=== PATIENT | male | born 2000 | race Caucasian/White ===

== ENCOUNTER 2023-12-15 08:53 | Emergency (ER) | payer SELFPAY ==
[2023-12-15 08:53] VITALS: BP 149/91; PULSE 118; RESP 20; TEMP 36.3; O2SAT 97; BMI 22.3
--- NOTE | 2023-12-15 09:08 | EX.ED.VIS.UR ---
HPI HPI - URI History of Present Illness Chief Complaint: Cold Sx Informant: patient Narrative Narrative: Patient has had an illness with fever for the past 2 days. Multiple sick contacts at work with illness that have been out recently because of that. He has had a nonproductive cough along with some burning in his chest only when he coughs. No pleuritic symptoms if he is not coughing and no dyspnea. Initially fever was in the 100 range, this morning was 103.9. He has had a sore throat and some congestion with it, as well as vomiting. He states he has been drinking fluids, having trouble keeping it down but is drinking. He is urinating. ROS ROS ED Constitutional Constitutional ED: Reports body ache(s), chills, fatigue, fever(s), headache(s) and malaise Eyes Eyes: Denies change in vision or diplopia ENT ENT ED: Reports nasal congestion and sore throat Cardiovascular Cardiovascular: Reports as per HPI and chest pain; Denies leg edema, palpitations or radiating jaw, neck or arm pain Respiratory/Chest Respiratory/Chest: Reports cough; Denies dyspnea or dyspnea on exertion Gastrointestinal Gastrointestinal: Reports nausea and vomiting; Denies abdominal pain or diarrhea Genitourinary Genitourinary ED: Denies dysuria or hematuria Musculoskeletal Musculoskeletal: Denies back pain or neck pain Integumentary Denies abscess or rash Neurologic Neurologic: Reports headache(s); Denies paresthesias or weakness Psychiatric Psychiatric: Denies anxiety or suicidal thoughts PFSH PFSH Medical History no medical history no medical history Allergy/AdvReac Type Severity Reaction Status Date / Time No Known Allergies Allergy Verified 12/15/23 08:55 Social History Smoking Status: Never smoker EXAM Physical Exam Const Vital Signs: 12/15/23 08:53 Temperature 97.4 F L Temperature Source Temporal Pulse Rate 118 H Respiratory Rate 20 H Blood Pressure 149/91 H Blood Pressure Mean 110 Pulse Ox 97 Oxygen Delivery Method Room Air Positive well nourished and well developed Constitutional Narrative: Malaised-appearing, no distress General Appearance ED: well developed and NAD HEENT Reports moist mucous membranes HEENT Narrative: Posterior oropharynx with diffuse mild erythema no exudates or petechia. No tonsillar asymmetry/enlargement/exudates. No trismus. normocephalic and atraumatic Eyes PERRL and EOMs intact bilaterally Neck full ROM, no lymphadenopathy, supple and no meningeal signs Resp normal respiratory effort and clear to auscultation bilaterally Cardio regular rate, regular rhythm and no murmurs GI non-tender and non-distended Auscultation: normoactive bowel sounds Palpation: soft Back/Spine no CVA tenderness General Back: other FROM Extremity normal to inspection and no calf tenderness General Extremety ED: Negative for edema, pulses abnormal or tenderness General Extremity: Negative for edema or pulses abnormal Neuro oriented x3, CN's II-XII intact bilaterally and no sensory deficits noted Sensorium / Orientation: awake and alert Motor Exam: strength 5/5 throughout Skin no rashes or lesions noted and no wounds MDM MDM MDM Narrative Medical decision making narrative: Very likely viral syndrome here. His pulse ox is 97% room air his lungs are clear to auscultation throughout and he is not dyspneic so I do not think he needs a chest x-ray this does not sound like pneumonia due to all of this. More likely to be viral in etiology than strep, so COVID/influenza/RSV swab was sent and he was offered treatment options. He was offered IV fluids, oral ibuprofen, and Zofran/Toradol. He opted for IM Toradol with an oral Zofran and no IV. This was given. I felt a little better. His swab is positive for influenza A, supporting the lack of need for a chest x-ray. Patient given instructions for supportive care and a work note. Discharge Plan Triage Chief Complaint: Cold Sx ED Provider: Julio Vega Dx/Rx/DC Orders Clinical Impression: Influenza A Instructions: ED Influenza (Adult) Stand Alone Forms: ED Work / School Excuse Primary Care Provider: Care Physician,No Primary Referrals: Doctor,Your [Non-Staff] - As Needed Disposition Disposition: Home, Self Care
[2023-12-15] MEDS: Ketorolac 60 MG/2 ML Vial IM (09:16)
--- OUTSIDE RECORDS SUMMARY | 2023-12-15 09:16 | XMS RPT_ITS | CCD ---
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 Name Role Phone POMEREID, [facility] Admitting Unava ilable [facility], [facility] Attending Unava ilable [facility], [facility] Primary Care Unava ilable KENNY, DR RUSTY Dunn Admitting Unavaila ble KENNY, DR RUSTY Dunn Attending Unavaila ble KENNY, DR RUSTY Dunn Primary Care Unavaila ble KENNY, DR RUSTY Dunn Admitting Unavaila ble KENNY, DR RUSTY Dunn Attending Unavaila ble KENNY, DR RUSTY Dunn Primary Care Unavaila ble BROWN, CHARISSA Attending Unavailable Problems Problem Classification Problem Date Documented Da te Episodic/Chronic Acute and chronic tonsillitis (1 source) Acute tonsillitis, unspecified; Translations: [Acute tonsillitis, unspecified] Onset: 04-25-2023 Episodic Esophageal disorders (1 source) Gastro-esophageal reflux disease without esophagitis; Translations: [Gastro-esophageal reflux disease without esophagitis] Onset: 04-25-2023 Chronic Other upper respiratory disease (1 source) Other seasonal allergic rhinitis; Translations: [Other seasonal allergic rhinitis] Onset: 04-25-2023 Chronic Otitis media and related conditions (1 source) Acute suppurative otitis media without spontaneous rupture of ear drum, bilateral; Translations: [Acute suppurative otitis media without spontaneous rupture of ear drum, bilateral] Onset: 04-25-2023 Episodic Results Test Name Value Interpretation Reference Range Facil ity Encounters Encounter Date Encounter Type Care Provider Facility Start: 04-25-2023 End: 04-25-2023 ambulatory CHARISSA MORELOS [facility] Start: 10-21-2021 End: 10-21-[address] [facility] Start: 10-11-2021 End: 10-11-[address] RUSTY COX [facility] Start: 11-30-2020 End: 11-30-2020 ambulatory [facility] Payers Date Payer Category Payer Unknown [id number] 2002 Unknown [id number] Unknown [id number] Summary Purpose Family History No Family History Records FoundNo Family History Records FoundNo Family History Records Found Advance Directives No Advanced Directives Records FoundNo Advanced Directives Records FoundNo Advanced Directives Records Found Additional Source Comments (unrecognized sect ion and content) No Status Records FoundNo Status Records FoundNo Status Records Found INFORMATION SOURCE (unrecogn ized section and content) DATE CREATED AUTHOR AUTHOR'S ORGANIZ ATION 10/22/2021 [facility] DATE CREATED AUTHOR AUTHOR'S ORGANIZ ATION 04/26/2023 [facility] FOR RECORDS PERTAINING TO PATIENTS WHO ARE OR HAVE BEEN ENROLLED IN A CHEMICAL DEPENDENCY/SUBSTANCEABUSE PROGRAM, SOME INFORMATION MAY BE OMITTED. This clinical summary was aggregated from multiple sources. Caution should be exercised in using it in the provision of clinical care. This summary normalizes information from multiple sources, and as a consequence, information in this document may materially change the coding, format and clinical context of patient data. In addition, data may be omitted in some cases. CLINICAL DECISIONS SHOULD BE BASED ON THE PRIMARY CLINICAL RECORDS. [employer] provides no warranty or guarantee of the accuracy or completeness of information in this document.
[2023-12-15] MEDS: Ondansetron ODT 4 MG Tablet 8 MG PO (09:17)
[2023-12-15 11:14] VITALS: BP 123/75; PULSE 87; RESP 16; TEMP 37; O2SAT 99
== END 2023-12-15 11:15 | disposition home or self-care (01) ==
PROVIDERS: Emergency Provider Emergency Medicine; Visit Provider Emergency Medicine
DX: J10.1 Influenza due to other identified influenza virus with other respiratory manifestations (principal)
CPT/HCPCS: 87631; 96372; 99282

== ENCOUNTER 2025-10-03 19:35 | Emergency (ER) | payer BC, SELFPAY ==
[2025-10-03 19:35] VITALS: BP 145/94; PULSE 83; RESP 14; TEMP 36.2; O2SAT 98; BMI 22.4
--- NOTE | 2025-10-03 20:00 | CT_ITS ---
PROCEDURE: ABDOMEN/PELVIS WITHOUT CONT 10/03/2025 REASON FOR EXAM: FLANK PAIN TECHNIQUE: Procedure Code: CTABDPEL Modality: CT Procedure: ABDOMEN/PELVIS WITHOUT CONT Noncontrast technique limits evaluation of the abdominal and pelvic viscera. Coronal and Sagittal reconstruction series were provided. One or more dose reduction techniques were used (e.g., Automated exposure control, adjustment of the mA and/or kV according to patient size, use of iterative reconstruction technique). RADIATION DOSE SUMMARY: DLP: 401.87 mGycm COMPARISON: None available FINDINGS: Lung bases: The lung bases are clear. Liver: Normal in size. Normal morphology. Gallbladder: Contracted gallbladder. No biliary ductal dilatation. Spleen: Unremarkable. Pancreas: Unremarkable. Adrenals: Unremarkable. Kidneys: Asymmetrically enlarged left kidney. Left nephrostomy tube extends the region of the pelvis. Left hydronephrosis and mild left proximal hydroureter. There is a nonspecific punctate focus of hypodensity in the left lower pole which appears cortically located (series 2, image 66). No right hydroureteronephrosis or nephroureterolithiasis. Urinary bladder: Unremarkable. Bowel: The stomach is unremarkable. The small and large bowel are normal in caliber. No evidence of small bowel obstruction. Appendix: Unremarkable. Lymph nodes: No lymphadenopathy. Vasculature: No abdominal aortic aneurysm. Peritoneum / Retroperitoneum: No ascites. Reproductive Organs: Prostate is normal in size. Symmetrical seminal vesicles. Bones: No aggressive osseous lesions. CT/Abdomen/Pelvis without Cont IMPRESSION: 1. Left hydronephrosis. A left nephrostomy tube is extends to the left renal p gavin. 2. Nonspecific punctate focus hypodensity in the left lower pole which appears cortically located. Reading Location: [id number]
--- NOTE | 2025-10-03 20:01 | EDS_ITS ---
HPI History of Present Illness Chief Complaint: Other, Pain/Inj Informant: patient Onset/Context/Timing Onset: Today Context: Sudden Onset Timing: Intermittent Quality: Sharp Location: Left flank Worsened by: Nothing Relieved by: Nothing Narrative Narrative: Patient presents with possible nephrostomy tube displacement. Patient noted that the sutures around his nephrostomy tube popped out. Patient states that the nephrostomy tube had been pulled out approximately 1 inch. Patient states it is still collecting urine. Patient admits to some dysuria. Patient denies any fevers or chills. Patient denies any nausea or vomiting. Patient states he did have an episode where he felt his heart racing and felt short of breath. Patient states nothing makes his symptoms worse and nothing makes it better. [facility] Medical History (Updated 10/03/25 @ 23:[address] Wolf Frausto DO) Ureteral reflux Nephrostomy present Home Medications ?Medication ?Instructions ?Recorded ?Last Taken ?Type ciprofloxacin HCl 500 mg tablet 500 mg PO BID #20 TABL ETS 10/03/25 Unknown Rx Allergy/AdvReac Type Severity Reaction Status Date / Time No Known Allergies Allergy Verified 10/03/25 19:37 Surgical History (Updated 10/03/25 @ 23:[address] Wolf Frausto DO) History of urologic surgery Social History Smoking Status: Never smoker ROS ROS ED Constitutional Constitutional ED: Denies chills or fever(s) Eyes Eyes: Denies blurry vision or change in vision ENT ENT ED: Denies rhinorrhea or sore throat Cardiovascular Cardiovascular: Reports palpitations and racing heartbeat; Denies chest pain Respiratory/Chest Respiratory/Chest: Reports dyspnea; Denies cough Gastrointestinal Gastrointestinal: Denies nausea or vomiting Genitourinary Genitourinary ED: Reports dysuria; Denies hematuria Musculoskeletal Musculoskeletal: Reports back pain; Denies neck pain Integumentary Denies abscess or rash Neurologic Neurologic: Denies headache(s) or weakness Allergic/Immunologic Allergic/Immunologic ED: Denies mouth swelling or urticaria EXAM Physical Exam Const Vital Signs: 10/03/25 19:35 10/03/25 20:11 Temperature 97.1 F L Temperature Source Temporal Pulse Rate 83 Respiratory Rate 14 Respiratory Effort Normal Respiratory Pattern Normal Blood Pressure 145/94 H Blood Pressure Mean 111 Pulse Ox 98 Oxygen Delivery Method Room Air Positive well nourished and well developed Constitutional Narrative: BMI is 22.4. General Appearance ED: well developed and NAD HEENT Reports moist mucous membranes Neck supple and no JVD Resp normal respiratory effort and clear to auscultation bilaterally Cardio regular rate and regular rhythm GI non-tender and non-distended Palpation: soft Back/Spine Back/Spine Narrative: Nephrostomy tube is in place. There is minimal tenderness. Neuro oriented x3, CN's II-XII intact bilaterally and no sensory deficits noted Sensorium / Orientation: alert Motor Exam: strength 5/5 throughout Psych mental status grossly normal MDM MDM MDM Narrative Medical decision making narrative: Differential diagnosis includes urinary tract infection, displaced nephrostomy tube, pyelonephritis, and retroperitoneal hematoma. CT scan of the abdomen and pelvis will be obtained to assess for retroperitoneal hematoma and displacement of the nephrostomy tube. CBC will be obtained to assess for leukocytosis and anemia. Basic metabolic profile will be obtained to assess for electrolyte abnormality and renal function. Urinalysis will be obtained to assess for urinary tract infection and hematuria. Lab Data Attestation: I reviewed the patient's lab results. Lab results narrative: CBC was reviewed and was within normal limits. Basic metabolic profile was reviewed and was within normal limits. Urinalysis was reviewed. Leukocyte esterase was 500. There are greater than 100 white blood cells and 3+ bacteria. Labs: Laboratory Results - last 24 hr 10/03/25 20:09 WBC 6.7 RBC 5.26 Hgb 15.1 Hct 47.3 MCV 89.9 MCH 28.7 MCHC 31.9 L RDW Std Deviation 40.4 RDW Coeff of Humera 12.3 Plt Count 308 MPV 11.5 Immature Gran % (Auto) 0.300 Neut % (Auto) 49.6 Lymph % (Auto) 34.6 Norman % (Auto) 11.0 H Eos % (Auto) 3.9 Baso % (Auto) 0.6 Absolute Neuts (auto) 3.3 Absolute Lymphs (auto) 2.32 Nucleated RBC % 0 Sodium 142 Potassium 4.1 Chloride 104 Carbon Dioxide 26.2 Anion Gap 12 BUN 10 Creatinine 1.08 Estim Creat Clear Calc 116.85 Est GFR (MDRD) Non-Af 100 BUN/Creatinine Ratio 9.1 L Glucose 83 Calcium 9.6 Urine Color Straw Urine Clarity Cloudy Urine pH 6.5 Ur Specific [place] 1.015 Urine Protein 100 H Urine Glucose (UA) Normal Urine Ketones Negative Urine Occult Blood 25 H Urine Nitrite Negative Urine Bilirubin Negative Urine Urobilinogen Normal Ur Leukocyte Esterase 500 H Urine RBC 5-10 SEEN Urine WBC >100 SEEN Ur Squamous Epith Cells 0-5 SEEN Urine Bacteria 3+ Urine Mucus 0 SEEN Radiography Diagnostic Testing: Clinical Impression(s) from Imaging Studies Abdomen/Pelvis CT 10/03/25 20:00 IMPRESSION: 1. Left hydronephrosis. A left nephrostomy tube is extends to the left renal pelvis. 2. Nonspecific punctate focus hypodensity in the left lower pole which appears cortically located. Reading Location: [facility] CT scan of the abdomen and pelvis was obtained. There is a left nephrostomy tube in the left renal pelvis. There is mild left hydronephrosis and proximal h ydroureter. There is a nonspecific hypodensity in the left lower pole. This was interpreted by the radiologist. I also independently reviewed the images and did not see any evidence of retroperitoneal hematoma, free air, or free fluid. Additional Tests and Interventions Additional Tests or Interventions: Urine culture was ordered. Treatment and Re-Evaluation :: Patient was given IV fluids. Patient was given a dose of Rocephin here. Patient was given a prescription for Cipro. Patient was instructed to follow-up with his primary care physician and urologist in 5 to 7 days. Patient was instructed to return if worse in any way. Patient understood and was agreeable with the plan. All questions were answered. Discharge Plan Triage Chief Complaint: Other, Pain/Inj ED Provider: Wolf Frausto Dx/Rx/DC Orders Clinical Impression: Urinary tract infection, History of insertion of nephrostomy tube Instructions: ED Bladder Infection, Male (Adult), ED Pyelonephritis, Male (Adult) Prescriptions: New ciprofloxacin HCl 500 mg tablet 500 mg PO BID Qty: 20 0RF Primary Care Provider: Care Physician,No Primary Referrals: Care Physician,No Primary [Primary Care Provider, Medical] Activity Restrictions/Additional Instructions: Take the antibiotics as prescribed until gone. Follow-up with Dr. Silva in 3 to 5 days. Print Language: Citizen Of [place] Disposition Disposition: Home, Self Care
[2025-10-03] MEDS: 0.9% Normal Saline (1000mL) 1,000 ML 1000 ML IV (20:10)
[2025-10-03 20:14] LABS: Mucous, Urine 0 SEEN /hpf (<or=2+)
[2025-10-03 20:16] LABS: Hematocrit 47.3 % (40-54); Hemoglobin 15.1 g/dL (13.0-16.5); Immature Granulocytes Count 0.020 X10^3/uL (0.0-0.0); Mean Corp Hgb Conc 31.9 g/dL (32-36); Mean Corpuscular Volume 89.9 fL (80-94); Mean Platelet Vol. 11.5 fl (6.2-12.0); NRBC Flagged by Analyzer 0 % (0-5); Platelet Count 308 K/mm3 (150-450); RBC Distribution Width CV 12.3 % (11.6-14.6); RBC Distribution Width SD 40.4 fl (35.1-43.9); Red Blood Count 5.26 M/mm3 (4.6-6.2); White Blood Count 6.7 K/mm3 (4.4-11.0)
[2025-10-03 20:17] LABS: Color, Urine Straw (Yellow); Glucose, Dipstick Normal (Normal); Ketone-Dipstick Negative (Negative); Leukocyte Esterase-Dipstick 500 /ul (Negative); Nitrite-Dipstick Negative (Negative); Occult Blood-Urine 25 /ul (Negative); Protein-Dipstick 100 mg/dl (Negative); Specific Gravity, Urine 1.015 (1.002-1.030); Urine Bilirubin Dipstick Negative (Negative)
[2025-10-03 20:25] LABS: Red Blood Cells-Urine 5-10 SEEN /hpf (0-5); Squamous Epithelial Cells - UA 0-5 SEEN /hpf (0-5)
[2025-10-03 20:35] LABS: Anion Gap 12 (7-18); BUN 10 mg/dL (4-19); BUN/Creat Ratio 9.1 RATIO (10-20); Calcium,Total 9.6 mg/dL (7.6-11.0); Carbon Dioxide 26.2 mmol/L (20.0-29.0); Chloride 104 mmol/L (96-106); Estimated Creatinine Clearance 116.85 ml/min (50-250); Glucose 83 mg/dL (70-99); Potassium 4.1 mmol/L (3.5-5.1)
--- OUTSIDE RECORDS SUMMARY | 2025-10-03 21:00 | XMS RPT_ITS | CCD ---
Author Organization [facility] Care Team Providers Care Teamcenter Solution Architect Name Role Phone TAMYCHARISSA Attending Unavailable Julio Vega Attending Unavailable Care Physician, No Primary Primary Care Unava marley Villa MD, Irvin Galeano Primary Care Provider [phone] Alia BRIONES, Sagar Primary Care Provider FRANKIE BRIONES, DR BARRY Corley Attending Unavailable Basilio Gould MD Unavailable [phone] Basilio Gould MD Unavailable LATOUF, BUTROS Primary Care Unavailable LATOUF, BUTROS Primary Care Unavailable BRYANNA, CHRISTOPHER J Attending Unavailable LATOUF, BUTROS Primary Care Unavailable BRYANNA, CHRISTOPHER J Admitting Unavailable BRYANNA, CHRISTOPHER J Attending Unavailable LATOUF, BUTROS Primary Care Unavailable BRYANNA, CHRISTOPHER J Attending Unavailable LATOUF, BUTROS Primary Care Unavailable BRYANNA, CHRISTOPHER J Attending Unavailable LATOUF, BUTROS Primary Care Unavailable BRYANNA, CHRISTOPHER J Referring Unavailable LATOUF, BUTROS Primary Care Unavailable BRYANNA, CHRISTOPHER J Referring Unavailable LATOUF, BUTROS Primary Care Unavailable BRYANNA, CHRISTOPHER J Attending Unavailable LATOUF, BUTROS Primary Care Unavailable BRYANNA, CHRISTOPHER J Admitting Unavailable RBYANNA, CHRISTOPHER J Attending Unavailable LATOUF, BUTROS Primary Care Unavailable BRYANNA, CHRISTOPHER J Attending Unavailable LATOUF, BUTROS Primary Care Unavailable BRYANNA, CHRISTOPHER J Attending Unavailable LATOUF, BUTROS Primary Care Unavailable LATOUF, BUTROS Primary Care Unavailable BRYANNA, CHRISTOPHER J Referring Unavailable LATOUF, BUTROS Primary Care Unavailable BRYANNA, CHRISTOPHER J Attending Unavailable LATOUF, BUTROS Primary Care Unavailable BRYANNA, CHRISTOPHER J Attending Unavailable LATOUF, BUTROS Primary Care Unavailable PICCARI, ANANDA M Attending Unavailable LATOUF, BUTROS Primary Care Unavailable PAT WILL Attending Unavailable LATOUF, BUTROS Primary Care Unavailable PICCARI, ANANDA M Referring Unavailable LATOUF, BUTROS Primary Care Unavailable PICCARI, ANANDA M Referring Unavailable LATOUF, BUTROS Primary Care Unavailable PICCARI, ANANDA M Referring Unavailable LATOUF, BUTROS Primary Care Unavailable PICCARI, ANANDA M Referring Unavailable LATOUF, BUTROS Primary Care Unavailable PICCARI, ANANDA M Referring Unavailable LATOUF, BUTROS Primary Care Unavailable SIMIN JONES Attending Unavail able LATOUF, BUTROS Primary Care Unavailable NEWSOME, CILFTON Attending Unavailable SELF, SELF Referring Unavailable SWEIGERT, RENA E Attending Unavailable SWEIGERT, RENA E Referring Unavailable SELF, SELF Referring Unavailable SWEIGERT, RENA E Attending Unavailable SELF, SELF Referring Unavailable SWEIGERT, RENA E Attending Unavailable NEWSOME, CLIFTON Attending Unavailable NEWSOME, CLIFTON Referring Unavailable SELF, SELF Referring Unavailable NEWSOME, CLIFTON Attending Unavailable NEWSOME, CLIFTON Attending Unavailable LATOUF, BUTROS Referring Unavailable NEWSOME, CLIFTON Referring Unavailable NEWSOME, CLIFTON Attending Unavailable NEWSOME, CLIFTON Attending Unavailable SELF, SELF Referring Unavailable SHELBY DAMICO Attending Unavailable IHISSCHEDULE, INTERVENTIONAL RAD Admitting Unavailable SWEIGERT, RENA E Referring Unavailable JESSICA, BRANDON S Admitting Unavailable JESSICABRANDON S Attending Unavailable SELF, SELF Referring Unavailable BRANDON SCHWARZ S Attending Unavailable CLIFTON NEWSOME Referring Unavailable SAGAR ROJO MD Consulting Unavailable SAGAR ROJO MD Referring Unavailable KENNY, RUSTY E Primary Care Unavailable KENNY RUSTY E Attending Unavailable KENNY, RUSTY E Admitting Unavailable PROVIDER, UNKNOWN Consulting Unavailable PROVIDER, UNKNOWN Consulting Unavailable PROVIDER, UNKNOWN Consulting Unavailable DONI MATHIS Primary Care Unavailable SAGAR ROJO MD Consulting Unavailable SAGAR ROJO MD Referring Unavailable DONI MATHIS Admitting Unavailable DONI MATHIS Attending Unavailable PROVIDER, UNKNOWN Consulting Unavailable PROVIDER, UNKNOWN Consulting Unavailable PROVIDER, UNKNOWN Consulting Unavailable COVERDALE, JUMA BRIONES Attending Unavailable COVERDAJUMA DAY MD Admitting Unavailable SAGAR ROJO MD Referring Unavailable SAGAR ROJO MD Consulting Unavailable COVERDALEJUMA MD Primary Care Unavailable PROVIDER, UNKNOWN Consulting Unavailable PROVIDER, UNKNOWN Consulting Unavailable PROVIDER, UNKNOWN Consulting Unavailable DOYLE STORM DO Attending Unavailable DOYLE STORM DO Admitting Unavailable SAGAR ROJO MD Consulting Unavailable DOYLE STORM DO Primary Care Unavailable PROVIDER, UNKNOWN Consulting Unavailable PROVIDER, UNKNOWN Consulting Unavailable PROVIDER, UNKNOWN Consulting Unavailable MANOJ MORALES JR Attending Unavailable MANOJ MORALES JR Admitting Unavailable MANOJ MORALES JR Primary Care Unavailable SAGAR ROJO MD Referring Unavailable SAGAR ROJO MD Consulting Unavailable RUSTY COX Primary Care Unavailable RUSTY COX Attending Unavailable RUSTY COX Admitting Unavailable PROVIDER, UNKNOWN Consulting Unavailable PROVIDER, UNKNOWN Consulting Unavailable PROVIDER, UNKNOWN Consulting Unavailable DONI MATHIS Admitting Unavailable SAGAR ROJO MD Referring Unavailable SAGAR ROJO MD Consulting Unavailable DONI MATHIS Primary Care Unavailable DONI MATHIS Attending Unavailable PROVIDER, UNKNOWN Consulting Unavailable PROVIDER, UNKNOWN Consulting Unavailable PROVIDER, UNKNOWN Consulting Unavailable VIKTOR RAMOS Attending Unavailable VIKTOR RAMOS Admitting Unavailable SAGAR ROJO MD Consulting Unavailable SAGAR ROJO MD Referring Unavailable VIKTOR RAMOS Primary Care Unavailable PROVIDER, UNKNOWN Consulting Unavailable PROVIDER, UNKNOWN Consulting Unavailable PROVIDER, UNKNOWN Consulting Unavailable AMENA YANCEY Attending Unavailable AMENA YANCEY Admitting Unavailable AMENA YANCEY Primary Care Unavailable VAIBHAV SORIA Attending Unavailable VAIBHAV SORIA Admitting Unavailable VAIBHAV SORIA Primary Care Unavailable SAGAR ROJO MD Attending Unavailable SAGAR ROJO MD Admitting Unavailable SAGAR ROJO MD Primary Care Unavailable SAGAR ROJO MD Consulting Unavailable PROVIDER, UNKNOWN Consulting Unavailable PROVIDER, UNKNOWN Consulting Unavailable PROVIDER, UNKNOWN Consulting Unavailable Allergies Allergy Classification Reported Allergen(s) Allergy Type Date of Onset Reaction(s) Facility (20 sources) HYDROmorphone; Translations: [HYDROMORPHONE] Drug Allergy 04-07-2024 Rash [facility] Medications Current Medications Medication Drug Class(es) Dates Sig (Normalized) Sig (Original) cephalexin 500 mg oral capsule (14 sources) Cephalosporin Antibacterial Start: 03-26-2025 End: 04-02-2025 take 1 capsule by mouth three times daily cephALEXin (KEFLEX) 500 mg capsule Take 1 capsule by mouth three times a day for 7 days. 21 capsule 03/26/2025 04/02/2025 Active Start: 02-12-2025 End: 02-13-2025 take 1 dose by mouth every 30 days 500 mg, ORAL, ONCE (UP TO 30 DAYS AMB), 1 dose, On Ewelina 02/12/25 at 1130, Antimicrobial indication: Prophylaxis Start: 01-26-2025 End: 03-26-2025 take 1 capsule by mouth every twelve hours cephALEXin (KEFLEX) 500 mg capsule Take 1 capsule by mouth every 12 hours. 01/26/2025 03/26/2025 Discontinued Start: 10-20-2024 End: 11-03-2024 take 1 capsule by mouth three times daily cephALEXin (KEFLEX) 500 mg capsule Take 1 capsule by mouth three times a day for 14 days. 42 capsule 10/20/2024 11/03/2024 Active Start: 06-13-2024 End: 06-16-2024 take 1 capsule by mouth three times daily cephALEXin (KEFLEX) 500 mg capsule Indications: Ureteral stricture, left Take 1 capsule by mouth three times a day for 3 days. 9 capsule 06/13/2024 06/16/2024 Active Start: 02-10-2024 End: 02-13-2024 take 1 capsule by mouth every twelve hours cephALEXin (KEFLEX) 500 mg capsule Take 1 capsule by mouth every 12 hours for 3 days. 6 capsule 0 02/10/2024 02/13/2024 ciprofloxacin 500 mg oral tablet (9 sources) Quinolone Antimicrobial Start: 04-05-2025 ciprofloxacin HCl (CIPRO) 500 mg tablet 04/05/2025 Active Ibuprofen (10 sources) Nonsteroidal Anti-inflammatory Drug IBUPROFEN (MOTRIN ORAL) Take by mouth. 0 Active IBUPROFEN (MOTRI N ORAL) Take by mouth. 0 Suspended lidocaine hydrochloride 0.02 mg/mg topical gel (7 sources) Antiarrhythmic, Amide Local Anesthetic Start: 02-12-2025 End: 03-14-2025 lidocaine urojet 2 % 11 mL topical gel (GLYDO) Start: 12-25-2024 End: 01-24-2025 lidocaine urojet 2 % 11 mL t opical gel (GLYDO) Start: 06-13-2024 End: 06-13-2024 lidocaine urojet 2 % 11 mL t opical gel (GLYDO) Start: 06-13-2024 End: 06-13-2024 11 mL, URETHRAL, ONCE, 1 dos e, On Sun06/13/24 at 1100 oxyCODONE hydrochloride 10 mg oral tablet (2 sources) Opioid Agonist oxyCODONE IR (ROXICODONE) 10 mg tab Take by mouth as needed for pain. Active polyethylene glycol 3350 39910 mg powder for oral solution (4 sources) Osmotic Laxative Start: End: polyethylene glycol 3350 17 gram packet Take 1 Packet by mouth once daily for 5 days. Dissolve dose in 4 - 8 ounces of liquid and take as directed. 5 Packet 0 02/10/2024 02/15/2024 Active Polyethylene Glycols (20 sources) take 17 mg by mouth once daily as needed polyethylene glycol 3350 (MIRALAX ORAL) Take 17 mg by mouth once daily as needed. Active take 17 mg by mouth twice daily polyethylene glycol 3350 (MIRALAX ORAL) Take 17 mg by mouth two times a day. Active take 17 mg by mouth twice daily polyethylene glycol 3350 (MIRALAX ORAL) Take 17 mg by mouth two times a day. 0 Active 5 ml sodium chloride 9 mg/ml injection (4 sources) Start: 07-10-2025 Sodium Chlorid e Flush (Saline Flush) 0.9 % Solution Flush nephrostomy tube once daily. 10 mL 5 07/10/2025 Active Start: 07-10-2025 End: 07-11-2025 Intravenous, at 20 mL/hr, CO NTINUOUS, Starting on Sun07/10/25 at 0630, Until 07/11/25 at 0823, Pre-op/Pre-Proc Completed/Discontinued Medications Medication Drug Class(es) Dates Sig (Normalized) Sig (Original) Acetaminophen (1 source) Start: 07-10-2025 End: 07-11-2025 take 1 tablet by mouth every six hours as needed Acetaminophen (TYLENOL) tablet 650 mg acetaminophen 325 mg / oxyCODONE hydrochloride 5 mg oral tablet (8 sources) Opioid Agonist Start: 10-20-2024 End: 07-11-2025 take 1 tablet by mouth once as needed oxyCODONE-acetamino phen 5-325 MG per tablet Take 1 tablet by mouth as needed. 10/20/2024 07/11/2025 Discontinued (Stop Taking at Discharge) Start: 10-20-2024 End: 10-23-2024 take 1 tablet by mouth every six hours as needed for pain oxyCODONE-acetaminophen (PERCOCET) 5-325 mg tablet Indications: Renal calculus, left , Ureteral stricture, left Take 1 tablet by mouth every 6 hours as needed for pain for up to 3 days. 12 tablet 10/20/2024 10/23/2024 Active Start: 05-14-2024 End: 05-17-2024 take 1 tablet by mouth every six hours as needed for pain oxyCODONE-acetaminophen (PERCOCET) 5-325 mg tablet Indications: Ureteral stricture, left Take 1 tablet by mouth every 6 hours as needed for pain for up to 3 days. 12 tablet 0 05/14/2024 05/17/2024 Active cefTRIAXone 2000 mg injection (1 source) Cephalosporin Antibacterial Start: 07-10-2025 End: 07-10-2025 2 g, Intravenous, Administer over 30 Minutes, CASH APPLICATION REPRESENTATIVE TO PROCEDURE, 1 dose, Starting on Sun07/10/25 at 0616, Until Sun07/10/25 at 0717, Other, Surgical Prophylaxis, Initiate antibiotic based on infusion time to complete administration 30-60 minutes prior to surgical incision. , Pre-op/Pre-Proc iohexol (OMNIPAQUE) 350 MG/ML injection 20 mL (2 sources) Start: 01-21-2025 End: 01-21-2025 iohexol (OMNIPAQUE) 350 MG/ML injection 20 mL Start: 01-21-2025 End: 01-21-2025 20 mL, Other, ONCE NEEDED , 1 dose, Starting on Sun01/21/25 at 0900, Until Sun01/21/25 at 0900 loratadine 10 mg oral tablet (20 sources) End: 07-11-2025 Loratadine 10 MG tablet 1 tablet daily. 07/11/2025 Discontinued (Stop Taking at Discharge) Ondansetron (2 sources) Serotonin-3 Receptor Antagonist Start: 07-10-2025 End: 07-11-2025 take 1 tablet by mouth every six hours as needed Ondansetron (ZOFRAN) tablet 4 mg Start: 07-10-2025 End: 07-10-2025 4 mg, Intravenous, ONCE N EEDED, 1 dose, Starting on Sun07/10/25 at 0725, Until Sun07/10/25 at 0909, Nausea, Intra-op/Intra-Proc tamsulosin hydrochloride 0.4 mg oral capsule (20 sources) alpha-Adrenergic Elvira Start: 11-20-2024 End: 07-11-2025 take 1 capsule by mouth once daily Tamsulosin HCl 0.4 MG capsule Take 1 capsule by mouth daily. 11/20/2024 07/11/2025 Discontinued (Stop Taking at Discharge) Start: 02-10-2024 End: 03-12-2024 take 1 capsule by mouth once daily tamsulosin (FLOMAX) 0.4 mg Take 1 capsule by mouth once daily for 5 days. 5 capsule 0 02/11/2024 Active Problems Active Problems Problem Classification Problem Date Documented Date Episodic/Chronic Abdominal pain (20 sources) Left flank pain; Translations: [Unspecified abdominal pain] Onset: 08-29-2024 08-29-2024 Episodic Acute and chronic tonsillitis (1 source) Acute tonsillitis, unspecified; Translations: [Acute tonsillitis, unspecified] Onset: 04-25-2023 Episodic Calculus of urinary tract (20 sources) Ureteric stone; Translations: [Calculus of ureter] Onset: 02-06-2024 02-07-2024 Episodic Esophageal disorders (1 source) Gastro-esophageal reflux disease without esophagitis; Translations: [Gastro-esophageal reflux disease without esophagitis] Onset: 04-25-2023 Chronic Fever of unknown origin (1 source) Fever, unspecified; Translations: [Fever, unspecified] Onset: 12-19-2023 Episodic Influenza (1 source) Influenza due to Influenza A virus; Translations: [Influenza due to other identified influenza virus with other respiratory manifestations] 12-15-2023 Episodic Other aftercare (2 sources) Encounter for follow-up examination after completed treatment for conditions other than malignant neoplasm; Translations: [Encounter for follow-up examination after completed treatment for conditions other than malignant neoplasm] Onset: 08-19-2025 Episodic Other diseases of kidney and ureters (5 sources) Unspecified hydronephrosis; Translations: [Hydronephrosis, left] Onset: 05-13-2024 Episodic Other diseases of kidney and ureters (3 sources) Crossing vessel and stricture of ureter without hydronephrosis; Translations: [Ureteral stricture, left] Onset: 10-20-2024 Episodic Other upper respiratory disease (1 source) Other seasonal allergic rhinitis; Translations: [Other seasonal allergic rhinitis] Onset: 04-25-2023 Chronic Otitis media and related conditions (1 source) Acute suppurative otitis media without spontaneous rupture of ear drum, bilateral; Translations: [Acute suppurative otitis media without spontaneous rupture of ear drum, bilateral] Onset: 04-25-2023 Episodic Residual codes; unclassified (2 sources) Other specified postprocedural states; Translations: [Other specified postprocedural states] Onset: 07-10-2025 Episodic Unclassified (1 source) Flank pain, left side; Translations: [Flank pain, left side] Onset: 01-06-2025 Urinary tract infections (2 sources) Urinary tract infection, site not specified; Translations: [Urinary tract infection, site not specified] Onset: 06-26-2025 Episodic Past or Other Problems Problem Classification Problem Date Documented Date Episodic/Chronic Complications of surgical procedures or medical care (9 sources) Postoperative urethral stricture; Translations: [Postprocedural fossa navicularis urethral stricture] Onset: 01-06-2025 01-06-2025 Episodic Genitourinary symptoms and ill-defined conditions (20 sources) Finding of sensation of bladder; Translations: [Feeling of incomplete bladder emptying] Onset: 12-04-2024 12-04-2024 Episodic Mood disorders (4 sources) Mood disorders Onset: 07-08-2025 07-08-2025 Other diseases of bladder and urethra (8 sources) Urethral stricture; Translations: [Unspecified urethral stricture, male, unspecified site] Onset: 01-06-2025 01-06-2025 Episodic Other diseases of kidney and ureters (20 sources) Hydronephrosis; Translations: [Unspecified hydronephrosis] Onset: 02-07-2024 02-07-2024 Episodic Other diseases of kidney and ureters (20 sources) Stricture of ureter; Translations: [Crossing vessel and stricture of ureter without hydronephrosis] Onset: 04-07-2024 04-07-2024 Episodic Other diseases of kidney and ureters (2 sources) Hydronephrosis with ureteral stricture, not elsewhere classified; Translations: [Hydronephrosis with ureteral stricture, not elsewhere classified] Onset: 06-13-2024 Episodic Other diseases of kidney and ureters (1 source) Other hydronephrosis; Translations: [Other hydronephrosis] Onset: 05-13-2024 Episodic Other screening for suspected conditions (not mental disorders or infectious disease) (3 sources) Patient encounter status; Translations: [Encounter for screening for other disorder] Onset: 05-05-2025 05-05-2025 Episodic Unclassified (2 sources) Finding of sensation of bladder 12-25-2024 Unclassified (1 source) Flank pain, left side; Translations: [Flank pain, left side] Onset: 07-29-2025 Results Test Name Value Interpretation Reference Range Facility URINE CULTURE [CCL]on 2024 Bacteria identified Cx Nom (U) Normal [facility] Comment on above: Performed By: #### [id number] ####[facility],[address] [place] [address] Bacteria Ur Culton Bacteria identified Cx Nom (U) ORGANISM ID: 1 >=100,000 CFU/ml Normal urogenital elodia Normal [facility] Comment on above: Performed By: #### 6 30-4 #### [facility] CLIA [id number] [address] [place] [address] [place] [employer] PLACEMENT NEPHROSTOMY CATHET ER PERCUTANEOUS W/ IMAGE GUIDANCEon 07-13-2025 PLACEMENT NEPHROSTOMY CATHETER PERCUTANEOUS W/ IMAGE GUIDANCE EXAM: IR PLACEMENT NEPHROSTOMY CATHETER PERCUTANEOUS W/ IMAGE GUIDANCE, 07/10/2025 08:40 AM CLINICAL INDICATIONS: N13.30:Hydronephrosis, left 24-year-old male with recurrent left renal calculi, with persistent pain and hydronephrosis MEDICATIONS: 8:05 AM 07/10/25 fentaNYL (SUBLIMAZE) injection 0-300 mcg Ordered and Given 50 mcg Given Rate: 0 Route: Intravenous; 8:05 AM 07/10/25 Midazolam (VERSED) injection 0-10 mg Ordered and Given 2 mg Given Rate: 0 Route: Intravenous; 8:10 AM 07/10/25 fentaNYL (SUBLIMAZE) injection 0-300 mcg Given 50 mcg Given Rate: 0 Route: Intravenous; 8:15 AM 07/10/25 lidocaine-epinephrine 2 %-[id number] injection Ordered and Given 5 mL Given Rate: 0 Route: Other; 8:20 AM 07/10/25 fentaNYL (SUBLIMAZE) injection 0-300 mcg Given 50 mcg Given Rate: 0 Route: Intravenous; 8:20 AM 07/10/25 Midazolam (VERSED) injection 0-10 mg Given 2 mg Given Rate: 0 Route: Intravenous; 8:25 AM 07/10/25 fentaNYL (SUBLIMAZE) injection 0-300 mcg Given 50 mcg Given Rate: 0 Route: Intravenous; 8:27 AM 07/10/25 Iohexol (OMNIPAQUE) 300 MG/ML vial 50 mL Given 15 mL Given Rate: 0 Route: Intravenous; TOTAL FLUORO TIME: 2 OPERATORS: Annalise aHll MD CONSENT: Following discussion of the risks, benefits and alternatives of the procedure, written informed consent was obtained. SEDATION: I performed Moderate Sedation which included the presence of a nurse that assisted in monitoring the patient's level of consciousness and physiologic status. After administration of sedative medication(s), I spent minutes of continuous [id number] time with the patient. COMPARISON: June 15, 2025 TIME OUT: Prior to the procedure a time out was performed in the presence of the patient and all personnel involved in this case. The patient identity, procedure type, procedure side/site, and allergies were verified. Intravenous antibiotics were administered before and during the procedure. TECHNIQUE: Position: The patient was transferred to the IR laboratory and was positioned prone on the procedural table. The left flank area was prepped and draped using maximum sterile barrier technique. This consisted of cap, mask, hand hygiene, sterile gown and gloves, 2% Chlorhexidine solution or acceptable alternatives for cutaneous antisepsis and occlusive sterile draping of the field. Procedure: After infiltration of local anesthesia and using direct ultrasound guidance, a 21G needle was advanced into a posterolateral calyx and an image was saved in the imaging archive system for documentation. Contrast was injected and an antegrade nephrostogram was performed. A wire was advanced into the renal pelvis. After dilation, a 10-German nephrostomy drainage catheter was inserted into the renal pelvis. The catheter was sutured to the skin and attached to a gravity drainage bag. A sterile dressing was placed on the skin surrounding the drain. FINDINGS: Severe hydronephrosis. No large filling defects. There is prompt flow of contrast into the proximal ureter. IMPRESSION: Technically successful placement of left 10-German percutaneous nephrostomy tube. Drain to gravity. Flush with 10 cc normal saline. Routine exchange in 8-12 weeks, pending interval urologic intervention. Annalise Hall MD was in the room and participated during all blakely portions of this procedure. Table formatting from the original result was not included. Flowsheet Row Most Recent Value Fluoro time: 2 Fluoro time measurement: minutes Rad Dose: 7 Rad Dose Measurement: mGy Funambol Time Date Event Details User 7:57 AM 07/10/25 Timeout: Sign-in Signed by Mai Jean RN at 07/10/2025 7:57 AM LB 8:05 AM 07/10/25 fentaNYL (SUBLIMAZE) injection 0-300 mcg Ordered and Given 50 mcg Given Rate: 0 Route: Intravenous LB 8:05 AM 07/10/25 Midazolam (VERSED) injection 0-10 mg Ordered and Given 2 mg Given Rate: 0 Route: Intravenous LB 8:10 AM 07/10/25 fentaNYL (SUBLIMAZE) injection 0-300 mcg Given 50 mcg Given Rate: 0 Route: Intravenous LB 8:15 AM 07/10/25 lidocaine-epinephrine 2 %-[id number] injection Ordered and Given 5 mL Given Rate: 0 Route: Other JY 8:17 AM 07/10/25 Timeout: TimeOut Signed by Mai Jean RN at 07/10/2025 8:17 AM LB 8:20 AM 07/10/25 fentaNYL (SUBLIMAZE) injection 0-300 mcg Given 50 mcg Given Rate: 0 Route: Intravenous LB 8:20 AM 07/10/25 Midazolam (VERSED) injection 0-10 mg Given 2 mg Given Rate: 0 Route: Intravenous LB 8:25 AM 07/10/25 fentaNYL (SUBLIMAZE) injection 0-300 mcg Given 50 mcg Given Rate: 0 Route: Intravenous LB 8:27 AM 07/10/25 Iohexol (OMNIPAQUE) 300 MG/ML vial 50 mL Given 15 mL Given Rate: 0 Route: Intravenous JY 8:28 AM 07/10/25 Timeout: Sign-out Signed by Mai Jean RN at 07/10/2025 8:29 AM LB Physician Physician Time Date Event Details User 7:57 AM 07/10/25 Timeout: Sign-in Signed by Mai Jean RN at 07/10/2025 7:57 AM LB 8:16 AM 07/10/25 Annalise De Leon (more content not included)... Normal [facility] CALCIUMon 07-11-2025 Calcium [Mass/Vol] 9.1 mg/dL 8.6 - 10. 5 mg/dL [facility] Calcium [Mass/Vol] 9.1 mg/dL Normal 8.6-10.5 [facility] Comment on above: Performed By: #### I PB, MGO, CA, CHM7 #### [facility] (DEFAULT) [address] [place] [address] CBC,PLATELETSon 07-11-2025 Erythrocyte distribution width (RBC) [Ratio] 12.5 % 10.9 - 14.3 % [facility] Hematocrit (Bld) [Volume fraction] 44.1 % 39.6 - 48.8 % [facility] Hemoglobin (Bld) [Mass/Vol] 14.1 g/dL 13.4 - 16.8 g/dL [facility] Interpretation and review of laboratory results Normal [facility] MCH (RBC) [Entitic mass] 28.7 pg 26. 1 - 33.3 pg [facility] MCHC (RBC) [Mass/Vol] 32.0 g/dL 31.9 - 36.5 g/dL [facility] MCV (RBC) [Entitic vol] 89.8 fL 79.0 - 94.5 fL [facility] Platelet mean volume (Bld) [Entitic vol] 11.8 fL 8.7 - 12.3 fL [facility] Platelets (Bld) [#/Vol] 249 10*3/uL 146 - 337 K/uL [facility] RBC (Bld) [#/Vol] 4.91 10*6/uL [facility] WBC (Bld) [#/Vol] 8.39 10*3/uL 3.73 - 10.10 K/uL [facility] Hematocrit (Bld) [Volume fraction] 44.1 % Normal 39.6-48.8 [facility] Comment on above: Performed By: #### H EMOGC #### [facility] (DEFAULT) [address] [address] Hemoglobin (Bld) [Mass/Vol] 14.1 g/dL Normal 13.4-16.8 [facility] Comment on above: Performed By: #### H EMOGC #### [facility] (DEFAULT) [address] [address] MCV (RBC) [Entitic vol] 89.8 fL Normal 79.0-94.5 [facility] Comment on above: Performed By: #### H EMOGC #### [facility] (DEFAULT) [address] [address] Mean Cell Hgb 28.7 pg Normal 26.1-33.3 [facility] Comment on above: Performed By: #### H EMOGC #### [facility] (DEFAULT) [address] [address] Mean Cell Hgb Conc 32.0 g/dL Normal 31.9-36.5 [facility] Comment on above: Performed By: #### H EMOGC #### [facility] (DEFAULT) [address] [address] Platelet mean volume (Bld) [Entitic vol] 11.8 fL Normal 8.7-12.3 [facility] Comment on above: Performed By: #### H EMOGC #### [facility] (DEFAULT) [address] [address] Platelets (Bld) [#/Vol] 249 10*3/uL Normal 146-337 [facility] Comment on above: Performed By: #### H EMOGC #### [facility] (DEFAULT) [address] [place] [address] RBC (Bld) [#/Vol] 4.91 10*6/uL Normal 4.38-5.83 [facility] Comment on above: Performed By: #### [facility] #### [facility] (DEFAULT) [address] [place] [address] RBC Distribution 12.5 % Normal 10.9-14.3 [facility] Comment on above: Performed By: #### [facility] #### [facility] (DEFAULT) [address] [place] [address] WBC (Bld) [#/Vol] 8.39 10*3/uL Normal 3.73-10.10 [facility] Comment on above: Performed By: #### [facility] #### [facility] (DEFAULT) [address] [place] [address] CHEM 7 (LYTES,BUN,CREA,GLUC) on 07-11-2025 Anion gap [Moles/Vol] 11 mmol/L 7 - 17 mmol/L [facility] Chloride [Moles/Vol] 105 mmol/L 98 - 10 8 mmol/L [facility] CO2 [Moles/Vol] 28 mmol/L 21 - 31 mmol/L [facility] Creatinine [Mass/Vol] 0.94 mg/dL 0.70 - 1.30 mg/dL [facility] eGFR, CKD-EPI, Male - PINF [facility] Comment on above: Reported eGFR is bas ed on the CKD-EPI 2020 equation using creatinine, age, and sex. Glucose [Mass/Vol] 107 mg/dL 70 - 179 mg/dL [facility] Osmolality Calc [Osmolality] 294 [facility] Potassium [Moles/Vol] 3.6 mmol/L 3.5 - 5.0 mmol/L [facility] Sodium [Moles/Vol] 140 mmol/L 135 - 145 mmol/L [facility] Urea nitrogen [Mass/Vol] 17 mg/dL 7 - 25 mg/dL [facility] Urea nitrogen/Creatinine [Mass ratio] 18 mg/mg [facility] Anion gap [Moles/Vol] 11 mmol/L Normal 7-17 [facility] Comment on above: Performed By: #### I PB, MGO, CA, CHM7 #### [facility] (DEFAULT) [address] [place] [address] Chloride [Moles/Vol] 105 mmol/L Normal 98-108 [facility] Comment on above: Performed By: #### I PB, MGO, CA, CHM7 #### [facility] (DEFAULT) [address] [place] [address] CO2 [Moles/Vol] 28 mmol/L Normal 21-31 [facility] Comment on above: Performed By: #### I PB, MGO, CA, CHM7 #### [facility] (DEFAULT) [address] [place] [address] Creatinine [Mass/Vol] 0.94 mg/dL Normal 0.70-1.30 [facility] Comment on above: Performed By: #### I PB, MGO, CA, CHM7 #### [facility] (DEFAULT) [address] [place] [address] eGFR, CKD-EPI, Male > Normal >=60 [facility] Comment on above: Result Comment: Repo rted eGFR is based on the CKD-EPI 2020 equation using creatinine, age, and sex. Performed By: #### I PB, MGO, CA, CHM7 #### [facility] (DEFAULT) [address] [place] [address] Glucose [Mass/Vol] 107 mg/dL Normal Nonfastin -179 mg/dL; Fastin-99 [facility] Comment on above: Performed By: #### I PB, MGO, CA, CHM7 #### [facility] (DEFAULT) [address] [place] [address] Osmolality [Osmolality] 294 mosm/kg Normal 278-305 [facility] Comment on above: Performed By: #### I PB, MGO, CA, CHM7 #### [facility] (DEFAULT) [address] [place] [address] Potassium [Moles/Vol] 3.6 mmol/L Normal 3.5-5.0 [facility] Comment on above: Performed By: #### I PB, MGO, CA, CHM7 #### [facility] (DEFAULT) [address] [place] [address] Sodium [Moles/Vol] 140 mmol/L Normal 135-145 [facility] Comment on above: Performed By: #### I PB, MGO, CA, CHM7 #### [facility] (DEFAULT) [address] [place] [address] Urea nitrogen [Mass/Vol] 17 mg/dL Normal 7-25 [facility] Comment on above: Performed By: #### I PB, MGO, CA, CHM7 #### [facility] (DEFAULT) [address] [place] [address] Urea nitrogen/Creatinine [Mass ratio] 18 mg/mg Normal [facility] Comment on above: Performed By: #### I PB, MGO, CA, CHM7 #### [facility] (DEFAULT) [address] [place] [address] MAGNESIUMon 07-11-2025 Magnesium [Mass/Vol] 2.1 mg/dL 1.6 - 2 .6 mg/dL [facility] Magnesium [Mass/Vol] 2.1 mg/dL Normal 1.6-2.6 [facility] Comment on above: Performed By: #### I PB, MGO, CA, CHM7 #### [facility] (DEFAULT) [address] [place] [address] No Panel Informationon 07-11 Interpretation and review of laboratory results Normal [facility] PHOSPHATE, INORGANICon 07-11 Phosphate [Mass/Vol] 3.5 mg/dL 2.2 - 4 .6 mg/dL [facility] Phosphorous 3.5 mg/dL Normal 2.2-4.6 [facility] Comment on above: Performed By: #### I PB, MGO, CA, CHM7 #### [facility] (DEFAULT) [address] [place] [address] CBC,PLATELETSon 07-10-2025 Erythrocyte distribution width (RBC) [Ratio] 12.3 % 10.9 - 14.3 % [facility] Hematocrit (Bld) [Volume fraction] 47.5 % 39.6 - 48.8 % [facility] Hemoglobin (Bld) [Mass/Vol] 15.6 g/dL 13.4 - 16.8 g/dL [facility] Interpretation and review of laboratory results Normal [facility] MCH (RBC) [Entitic mass] 28.8 pg 26. 1 - 33.3 pg [facility] MCHC (RBC) [Mass/Vol] 32.8 g/dL 31.9 - 36.5 g/dL [facility] MCV (RBC) [Entitic vol] 87.6 fL 79.0 - 94.5 fL [facility] Platelet mean volume (Bld) [Entitic vol] 11.3 fL 8.7 - 12.3 fL [facility] Platelets (Bld) [#/Vol] 287 10*3/uL 146 - 337 K/uL [facility] RBC (Bld) [#/Vol] 5.42 10*6/uL [facility] WBC (Bld) [#/Vol] 6.54 10*3/uL 3.73 - 10.10 K/uL [facility] Hematocrit (Bld) [Volume fraction] 47.5 % Normal 39.6-48.8 [facility] Comment on above: Performed By: #### [facility] #### [facility] (DEFAULT) [address] [place] [address] Hemoglobin (Bld) [Mass/Vol] 15.6 g/dL Normal 13.4-16.8 [facility] Comment on above: Performed By: #### H EMOGC #### [facility] (DEFAULT) [address] [address] MCV (RBC) [Entitic vol] 87.6 fL Normal 79.0-94.5 [facility] Comment on above: Performed By: #### H EMOGC #### [facility] (DEFAULT) [address] [address] Mean Cell Hgb 28.8 pg Normal 26.1-33.3 [facility] Comment on above: Performed By: #### H EMOGC #### [facility] (DEFAULT) [address] [address] Mean Cell Hgb Conc 32.8 g/dL Normal 31.9-36.5 [facility] Comment on above: Performed By: #### H EMOGC #### [facility] (DEFAULT) [address] [address] Platelet mean volume (Bld) [Entitic vol] 11.3 fL Normal 8.7-12.3 [facility] Comment on above: Performed By: #### H EMOGC #### [facility] (DEFAULT) [address] [address] Platelets (Bld) [#/Vol] 287 10*3/uL Normal 146-337 [facility] Comment on above: Performed By: #### H EMOGC #### [facility] (DEFAULT) [address] [address] RBC (Bld) [#/Vol] 5.42 10*6/uL Normal 4.38-5.83 [facility] Comment on above: Performed By: #### H EMOGC #### [facility] (DEFAULT) [address] [address] RBC Distribution 12.3 % Normal 10.9-14.3 [facility] Comment on above: Performed By: #### [facility] #### [facility] (DEFAULT) [address] [place] [address] WBC (Bld) [#/Vol] 6.54 10*3/uL Normal 3.73-10.10 [facility] Comment on above: Performed By: #### H EMO #### [facility] (DEFAULT) [address] [place] [address] CREATININEon 07-10-2025 Creatinine [Mass/Vol] 0.77 mg/dL 0.70 - 1.30 mg/dL [facility] eGFR, CKD-EPI, Male - PINF [facility] Comment on above: Reported eGFR is bas ed on the CKD-EPI 2020 equation using creatinine, age, and sex. Interpretation and review of laboratory results Normal [facility] Creatinine [Mass/Vol] 0.77 mg/dL Normal 0.70-1.30 [facility] Comment on above: Performed By: #### C REAB #### [facility] (DEFAULT) [address] [place] [address] eGFR, CKD-EPI, Male > Normal >=60 [facility] Comment on above: Result Comment: Repo rted eGFR is based on the CKD-EPI 2020 equation using creatinine, age, and sex. Performed By: #### C REAB #### [facility] (DEFAULT) [address] [place] [address] GENERAL PROCEDUREon 07-10-20 Annalise Hall MD - 07/10/2025 8:34 AM EDT INTERVENTIONAL RADIOLOGY BRIEF PROCEDURE NOTE PROCEDURE PERFORMED BY: Annalise Hall MD PROCEDURE DATE: 07/10/2025 8:34 AM PRE PROCEDURE DIAGNOSIS: History of nephrolithiasis POST PROCEDURE DIAGNOSIS: Same PROCEDURE: Left nephrostomy tube placement CONSENT: Informed consent was obtained prior to the procedure after discussion of the risks, benefits, and alternatives and expected outcomes were discussed with the patient; consent placed in chart. The possibilities of reaction to medication, pulmonary aspiration, bleeding, infection, the need for additional procedures, failure to diagnosis a condition, and creating a complication requiring transfusion or operation were discussed with the patient. The patient concurred with the proposed plan, giving informed consent. UNIVERSAL PROTOCOL: Preprocedure verification is complete- patient verified and consents confirmed. ANESTHESIA: Moderate and Local ESTIMATED BLOOD LOSS: Less than 5 cc FINDINGS: Severe left hydronephrosis; spontaneous flow of contrast into the ureter. No large filling defects CONDITION: Stable. Patient tolerated procedure well. COMPLICATIONS: None. SPECIMEN REMOVED: None DISPOSITION OF SPECIMEN(S): None IMPRESSION/PLAN: Left PCN to gravity. Please flush with 10cc NS daily. Admit to obs Will follow-up with Urologist Otherwise, routine exchange in 8 - 12 weeks Thank you for allowing Interventional Radiology to participate in this patient's care. Annalise Hall MD 07/10/2025 8:34 AM [facility] Radiology Study observation (narrative) [facility] PT/INR POINT OF CAREon 07-10 Interpretation and review of laboratory results Abnormal [facility] PT/INR (POC Device) 1.6 High 0.9 - 1.1 [facility] Comment on above: INR results performe d by this method may be inaccurate in patients with a hematocrit <20% or >55%. Confirmation of test results by standard coagulation testing in the main clinical laboratory is recommended for these patients. Test performed at address of the patient encounter. [facility] URINE CULTURE [CCL]on 2024 Bacteria identified Cx Nom (U) Normal [facility] Comment on above: Performed By: #### 2 [id number] ####[facility],[address] [place] [address] POCT URINE DIPSTICK NON-AUTO MATEDon 06-17-2025 Amorphous sediment LM Ql (Urine sed) [facility] Appearance (U) clear [facility] Bacteria LM Ql (Urine sed) [facility] Bilirubin Ql (U) Negative [facility] Casts LM.LPF (Urine sed) [#/Area] [facility] Color (U) yellow [facility] Crystals LM Nom (Urine sed) [facility] Epithelial cells.squamous LM.HPF (Urine sed) [#/Area] [facility] Flow cytometry specialist review Cornel (Unsp spec) [Interp] [facility] Glucose Auto test strip (U) [Mass/Vol] Negative mg/dL [facility] Ketones [Mass/Vol] Negative mg/dL [facility] Leukocyte esterase Qn (U) [facility] Leukocyte esterase Test strip Ql (U) small [facility] Microscopic observation Gram stain Nom (Bronch spec) [facility] Nitrite Ql (U) Negative [facility] pH (U) 7.0 [pH] 5 - 7 [facility] Protein Ql (U) 30 mg/dL [facility] RBC LM.HPF (Urine sed) [#/Area] [facility] RBC Ql (U) Negative [facility] Specific gravity (U) [Rel density] 1.020 1.001 - 1.035 [facility] Transitional cells LM Ql (Urine sed) [facility] Urobilinogen Qn (U) 0.2 [facility] WBC LM.HPF (Urine sed) [#/Area] [facility] Bacteria Ur Culton Bacteria identified Cx Nom (U) CULTURE, URINE: Normal urogenital elodia: ORGANISM ID: 1 >=100,000 CFU/ml Staphylococcus epidermidis No further workup Normal [facility] Comment on above: Performed By: #### 6 30-4 #### [facility] CLIA [id number] [address] [place] [address] [place] CBC + DIFFon 06-15-2025 Baso # 0.03 x10EE3/UL Normal 0.00 - 0.10 [facility] Comment on above: Performed By: #### 2 92304 ####[facility],[address] [place], [place] [id number] Basophils/100 WBC (Bld) 0.4 % Normal 0.0 - 2.0 [facility] Comment on above: Performed By: #### 2 76583 ####[facility],[address] [place] [address] CBC + DIFF Normal [facility] Comment on above: Result Comment: CBC- COMPLETE BLOOD COUNT Performed By: #### 2 77407 ####[facility],[address] [place] [address] EO # 0.25 x10EE3/UL Normal 0.00 - 0.50 [facility] Comment on above: Performed By: #### 2 43617 ####[facility],[address] [place] [address] Eosinophils/100 WBC (Bld) 3.3 % Normal 0.0 - 7.0 [facility] Comment on above: Performed By: #### 2 04565 ####[facility],[address] [place] [address] Erythrocyte distribution width (RBC) [Ratio] 13.3 % Normal 12.0 - 15.6 [facility] Comment on above: Performed By: #### 2 89761 ####[facility],[address] [place] [address] Hematocrit (Bld) [Volume fraction] 47.5 % Normal 40.0 - 52.0 [facility] Comment on above: Performed By: #### 2 62362 ####[facility],[address] [place] [address] Hemoglobin (Bld) [Mass/Vol] 16.1 g/dL Normal 13.0 - 17.5 [facility] Comment on above: Performed By: #### 2 63555 ####[facility],[address] [place] [address] Lymph # 2.08 x10EE3/UL Normal 0.80 - 2.80 [facility] Comment on above: Performed By: #### 2 23620 ####[facility],[address] [place], [place] [address] Lymphocytes/100 WBC (Bld) 27.6 % Normal 20.0 - 45.0 [facility] Comment on above: Performed By: #### 2 91587 ####[facility],[address] [place] [address] MANUAL DIFF N/A Normal [facility] Comment on above: Performed By: #### 2 50408 ####[facility],[address] [place] [address] MCH (RBC) [Entitic mass] 29 pg Normal 27 - 33 [facility] Comment on above: Performed By: #### 2 10027 ####[facility],[address] [place] [address] MCHC 34 X10 3 Normal 32 - 36 [facility] Comment on above: Performed By: #### 2 24203 ####[facility],[address] [place], [place] [address] MCV (RBC) [Entitic vol] 87 fL Normal 81 - 98 [facility] Comment on above: Performed By: #### 2 43183 ####[facility],[address] [place] [address] [place] # 0.74 x10EE3/UL Normal 0.20 - 1.00 [facility] Comment on above: Performed By: #### 2 29494 ####[facility],[address] [place], [place] [address] MONOS % 9.8 % Normal 0.0 - 10.0 [facility] Comment on above: Performed By: #### 2 44369 ####[facility],[address] [place] [address] Morphology Cornel (Bld) [Interp] N/A Normal [facility] Comment on above: Performed By: #### 2 95013 ####[facility],[address] [place] [address] Neut # 4.45 x10EE3/UL Normal 1.50 - 7.10 [facility] Comment on above: Performed By: #### 2 17273 ####[facility],[address] [place] [address] Neutrophils/100 WBC (Bld) 59.0 % Normal 46.0 - 76.0 [facility] Comment on above: Performed By: #### 2 12893 ####[facility],[address] [place] [address] PLATELET 264 x10EE3/UL Normal 150 - 450 [facility] Comment on above: Performed By: #### 2 62215 ####[facility],[address] [place] [address] Platelet mean volume (Bld) [Entitic vol] 8.8 fL Normal 6.4 - 10.5 [facility] Comment on above: Result Comment: AUTO MATED DIFFERENTIAL Performed By: #### 2 19601 ####[facility],[address] [place] [address] RBC 5.49 x 10EE6/UL Normal 4.50 - 6.00 [facility] Comment on above: Performed By: #### 2 57453 ####[facility],[address] [place] [address] WBC 7.6 x 10EE3/UL Normal 4.5 - 10.8 [facility] Comment on above: Performed By: #### 2 01138 ####[facility],[address] [place] [address] CMP with eGFRon 06-15-2025 AGE 24 years Normal [facility] Comment on above: Performed By: #### 2 68170 ####[facility],[address] [place] [address] Albumin [Mass/Vol] 4.0 g/dL Normal 3.4 - 5.0 [facility] Comment on above: Performed By: #### 2 49291 ####[facility],[address] [place] [address] Albumin/Globulin [Mass ratio] 1.1 {ratio} Normal 0.9 - 1.6 [facility] Comment on above: Performed By: #### 2 33574 ####[facility],[address] [place] [address] ALK PHOS 109 U/L Normal 46 - 116 [facility] Comment on above: Performed By: #### 2 82568 ####[facility],[address] [place] [address] ALT [Catalytic activity/Vol] 18 U/L Normal 16 - 63 [facility] Comment on above: Performed By: #### 2 02162 ####[facility],[address] [place] [address] Anion gap [Moles/Vol] 10 mmol/L Normal 10 - 20 [facility] Comment on above: Performed By: #### 2 26112 ####[facility],[address] [place] [address] AST [Catalytic activity/Vol] 12 U/L Low 15 - 37 [facility] Comment on above: Performed By: #### 2 47529 ####[facility],[address] [place] [address] B/C RATIO 13 ratio Normal 0 - 30 [facility] Comment on above: Performed By: #### 2 24082 ####[facility],[address] [place] [address] Bilirubin [Mass/Vol] 0.4 mg/dL Normal 0.2 - 1.0 [facility] Comment on above: Performed By: #### 2 30128 ####[facility],[address] [place] [address] Calcium [Mass/Vol] 8.9 mg/dL Normal 8.5 - 10.1 [facility] Comment on above: Performed By: #### 2 01818 ####[facility],[address] [place] [address] Chloride [Moles/Vol] 104 mmol/L Normal 98 - 107 [facility] Comment on above: Performed By: #### 2 53787 ####[facility],[address] [place] [address]77 CMP with eGFR Normal [facility] Comment on above: Result Comment: COMP REHENSIVE METABOLIC PANEL Performed By: #### 2 18594 ####[facility],[address] [place] [address]757 CO2 [Moles/Vol] 30.2 mmol/L Normal 21.0 - 32.0 [facility] Comment on above: Performed By: #### 2 30269 ####[facility],[address] [place] [address] Creatinine [Mass/Vol] 0.98 mg/dL Normal 0.70 - 1.30 [facility] Comment on above: Performed By: #### 2 93288 ####[facility],[address] [place] [address] GFR/1.73 sq M.predicted among non-blacks MDRD (S/P/Bld) [Vol rate/Area] mL/min/{1.73_m2} Normal 60 - 999 [facility] Comment on above: Performed By: #### 2 48901 ####[facility],[address] [place] [address] Result Comment: ACCO RDING TO THE NATIONAL KIDNEY DISEASE EDUCATION PROGRAM(NKDE), A NORMAL eGFRIS A VALUE GREATER THAN OR EQUAL TO 60 ML/MIN/1.73 SQ METERS.CHRONIC KIDNEY DISEASE: <60mL/MIN/1.73 SQ METERSKIDNEY FAILURE: <15mL/MIN/1.73 SQ METERSTHIS TEST SHOULD ONLY BE USED FOR PATIENTS 18 YEARS OF AGE AND OLDER. Globulin (S) [Mass/Vol] 3.6 g/dL Normal 1.5 - 3.8 [facility] Comment on above: Performed By: #### 2 77753 ####[facility],[address] [place] [address] Glucose [Mass/Vol] 78 mg/dL Normal 74 - 106 [facility] Comment on above: Performed By: #### 2 08006 ####[facility],[address] [place] [address] Potassium [Moles/Vol] 4.0 mmol/L Normal 3.5 - 5.1 [facility] Comment on above: Performed By: #### 2 76531 ####[facility],[address] [place] [address] Protein [Mass/Vol] 7.6 g/dL Normal 6.4 - 8.2 [facility] Comment on above: Performed By: #### 2 76189 ####[facility],[address] [place], [place] [address] Sodium [Moles/Vol] 140 mmol/L Normal 136 - 145 [facility] Comment on above: Performed By: #### 2 21487 ####[facility],[address] [place] [address]776 Urea nitrogen [Mass/Vol] 13 mg/dL Normal 7 - 18 [facility] [facility] Comment on above: Performed By: #### 2 [id number] ####[facility],[address] [place], [place] [id number] CORONAVIRUS (SARS) ANTIGEN T ESTon 06-15-2025 EXTERNAL QC DONE? YES Normal [facility] Comment on above: Performed By: #### 2 95523 ####[facility],[address] [place] [address] 76351 INTERNAL CONTROL PASS Normal [facility] Comment on above: Performed By: #### 2 67700 ####[facility],[address] [place], [place] [id number] SARS ANTIGEN Negative Normal NORMAL: NEGATIVE [facility] Comment on above: Performed By: #### 2 20226 ####[facility],[address] [place] [address] SEND TO ? NO Normal [facility] Comment on above: Result Comment: SARS -CoV-2THIS TEST IS BEING USED UNDER THE FDA EUA PROCEDURE. THIS ASSAY HAS BEENVALIDATED AT [facility] FOR USE WITH NASAL AND NASOPHARYNGEAL SWABSPECIMENS.INTERPRETIVE DATATEST RESULTS SHOULD ALWAYS BE CONSIDERED IN THE CONTEXT OF CLINICALOBSERVATIONS AND EPIDEMIOLOGICAL DATA IN MAKING FINAL DIAGNOSIS AND PATIENTMANAGEMENT DECISIONS. PATIENT MANAGEMENT SHOULD FOLLOW CURRENT CDC GUIDELINES.THE ANITA SARS ANTIGEN JUAN DOES NOT DIFFERENTIATE BETWEEN SARS-CoV & SARS-CoV-2.A POSITIVE TEST RESULT INDICATES THE PRESENCE OF SARS-CoV-2 NUCLEOCAPSID PROTEINANTIGEN, AND THE PATIENT IS INFECTED WITH THE VIRUS AND PRESUMED TO BECONTAGIOUS.A NEGATIVE TEST RESULT FOR THIS TEST MEANS THAT SARS-CoV-2 NUCLEOCAPSID PROTEINANTIGEN WAS NOT PRESENT IN THE SPECIMEN ABOVE THE LIMIT OF DETECTION. HOWEVER, ANEGATIVE RESULT DOES NOT RULE OUT COVID-19 AND SHOULD NOT BE USED THE SOLEBASIS FOR TREATMENT OR PATIENT MANAGEMENT DECISIONS. A NEGATIVE RESULT DOES NOTEXCLUDE THE POSSIBILITY OF COVID-19. NEGATIVE RESULTS, FROM PATIENTS WITHSYMPTOM ONSET BEYOND FIVE DAYS, SHOULD BE TREATED PRESUMPTIVE ANDCONFIRMATION WITH A MOLECULAR ASSAY, IF NECESSARY, FOR PATIENT MANAGEMENT, MAYBE PERFORMED.WHEN DIAGNOSTIC TESTING IS NEGATIVE, THE POSSIBLILTY OF A FALSE NEGATIVE RESULTSHOULD BE CONSIDERED IN THE CONTEXT OF A PATIENT'S RECENT EXPOSURES AND THEPRESENCE OF CLINICAL SIGNS AND SYMPTOMS CONSISTENT WITH COVID-19. THEPOSSIBILITY OF A FALSE NEGATIVE RESULT SHOULD ESPECIALLY BE CONSIDERED IF THEPATIENT'S RECENT EXPOSURES OR CLINICAL PRESENTATION INDICATE THAT COVID-19 ISLIKELY, AND DIAGNOSTIC TESTS FOR OTHER CAUSES OF ILLNESS (e.g., OTHERRESPIRATORY ILLNESS) ARE NEGATIVE. IF COVID-19 IS STILL SUSPECTED BASED ONEXPOSURE HISTORY TOGETHER WITH OTHER CLINICAL FINDINGS, RE-TESTING SHOULD BECONSIDERED BY HEALTHCARE PROVIDERS IN CONSULTATION WITH PUBLIC [facility]. Performed By: #### 2 25604 ####[facility],[address] [place] [address] CT ABDOMEN/PELVIS Won 2024 CT ABDOMEN/PELVIS W Normal [facility] ED MED ADMINISTRATION DETAIL on 06-15-2025 ED MED ADMINISTRATION DETAIL Normal [facility] ED NURSES CLINICAL NOTEon ED NURSES CLINICAL NOTE Normal [facility] ED ORDER SHEET (CPOE ONLY)on 06-15-2025 ED ORDER SHEET (CPOE ONLY) Normal [facility] ED PHYSICIAN CLINICAL REPORT on 06-15-2025 ED PHYSICIAN CLINICAL REPORT Normal [facility] ED SUPER BILLon 06-15-2025 ED SUPER BILL Normal [facility] ED VISIT SUMMARYon ED VISIT SUMMARY Normal [facility] ED VITALS FLOW SHEETon 06-15 ED VITALS FLOW SHEET Normal [facility] INFLUENZA VIRUS RAPID A/Bon 06-15-2025 INFLUENZA VIRUS RAPID A/B Normal [facility] Comment on above: Performed By: #### 2 16544 ####[facility],[address] [place] [address] URINALYSISon 06-15-2025 Amorphous NONE Normal [facility] Comment on above: Performed By: #### 2 68613 ####[facility],[address] [place] [address] Bacteria 4+ Normal [facility] Comment on above: Performed By: #### 2 00589 ####[facility],[address] [place] [address] Bilirubin Ql (U) Negative Normal NORMAL: NEGATIVE [facility] Comment on above: Performed By: #### 2 50208 ####[facility],[address] [place] [address] Casts NONE Normal [facility] Comment on above: Performed By: #### 2 18878 ####[facility],[address] [place] [address] Clarity (U) very cloudy Normal NORMAL: CLEAR [facility] Comment on above: Performed By: #### 2 54473 ####[facility],[address] [place] [address] Color (U) yellow Normal NORMAL: YELLOW [facility] Comment on above: Performed By: #### 2 29604 ####[facility],[address] [place] [address] 96981 Crystals LM Nom (Urine sed) NONE Normal [facility] Comment on above: Performed By: #### 2 35932 ####[facility],[address] [place] [address] 92032 Epi Cells OCC Normal [facility] Comment on above: Performed By: #### 2 43289 ####[facility],[address] [place], [place] [id number] Glucose Ql (U) NORM Normal NORMAL: NORMAL [facility] Comment on above: Performed By: #### 2 64150 ####[facility],[address] [place], [place] [id number] Hemoglobin Ql (U) 25 Abnormal NORMAL: NEGATIVE [facility] Comment on above: Performed By: #### 2 00011 ####[facility],[address] [place] [address] 25543 Ketone Negative Normal NORMAL: NEGATIVE [facility] Comment on above: Performed By: #### 2 71446 ####[facility],[address] [place] [address] 09042 Leukocytes 500 Abnormal NORMAL: NEGATIVE [facility] Comment on above: Performed By: #### 2 16627 ####[facility],[address] [place] [address] 96140 Mucous NONE Normal [facility] Comment on above: Performed By: #### 2 60874 ####[facility],[address] [place] [address] Nitrite Ql (U) Positive Normal NORMAL: NEGATIVE [facility] Comment on above: Performed By: #### 2 74231 ####[facility],[address] [place] [address] pH (U) 6 [pH] Normal NORMAL: 5.0-8.0 [facility] Comment on above: Performed By: #### 2 56157 ####[facility],[address] [place] [address] Protein Ql (U) 100 Abnormal NORMAL: NEGATIVE [facility] Comment on above: Performed By: #### 2 66730 ####[facility],[address] [place] [address] Rbc 0-5 Normal 0-3/hpf [facility] Comment on above: Performed By: #### 2 59980 ####[facility],[address] [place] [address] Sp [place] 1.015 Normal NORMAL: 1.010-1.030 [facility] Comment on above: Performed By: #### 2 67928 ####[facility],[address] [place] [address] Specimen Type R Normal [facility] Comment on above: Performed By: #### 2 97558 ####[facility],[address] [place] [address] Urinalysis dipstick W Reflex Microscopic panel (U) SEE BELOW Normal [facility] Comment on above: Result Comment: MICR OSCOPIC Performed By: #### 2 73895 ####[facility],[address] [place] [address] Urobilinog NORM Normal NORMAL: NORMAL [facility] Comment on above: Performed By: #### 2 76396 ####[place] [address] WBC (U) [#/Vol] /uL Normal 0-5/hpf [facility] Comment on above: Performed By: #### 2 73422 ####[facility],[address] [place] [address] Yeast NONE Normal [facility] Comment on above: Performed By: #### 2 67026 ####[facility],[address] [place] [address] CNTHERAPYon 06-01-2025 CNTHERAPY OT/PT/Speech Visit (UNPTOP) ANU LOPEZ ([id number]) 02 M Date Time Provider Department 06/01/25 10:45 AM ANANDA SOUZA UNPTOP Date Time Provider Department [place] 06/01/2025 10:45 AM [id number], TIFFANY [facility] Reason for Visit: Physical Therapy [503] Primary Visit Diagnosis:Feeling of incomplete bladder emptying [R39.14] Other Visit Diagnosis:Pain with urination [R30.9] Allergies As of Date: 06/01/2025 Noted Allergy Reaction DILAUDID (HYDROMORPHONE) 04/07/2024 2 - Rash Date Reviewed: 05/05/2025 Reviewed by: Cody Sanchez OCCA - Fully Assessed Prescriptions as of 06/01/2025 - ciprofloxacin HCl (CIPRO) 500 mg tablet - tamsulosin (FLOMAX) 0.4 mg Take 1 capsule by mouth once daily. - polyethylene glycol 3350 (MIRALAX ORAL) Take 17 mg by mouth once daily as needed. - loratadine (CLARITIN) 10 mg tablet Take 10 mg by mouth once daily as needed. Fluxer: Therapy (PT/OT/Speech/Resp) ID: [id number] 06/01/2025 11:27 AM Author: ANANDA SOUZA Signed by ANANDA SOUZA OIL FIRE SPECIALIST on 06/01/2025 at 11:27 AM Document text: Program_ID:[id number] Access Code: [email or web address] URL: [email or web address] Date: 06-01-2025 Prepared By: Myesha Fletcher Program Notes Exercises - Supine Pelvic Floor Stretch - 1 x daily - 7 x weekly - 3 sets - 10 reps - Supine Transversus Abdominis Bracing with Pelvic Floor Contraction - 1 x daily - 7 x weekly - 3 sets - 10 reps - Supine Posterior Pelvic Tilt with Pelvic Floor Contraction - 1 x daily - 7 x weekly - 3 sets - 10 reps - Tree Pose - 1 x daily - 7 x weekly - 1 sets - 2 reps - Supine Hamstring Stretch - 1 x daily - 7 x weekly - 1 sets - 2 reps - Hooklying Single Knee to Chest Stretch - 1 x daily - 7 x weekly - 1 sets - 2 reps - Supine Piriformis Stretch with Leg Straight - 1 x daily - 7 x weekly - 1 sets - 2 reps - Prone Press Up On Elbows - 1 x daily - 7 x weekly - 1 sets - 2 reps - Diaphragmatic Breathing in Child's Pose with Pelvic Floor Relaxation - 1 x daily - 7 x weekly - 1 sets - 2 reps - Half Kneeling Hip Flexor Stretch - 1 x daily - 7 x weekly - 1 sets - 2 reps - Child's Pose with Sidebending - 1 x daily - 7 x weekly - 1 sets - 2 reps - Cat Cow - 1 x daily - 7 x weekly - 2 sets - 10 reps - Quadruped Transversus Abdominis Bracing - 1 x daily - 5 x weekly - 2 sets - 10 reps Patient Education - Get To Know Your Pelvic Floor- Male - cc Pelvic Floor - Bladder Helio - Irritants - cc Pelvic Floor - Diaphragmatic Breathing - Pelvic Floor - Bladder Health AND Emptying Techniques - cc Pelvic Floor - Bladder Emptying Ideas - Pelvic Floor - Bladder Retraining and Urge Suppression - Pelvic Floor - Bowel Movement Education - Pelvic Floor - Kegel Exercise for Men - cc Post Op Scar Massage Instruction [facility] THERAPY NTon 06-01-2025 THERAPY NT HNO ID: [id number] Author: ANANDA SOUZA PTA Service: Physical Therapy Author Type: Prescription Benefit Specialist Type: Therapy (PT/OT/Speech/Resp) Filed: 06/01/2025 11:27 Note Text: Program_ID:[id number] Access Code: [email or web address] URL: [email or web address]/ Date: 06-01-2025 Prepared By: Myesha Fletcher Program Notes Exercises - Supine Pelvic Floor Stretch - 1 x daily - 7 x weekly - 3 sets - 10 reps - Supine Transversus Abdominis Bracing with Pelvic Floor Contraction - 1 x daily - 7 x weekly - 3 sets - 10 reps - Supine Posterior Pelvic Tilt with Pelvic Floor Contraction - 1 x daily - 7 x weekly - 3 sets - 10 reps - Tree Pose - 1 x daily - 7 x weekly - 1 sets - 2 reps - Supine Hamstring Stretch - 1 x daily - 7 x weekly - 1 sets - 2 reps - Hooklying Single Knee to Chest Stretch - 1 x daily - 7 x weekly - 1 sets - 2 reps - Supine Piriformis Stretch with Leg Straight - 1 x daily - 7 x weekly - 1 sets - 2 reps - Prone Press Up On Elbows - 1 x daily - 7 x weekly - 1 sets - 2 reps - Diaphragmatic Breathing in Child's Pose with Pelvic Floor Relaxation - 1 x daily - 7 x weekly - 1 sets - 2 reps - Half Kneeling Hip Flexor Stretch - 1 x daily - 7 x weekly - 1 sets - 2 reps - Child's Pose with Sidebending - 1 x daily - 7 x weekly - 1 sets - 2 reps - Cat Cow - 1 x daily - 7 x weekly - 2 sets - 10 reps - Quadruped Transversus Abdominis Bracing - 1 x daily - 5 x weekly - 2 sets - 10 reps Patient Education - Get To Know Your Pelvic Floor- Male - cc Pelvic Floor - Bladder Helio - Irritants - cc Pelvic Floor - Diaphragmatic Breathing - cc Pelvic Floor - Bladder Health AND Emptying Techniques - cc Pelvic Floor - Bladder Emptying Ideas - cc Pelvic Floor - Bladder Retraining and Urge Suppression - cc Pelvic Floor - Bowel Movement Education - cc Pelvic Floor - Kegel Exercise for Men - cc Post Op Scar Massage Instruction [facility] Bacteria Ur Culton 5 Bacteria identified Cx Nom (U) CULTURE, URINE: Normal urogenital elodia: ORGANISM ID: [id number] >=100,000 CFU/ml Staphylococcus epidermidis Additional susceptibility testing performed by request. ORGANISM ID: 1 (STAPHYLOCOCCUS EPIDERMIDIS) ANTIBIOTIC INTERPRETATION TRA STATUS REFERENCE RANGE Oxacillin S <=0.25 F Susceptible <=0.25 , Resistant >.25 Oxacillin-susceptible staphylococci are susceptible to other penicilllinase-stable penicillins, beta-lactam/beta-lactam ase inhibitor combinations, anti-staphylococcal cephems, and carbapenems. Trimeth sulfameth S <=10 F Susceptible <=40 , Resistant >40 Vancomycin S 4 F Susceptible <=4 , Intermediate >4 , Resistant >16 Rifampin S <=0.5 F Susceptible <=1 , Intermediate >1 , Resistant >2 Rifampin should not be used alone for antimicrobial therapy. Tetracycline S 2 F Susceptible <=4 , Intermediate >4 , Resistant >8 Doxycycline S 1 F Susceptible <=4 , Intermediate >4 , Resistant >8 Nitrofurantoin S <=16 F Susceptible <=32 , Intermediate >32 , Resistant >64 Abnormal [facility] Comment on above: Performed By: #### 6 30-4 #### [facility] CLIA [id number] [address] [place] [address] [place] URINE CULTURE [CCL]on 2024 Bacteria identified Cx Nom (U) Normal [facility] Comment on above: Performed By: #### 2 [id number] ####[facility],[address] [place], [place] [address]Oon 05-11-2025 CNCO Letter Text [facility] CNTHERAPYon 05-11-2025 CNTHERAPY OT/PT/Speech Visit (UNPTOP) ANU LOPEZ ([id number]) 02 M Date Time Provider Department 05/11/25 10:00 AM [facility] Provider Department [facility] 05/11/2025 10:00 AM [id number] [facility] Reason for Visit: Physical Therapy [503] Primary Visit Diagnosis:Feeling of incomplete bladder emptying [R39.14] Other Visit Diagnosis:Pain with urination [R30.9] Allergies As of Date: 05/11/2025 Noted Allergy Reaction DILAUDID (HYDROMORPHONE) 04/07/2024 2 - Rash Date Reviewed: 05/05/2025 Reviewed by: Cody Sanchez OCCA - Fully Assessed Prescriptions as of 05/11/2025 - ciprofloxacin HCl (CIPRO) 500 mg tablet - tamsulosin (FLOMAX) 0.4 mg Take 1 capsule by mouth once daily. - polyethylene glycol 3350 (MIRALAX ORAL) Take 17 mg by mouth once daily as needed. - loratadine (CLARITIN) 10 mg tablet Take 10 mg by mouth once daily as needed. 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 Gould) c/b left flank pain s/p L URS/LL, stent placement (10/20/24, Dr. Gould) who is in clinic today for second opinion and follow-up regarding incomplete bladder emptying. He complains of inability to fully empty his bladder, pain with orgasm, and lack of sensation to his bladder that has been ongoing during the past year. He has been doing 90 minute voiding schedule with double voiding during the day and has started pelvic floor PT a few weeks ago. OBJECTIVE: ALLERGIES: ALLERGIES Allergen Reactions Dilaudid [[employer]* Rash MEDICATIONS: Current Outpatient Medications Medication Sig ciprofloxacin HCl (CIPRO) 500 mg tablet tamsulosin (FLOMAX) 0.4 mg Take 1 capsule by mouth once daily. polyethylene glycol 3350 (MIRALAX ORAL) Take 17 mg by mouth once daily as needed. (Patient not taking: Reported on 03/26/2025) loratadine (CLARITIN) 10 mg tablet Take 10 mg by mouth once daily as needed. (Patient not taking: Reported on 03/26/2025) No current facility-administered medications for this visit. PAST MEDICAL HISTORY: PAST MEDICAL HISTORY Diagnosis Date Hydronephrosis of left kidney PMH - PAST MEDICAL HISTORY OF Normal color vision Respiratory syncytial virus (RSV) 08/08/2003 Routine or ritual circumcision Wrist fracture, right 05/08/2013 PAST SURGICAL HISTORY Procedure Laterality Date CIRCUMCISION W/CLAMP/OTH DEV W/BLOCK S STENT,URINARY DIVERSION,[id number] 04/07/24 VITALS: There were no vitals taken for this visit. PHYSICAL EXAM: General: Well-appearing, no acute distress CV: RRR, WWP Lungs: breathing comfortably on room air Abdomen: soft, non-distended, non tender : Deferred Extremities: Normal. No cyanosis, clubbing, or edema LAB REVIEW Creatinine Date Value Ref Range Status 05/14/2024 0.90 0.50 - 1.40 mg/dL Final Comment: Patients receiving either N-Acetylcysteine (NAC) or Metamizole prior to venipuncture, may have falsely depressed results. 05/02/2024 0.98 0.73 - 1.22 mg/dL Final 03/27/2024 0.95 0.73 - 1.22 mg/dL Final 02/10/2024 0.86 0.50 - 1.40 mg/dL Final Comment: Patients receiving either N-Acetylcysteine (NAC) or Metamizole prior to venipuncture, may have falsely depressed results. IMAGING: - CT AP w/ contrast (12/14/24) after reimplant: - CT AP w/ contrast (02/06/24) prior to reimplant: PATHOLOGY: None ASSESSMENT/PLAN PHYSICIAN NOTE OF PERSONAL INVOLVEMENT IN CARE: Staff Note: I reviewed the above HPI/EXAM with the fellow/RN/resident. and discussed findings face to face with patient and agreed with blakely findings and plan. IMPRESSION: This is a 24 year old male with urinary retention and difficulty voiding, left-sided hydronephrosis s/p ureteral reimplant in 2023. His inability to fully empty his bladder is likely due to pelvic floor dysfunction and unrelated to the ureteral reimplant procedure from last year. We have no UDS data prior to surgery to show his bladder function prior. The reimplant procedure has decompressed his left renal collecting system and left kidney is improved on follow-up imaging. PLAN: - Continue pelvic floor PT and re-evaluate for improvement in bladder symptoms - If no improvement, can refer for further evaluation Earl Farley MD Resident Physician, PGY-1 Urology UROL Staff Reviewed presentation, history, medications and/or review of systems as noted by RN and/or resident. Agree with details. I explained to him that the goal of the surgery was to improve his obstructed left kidney. Further explained that this goal appears to be achieved based on imaging prior to and after surgery. Specifically a CT scan in December shows a relatively decompressed kidney. In terms of bladder function, I stressed that his surgery should not have affected bladder function. He does have stones or calcific debris in the lower pole of his left kidney which will contribute to an abnormal urinalysis. Advised him to continue with pelvic floor physical therapy. Should this not improve his symptoms he could return to see one of our voiding dysfunction specialist. Simin Jones MD Allergies As of Date: 05/05/2025 Noted Allergy Reaction DILAUDID (HYDROMORPHONE) 04/07/2024 2 - Rash Date Reviewed: 05/05/2025 Reviewed by: (more content not included)... Normal [facility] Laboratory - Hematology and Cell countson 05-05-2025 Hemoglobin Ql (U) Small Abnormal Negative [facility] Laboratory - Urinalysison Protein Ql (U) >=300 Abnormal Negative mg/dL [facility] No Panel Informationon 05-05 BILIRUBIN UA (POCT) Negative Negative [facility] CLARITY UA (POCT) Cloudy [facility] COLOR UA (POCT) Yellow [facility] GLUCOSE UA (POCT) Negative Negative mg/dL [facility] Interpretation and review of laboratory results Abnormal [facility] KETONE UA (POCT) Negative Negative mg/dL [facility] LEUKOCYTES UA (POCT) Large Abnormal Negative [facility] NITRITE UA (POCT) Positive Abnormal Negative [facility] PH UA (POCT) 6.5 4.5 - 8.0 [facility] SPECIFIC GRAVITY UA (POCT) 1.025 1.005 - 1.030 [facility] UROBILINOGEN UA (POCT) 0.2 Nicole l E.U./dL [facility] Location:[facility], [address] [place] [address] POINT OF CARE [facility] CNTHERAPYon 05-04-2025 CNTHERAPY OT/PT/Speech Visit (UNPTOP) ANU LOPEZ ([id number]) 02 Date Time Provider Department 05/04/25 11:30 AM JAZMINE ANANDA UNPTOP Date Time Provider Department [place] 05/04/2025 11:30 AM [id number], TIFFANY [facility] Reason for Visit: Physical Therapy [503] Primary Visit Diagnosis:Feeling of incomplete bladder emptying [R39.14] Other Visit Diagnosis:Pain with urination [R30.9] Allergies As of Date: 05/04/2025 Noted Allergy Reaction DILAUDID (HYDROMORPHONE) 04/07/2024 2 - Rash Date Reviewed: 04/07/2025 Reviewed by: Pat Will APRN.SUPERVISING BAILIFF - Fully Assessed Prescriptions as of 05/04/2025 - ciprofloxacin HCl (CIPRO) 500 mg tablet - tamsulosin (FLOMAX) 0.4 mg Take 1 capsule by mouth once daily. - polyethylene glycol 3350 (MIRALAX ORAL) Take 17 mg by mouth once daily as needed. - loratadine (CLARITIN) 10 mg tablet Take 10 mg by mouth once daily as needed. Fluxer: Addendum Therapy (PT/OT/Speech/Resp) ID: [id number] 05/04/2025 2:10 PM Author: ANANDA SOUZA Signed by ANANDA SOUZA OIL FIRE SPECIALIST on 05/04/2025 at 2:10 PM * * * This document replaces document [id number] * * * Document text: Program_ID:[id number] Access Code: [email or web address] URL: [email or web address] Date: 05-04-2025 Prepared By: Myesha Fletcher Program Notes Exercises - Supine Pelvic Floor Stretch - 1 x daily - 7 x weekly - 3 sets - 10 reps - Supine Transversus Abdominis Bracing with Pelvic Floor Contraction - 1 x daily - 7 x weekly - 3 sets - 10 reps - Supine Posterior Pelvic Tilt with Pelvic Floor Contraction - 1 x daily - 7 x weekly - 3 sets - 10 reps - Tree Pose - 1 x daily - 7 x weekly - 1 sets - 2 reps - Supine Hamstring Stretch - 1 x daily - 7 x weekly - 1 sets - 2 reps - Hooklying Single Knee to Chest Stretch - 1 x daily - 7 x weekly - 1 sets - 2 reps - Supine Piriformis Stretch with Leg Straight - 1 x daily - 7 x weekly - 1 sets - 2 reps - Prone Press Up On Elbows - 1 x daily - 7 x weekly - 1 sets - 2 reps - Diaphragmatic Breathing in Child's Pose with Pelvic Floor Relaxation - 1 x daily - 7 x weekly - 1 sets - 2 reps - Half Kneeling Hip Flexor Stretch - 1 x daily - 7 x weekly - 1 sets - 2 reps - Child's Pose with Sidebending - 1 x daily - 7 x weekly - 1 sets - 2 reps Patient Education - Get To Know Your Pelvic Floor- Male - cc Pelvic Floor - Bladder Helio - Irritants - cc Pelvic Floor Bladder Basics - Pelvic Floor - Diaphragmatic Breathing - Pelvic Floor - Bladder Health AND Emptying Techniques - Pelvic Floor - Bladder Emptying Ideas - Pelvic Floor - Bladder Retraining and Urge Suppression - Pelvic Floor - Bowel Movement Education - Pelvic Floor - Kegel Exercise for Men - cc Post Op Scar Massage Instruction [facility] THERAPY NTon 05-04-2025 THERAPY NT HNO ID: [id number] Author: ANANDA SOUZA PTA Service: Physical Therapy Author Type: Prescription Benefit Specialist Type: Therapy (PT/OT/Speech/Resp) Filed: 05/04/2025 14:10 Note Text: Program_ID:[id number] Access Code: [email or web address] URL: [email or web address] Date: 05-04-2025 Prepared By: Myesha Fletcher Program Notes Exercises - Supine Pelvic Floor Stretch - 1 x daily - 7 x weekly - 3 sets - 10 reps - Supine Transversus Abdominis Bracing with Pelvic Floor Contraction - 1 x daily - 7 x weekly - 3 sets - 10 reps - Supine Posterior Pelvic Tilt with Pelvic Floor Contraction - 1 x daily - 7 x weekly - 3 sets - 10 reps - Tree Pose - 1 x daily - 7 x weekly - 1 sets - 2 reps - Supine Hamstring Stretch - 1 x daily - 7 x weekly - 1 sets - 2 reps - Hooklying Single Knee to Chest Stretch - 1 x daily - 7 x weekly - 1 sets - 2 reps - Supine Piriformis Stretch with Leg Straight - 1 x daily - 7 x weekly - 1 sets - 2 reps - Prone Press Up On Elbows - 1 x daily - 7 x weekly - 1 sets - 2 reps - Diaphragmatic Breathing in Child's Pose with Pelvic Floor Relaxation - 1 x daily - 7 x weekly - 1 sets - 2 reps - Half Kneeling Hip Flexor Stretch - 1 x daily - 7 x weekly - 1 sets - 2 reps - Child's Pose with Sidebending - 1 x daily - 7 x weekly - 1 sets - 2 reps Patient Education - Get To Know Your Pelvic Floor- Male - cc Pelvic Floor - Bladder Helio - Irritants - cc Pelvic Floor Bladder Basics - Pelvic Floor - Diaphragmatic Breathing - cc Pelvic Floor - Bladder Health AND Emptying Techniques - cc Pelvic Floor - Bladder Emptying Ideas - cc Pelvic Floor - Bladder Retraining and Urge Suppression - cc Pelvic Floor - Bowel Movement Education - Pelvic Floor - Kegel Exercise for Men - cc Post Op Scar Massage Instruction [facility] CNTHERAPYon 04-29-2025 CNTHERAPY OT/PT/Speech Visit (UNPTOP) ANU LOPEZ ([id number]) 4 M Date Time Provider Department 04/29/25 11:30 AM [facility] Date Time Provider Department Center 04/29/2025 11:30 AM [id number], TIFFANY [facility] Reason for Visit: Physical Therapy [503] Primary Visit Diagnosis:Feeling of incomplete bladder emptying [R39.14] Other Visit Diagnosis:Pain with urination [R30.9] Allergies As of Date: 04/29/2025 Noted Allergy Reaction DILAUDID (HYDROMORPHONE) 04/07/2024 2 - Rash Date Reviewed: 04/07/2025 Reviewed by: Pat Will APRN.SUPERVISING BAILIFF - Fully Assessed Prescriptions as of 04/29/2025 - ciprofloxacin HCl (CIPRO) 500 mg tablet - tamsulosin (FLOMAX) 0.4 mg Take 1 capsule by mouth once daily. - polyethylene glycol 3350 (MIRALAX ORAL) Take 17 mg by mouth once daily as needed. - loratadine (CLARITIN) 10 mg tablet Take 10 mg by mouth once daily as needed. Fluxer: Addendum Therapy (PT/OT/Speech/Resp) ID: [id number] 04/29/2025 12:11 PM Author: ANANDA SOUZA Signed by ANANDA SOUZA PTA on 04/29/2025 at 12:11 PM * * * This document replaces document [id number] * * * Document text: Program_ID:[id number] Access Code: [email or web address] URL: [email or web address] Date: 04-29-2025 Prepared By: Myesha Fletcher Program Notes Exercises - Supine Pelvic Floor Stretch - 1 x daily - 7 x weekly - 3 sets - 10 reps - Supine Transversus Abdominis Bracing with Pelvic Floor Contraction - 1 x daily - 7 x weekly - 3 sets - 10 reps - Supine Posterior Pelvic Tilt with Pelvic Floor Contraction - 1 x daily - 7 x weekly - 3 sets - 10 reps - Tree Pose - 1 x daily - 7 x weekly - 1 sets - 2 reps - Supine Hamstring Stretch - 1 x daily - 7 x weekly - 1 sets - 2 reps - Hooklying Single Knee to Chest Stretch - 1 x daily - 7 x weekly - 1 sets - 2 reps - Supine Piriformis Stretch with Leg Straight - 1 x daily - 7 x weekly - 1 sets - 2 reps - Prone Press Up On Elbows - 1 x daily - 7 x weekly - 1 sets - 2 reps - Diaphragmatic Breathing in Child's Pose with Pelvic Floor Relaxation - 1 x daily - 7 x weekly - 1 sets - 2 reps Patient Education - Get To Know Your Pelvic Floor- Male - cc Pelvic Floor - Bladder Helio - Irritants - cc Pelvic Floor Bladder Basics - Pelvic Floor - Diaphragmatic Breathing - Pelvic Floor - Bladder Health AND Emptying Techniques - Pelvic Floor - Bladder Emptying Ideas - Pelvic Floor - Bladder Retraining and Urge Suppression - Pelvic Floor - Bowel Movement Education - Pelvic Floor - Kegel Exercise for Men - cc Post Op Scar Massage Instruction [facility] THERAPY NTon 04-29-2025 THERAPY NT HNO ID: [id number] Author: ANANDA SOUZA PTA Service: Physical Therapy Author Type: Prescription Benefit Specialist Type: Therapy (PT/OT/Speech/Resp) Filed: 04/29/2025 12:11 Note Text: Program_ID:[id number] Access Code: [email or web address] URL: [email or web address]/ Date: 04-29-2025 Prepared By: Myesha Fletcher Program Notes Exercises - Supine Pelvic Floor Stretch - 1 x daily - 7 x weekly - 3 sets - 10 reps - Supine Transversus Abdominis Bracing with Pelvic Floor Contraction - 1 x daily - 7 x weekly - 3 sets - 10 reps - Supine Posterior Pelvic Tilt with Pelvic Floor Contraction - 1 x daily - 7 x weekly - 3 sets - 10 reps - Tree Pose - 1 x daily - 7 x weekly - 1 sets - 2 reps - Supine Hamstring Stretch - 1 x daily - 7 x weekly - 1 sets - 2 reps - Hooklying Single Knee to Chest Stretch - 1 x daily - 7 x weekly - 1 sets - 2 reps - Supine Piriformis Stretch with Leg Straight - 1 x daily - 7 x weekly - 1 sets - 2 reps - Prone Press Up On Elbows - 1 x daily - 7 x weekly - 1 sets - 2 reps - Diaphragmatic Breathing in Child's Pose with Pelvic Floor Relaxation - 1 x daily - 7 x weekly - 1 sets - 2 reps Patient Education - Get To Know Your Pelvic Floor- Male - cc Pelvic Floor - Bladder Helio - Irritants - cc Pelvic Floor Bladder Basics - Pelvic Floor - Diaphragmatic Breathing - Pelvic Floor - Bladder Health AND Emptying Techniques - cc Pelvic Floor - Bladder Emptying Ideas - cc Pelvic Floor - Bladder Retraining and Urge Suppression - Pelvic Floor - Bowel Movement Education - Pelvic Floor - Kegel Exercise for Men - cc Post Op Scar Massage Instruction [facility] Katya 04-27-2025 CNPN Telephone (UNPTOP) ANU LOPEZ ([id number]) 4 M Date Time Provider Department 04/27/25 ANANDA SOUZA UNPTOP During your visit today, we recorded the following information about you: Allergies As of Date: 04/27/2025 Noted Allergy Reaction DILAUDID (HYDROMORPHONE) 04/07/2024 2 - Rash Date Reviewed: 04/07/2025 Reviewed by: Pat Will APRN.SUPERVISING BAILIFF - Fully Assessed Reason for Visit: Appointment [186] Cmt: Patient NS. No answer. Prescriptions as of 04/27/2025 - ciprofloxacin HCl (CIPRO) 500 mg tablet - tamsulosin (FLOMAX) 0.4 mg Take 1 capsule by mouth once daily. - polyethylene glycol 3350 (MIRALAX ORAL) Take 17 mg by mouth once daily as needed. - loratadine (CLARITIN) 10 mg tablet Take 10 mg by mouth once daily as needed. Problem List As Of Date 04/27/2025 Noted Resolved Left ureteral stone [N20.1] 02/06/2024 Hydronephrosis, left [N13.30] 02/07/2024 Preop testing [Z01.818] 04/03/2024 Ureteral stricture, left [N13.5] 04/07/2024 Renal calculus, left [N20.0] 09/18/2024 Left flank pain [R10.9] 11/20/2024 Feeling of incomplete bladder emptying [R39.14] 12/04/2024 Pain with urination [R30.9] 04/21/2025 Encounter Status:Closed by ANANDA SOUZA on 04/27/25 [facility] CNTHERAPYon 04-20-2025 CNTHERAPY OT/PT/Speech Visit (UNPTOP) ANU LOPEZ ([id number]) 02 M Date Time Provider Department 04/20/25 2:00 PM MYESHA FLETCHER UNPTOP Date Time Provider Department Center 04/20/2025 2:00 PM [id number], AMANDA [facility] Reason for Visit: PT Eval [747] Primary Visit Diagnosis:Feeling of incomplete bladder emptying [R39.14] Other Visit Diagnosis:Pain with urination [R30.9] Allergies As of Date: 04/20/2025 Noted Allergy Reaction DILAUDID (HYDROMORPHONE) 04/07/2024 2 - Rash Date Reviewed: 04/07/2025 Reviewed by: Pat Will APRN.SUPERVISING BAILIFF - Fully Assessed Prescriptions as of 04/21/2025 - ciprofloxacin HCl (CIPRO) 500 mg tablet - tamsulosin (FLOMAX) 0.4 mg Take 1 capsule by mouth once daily. - polyethylene glycol 3350 (MIRALAX ORAL) Take 17 mg by mouth once daily as needed. - loratadine (CLARITIN) 10 mg tablet Take 10 mg by mouth once daily as needed. Fluxer: Therapy (PT/OT/Speech/Resp) ID: [id number] 04/20/2025 3:12 PM Author: MYESHA FLETCHER Signed by MYESHA FLETCHER PT on 04/20/2025 at 3:12 PM Document text: Program_ID:[id number] Access Code: [email or web address] URL: [email or web address] .[email or web address]/ Date: 04-20-2025 Prepared By: Myesha Fletcher Program Notes Exercises - Supine Pelvic Floor Stretch - 1 x daily - 7 x weekly - 3 sets - 10 reps - Supine Transversus Abdominis Bracing with Pelvic Floor Contraction - 1 x daily - 7 x weekly - 3 sets - 10 reps - Supine Posterior Pelvic Tilt with Pelvic Floor Contraction - 1 x daily - 7 x weekly - 3 sets - 10 reps Patient Education - Get To Know Your Pelvic Floor- Male - cc Pelvic Floor - Bladder Helio - Irritants - cc Pelvic Floor Bladder Basics - cc Pelvic Floor - Diaphragmatic Breathing - cc Pelvic Floor - Bladder Health AND Emptying Techniques - cc Pelvic Floor - Bladder Emptying Ideas - cc Pelvic Floor - Bladder Retraining and Urge Suppression - cc Pelvic Floor - Bowel Movement Education - cc Pelvic Floor - Kegel Exercise for Men [facility] THERAPY NTon 04-20-2025 THERAPY NT HNO ID: [id number] Author: MYESHA FLETCHER, PT Service: ? Author Type: Physical Therapist Type: Therapy (PT/OT/Speech/Resp) Filed: 04/20/2025 15:12 Note Text: Program_ID:[id number] Access Code: [email or web address] URL: [email or web address]/ Date: 04-20-2025 Prepared By: Myesha Fletcher Program Notes Exercises - Supine Pelvic Floor Stretch - 1 x daily - 7 x weekly - 3 sets - 10 reps - Supine Transversus Abdominis Bracing with Pelvic Floor Contraction - 1 x daily - 7 x weekly - 3 sets - 10 reps - Supine Posterior Pelvic Tilt with Pelvic Floor Contraction - 1 x daily - 7 x weekly - 3 sets - 10 reps Patient Education - Get To Know Your Pelvic Floor- Male - cc Pelvic Floor - Bladder Helio - Irritants - cc Pelvic Floor Bladder Basics - cc Pelvic Floor - Diaphragmatic Breathing - cc Pelvic Floor - Bladder Health AND Emptying Techniques - cc Pelvic Floor - Bladder Emptying Ideas - cc Pelvic Floor - Bladder Retraining and Urge Suppression - cc Pelvic Floor - Bowel Movement Education - cc Pelvic Floor - Kegel Exercise for Men [facility] BLADDER SCANon 04-07-2025 Pvr - 229 ml [facility] CNOVon 04-07-2025 CNOV Office Visit ([id number] 2) ANU LOPEZ ([id number]) 4 M Date Time Provider Department 04/07/25 9:20 AM APT WILL [id number] During your visit today, we recorded the following information about you: Pat Will APRN.SUPERVISING BAILIFF 04/18/2025 2:30 PM Signed [facility] [place] [facility] [place] UROL AMAN KAUR PATIENT NAME: Anu Lopez DATE OF : 2000 TODAY'S DATE: 04/07/2025 CHIEF COMPLAINT: Patient presents with: Incomplete bladder emptying Assessment AND Plan: Assessment AND Plan Feeling of incomplete bladder emptying - PVR 229 cc - Obtain records from recent ER visit including imaging. - Recommend appointment with nursing to learn ISC. Recommend continuing timed/double voiding - Has not started pelvic floor physical therapy yet. -Consider potential InterStim placement. Hydronephrosis of left kidney Hx of robotic assisted lap left ureteral reimplant 05/13/24. Suspected reflux into system Follow Up: Return for Nursing to learn ISC. Follow up with Dr. Gould post PFPT HPI: Mr. Lopez is a 24 year old male who presents to the office regarding incomplete bladder emptying. Records have been reviewed. Went to the ED for frequency, flank pain- band like. Records not available for review Has been taking cipro. Starts PFT 04/23. Urinary Retention: - Recent urodynamic study and cystoscopy performed at [facility]. - Reports incomplete bladder emptying; instructed to void every 90 minutes, but notes minimal improvement. - Experiences rare sensation to urinate; often forces urination. - Recent episodes of urinary frequency, urinating 6-7 times in one hour. - Occasional post-void dribbling. - Denies significant urinary issues prior to previous surgery. - Concerns about potential nerve damage affecting bladder sensation post-surgery. - Scheduled for pelvic therapy on April 23. - Expresses reluctance towards self-catheterization and concerns about long-term management. Hydronephrosis: - History of left kidney swelling due to ureteral collapse. - Recent ER visit for severe left flank pain; diagnosed with kidney infection and chronic swelling. - Left kidney significantly larger than right; prescribed Keflex. - Pain improved with antibiotics but still present. - Concerns about recurrent kidney swelling and potential long-term damage. - Previous kidney function reduced to 10% during last swelling episode; recent scan showed improvement to 46-48% function. - Reports sharp bladder pain during sexual activity, leading to premature ejaculation. Review of symptoms All pertinent positives and negatives per HPI as stated above. Social History: PAST MEDICAL HISTORY Diagnosis Date Hydronephrosis of left kidney PMH - PAST MEDICAL HISTORY OF Normal color vision Respiratory syncytial virus (RSV) 08/08/2003 Routine or ritual circumcision Wrist fracture, right 05/08/2013 PAST SURGICAL HISTORY Procedure Laterality Date CIRCUMCISION W/CLAMP/OTH DEV W/BLOCK S STENT,URINARY DIVERSION,[id number] 04/07/24 ALLERGIES Allergen Reactions Dilaudid [Hydromorp* Rash Medications Current Outpatient Medications Medication Instructions ciprofloxacin HCl (CIPRO) 500 mg tablet loratadine (CLARITIN) 10 mg, ONCE DAILY NEEDED polyethylene glycol 3350 (MIRALAX ORAL) 17 mg, ONCE DAILY NEEDED tamsulosin (FLOMAX) 0.4 mg, ORAL, DAILY Physical Exam There were no vitals taken for this visit. Constitutional: In no acute distress. Well appearing. Genitourinary: CVA: Nontender bilaterally. Genitourinary: Bladder nontender and nondistended. Pertinent Labs: CBC: Lab Results Component Value Date WBC 14.07 (H) 05/14/2024 HCT 42.6 05/14/2024 MCV 90.8 05/14/2024 PLT 237 05/14/2024 CMP: Lab Results Component Value Date NA 141 05/14/2024 K 4.4 05/14/2024 CO2 23 05/14/2024 BUN 14 05/14/2024 ALT <7 (L) 02/10/2024 AST 10 02/10/2024 ALKPHOS 80 02/10/2024 URINE POC GLUCOSE UA (POCT) Negative 04/07/2025 BILIRUBIN UA (POCT) Negative 04/07/2025 KETONE UA (POCT) Negative 04/07/2025 SPECIFIC GRAVITY UA (POCT) 1.020 04/07/2025 HEMOGLOBIN/BLOOD UA (POCT) Small 04/07/2025 PH UA (POCT) 7.0 04/07/2025 PROTEIN UA (POCT) 30 04/07/2025 UROBILINOGEN UA (POCT) 0.2 04/07/2025 NITRITE UA (POCT) Negative 04/07/2025 LEUKOCYTES UA (POCT) Small 04/07/2025 COLOR UA (POCT) Yellow 04/07/2025 CLARITY UA (POCT) Clear 04/07/2025 Urine Culture: Culture Results - Past 1 Year Culture 05/07/2024 No growth to date 10/20/2024 No growth (<1,000 CFU/ml) 12/14/2024 No growth (<1,000 CFU/ml) 01/15/2025 No growth (<1,000 CFU/ml) 01/26/2025 Normal urogenital elodia: >=100,000 CFU/ml Staphylococcus epidermidis 02/13/2025 >=100,000 CFU/ml Normal Urogenital Elodia 03/04/2025 Normal urogenital elodia: >=100,000 CFU/ml Staphylococcus epidermidis 03/26/2025 >=100,000 CFU/ml Normal urogenital elodia (more content not included)... Normal [facility] C-REACTIVE PROTEINon 025 CRP 0.35 mg/dl Normal 0.00 - 0.90 [facility] Comment on above: Performed By: #### 2 55480 ####[place] [address] CBC + DIFFon 04-05-2025 Baso # 0.03 x10EE3/UL Normal 0.00 - 0.10 [facility] Comment on above: Performed By: #### 2 79062 ####[facility],[address] [place] [address] Basophils/100 WBC (Bld) 0.2 % Normal 0.0 - 2.0 [facility] Comment on above: Performed By: #### 2 15380 ####[facility],[address] [place] [address] CBC + DIFF Normal [facility] Comment on above: Result Comment: CBC- COMPLETE BLOOD COUNT Performed By: #### 2 87320 ####[facility],[address] [place] [address] EO # 0.09 x10EE3/UL Normal 0.00 - 0.50 [facility] Comment on above: Performed By: #### 2 80601 ####[place] [address] Eosinophils/100 WBC (Bld) 0.8 % Normal 0.0 - 7.0 [facility] Comment on above: Performed By: #### 2 69151 ####[facility],[address] [place] [address] Erythrocyte distribution width (RBC) [Ratio] 13.2 % Normal 12.0 - 15.6 [facility] Comment on above: Performed By: #### 2 65949 ####[facility],[address] [place] [address] Hematocrit (Bld) [Volume fraction] 50.1 % Normal 40.0 - 52.0 [facility] Comment on above: Performed By: #### 2 83277 ####[facility],[address] [place] [address] Hemoglobin (Bld) [Mass/Vol] 17.2 g/dL Normal 13.0 - 17.5 [facility] Comment on above: Performed By: #### 2 79427 ####[facility],[address] [place] [address] Lymph # 1.08 x10EE3/UL Normal 0.80 - 2.80 [facility] Comment on above: Performed By: #### 2 98963 ####[facility],[address] [place] [address] Lymphocytes/100 WBC (Bld) 8.8 % Low 20.0 - 45.0 [facility] Comment on above: Performed By: #### 2 52940 ####[facility],[address] [place] [address] MANUAL DIFF N/A Normal [facility] Comment on above: Performed By: #### 2 28774 ####[facility],[address] [place] [address] MCH (RBC) [Entitic mass] 30 pg Normal 27 - 33 [facility] Comment on above: Performed By: #### 2 56373 ####[facility],[address] [place] [address] MCHC 34 X10 3 Normal 32 - 36 [facility] Comment on above: Performed By: #### 2 25056 ####[facility],[address] [place] [address] MCV (RBC) [Entitic vol] 88 fL Normal 81 - 98 [facility] Comment on above: Performed By: #### 2 54056 ####[facility],[address] [place] [address] [place] # 1.15 x10EE3/UL High 0.20 - 1.00 [facility] Comment on above: Performed By: #### 2 25214 ####[facility],[address] [place] [address] MONOS % 9.4 % Normal 0.0 - 10.0 [facility] Comment on above: Performed By: #### 2 06041 ####[facility],[address] [place] [address] Morphology Cornel (Bld) [Interp] N/A Normal [facility] Comment on above: Performed By: #### 2 06603 ####[facility],[address],[place] [address] Neut # 9.89 x10EE3/UL High 1.50 - 7.10 [facility] Comment on above: Performed By: #### 2 58980 ####[facility],[address] [place] [address] Neutrophils/100 WBC (Bld) 80.8 % High 46.0 - 76.0 [facility] Comment on above: Performed By: #### 2 15813 ####[facility],[address] [place] [address]394 PLATELET 277 x10EE3/UL Normal 150 - 450 [facility] Comment on above: Performed By: #### 2 70783 ####[facility],[address] [place] [address] Platelet mean volume (Bld) [Entitic vol] 9.1 fL Normal 6.4 - 10.5 [facility] Comment on above: Result Comment: AUTO MATED DIFFERENTIAL Performed By: #### 2 82443 ####[facility],[address] [place] [address] RBC 5.67 x 10EE6/UL Normal 4.50 - 6.00 [facility] Comment on above: Performed By: #### 2 22515 ####[facility],[address] [place] [address] WBC 12.2 x 10EE3/UL High 4.5 - 10.8 [facility] Comment on above: Performed By: #### 2 34789 ####[facility],[address] [place] [address]182 CMP with eGFRon 04-05-2025 AGE 24 years Normal [facility] Comment on above: Performed By: #### 2 82283 ####[facility],[address] [place] [address]6478 Albumin [Mass/Vol] 4.1 g/dL Normal 3.4 - 5.0 [facility] Comment on above: Performed By: #### 2 56313 ####[facility],[address] [place] [address] 17903 Albumin/Globulin [Mass ratio] 1.1 {ratio} Normal 0.9 - 1.6 [facility] Comment on above: Performed By: #### 2 09050 ####[facility],[address] [place] [address] 94196 ALK PHOS 112 U/L Normal 46 - 116 [facility] Comment on above: Performed By: #### 2 57947 ####[facility],[address] [place] [address] 48975 ALT [Catalytic activity/Vol] 25 U/L Normal 16 - 63 [facility] Comment on above: Performed By: #### 2 34587 ####[facility],[address] [place] [address] 35208 Anion gap [Moles/Vol] 12 mmol/L Normal 10 - 20 [facility] Comment on above: Performed By: #### 2 55246 ####[facility],[address] [place] [address] 70990 AST [Catalytic activity/Vol] 12 U/L Low 15 - 37 [facility] Comment on above: Performed By: #### 2 66148 ####[facility],[address] [place] [address] 92567 B/C RATIO 12 ratio Normal 0 - 30 [facility] Comment on above: Performed By: #### 2 09379 ####[facility],[address] [place] [address] 19946 Bilirubin [Mass/Vol] 0.4 mg/dL Normal 0.2 - 1.0 [facility] Comment on above: Performed By: #### 2 02750 ####[facility],[address] [place] [address] 17864 Calcium [Mass/Vol] 8.9 mg/dL Normal 8.5 - 10.1 [facility] Comment on above: Performed By: #### 2 90015 ####[facility],[address] [place] [address] 26651 Chloride [Moles/Vol] 102 mmol/L Normal 98 - 107 [facility] Comment on above: Performed By: #### 2 60428 ####[facility],[address] [place] [address] 97017 CMP with eGFR Normal [facility] Comment on above: Result Comment: COMP REHENSIVE METABOLIC PANEL Performed By: #### 2 69959 ####[facility],[address] [place] [address]80 CO2 [Moles/Vol] 27.5 mmol/L Normal 21.0 - 32.0 [facility] Comment on above: Performed By: #### 2 83182 ####[facility],[address] [place] [address] 29537 Creatinine [Mass/Vol] 0.98 mg/dL Normal 0.70 - 1.30 [facility] Comment on above: Performed By: #### 2 58106 ####[facility],[address] [place] [address] 10625 GFR/1.73 sq M.predicted among non-blacks MDRD (S/P/Bld) [Vol rate/Area] mL/min/{1.73_m2} Normal 60 - 999 [facility] Comment on above: Performed By: #### 2 82984 ####[facility],[address] [place] [address] 43889 Result Comment: ACCO RDING TO THE NATIONAL KIDNEY DISEASE EDUCATION PROGRAM(NKDE), A NORMAL eGFRIS A VALUE GREATER THAN OR EQUAL TO 60 ML/MIN/1.73 SQ METERS.CHRONIC KIDNEY DISEASE: <60mL/MIN/1.73 SQ METERSKIDNEY FAILURE: <15mL/MIN/1.73 SQ METERSTHIS TEST SHOULD ONLY BE USED FOR PATIENTS 18 YEARS OF AGE AND OLDER. Globulin (S) [Mass/Vol] 3.9 g/dL High 1.5 - 3.8 [facility] Comment on above: Performed By: #### 2 27255 ####[facility],[address] [place] [address] 00415 Glucose [Mass/Vol] 95 mg/dL Normal 74 - 106 [facility] Comment on above: Performed By: #### 2 40143 ####[facility],[address] [place] [address] 48963 Potassium [Moles/Vol] 3.9 mmol/L Normal 3.5 - 5.1 [facility] Comment on above: Performed By: #### 2 56786 ####[facility],[address] [place] [address] 77272 Protein [Mass/Vol] 8.0 g/dL Normal 6.4 - 8.2 [facility] Comment on above: Performed By: #### 2 55883 ####[facility],[address] [place] [address] 45391 Sodium [Moles/Vol] 138 mmol/L Normal 136 - 145 [facility] Comment on above: Performed By: #### 2 34433 ####[facility],[address] [place] [address] 54818 Urea nitrogen [Mass/Vol] 12 mg/dL Normal 7 - 18 [facility] Comment on above: Performed By: #### 2 89483 ####[facility],[address] [place] [address] ABDOMEN/PELVIS Won 2024 CT ABDOMEN/PELVIS W Normal [facility] ED MED ADMINISTRATION DETAIL on 04-05-2025 ED MED ADMINISTRATION DETAIL Normal [facility] ED NURSES CLINICAL NOTEon ED NURSES CLINICAL NOTE Normal [facility] ED ORDER SHEET (CPOE ONLY)on 04-05-2025 ED ORDER SHEET (CPOE ONLY) Normal [facility] ED PHYSICIAN CLINICAL REPORT on 04-05-2025 ED PHYSICIAN CLINICAL REPORT Normal [facility] ED SUPER BILLon 04-05-2025 ED SUPER BILL Normal [facility] ED VISIT SUMMARYon ED VISIT SUMMARY Normal [facility] ED VITALS FLOW SHEETon 04-05 ED VITALS FLOW SHEET Normal [facility] LACTATEon 04-05-2025 Lactate [Moles/Vol] 1.3 mmol/L Normal 0.4 - 2.0 [facility] Comment on above: Performed By: #### 2 83166 ####[facility],[address] [place] [address] LIPASEon 04-05-2025 Lipase [Catalytic activity/Vol] 33.0 U/L Normal 15.0 - 78.0 [facility] Comment on above: Result Comment: *PLE ASE NOTE THAT RANGES FOR LIPASE HAVE CHANGED OF 10/05/23 DUE TO AN ASSAYUPDATE BY THE REAL ESTATE DEVELOPMENT MANAGER.THE NEW ASSAY RANGE IS 6-250 U/L, WITH A REFERENCERANGE OF 16-77 U/L. Performed By: #### 2 08096 ####[facility],[address] [place] [address] URINALYSISon 04-05-2025 Amorphous NONE Normal [facility] Comment on above: Performed By: #### 2 20443 ####[facility],[address] [place] [address] Bacteria 1+ Normal [facility] Comment on above: Performed By: #### 2 14452 ####[facility],[address] [place] [address] Bilirubin Ql (U) Negative Normal NORMAL: NEGATIVE [facility] Comment on above: Performed By: #### 2 95007 ####[facility],[address] [place] [address] Casts NONE Normal [facility] Comment on above: Performed By: #### 2 46037 ####[facility],[address] [place] [address] Clarity (U) CLOUDY Abnormal NORMAL: CLEAR [facility] Comment on above: Performed By: #### 2 21921 ####[facility],[address] [place] [address] 30659 Color (U) STRAW Normal NORMAL: YELLOW [facility] Comment on above: Performed By: #### 2 30720 ####[facility],[address] [place] [address] 88199 Crystals LM Nom (Urine sed) NONE Normal [facility] Comment on above: Performed By: #### 2 21218 ####[facility],[address] [place] [address] 62113 Epi Cells NONE Normal [facility] Comment on above: Performed By: #### 2 33228 ####[facility],[address] [place] [address] 44279 Glucose Ql (U) NORM Normal NORMAL: NORMAL [facility] Comment on above: Performed By: #### 2 61281 ####[facility],[address] [place] [address] 38615 Hemoglobin Ql (U) 150 Abnormal NORMAL: NEGATIVE [facility] Comment on above: Performed By: #### 2 59672 ####[facility],[address] [place] [address] 72305 Ketone Negative Normal NORMAL: NEGATIVE [facility] Comment on above: Performed By: #### 2 76328 ####[facility],[address] [place] [address] 35853 Leukocytes 100 Abnormal NORMAL: NEGATIVE [facility] Comment on above: Performed By: #### 2 45773 ####[facility],[address] [place] [address] 76721 Mucous NONE Normal [facility] Comment on above: Performed By: #### 2 47940 ####[facility],[address] [place] [address] 04742 Nitrite Ql (U) Negative Normal NORMAL: NEGATIVE [facility] Comment on above: Performed By: #### 2 37975 ####[facility],[address] [place] [address] pH (U) 6.5 [pH] Normal NORMAL: 5.0-8.0 [facility] Comment on above: Performed By: #### 2 87927 ####[facility],[address] [place] [address] Protein Ql (U) 500 Abnormal NORMAL: NEGATIVE [facility] Comment on above: Performed By: #### 2 71516 ####[place] [address] Rbc 25-30 Normal 0-3/hpf [facility] Comment on above: Performed By: #### 2 35320 ####[place] [address] [address] [place] 1.010 Normal NORMAL: 1.010-1.030 [facility] Comment on above: Performed By: #### 2 60404 ####[place] [address] Specimen Type UNSPECIFIED Normal [facility] Comment on above: Performed By: #### 2 26543 ####[place] [address] Urinalysis dipstick W Reflex Microscopic panel (U) SEE BELOW Normal [facility] Comment on above: Result Comment: MICR OSCOPIC Performed By: #### 2 70725 ####[place] [address] Urobilinog NORMAL Normal NORMAL: NORMAL [facility] Comment on above: Performed By: #### 2 23700 ####[place] [address] WBC (U) [#/Vol] /uL Normal 0-5/hpf [facility] Comment on above: Performed By: #### 2 36939 ####[place] [address] Yeast NONE Normal [facility] Comment on above: Performed By: #### 2 26786 ####[facility],[address] [place] [address] 60578 BLADDER SCANon 03-26-2025 59ml [facility] BLADDER SCANOrdered By: Jessy Jordan on 03-26-2025 [facility] Bacteria Ur Culton 5 Bacteria identified Cx Nom (U) ORGANISM ID: 1 >=100,000 CFU/ml Normal urogenital elodia Normal [facility] Comment on above: Performed By: #### 6 30-4 ####[facility]ORYCLIA [id number] [place] [address] [place] CNCOon 03-26-2025 CNCO Letter Text Normal [facility] CNOVon 03-26-2025 CNOV Office Visit ([id number] 2) ANU LOPEZ ([id number]) 02 M Date Time Provider Department 03/26/25 9:00 AM ANANDA SMILEY [id number] During your visit today, we recorded the following information about you: Ananda Smiley, PATIENT ACCOUNT REPRESENTATIVE.SUPERVISING BAILIFF 03/26/2025 9:42 AM Signed [facility] ESTABLISHED PATIENT FOLLOW-UP NOTE PATIENT: Anu Lopez (24 year old) PCP: Sagar Rojo MD Assessment AND Plan Feeling of incomplete bladder emptying Pvr- 56 cc Discussed case with Dr. Gould and recommend 90 minute voiding schedule with double voiding during the day and referral to PFT. If fails that, he may need to do ISC. Orders: BLADDER SCAN CONSULT TO PHYSICAL THERAPY; Future Hydronephrosis of left kidney Chronic. No obstruction Hx of robotic assisted lap left ureteral reimplant 05/13/24. Suspected reflux into system Orders: BLADDER SCAN Dysuria Ua- small blood, posotive nitrite, small leuk with associated burning and cloudiness of urine. Will emperically treat with keflex. Will call with results. Orders: URINALYSIS, WITH MICROSCOPIC BACTERIAL CULTURE, URINE FOLLOW UP: Return for Will call with results. CHIEF COMPLAINT: Patient presents with: Feeling of incomplete bladder emptying HISTORY OF PRESENT ILLNESS: Prior notes were reviewed. Pt known to Dr. 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 Reported continued cramping and left flank pain which generally occurred during voiding and did not improve after treatment of renal stone. Attempted flomax to see if would improve symptoms which has not. Pvr- 356 cc. Did have cysto/RUG which was without stricture. Underwent UDS which was without obstruction. REVIEW OF SYSTEMS GENERAL:denies unintentional weight loss, malaise or fevers. NEUROLOGIC: pt is alert and oriented GASTROINTESTINAL: No nausea, vomiting, or diarrhea GENITOURINARY: See HPI MUSCULOSKELETAL: Negative for joint pain or swelling, back pain or muscle pain SKIN: Negative for lesions, rash, and itching. ALLERGIES: ALLERGIES Allergen Reactions Dilaudid [Hydromorp* Rash MEDICATIONS: cephALEXin (KEFLEX) 500 mg capsule Take 1 capsule by mouth three times a day for 7 days. tamsulosin (FLOMAX) 0.4 mg Take 1 capsule by mouth once daily. polyethylene glycol 3350 (MIRALAX ORAL) Take 17 mg by mouth once daily as needed. (Patient not taking: Reported on 03/26/2025) loratadine (CLARITIN) 10 mg tablet Take 10 mg by mouth once daily as needed. (Patient not taking: Reported on 03/26/2025) PAST HISTORY: PAST MEDICAL HISTORY Diagnosis Date Hydronephrosis of left kidney PMH - PAST MEDICAL HISTORY OF Normal color vision Respiratory syncytial virus (RSV) 08/08/2003 Routine or ritual circumcision Wrist fracture, right 05/08/2013 PAST SURGICAL HISTORY Procedure Laterality Date CIRCUMCISION W/CLAMP/OTH DEV W/BLOCK S STENT,URINARY DIVERSION,[id number] 04/07/24 FAMILY HISTORY Problem Relation Age of Onset Heart Mother other (arrythmia) Mother Heart Other mggm pacemaker at age 26 years Social History Tobacco Use Smoking status: Never Passive exposure: Never Smokeless tobacco: Never Tobacco comments: smoking outside at dads-denies Vaping Use Vaping status: Never Used Substance Use Topics Alcohol use: No Drug use: No PHYSICAL EXAMINATION: There were no vitals taken for this visit. Constitutional: In no acute distress. Well appearing. Respiratory: Normal respiratory effort without use of accessory muscles. DATA: CT - No results found. CT FLANK WO IVCON Result Date: 09/13/2024 IMPRESSION: Improved but persistent left hydroureteronephrosis. New small dependent peripelvic left lower pole renal calculi. Stand In: FAZAL Transcribe Date/Time: Sep 13 2024 10:39A Dictated by : SHANNAN JACKSON MD This examination was interpreted and the report reviewed and electronically signed by: SHANNAN JACKSON MD on Sep 13 2024 10:43AM EST Clinic: GLUCOSE UA (POCT) (mg/dL) Date Value 03/26/2025 Negative BILIRUBIN UA (POCT) (no units) Date Value 03/26/2025 Negative KETONE UA (POCT) (mg/dL) Date Value 03/26/2025 Negative SPECIFIC GRAVITY UA (POCT) (no units) Date Value 03/26/2025 1.020 HEMOGLOBIN/BLOOD UA (POCT) (no units) Date Value 03/26/2025 Small (A) PH UA (POCT) (no units) Date Value 03/26/2025 6.0 PROTEIN UA (POCT) (mg/dL) Date Value 03/26/2025 100 (A) UROBILINOGEN UA (POCT) (E.U./dL) Date Value 03/26/2025 0.2 NITRITE UA (POCT) (no units) Date Value 03/26/2025 Positive (A) LEUKOCYTES UA (POCT) (no units) Guilherme (more content not included)... [facility] Katya 03-26-2025 [facility] Telephone ([id number]) ANU LOPEZ ([id number]) 4 M Date Time Provider Department 03/26/25 ANANDA SMILEY [id number] During your visit today, we recorded the following information about you: Sabino Jordan MA 03/26/2025 12:44 PM Signed Called [facility]. Spoke to medical records-sending image report, visit note, and labs that were done from that ED visit. Spoke to radiology-sending images from February Ed visit. Sabino Jordan MA Allergies As of Date: 03/26/2025 Noted Allergy Reaction DILAUDID (HYDROMORPHONE) 04/07/2024 2 - Rash Date Reviewed: 03/26/2025 Reviewed by: Sabino Jordan MA - Fully Assessed Prescriptions as of 03/26/2025 - cephALEXin (KEFLEX) 500 mg capsule Take 1 capsule by mouth three times a day for 7 days. - tamsulosin (FLOMAX) 0.4 mg Take 1 capsule by mouth once daily. - polyethylene glycol 3350 (MIRALAX ORAL) Take 17 mg by mouth once daily as needed. - loratadine (CLARITIN) 10 mg tablet Take 10 mg by mouth once daily as needed. Problem List As Of Date 03/26/2025 Noted Resolved Left ureteral stone [N20.1] 02/06/2024 Hydronephrosis, left [N13.30] 02/07/2024 Preop testing [Z01.818] 04/03/2024 Ureteral stricture, left [N13.5] 04/07/2024 Renal calculus, left [N20.0] 09/18/2024 Left flank pain [R10.9] 11/20/2024 Feeling of incomplete bladder emptying [R39.14] 12/04/2024 Encounter Status:Closed by SABINO JORDAN on 03/26/25 Normal [facility] UA DIP, URINE (POC)on 2024 BILIRUBIN UA (POCT) Negative Negative [facility] CLARITY UA (POCT) Cloudy [facility] COLOR UA (POCT) Other [facility] GLUCOSE UA (POCT) Negative Negative mg/dL [facility] Hemoglobin Ql (U) Small Abnormal Negative [facility] Interpretation and review of laboratory results Abnormal [facility] KETONE UA (POCT) Negative Negative mg/dL [facility] LEUKOCYTES UA (POCT) Small Abnormal Negative [facility] NITRITE UA (POCT) Positive Abnormal Negative [facility] PH UA (POCT) 6 4.5 - 8.0 [facility] Protein Ql (U) 100 mg/dL Abnormal Negative [facility] SPECIFIC GRAVITY UA (POCT) 1.02 1.005 - 1.030 [facility] UROBILINOGEN UA (POCT) 0.2 Nicole l E.U./dL [facility] Urinalysis complete panel (U )on 03-26-2025 Bacteria LM.HPF (Urine sed) [#/Area] Rare Abnormal None Seen [facility] Comment on above: Order Comment: Speci men Type: URINE SPECIMENOrdering Facility: [facility] Address: [address] [place] [address] Performed By: #### 2 4356-8 ####[facility]ORATORYCLIA [id number] [place] [address] [place] Bilirubin Ql (U) Negative Normal Negative [facility] Comment on above: Order Comment: Speci men Type: URINE SPECIMENOrdering Facility: [facility] Address: [address] [place] [address] Performed By: #### 2 4356-8 ####[facility]ORATORYCLIA [id number] [address] [place] Clarity (Unsp spec) Hazy Abnormal Clear [facility] Comment on above: Order Comment: Speci men Type: URINE SPECIMENOrdering Facility: [facility] Address: [address] [place] [address] Performed By: #### 2 4356-8 ####[facility]ORATORYCLIA [id number] [address] [place] Color (U) Yellow Normal Yellow [facility] Comment on above: Order Comment: Speci men Type: URINE SPECIMENOrdering Facility: [facility] Address: [address] [place] [address] Performed By: #### 2 4356-8 ####[facility]ORATORYCLIA [id number] [address] [place] Epithelial cells LM.HPF (Urine sed) [#/Area] Few Normal [facility] Comment on above: Order Comment: Speci men Type: URINE SPECIMENOrdering Facility: [facility] Address: [address] [place] [address] Performed By: #### 2 4356-8 ####[facility]ORATORYCLIA [id number] [address] [place] Glucose Test strip (U) [Mass/Vol] Negative Normal Negative [facility] Comment on above: Order Comment: Speci men Type: URINE SPECIMENOrdering Facility: [facility] Address: [address] [place] [address] Performed By: #### 2 4356-8 ####[facility]ORATORYCLIA [id number] [address] [place] Hemoglobin Ql (U) 1+ Abnormal Negative [facility] Comment on above: Order Comment: Speci men Type: URINE SPECIMENOrdering Facility: [facility] Address: [address] [place] [address] Performed By: #### 2 4356-8 ####[facility] LABORATORYCLIA [id number] [place] [address] [place] Hyaline casts (Urine sed) [#/Area] 1-3 /LPF Abnormal 0 /LPF [facility] Comment on above: Order Comment: Speci men Type: URINE SPECIMENOrdering Facility: [facility] Address: [address] [place] [address] Performed By: #### 2 4356-8 ####[facility]ORATORYCLIA [id number] [place] [address] [place] Ketones Ql (U) Negative Normal Negative [facility] Comment on above: Order Comment: Speci men Type: URINE SPECIMENOrdering Facility: [facility] Address: [address] [place] [address] Performed By: #### 2 4356-8 ####[facility]ORATORYCLIA [id number] [address] Leukocyte esterase Test strip Ql (U) 3+ Abnormal Negative [facility] Comment on above: Order Comment: Speci men Type: URINE SPECIMENOrdering Facility: [facility] Address: [address] [place] [address] Performed By: #### 2 4356-8 ####[facility]ORATORYCLIA [id number] [address] [place] Nitrite Ql (U) Positive Abnormal Negative [facility] Comment on above: Order Comment: Speci men Type: URINE SPECIMENOrdering Facility: [facility] Address: [address] [place] [address] Performed By: #### 2 4356-8 ####[facility]ORATORYCLIA [id number] [address] [place] pH (U) 6.0 [pH] Normal 5.0-8.0 [facility] Comment on above: Order Comment: Speci men Type: URINE SPECIMENOrdering Facility: [facility] Address: [address] [place] [address] Performed By: #### 2 4356-8 ####[facility]ORATORYCLIA [id number] [place] [address] [place] Protein (U) [Mass/Vol] 2+ Abnormal Negative [facility] Comment on above: Order Comment: Speci men Type: URINE SPECIMENOrdering Facility: [facility] Address: [address] [place] [address] Performed By: #### 2 4356-8 ####[facility]ORATORYCLIA [id number] [place] [address] [place] RBC LM.HPF (Urine sed) [#/Area] 3-5 /HPF Abnormal 0-3 /HPF [facility] Comment on above: Order Comment: Speci men Type: URINE SPECIMENOrdering Facility: [facility] Address: [address] [place] [address] Performed By: #### 2 4356-8 ####[facility]ORATORYCLIA [id number] [address] [place] Specific gravity (U) [Rel density] 1.016 Normal 1.005-1.030 [facility] Comment on above: Order Comment: Speci men Type: URINE SPECIMENOrdering Facility: [facility] Address: [address] [place] [address] Performed By: #### 2 4356-8 ####[facility]ORATORYCLIA [id number] [address] [place] Urobilinogen Ql (U) Negative Normal Negative [facility] Comment on above: Order Comment: Speci men Type: URINE SPECIMENOrdering Facility: [facility] Address: [address] [place] [address] Performed By: #### 2 4356-8 ####[facility]ORATORYCLIA [id number] [address] OF [place] WBC LM.HPF (Urine sed) [#/Area] /[HPF] Abnormal 0-5 /HPF [facility] Comment on above: Order Comment: Speci men Type: URINE SPECIMENOrdering Facility: [facility] Address: [address] [place], [place] [address], [place] [address] Performed By: #### 2 4356-8 ####[facility]ORATORYCLIA [id number] [place] [address] [place] URINE CULTURE [CCL]on 2024 Bacteria identified Cx Nom (U) Normal [facility] Comment on above: Performed By: #### 2 14274 ####[facility],[address] [place] [address] 20981 BMP with eGFRon 03-04-2025 AGE 24 years Normal [facility] Comment on above: Performed By: #### 2 56130 ####[facility],[address] [place] [address] 96834 Anion gap [Moles/Vol] 11 mmol/L Normal 10 - 20 [facility] Comment on above: Performed By: #### 2 84801 ####[facility],[address] [place] [address] 12431 BMP with eGFR Normal [facility] Comment on above: Result Comment: BASI C METABOLIC PANEL Performed By: #### 2 08241 ####[address] [address] Calcium [Mass/Vol] 9.7 mg/dL Normal 8.5 - 10.1 [facility] Comment on above: Performed By: #### 2 26200 ####[facility],[address] [place] [address] 16532 Chloride [Moles/Vol] 101 mmol/L Normal 98 - 107 [facility] Comment on above: Performed By: #### 2 13705 ####[facility],[address] [place] [address] 61192 CO2 [Moles/Vol] 34.7 mmol/L High 21.0 - 32.0 [facility] Comment on above: Performed By: #### 2 25552 ####[facility],[address] [place] [address] 54326 Creatinine [Mass/Vol] 1.12 mg/dL Normal 0.70 - 1.30 [facility] Comment on above: Performed By: #### 2 28356 ####[facility],[address] [place] [address] GFR/1.73 sq M.predicted among non-blacks MDRD (S/P/Bld) [Vol rate/Area] mL/min/{1.73_m2} Normal 60 - 999 [facility] Comment on above: Performed By: #### 2 21957 ####[facility],[address] [place] [address] Result Comment: ACCO RDING TO THE NATIONAL KIDNEY DISEASE EDUCATION PROGRAM(NKDE), A NORMAL eGFRIS A VALUE GREATER THAN OR EQUAL TO 60 ML/MIN/1.73 SQ METERS.CHRONIC KIDNEY DISEASE: <60mL/MIN/1.73 SQ METERSKIDNEY FAILURE: <15mL/MIN/1.73 SQ METERSTHIS TEST SHOULD ONLY BE USED FOR PATIENTS 18 YEARS OF AGE AND OLDER. Glucose [Mass/Vol] 50 mg/dL Low 74 - 106 [facility] Comment on above: Performed By: #### 2 03575 ####[facility],[address] [place] [address] Potassium [Moles/Vol] 3.6 mmol/L Normal 3.5 - 5.1 [facility] Comment on above: Performed By: #### 2 24019 ####[facility],[address] [place] [address] 29968 Sodium [Moles/Vol] 143 mmol/L Normal 136 - 145 [facility] Comment on above: Performed By: #### 2 76279 ####[facility],[address] [place], [place] [id number] Urea nitrogen [Mass/Vol] 13 mg/dL Normal 7 - 18 [facility] Comment on above: Performed By: #### 2 08696 ####[facility],[address] [place], [place] [id number] Bacteria Ur Culton 5 Bacteria identified Cx Nom (U) CULTURE, URINE: Normal urogenital elodia: ORGANISM ID: 1 >=100,000 CFU/ml Staphylococcus epidermidis No further workup Normal [facility] Comment on above: Performed By: #### 6 30-4 #### [facility] CLIA [id number] [address] [place] [address] OF [facility] CBC + DIFFon 03-04-2025 Baso # 0.02 x10EE3/UL Normal 0.00 - 0.10 [facility] Comment on above: Performed By: #### 2 33614 ####[facility],[address] [place], [place] [address] Basophils/100 WBC (Bld) 0.4 % Normal 0.0 - 2.0 [facility] Comment on above: Performed By: #### 2 44608 ####[facility],[address] [place] [address] CBC + DIFF Normal [facility] Comment on above: Result Comment: CBC- COMPLETE BLOOD COUNT Performed By: #### 2 02313 ####[place] [address] EO # 0.09 x10EE3/UL Normal 0.00 - 0.50 [facility] Comment on above: Performed By: #### 2 52398 ####[place] [id number] Eosinophils/100 WBC (Bld) 1.5 % Normal 0.0 - 7.0 [facility] Comment on above: Performed By: #### 2 43977 ####[place] [address] Erythrocyte distribution width (RBC) [Ratio] 13.2 % Normal 12.0 - 15.6 [facility] Comment on above: Performed By: #### 2 95601 ####[place] [id number] Hematocrit (Bld) [Volume fraction] 48.7 % Normal 40.0 - 52.0 [facility] Comment on above: Performed By: #### 2 54100 ####[facility],[address] [place] [address] 10055 Hemoglobin (Bld) [Mass/Vol] 17.3 g/dL Normal 13.0 - 17.5 [facility] Comment on above: Result Comment: REPE ATED FOR H & H CHECK Performed By: #### 2 83263 ####[facility],[address] [place] [address] Lymph # 1.31 x10EE3/UL Normal 0.80 - 2.80 [facility] Comment on above: Performed By: #### 2 88252 ####[facility],[address] [place] [address] 43027 Lymphocytes/100 WBC (Bld) 21.2 % Normal 20.0 - 45.0 [facility] Comment on above: Performed By: #### 2 63180 ####[facility],[address] [place] [address] 95178 MANUAL DIFF N/A Normal [facility] Comment on above: Performed By: #### 2 92034 ####[facility],[address] [place] [address] 41294 MCH (RBC) [Entitic mass] 31 pg Normal 27 - 33 [facility] Comment on above: Performed By: #### 2 91078 ####[facility],[address] [place] [address] 81736 MCHC 35 X10 3 Normal 32 - 36 [facility] Comment on above: Performed By: #### 2 88458 ####[facility],[address] [place] [address] 84737 MCV (RBC) [Entitic vol] 88 fL Normal 81 - 98 [facility] Comment on above: Performed By: #### 2 87253 ####[facility],[address] [place] [address] 48874 [place] # 0.77 x10EE3/UL Normal 0.20 - 1.00 [facility] Comment on above: Performed By: #### 2 43426 ####[facility],[address] [place] [address] 40522 MONOS % 12.4 % High 0.0 - 10.0 [facility] Comment on above: Performed By: #### 2 00156 ####[facility],[address] [place] [address] 37730 Morphology Cornel (Bld) [Interp] N/A Normal [facility] Comment on above: Performed By: #### 2 31660 ####[facility],[address] [place] [address] 40194 Neut # 3.98 x10EE3/UL Normal 1.50 - 7.10 [facility] Comment on above: Performed By: #### 2 31231 ####[facility],[address] [place] [address] 91545 Neutrophils/100 WBC (Bld) 64.4 % Normal 46.0 - 76.0 [facility] Comment on above: Performed By: #### 2 50158 ####[facility],[address] [place] [address] 81413 PLATELET 296 x10EE3/UL Normal 150 - 450 [facility] Comment on above: Performed By: #### 2 37747 ####[facility],[address] [place] [address] 40332 Platelet mean volume (Bld) [Entitic vol] 9.2 fL Normal 6.4 - 10.5 [facility] Comment on above: Result Comment: AUTO MATED DIFFERENTIAL Performed By: #### 2 93446 ####[facility],[address] [place] [address] 94135 RBC 5.52 x 10EE6/UL Normal 4.50 - 6.00 [facility] Comment on above: Performed By: #### 2 47599 ####[facility],[address] [place] [address] WBC 6.2 x 10EE3/UL Normal 4.5 - 10.8 [facility] Comment on above: Performed By: #### 2 71321 ####[facility],[address] [place] [address] CT ABDOMEN/PELVIS WOon 03-04 CT ABDOMEN/PELVIS WO Normal [facility] ED MED ADMINISTRATION DETAIL on 03-04-2025 ED MED ADMINISTRATION DETAIL Normal [facility] ED NURSES CLINICAL NOTEon ED NURSES CLINICAL NOTE Normal [facility] ED ORDER SHEET (CPOE ONLY)on 03-04-2025 ED ORDER SHEET (CPOE ONLY) Normal [facility] ED PHYSICIAN CLINICAL REPORT on 03-04-2025 ED PHYSICIAN CLINICAL REPORT Normal [facility] ED SUPER BILLon 03-04-2025 ED SUPER BILL Normal [facility] ED VISIT SUMMARYon ED VISIT SUMMARY Normal [facility] ED VITALS FLOW SHEETon 03-04 ED VITALS FLOW SHEET Normal [facility] URINALYSISon 03-04-2025 Amorphous NONE Normal [facility] Comment on above: Performed By: #### 2 33966 ####[facility],[address] [place] [address] Bacteria 1+ Normal [facility] Comment on above: Performed By: #### 2 27905 ####[facility],[address] [place] [address] Bilirubin Ql (U) Negative Normal NORMAL: NEGATIVE [facility] Comment on above: Performed By: #### 2 68004 ####[facility],[address] [place] [address] Casts NONE Normal [facility] Comment on above: Performed By: #### 2 76608 ####[facility],[address],[place] [address] Clarity (U) very cloudy Normal NORMAL: CLEAR [facility] Comment on above: Performed By: #### 2 13685 ####[facility],[address] [place] [address] 23317 Color (U) yellow Normal NORMAL: YELLOW [facility] Comment on above: Performed By: #### 2 20049 ####[facility],[address] [place] [address] 29544 Crystals LM Nom (Urine sed) NONE Normal [facility] Comment on above: Performed By: #### 2 96978 ####[facility],[address] [place] [address] 00394 Epi Cells NONE Normal [facility] Comment on above: Performed By: #### 2 73181 ####[facility],[address] [place] [address] 79134 Glucose Ql (U) NORM Normal NORMAL: NORMAL [facility] Comment on above: Performed By: #### 2 79050 ####[facility],[address] [place] [address] 17661 Hemoglobin Ql (U) 50 Abnormal NORMAL: NEGATIVE [facility] Comment on above: Performed By: #### 2 99209 ####[facility],[address] [place] [address] 43537 Ketone Negative Normal NORMAL: NEGATIVE [facility] Comment on above: Performed By: #### 2 68745 ####[facility],[address] [place] [address] 90987 Leukocytes 500 Abnormal NORMAL: NEGATIVE [facility] Comment on above: Performed By: #### 2 89821 ####[facility],[address] [place] [address] 87360 Mucous NONE Normal [facility] Comment on above: Performed By: #### 2 18971 ####[facility],[address] [place] [address] 20031 Nitrite Ql (U) Positive Normal NORMAL: NEGATIVE [facility] Comment on above: Performed By: #### 2 57167 ####[facility],[address] [place] [address] pH (U) 7 [pH] Normal NORMAL: 5.0-8.0 [facility] Comment on above: Performed By: #### 2 95243 ####[facility],[address] [place] [address] Protein Ql (U) 100 Abnormal NORMAL: NEGATIVE [facility] Comment on above: Performed By: #### 2 32047 ####[facility],[address] [place] [address] Rbc 0-5 Normal 0-3/hpf [facility] Comment on above: Performed By: #### 2 97412 ####[facility],[address] [place] [address] Sp [place] 1.010 Normal NORMAL: 1.010-1.030 [facility] Comment on above: Performed By: #### 2 11727 ####[facility],[address] [place] [address] Specimen Type R Normal [facility] Comment on above: Performed By: #### 2 03084 ####[facility],[address] [place] [address] Urinalysis dipstick W Reflex Microscopic panel (U) SEE BELOW Normal [facility] Comment on above: Result Comment: MICR OSCOPIC Performed By: #### 2 24500 ####[facility],[address] [place] [address] Urobilinog NORM Normal NORMAL: NORMAL [facility] Comment on above: Performed By: #### 2 32977 ####[facility],[address] [place] [address] WBC (U) [#/Vol] /uL Normal 0-5/hpf [facility] Comment on above: Performed By: #### 2 39426 ####[facility],[address] [place] [address] 17563 Yeast NONE Normal [facility] Comment on above: Performed By: #### 2 82481 ####[place] [id number] CNOVon 02-26-2025 CNOV Office Visit (UROLAE ) ANU LOPEZ ([id number]) 02 M Date Time Provider Department 02/26/25 8:00 AM PROC URODYNAMICS UROLAE During your visit today, we recorded the following information about you: Quin Medrano RN 02/26/2025 8:13 AM Signed POST PROCEDURE INSTRUCTIONS Anu Lopez February 26, 2025 Increase your fluid intake. FOLLOW UP APPOINTMENT: 03/06/25 at 10:[address] Gould in the [place] office. WHEN TO CALL THE DOCTOR: If you develop fever (over 101 degrees) or chills. If you cannot urinate or empty your bladder. If you develop symptoms of a urinary tract infection such as burning or pain with urination, increased frequency of urination or foul smelling urine If you have any other questions or problems. Office phone number; [phone] Quin Medrano RN 02/26/2025 9:25 AM Addendum Anu Lopez [id number] 2002 February 26, 2025 Diagnoses: Urinary Retention UA done: No Procedure Performed: Multichannel urodynamic testing including multichannel cystometrogram, uroflowmetry, pressure voiding study, and EMG. Was a uroflow done at some point during the study: Yes Was a cystometrogram performed: Yes Was a UPP done: No Was an EMG done: Yes Was an intraabdominal pressure recorded: Yes Where were pressure catheters placed: Bladder and Rectum Procedure: The patient verified medications and allergies. The procedure was explained to the patient. Immediately prior to the test the patient was given Keflex 500 mg #1 by mouth and Lidocaine 2% jelly 11 ml to urethra per order. UNIVERSAL PROTOCOL / SAFETY CHECKLIST A moment to CARE: Completed Procedure to be performed: Urodynamics Sign in Communication: Completed Time Out: Team Confirms the Correct Patient, Correct Procedure, Correct Site and Site Marking, Correct Position (if applicable), Prep and Dry Time (if applicable). Time: 0800 Affirmation of Time Out: N/A Sign Out Discussion: Completed Urodynamic Findings: Uroflow : Patient arrived with a crane catheter- No. Patient voided 328.9 ml; Curve: Normal Post void residual 250 ml QMAX 27.3 ; QAVG 13.1 . Cystometrogram: The patient had a cystometrogram EMG: Yes First Sensation 186 ml First desire 472 ml Strong Desire 600 ml Capacity 672 ml The patient did not leak with cough. detrusor contractions beginning at 149 ml Instability associated with urge: Yes Instability associated with leakage: No Pressure-Flow Voiding Study: EMG: Yes Void 489.3 ml; Curve: Intermittent Post void residual: 375 ml Maximum detrusor pressure 43.9 Cm H20 Maximum flow rate: 15.6 ml/sec Average flow rate: 6.4 ml/sec UDS notes: Slow rise in pdet after 149 ml. Patient has not been taking Flomax. Patient experiencing strong sharp/stabbing sensation in bladder area when given permission to void. Plan: Patient will follow up with provider to discuss plan of care and results. Patient tolerated the procedure well. Home going instructions given. Patient able to repeat back understanding of instructions. Quin Medrano RN cc: Basilio Gould MD I reviewed the above procedure and results. My interpretation is as follows: Slight larger capacity bladder. Compliant Persistent elevated post void residual volumes with BVE below expected BOOI suggests not obstructed BCI also normal Pain/symptoms present at bladder capacity Basilio Gould MD 02/26/2025 Allergies As of Date: 02/26/2025 Noted Allergy Reaction DILAUDID (HYDROMORPHONE) 04/07/2024 2 - Rash Date Reviewed: 02/26/2025 Reviewed by: Quin Medrano RN - Fully Assessed Reason for Visit: Urinary Retention [228] Cmt: UDS Primary Visit Diagnosis:Feeling of incomplete bladder emptying [R39.14] Prescriptions as of 02/26/2025 - cephALEXin (KEFLEX) 500 mg capsule Take 1 capsule by mouth every 12 hours. - tamsulosin (FLOMAX) 0.4 mg Take 1 capsule by mouth once daily. - polyethylene glycol 3350 (MIRALAX ORAL) Take 17 mg by mouth once daily as needed. - loratadine (CLARITIN) 10 mg tablet Take 10 mg by mouth once daily as needed. Problem List As Of Date 02/26/2025 Noted Resolved Left ureteral stone [N20.1] 02/06/2024 Hydronephrosis, left [N13.30] 02/07/2024 Preop testing [Z01.818] 04/03/2024 Ureteral stricture, left [N13.5] 04/07/2024 Renal calculus, left [N20.0] 09/18/2024 Left flank pain [R10.9] 11/20/2024 Feeling of incomplete bladder emptying [R39.14] 12/04/2024 Other instructions from your clinician: POST PROCEDURE INSTRUCTIONS Anu Lopez February 26, 2025 Increase your fluid intake. FOLLOW UP APPOINTMENT: 03/06/25 at 10:[address] Gould in the [place] office. WHEN TO CALL THE DOCTOR: If you develop fever (over 101 degrees) or chills. If you cannot urinate or empty your bladder. If you develop symptoms of a urinary tract infection such as burning or pain with urination, increased frequency (more content not included)... Normal [facility] 02-26-2025 URBAN Telephone (ANSHU) ANU LOPEZ ([id number]) 02 M Date Time Provider Department 02/26/25 BASILIO GOULD During your visit today, we recorded the following information about you: Trinity Amaral, RN 02/26/2025 9:34 AM Signed Patient was seen in office this morning for UDS and would like a letter faxed to his work that he had doctor's appointment this morning. Work fax number [phone] NUBIA KabaSadiqna 02/26/2025 10:09 AM Signed FYI UDS results scanned into chart. Sona Villareal Allergies As of Date: 02/26/2025 Noted Allergy Reaction DILAUDID (HYDROMORPHONE) 04/07/2024 2 - Rash Date Reviewed: 02/26/2025 Reviewed by: Quin Medrano RN - Fully Assessed Reason for Visit: Patient Question [0974] UDS Results [Other] Results [95] Prescriptions as of 02/27/2025 - cephALEXin (KEFLEX) 500 mg capsule Take 1 capsule by mouth every 12 hours. - tamsulosin (FLOMAX) 0.4 mg Take 1 capsule by mouth once daily. - polyethylene glycol 3350 (MIRALAX ORAL) Take 17 mg by mouth once daily as needed. - loratadine (CLARITIN) 10 mg tablet Take 10 mg by mouth once daily as needed. Problem List As Of Date 02/26/2025 Noted Resolved Left ureteral stone [N20.1] 02/06/2024 Hydronephrosis, left [N13.30] 02/07/2024 Preop testing [Z01.818] 04/03/2024 Ureteral stricture, left [N13.5] 04/07/2024 Renal calculus, left [N20.0] 09/18/2024 Left flank pain [R10.9] 11/20/2024 Feeling of incomplete bladder emptying [R39.14] 12/04/2024 Encounter Status:Closed by TRINITY AMARAL on 02/27/25 [facility] Katya 02-19-2025 RUTHIEN Telephone (UROLAG) ANU LOPEZ ([id number]) 02 M Date Time Provider Department 02/19/25 BASILIO GOULD During your visit today, we recorded the following information about you: Shireen Garcia MA 02/19/2025 11:20 AM Signed Patient called and said that he was to get an antibiotic and pain medication before his UDS, I told him that the urine culture was negative for an infection so there would not be a need for the antibiotic. When he asked about the pain medication I told him that there is lidocaine gel that is used but that would be given at the appointment. He said that he was told that it is was something he takes before he arrives. 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 Please advise. Quin Medrano RN 02/20/2025 10:59 AM Signed Patient was prescribed Valium by Dr. Gould on 01.30.25 for UDS procedure. Spoke to pharmacy prescription is there. Patient can call and have it filled. UNBIA Aleman Natasha, MA 02/20/2025 11:11 AM Signed Pt called back and was advised on medication. Pt stated that he still feel bad he says his symptoms, flank pain and tingly pain in kidney area is not getting better. Pt wants to know what he should do, please advise. Pt advised if pain increase to seek emergency help. Mandy ga MA Allergies As of Date: 02/19/2025 Noted Allergy Reaction DILAUDID (HYDROMORPHONE) 04/07/2024 2 - Rash Date Reviewed: 02/13/2025 Reviewed by: Quin Medrano RN - Fully Assessed Reason for Visit: Patient Question [7587] Prescriptions as of 02/20/2025 - cephALEXin (KEFLEX) 500 mg capsule Take 1 capsule by mouth every 12 hours. - tamsulosin (FLOMAX) 0.4 mg Take 1 capsule by mouth once daily. - polyethylene glycol 3350 (MIRALAX ORAL) Take 17 mg by mouth once daily as needed. - loratadine (CLARITIN) 10 mg tablet Take 10 mg by mouth once daily as needed. Facility-Administered Medications as of 02/20/2025 - lidocaine urojet 2 % 11 mL topical gel (GLYDO) Problem List As Of Date 02/19/2025 Noted Resolved Left ureteral stone [N20.1] 02/06/2024 Hydronephrosis, left [N13.30] 02/07/2024 Preop testing [Z01.818] 04/03/2024 Ureteral stricture, left [N13.5] 04/07/2024 Renal calculus, left [N20.0] 09/18/2024 Left flank pain [R10.9] 11/20/2024 Feeling of incomplete bladder emptying [R39.14] 12/04/2024 Encounter Status:Closed by SHIREEN GARCIA on 02/19/25 [facility] CNPNon 02-17-2025 CNPN Telephone (MRPRAD) ANU LOPEZ ([id number]) 02 M Date Time Provider Department 02/17/25 BASILIO GOULD During your visit today, we recorded the following information about you: Basilio Gould MD 02/17/2025 7:48 AM Signed Please notify that urine culture did not show a UTI Chey Luciano RN 02/17/2025 9:35 AM Signed Attempted to call patient. No answer. VM full and could not leave a message. Chey Luciano RN Allergies As of Date: 02/17/2025 Noted Allergy Reaction DILAUDID (HYDROMORPHONE) 04/07/2024 2 - Rash Date Reviewed: 02/13/2025 Reviewed by: Quin Medrano RN - Fully Assessed Prescriptions as of 02/17/2025 - cephALEXin (KEFLEX) 500 mg capsule Take 1 capsule by mouth every 12 hours. - tamsulosin (FLOMAX) 0.4 mg Take 1 capsule by mouth once daily. - polyethylene glycol 3350 (MIRALAX ORAL) Take 17 mg by mouth once daily as needed. - loratadine (CLARITIN) 10 mg tablet Take 10 mg by mouth once daily as needed. Facility-Administered Medications as of 02/17/2025 - lidocaine urojet 2 % 11 mL topical gel (GLYDO) Problem List As Of Date 02/17/2025 Noted Resolved Left ureteral stone [N20.1] 02/06/2024 Hydronephrosis, left [N13.30] 02/07/2024 Preop testing [Z01.818] 04/03/2024 Ureteral stricture, left [N13.5] 04/07/2024 Renal calculus, left [N20.0] 09/18/2024 Left flank pain [R10.9] 11/20/2024 Feeling of incomplete bladder emptying [R39.14] 12/04/2024 Encounter Status:Closed by BASILIO GOULD on 02/17/25 [facility] Bacteria Ur Culton Bacteria identified Cx Nom (U) CULTURE, URINE: >=100,000 CFU/ml Normal Urogenital Elodia Normal [facility] Comment on above: Performed By: #### 6 30-4 #### [facility] CLIA [id number] [address] OF [facility] CNCOon 02-13-2025 CNCO Letter Text Normal [facility] CNOVon 02-13-2025 CNOV Office Visit (UROLAE ) ANU LOPEZ ([id number]) 02 M Date Time Provider Department 02/13/25 10:00 AM PROC URODYNAMICS UROLAE During your visit today, we recorded the following information about you: Quin Medrano RN 02/13/2025 10:08 AM Signed POST PROCEDURE INSTRUCTIONS Anu Lopez February 13, 2025 Increase your fluid intake. FOLLOW UP APPOINTMENT: 03/06/25 at 10:[address] Gould in the [place] office. WHEN TO CALL THE DOCTOR: If you develop fever (over 101 degrees) or chills. If you cannot urinate or empty your bladder. If you develop symptoms of a urinary tract infection such as burning or pain with urination, increased frequency of urination or foul smelling urine If you have any other questions or problems. Office phone number; [phone] Quin Medrano RN 02/13/2025 10:52 AM Signed Anu Lopez [id number] 2002 February 13, 2025 Diagnoses: Urinary Retention Procedure: The patient verified medications and allergies. The procedure was explained to the patient. Immediately prior to the test the patient was given Keflex 500 mg #1 by mouth per order. UNIVERSAL PROTOCOL / SAFETY CHECKLIST A moment to CARE: Completed Procedure to be performed: Urodynamics Sign in Communication: Completed Time Out: Team Confirms the Correct Patient, Correct Procedure, Correct Site and Site Marking, Correct Position (if applicable), Prep and Dry Time (if applicable). Time: 1000 Affirmation of Time Out: N/A Sign Out Discussion: Completed UA done: Yes Dipped in room: Yes, Positive for Nitrites. Ran through [employer]? Yes Bouchra Menchaca PA-C Notified. Cultured ordered and sent. UDS rescheduled. Antibiotic ordered? No Quin Medrano RN cc: Basilio Gould MD Allergies As of Date: 02/13/2025 Noted Allergy Reaction DILAUDID (HYDROMORPHONE) 04/07/2024 2 - Rash Date Reviewed: 02/13/2025 Reviewed by: Quin Medrano RN - Fully Assessed Reason for Visit: Urinary Retention [228] Cmt: UDS Primary Visit Diagnosis:Feeling of incomplete bladder emptying [R39.14] Order(s):UA DIP, URINE (POC) [[id number]] Order #: [id number]. #:[id number] BACTERIAL CULTURE, URINE [SQURCUL] Order #: [id number]. #:[id number] Prescriptions as of 02/13/2025 - cephALEXin (KEFLEX) 500 mg capsule Take 1 capsule by mouth every 12 hours. - tamsulosin (FLOMAX) 0.4 mg Take 1 capsule by mouth once daily. - polyethylene glycol 3350 (MIRALAX ORAL) Take 17 mg by mouth once daily as needed. - loratadine (CLARITIN) 10 mg tablet Take 10 mg by mouth once daily as needed. Facility-Administered Medications as of 02/13/2025 - lidocaine urojet 2 % 11 mL topical gel (GLYDO) Problem List As Of Date 02/13/2025 Noted Resolved Left ureteral stone [N20.1] 02/06/2024 Hydronephrosis, left [N13.30] 02/07/2024 Preop testing [Z01.818] 04/03/2024 Ureteral stricture, left [N13.5] 04/07/2024 Renal calculus, left [N20.0] 09/18/2024 Left flank pain [R10.9] 11/20/2024 Feeling of incomplete bladder emptying [R39.14] 12/04/2024 Other instructions from your clinician: POST PROCEDURE INSTRUCTIONS Anu Lopez February 13, 2025 Increase your fluid intake. FOLLOW UP APPOINTMENT: 03/06/25 at 10:[address] Gould in the [place] office. WHEN TO CALL THE DOCTOR: If you develop fever (over 101 degrees) or chills. If you cannot urinate or empty your bladder. If you develop symptoms of a urinary tract infection such as burning or pain with urination, increased frequency of urination or foul smelling urine If you have any other questions or problems. Office phone number; [phone] Encounter Status:Closed by QUIN MEDRANO on 02/13/25 Normal [facility] UA DIP, URINE (POC)on 2024 BILIRUBIN UA (POCT) Negative Negative [facility] CLARITY UA (POCT) Cloudy [facility] COLOR UA (POCT) Yellow [facility] GLUCOSE UA (POCT) Negative Negative mg/dL [facility] Hemoglobin Ql (U) Trace-intact Abnormal Negative [facility] Interpretation and review of laboratory results Abnormal [facility] KETONE UA (POCT) Negative Negative mg/dL [facility] LEUKOCYTES UA (POCT) Small Abnormal Negative [facility] NITRITE UA (POCT) Positive Abnormal Negative [facility] PH UA (POCT) 8.5 Abnormal 4.5 - 8.0 [facility] Protein Ql (U) >=300 Abnormal Negative mg/dL [facility] SPECIFIC GRAVITY UA (POCT) 1.02 1.005 - 1.030 [facility] UROBILINOGEN UA (POCT) 0.2 Nicole l E.U./dL [facility] Location:[facility], [address] [place] [address], [id number] [place] [address] POINT OF CARE [facility] CNPNon 02-12-2025 CNPN Telephone (UROLAE) ANU LOPEZ ([id number]) 02 M Date Time Provider Department 02/12/25 BASILIO GOULD During your visit today, we recorded the following information about you: Quin Medrano RN 02/12/2025 10:58 AM Signed Attempted to contact patient regarding UDS procedure tomorrow. Wanted to see if patient is aware that Valium was ordered to take prior to the procedure. 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 Quin Medrano RN Allergies As of Date: 02/12/2025 Noted Allergy Reaction DILAUDID (HYDROMORPHONE) 04/07/2024 2 - Rash Date Reviewed: 01/30/2025 Reviewed by: Basilio Gould MD - Fully Assessed Prescriptions as of 02/12/2025 - cephALEXin (KEFLEX) 500 mg capsule Take 1 capsule by mouth every 12 hours. - tamsulosin (FLOMAX) 0.4 mg Take 1 capsule by mouth once daily. - polyethylene glycol 3350 (MIRALAX ORAL) Take 17 mg by mouth once daily as needed. - loratadine (CLARITIN) 10 mg tablet Take 10 mg by mouth once daily as needed. Problem List As Of Date 02/12/2025 Noted Resolved Left ureteral stone [N20.1] 02/06/2024 Hydronephrosis, left [N13.30] 02/07/2024 Preop testing [Z01.818] 04/03/2024 Ureteral stricture, left [N13.5] 04/07/2024 Renal calculus, left [N20.0] 09/18/2024 Left flank pain [R10.9] 11/20/2024 Feeling of incomplete bladder emptying [R39.14] 12/04/2024 Encounter Status:Closed by QUIN MEDRANO on 02/12/25 [facility] CNCOon 01-30-2025 CNCO Letter Text [facility] CNOVon 01-30-2025 CNOV Office Visit (URCANT ) ANU LOPEZ ([id number]) 02 M Date Time Provider Department 01/30/25 10:00 AM BASILIO GOULD URSE During your visit today, we recorded the following information about you: Basilio Gould MD 01/30/2025 10:34 AM Signed [facility] ESTABLISHED PATIENT NOTE PATIENT: nAu Lopez (24 year old) PCP: Sagar Rojo MD DATE OF SERVICE: 01/30/2025 SUMMARY: Mr. Lopez is a 24 year old male who is here for: Assessment AND Plan Feeling of incomplete bladder emptying PVR 356 cc On tamsulosin Cystoscopy and RUG by Dr. Newsome shows no stricture I suspect this to be the cause of his pain during voiding as well as his recent infection Plan obtain UDS Follow up to review results Continue tamsulosin Orders: UA DIP, URINE (POC) BLADDER SCAN Hydronephrosis, left Chronic. No obstruction. Robotic-assisted laparoscopic left ureteral re-implantation, bladder psoas hitch 05/13/2024 I suspect he has reflux into this system based on intermittent poor bladder emptying/high pressure voiding FOLLOW UP: Return in about 4 weeks (around 02/27/2025). CHIEF COMPLAINT: Patient presents with: Follow Up: 6 week - Feeling of incomplete bladder emptying HISTORY OF PRESENT ILLNESS: Prior notes were reviewed. The patient reports ongoing issues with urinary retention, describing a sensation of his bladder going inwards during micturition. He experiences significant discomfort post-micturition, describing a sensation of his kidneys being squeezed for approximately 10 seconds, during which he is unable to move. He notes that his bladder pain has decreased recently, but he continues to experience intermittent pain on the right or left side of his abdomen, never in the midline. He also reports passing a brown blood clot and white, thick discharge during urination, which he describes as resembling chicken. He is currently on antibiotics for a UTI. The patient also reports new-onset headaches over the past 1.5 weeks, characterized by dizziness followed by sharp, excruciating pain on either the right or left side of his head, lasting 30-45 seconds and preventing him from opening his eye on the affected side. These headaches are not relieved by increased water intake. Additionally, he reports hip pain associated with left flank pain, which he suspects may be nerve-related. The patient expresses concern about the impact of his symptoms on his work and ability to play with his son, noting that physical activity for more than 15 minutes induces nausea and emesis. He also reports issues with premature ejaculation and changes in semen color to yellow, which he did not experience prior to his urinary symptoms. REVIEW OF SYSTEMS: Genitourinary: Denies hematuria, dysuria, frequency, urgency, nocturia, ANUM Constitutional: unintentional weight loss - denies, fevers - denies Cardiovascular: new or worsening chest pain - denies Respiratory: new or worsening shortness of breath - denies Gastrointestinal: constipation - denies, vomiting - denies Hematologic/Lymphatic: easy bleeding or bruising - denies ALLERGIES: ALLERGIES Allergen Reactions Dilaudid [[employer]* Rash MEDICATIONS: cephALEXin (KEFLEX) 500 mg capsule Take 1 capsule by mouth every 12 hours. tamsulosin (FLOMAX) 0.4 mg Take 1 capsule by mouth once daily. polyethylene glycol 3350 (MIRALAX ORAL) Take 17 mg by mouth once daily as needed. loratadine (CLARITIN) 10 mg tablet Take 10 mg by mouth once daily as needed. PAST HISTORY: PAST MEDICAL HISTORY Diagnosis Date Hydronephrosis of left kidney PMH - PAST MEDICAL HISTORY OF Normal color vision Respiratory syncytial virus (RSV) 08/08/2003 Routine or ritual circumcision Wrist fracture, right 05/08/2013 PAST SURGICAL HISTORY Procedure Laterality Date CIRCUMCISION W/CLAMP/OTH DEV W/BLOCK S STENT,URINARY DIVERSION,[id number] 04/07/24 FAMILY HISTORY Problem Relation Age of Onset Heart Mother other (arrythmia) Mother Heart Other mggm pacemaker at age 26 years Social History Tobacco Use Smoking status: Never Passive exposure: Never Smokeless tobacco: Never Tobacco comments: smoking outside at dads-denies Vaping Use Vaping status: Never Used Substance Use Topics Alcohol use: No Drug use: No PHYSICAL EXAMINATION: There were no vitals taken for this visit. Verbal informed consent obtained for exam below: Constitutional: I (more content not included)... [facility] Telephone (UROLAE) ANU LOPEZ ([id number]) 02 M Date Time Provider Department 01/30/25 BASILIO GOULD During your visit today, we recorded the following information about you: Quin Medrano RN 01/30/2025 11:50 AM Signed Chey Canales spoke to me about this patient. Would it be appropriate for him to be prescribed valium prior to the procedure to assist him in relaxing? NUBIA Aleman Christopher J, MD 01/30/2025 12:27 PM Signed Okay for Valium. Rx sent. Basilio Gould MD 01/30/2025 12:27 PM Signed Addended by: BASILIO GOULD on: 01/30/2025 12:27 PM Modules accepted: Orders Allergies As of Date: 01/30/2025 Noted Allergy Reaction DILAUDID (HYDROMORPHONE) 04/07/2024 2 - Rash Date Reviewed: 01/30/2025 Reviewed by: Basilio Gould MD - Fully Assessed Primary Visit Diagnosis:Feeling of incomplete bladder emptying [R39.14] Order(s):diazePAM (VALIUM) 10 mg tabletTake 1 tablet by mouth as directed for 1 day. Take one tablet by mouth 1 hour prior to procedure.Disp: 1 tabletRfl: 0 Prescriptions as of 01/30/2025 - cephALEXin (KEFLEX) 500 mg capsule Take 1 capsule by mouth every 12 hours. - diazePAM (VALIUM) 10 mg tablet Take 1 tablet by mouth as directed for 1 day. Take one tablet by mouth 1 hour prior to procedure. - tamsulosin (FLOMAX) 0.4 mg Take 1 capsule by mouth once daily. - polyethylene glycol 3350 (MIRALAX ORAL) Take 17 mg by mouth once daily as needed. - loratadine (CLARITIN) 10 mg tablet Take 10 mg by mouth once daily as needed. Problem List As Of Date 01/30/2025 Noted Resolved Left ureteral stone [N20.1] 02/06/2024 Hydronephrosis, left [N13.30] 02/07/2024 Preop testing [Z01.818] 04/03/2024 Ureteral stricture, left [N13.5] 04/07/2024 Renal calculus, left [N20.0] 09/18/2024 Left flank pain [R10.9] 11/20/2024 Feeling of incomplete bladder emptying [R39.14] 12/04/2024 Prescriptions ordered this encounter Disp Refills Start End DIAZEPAM 10 MG TABLET 1 ta* 0 01/30/2025 01/31/2025 Route: ORAL Sig: Take 1 tablet by mouth as directed for 1 day. Take one tablet by mouth 1 hour prior to procedure. Encounter Status:Closed by QUIN MEDRANO on 01/30/25 Normal [facility] GC/CHLAM AMPLIFICATION [CCL] on 01-27-2025 SEND TO IC? NO Normal [facility] Comment on above: Performed By: #### 2 65013 ####[facility],[address] [place], [place] [id number] Chlamydia trachomatis RNA Not detected Normal Not detected [facility] Comment on above: Result Comment: This FDA-approved assay has been modified to accept rectal swabs self-collectedin a healthcare setting. For self-collected rectal swabs, the test wasdeveloped and its performance characteristics determined by the [facility]'s [facility] [place](RUSTPLMI). It has not been cleared or approved by the FDA. [facility] is regulatedunder CLIA as qualified to perform high-complexity testing. This test is usedfor clinical purposes. It should not be regarded as investigational or forresearch.SOURCE: Urine (Nonspecific)[facility] [place], [place] [address]Fahad Bhardwaj III, M.D.[id number] Performed By: #### 2 99245 ####[facility],[address] [place] [address]376 Neisseria gonorrhoeae RNA Not detected Normal Not detected [facility] Comment on above: Performed By: #### 2 51760 ####[facility],[address] [place] [address]159 Bacteria Ur Culton Bacteria identified Cx Nom (U) CULTURE, URINE: Normal urogenital elodia: ORGANISM ID: 1 >=100,000 CFU/ml Staphylococcus epidermidis No further workup Normal [facility] Comment on above: Performed By: #### 6 30-4 #### [facility] CLIA [id number] [address] [place] [address] [place] C-REACTIVE PROTEINon 025 CRP 0.22 mg/dl Normal 0.00 - 0.90 [facility] Comment on above: Performed By: #### 2 41399 ####[facility],[address] [place], [place] [address] C. trachomatis+N. gonorrhoea e DNA LANE+probe Ql (Unsp spec)on 01-26-[address]+probe Ql (Unsp spec) Not detected Normal Not detected [facility] Comment on above: Order Comment: Speci men Type: MICROBIAL ISOLATE Ordering Facility: [facility] Address: [address] [place] [address] Performed By: #### 3 6902-5 #### [facility] CLIA [id number] [address] [place] [address] [place] N. gonorrhoeae rRNA LANE+probe Ql (Unsp spec) Not detected Normal Not detected [facility] Comment on above: Order Comment: Speci men Type: MICROBIAL ISOLATE Ordering Facility: [facility] Address: [address] [place] [address] Performed By: #### 3 6902-5 #### [facility] CLIA [id number] [address] [place] [address] [place] [facility] CBC + DIFFon 01-26-2025 Baso # 0.03 x10EE3/UL Normal 0.00 - 0.10 [facility] Comment on above: Performed By: #### 2 89004 ####[facility],[address] [place] [address] 14531 Basophils/100 WBC (Bld) 0.3 % Normal 0.0 - 2.0 [facility] Comment on above: Performed By: #### 2 47528 ####[facility],[address] [place] [address] 83004 CBC + DIFF Normal [facility] Comment on above: Result Comment: CBC- COMPLETE BLOOD COUNT Performed By: #### 2 78309 ####[facility],[address] [place] [address] EO # 0.34 x10EE3/UL Normal 0.00 - 0.50 [facility] Comment on above: Performed By: #### 2 95904 ####[facility],[address] [place] [address] 34313 Eosinophils/100 WBC (Bld) 4.0 % Normal 0.0 - 7.0 [facility] Comment on above: Performed By: #### 2 94795 ####[facility],[address] [place] [address] 07638 Erythrocyte distribution width (RBC) [Ratio] 13.5 % Normal 12.0 - 15.6 [facility] Comment on above: Performed By: #### 2 29757 ####[address] [address] Hematocrit (Bld) [Volume fraction] 44.8 % Normal 40.0 - 52.0 [facility] Comment on above: Performed By: #### 2 08561 ####[facility],[address] [place], [place] [address] Hemoglobin (Bld) [Mass/Vol] 15.0 g/dL Normal 13.0 - 17.5 [facility] Comment on above: Performed By: #### 2 45538 ####[facility],[address] [place] [address] Lymph # 1.57 x10EE3/UL Normal 0.80 - 2.80 [facility] Comment on above: Performed By: #### 2 70626 ####[facility],[address] [place] [address] Lymphocytes/100 WBC (Bld) 18.3 % Low 20.0 - 45.0 [facility] Comment on above: Performed By: #### 2 27692 ####[facility],[address] [place] [address] MANUAL DIFF N/A Normal [facility] Comment on above: Performed By: #### 2 80455 ####[facility],[address] [place] [address] MCH (RBC) [Entitic mass] 30 pg Normal 27 - 33 [facility] Comment on above: Performed By: #### 2 20575 ####[facility],[address] [place] [address] MCHC 34 X10 3 Normal 32 - 36 [facility] Comment on above: Performed By: #### 2 06944 ####[facility],[address] [place], [place] [address] MCV (RBC) [Entitic vol] 89 fL Normal 81 - 98 [facility] Comment on above: Performed By: #### 2 75850 ####[facility],[address] [place] [address] [place] # 1.06 x10EE3/UL High 0.20 - 1.00 [facility] Comment on above: Performed By: #### 2 80304 ####[facility],[address] [place] [address] MONOS % 12.3 % High 0.0 - 10.0 [facility] Comment on above: Performed By: #### 2 46265 ####[facility],[address] [place] [address] 14946 Morphology Cornel (Bld) [Interp] N/A Normal [facility] Comment on above: Performed By: #### 2 81002 ####[facility],[address] [place] [address] Neut # 5.58 x10EE3/UL Normal 1.50 - 7.10 [facility] Comment on above: Performed By: #### 2 33138 ####[place] [address] Neutrophils/100 WBC (Bld) 65.1 % Normal 46.0 - 76.0 [facility] Comment on above: Performed By: #### 2 49626 ####[place] [address] PLATELET 255 x10EE3/UL Normal 150 - 450 [facility] Comment on above: Performed By: #### 2 12741 ####[place] [address] Platelet mean volume (Bld) [Entitic vol] 9.6 fL Normal 6.4 - 10.5 [facility] Comment on above: Result Comment: AUTO MATED DIFFERENTIAL Performed By: #### 2 11745 ####[place] [address] RBC 5.05 x 10EE6/UL Normal 4.50 - 6.00 [facility] Comment on above: Performed By: #### 2 39801 ####[place] [id number] WBC 8.6 x 10EE3/UL Normal 4.5 - 10.8 [facility] Comment on above: Performed By: #### 2 69229 ####[place] [address],[place] [address] CMP with eGFRon 01-26-2025 AGE 24 years Normal [facility] Comment on above: Performed By: #### 2 36349 ####[facility],[address] [place] [address] 28543 Albumin [Mass/Vol] 4.0 g/dL Normal 3.4 - 5.0 [facility] Comment on above: Performed By: #### 2 41953 ####[facility],[address] [place] [address] Albumin/Globulin [Mass ratio] 1.1 {ratio} Normal 0.9 - 1.6 [facility] Comment on above: Performed By: #### 2 73954 ####[facility],[address] [place] [address] 70396 ALK PHOS 80 U/L Normal 46 - 116 [facility] Comment on above: Performed By: #### 2 37420 ####[facility],[address] [place] [address] 96514 ALT [Catalytic activity/Vol] 23 U/L Normal 16 - 63 [facility] Comment on above: Performed By: #### 2 30202 ####[facility],[address] [place] [address] 44967 Anion gap [Moles/Vol] 15 mmol/L Normal 10 - 20 [facility] Comment on above: Performed By: #### 2 92476 ####[facility],[address] [place] [address] 38398 AST [Catalytic activity/Vol] 22 U/L Normal 15 - 37 [facility] Comment on above: Performed By: #### 2 14967 ####[facility],[address] [place] [address] 20227 B/C RATIO 16 ratio Normal 0 - 30 [facility] Comment on above: Performed By: #### 2 27888 ####[facility],[address] [place] [address] 06496 Bilirubin [Mass/Vol] 0.4 mg/dL Normal 0.2 - 1.0 [facility] Comment on above: Performed By: #### 2 80170 ####[facility],[address] [place] [address] 01364 Calcium [Mass/Vol] 9.3 mg/dL Normal 8.5 - 10.1 [facility] Comment on above: Performed By: #### 2 79624 ####[facility],[address] [place] [address] 47724 Chloride [Moles/Vol] 103 mmol/L Normal 98 - 107 [facility] Comment on above: Performed By: #### 2 99024 ####[facility],[address] [place], [place] [address] CMP with eGFR Normal [facility] Comment on above: Result Comment: COMP REHENSIVE METABOLIC PANEL Performed By: #### 2 37089 ####[facility],[address] [place] [address] 05528 CO2 [Moles/Vol] 26.5 mmol/L Normal 21.0 - 32.0 [facility] Comment on above: Performed By: #### 2 81276 ####[facility],[address] [place] [address]2667 Creatinine [Mass/Vol] 0.88 mg/dL Normal 0.70 - 1.30 [facility] Comment on above: Performed By: #### 2 80938 ####[facility],[address] [place] [address]65 GFR/1.73 sq M.predicted among non-blacks MDRD (S/P/Bld) [Vol rate/Area] mL/min/{1.73_m2} Normal 60 - 999 [facility] Comment on above: Performed By: #### 2 39907 ####[facility],[address] [place], [place] [address] Result Comment: ACCO RDING TO THE NATIONAL KIDNEY DISEASE EDUCATION PROGRAM(NKDE), A NORMAL eGFRIS A VALUE GREATER THAN OR EQUAL TO 60 ML/MIN/1.73 SQ METERS.CHRONIC KIDNEY DISEASE: <60mL/MIN/1.73 SQ METERSKIDNEY FAILURE: <15mL/MIN/1.73 SQ METERSTHIS TEST SHOULD ONLY BE USED FOR PATIENTS 18 YEARS OF AGE AND OLDER. Globulin (S) [Mass/Vol] 3.5 g/dL Normal 1.5 - 3.8 [facility] Comment on above: Performed By: #### 2 46103 ####[facility],[address] [place] [address] 22354 Glucose [Mass/Vol] 91 mg/dL Normal 74 - 106 [facility] Comment on above: Performed By: #### 2 90232 ####[address] [address] Potassium [Moles/Vol] 4.4 mmol/L Normal 3.5 - 5.1 [facility] Comment on above: Performed By: #### 2 32162 ####[facility],[address] [place] [address] 70209 Protein [Mass/Vol] 7.5 g/dL Normal 6.4 - 8.2 [facility] Comment on above: Performed By: #### 2 33761 ####[facility],[address] [place] [address] 02728 Sodium [Moles/Vol] 140 mmol/L Normal 136 - 145 [facility] Comment on above: Performed By: #### 2 78229 ####[facility],[address] [place] [address] 96203 Urea nitrogen [Mass/Vol] 14 mg/dL Normal 7 - 18 [facility] Comment on above: Performed By: #### 2 42682 ####[facility],[address] [place] [address] KUB (KIDNEY STONE PROTOCO L)on 01-26-2025 CT KUB (KIDNEY STONE PROTOCOL) Normal [facility] ED MED ADMINISTRATION DETAIL on 01-26-2025 ED MED ADMINISTRATION DETAIL Normal [facility] ED NURSES CLINICAL NOTEon ED NURSES CLINICAL NOTE Normal [facility] ED ORDER SHEET (CPOE ONLY)on 01-26-2025 ED ORDER SHEET (CPOE ONLY) Normal [facility] ED PHYSICIAN CLINICAL REPORT on 01-26-2025 ED PHYSICIAN CLINICAL REPORT Normal [facility] ED SUPER BILLon 01-26-2025 ED SUPER BILL Normal [facility] ED VISIT SUMMARYon ED VISIT SUMMARY Normal [facility] ED VITALS FLOW SHEETon 01-26 ED VITALS FLOW SHEET Normal [facility] URINALYSISon 01-26-2025 Amorphous NONE Normal [facility] Comment on above: Performed By: #### 2 65718 ####[facility],[address] [place] [address] Bacteria 4+ Normal [facility] Comment on above: Performed By: #### 2 66496 ####[facility],[address] [place] [address] Bilirubin Ql (U) Negative Normal NORMAL: NEGATIVE [facility] Comment on above: Performed By: #### 2 89093 ####[facility],[address] [place] [address] Casts NONE Normal [facility] Comment on above: Performed By: #### 2 67414 ####[facility],[address] [place] [address] Clarity (U) CLOUDY Abnormal NORMAL: CLEAR [facility] Comment on above: Performed By: #### 2 53950 ####[facility],[address] [place] [address] Color (U) yellow Normal NORMAL: YELLOW [facility] Comment on above: Performed By: #### 2 78424 ####[facility],[address],[place] [address] Crystals LM Nom (Urine sed) NONE Normal [facility] Comment on above: Performed By: #### 2 29016 ####[facility],[address] [place] [address] 14611 Epi Cells NONE Normal [facility] Comment on above: Performed By: #### 2 45965 ####[facility],[address] [place] [address] 68411 Glucose Ql (U) NORM Normal NORMAL: NORMAL [facility] Comment on above: Performed By: #### 2 29639 ####[facility],[address] [place] [address] 07407 Hemoglobin Ql (U) 50 Abnormal NORMAL: NEGATIVE [facility] Comment on above: Performed By: #### 2 65826 ####[facility],[address] [place] [address] 21096 Ketone Negative Normal NORMAL: NEGATIVE [facility] Comment on above: Performed By: #### 2 89050 ####[facility],[address] [place] [address] 95665 Leukocytes 100 Abnormal NORMAL: NEGATIVE [facility] Comment on above: Performed By: #### 2 38261 ####[facility],[address] [place] [address] 18956 Mucous NONE Normal [facility] Comment on above: Performed By: #### 2 25161 ####[facility],[address] [place] [address] 49123 Nitrite Ql (U) Positive Normal NORMAL: NEGATIVE [facility] Comment on above: Performed By: #### 2 61071 ####[facility],[address] [place] [address] 49492 pH (U) 7 [pH] Normal NORMAL: 5.0-8.0 [facility] Comment on above: Performed By: #### 2 94912 ####[facility],[address] [place] [address] 99633 Protein Ql (U) 500 Abnormal NORMAL: NEGATIVE [facility] Comment on above: Performed By: #### 2 43177 ####[facility],[address] [place] [address] Rbc 5-10 Normal 0-3/hpf [facility] Comment on above: Performed By: #### 2 16676 ####[facility],[address] [place] [address] Sp [place] 1.010 Normal NORMAL: 1.010-1.030 [facility] Comment on above: Performed By: #### 2 03335 ####[facility],[address] [place] [address] Specimen Type R Normal [facility] Comment on above: Performed By: #### 2 17172 ####[facility],[address] [place] [address] Urinalysis dipstick W Reflex Microscopic panel (U) SEE BELOW Normal [facility] Comment on above: Result Comment: MICR OSCOPIC Performed By: #### 2 18882 ####[facility],[address] [place] [address] Urobilinog NORM Normal NORMAL: NORMAL [facility] Comment on above: Performed By: #### 2 61771 ####[facility],[address] [place], [place] [id number] WBC (U) [#/Vol] /uL Normal 0-5/hpf [facility] Comment on above: Performed By: #### 2 84152 ####[facility],[address] [place] [address] Yeast NONE Normal [facility] Comment on above: Performed By: #### 2 10811 ####[facility],[address] [place], [place] [id number] URINE CULTURE [CCL]on 2024 Bacteria identified Cx Nom (U) Normal [facility] Comment on above: Performed By: #### 2 76166 ####[facility],[address] [place] [address] 67597 BLADDER IMAGINGon 01-21-2025 Clifton Jackson MD, P hD 01/21/2025 4:55 PM BLADDER IMAGING Date/Time: 01/21/2025 9:00 AM Performed by: Clifton Jackson MD, PhD Authorized by: Clifton Jackson MD, PhD The attending physician was present for the entire procedure. Pre-Procedure Details: The risks, benefits and alternatives were discussed with the patient including but not limited to infection and bleeding. Informed consent was obtained. Does this procedure require a [place] Protocol? Yes, [place] Protocol is required. Indications: urethral stricture Procedure Details: Procedure performed: urethrogram The patient was taken back to the procedure room and placed in the lateral decubitus position. They were prepped and draped in the standard sterile fashion. A tube repairer film was obtained. The penis was placed on stretch. With the aid of a catheter and gauze mL of radiocontrast was administered into the patient's anterior urethra. Fluoroscopy images performed. Findings: Patent urethra with no evidence of urethral stricture Post-Procedure Details: All contrast was drained. Post-drainage films were taken. The procedure was tolerated well, no immediate complications [facility] 01-21-2025 [facility] Telephone (URCANT) ANU LOPEZ ([id number]) 02 M Date Time Provider Department 01/21/25 BASILIO GOULD During your visit today, we recorded the following information about you: Jeniffer Madrigal MA 01/21/2025 1:45 PM Signed Patient calling wanting to speak with you. After testing states his urethra is normal. He is still having pain and it has been about a year. Wants to speak with you to figure out what is causing the pain. Jeniffer Madrigal MA 01/21/2025 4:01 PM Signed Patient will contact Dr Baldwin's office to forward results Jeniffer Madrigal MA 01/22/2025 1:24 PM Signed In chart Jeniffer Madrigal MA 01/26/2025 3:26 PM Signed Patient was advised. Has appt on Sunday. Then will schedule urodynamics Allergies As of Date: 01/21/2025 Noted Allergy Reaction DILAUDID (HYDROMORPHONE) 04/07/2024 2 - Rash Date Reviewed: 01/07/2025 Reviewed by: Basilio Gould MD - Fully Assessed Prescriptions as of 01/26/2025 - tamsulosin (FLOMAX) 0.4 mg Take 1 capsule by mouth once daily. - polyethylene glycol 3350 (MIRALAX ORAL) Take 17 mg by mouth once daily as needed. - loratadine (CLARITIN) 10 mg tablet Take 10 mg by mouth once daily as needed. Problem List As Of Date 01/21/2025 Noted Resolved Left ureteral stone [N20.1] 02/06/2024 Hydronephrosis, left [N13.30] 02/07/2024 Preop testing [Z01.818] 04/03/2024 Ureteral stricture, left [N13.5] 04/07/2024 Renal calculus, left [N20.0] 09/18/2024 Left flank pain [R10.9] 11/20/2024 Feeling of incomplete bladder emptying [R39.14] 12/04/2024 Encounter Status:Closed by JENIFFER MADRIGAL on 01/26/25 [facility] CYSTOSCOPYon 01-21-2025 Clifton Jackson MD, P 01/21/2025 4:55 PM CYSTOSCOPY Date/Time: 01/21/2025 9:00 AM Performed by: Clifton Jackson MD, PhD Authorized by: Clifton Jackson MD, PhD The attending physician was present for the entire procedure. Pre-Procedure: Indications: urethral stricture Detailed information of all possible complications and side effects were discussed with the patient, these include but not only; UTI, sepsis, hematuria, incontinence, urethral injury and cardiovascular complications. Informed consent was obtained. Does this procedure require a [place] Protocol? Yes. [place] Protocol is required. The patient was not given antibiotics. Urine was not collected. Procedure: Procedure performed: cystoscopy The patient was placed supine with all pressure points well padded. with chlorhexidine. lidocaine 2% topical gel was inserted into urethra for local anesthesia. A penile clamp was gently applied. The flexible cystoscope was lubricated and placed into the urethral tract under direct visualization. A 360 survey of the bladder was performed. The cystoscope was reflected and the bladder neck and the ureteral orifices were inspected. The findings are detailed below. The cystoscope was removed following any additional procedures documented below. Findings: The urinary meatus appeared normal. There was not a prominent median lobe. The lateral lobes were not obstructive in appearance. No tumors observed. No bladder fistula present. No foreign bodies observed. No stones found. No trabeculations were found. Both ureteral orifices were normal in size, shape and position with efflux of clear urine. The urethra was inspected. No foreign body(s) present in urethra. No urethral diverticulum observed. No urethral stricture found. Cystoscopy normal Post Procedure: Patient tolerated procedure with no immediate complications EBL: no blood loss Provided education regarding water intake of at least 2 liters per day. [facility] No Panel Informationon 01-21 [facility] Radiology Study observation (narrative) [facility] Bacteria Ur Culton 5 Bacteria identified Cx Nom (U) CULTURE, URINE: No growth (<1,000 CFU/ml) Normal [facility] Comment on above: Performed By: #### 6 30-4 #### [facility] CLIA [id number] [address] [place] [address] [place] ED MED ADMINISTRATION DETAIL on 01-15-2025 ED MED ADMINISTRATION DETAIL Normal [facility] ED NURSES CLINICAL NOTEon ED NURSES CLINICAL NOTE Normal [facility] ED ORDER SHEET (CPOE ONLY)on 01-15-2025 ED ORDER SHEET (CPOE ONLY) Normal [facility] ED PHYSICIAN CLINICAL REPORT on 01-15-2025 ED PHYSICIAN CLINICAL REPORT Normal [facility] ED SUPER BILLon 01-15-2025 ED SUPER BILL Normal [facility] ED VISIT SUMMARYon ED VISIT SUMMARY Normal [facility] ED VITALS FLOW SHEETon 01-15 ED VITALS FLOW SHEET Normal [facility] URINALYSISon 01-15-2025 Amorphous NONE Normal [facility] Comment on above: Performed By: #### 2 87295 ####[facility],[address] [place] [address] 993[address] Bacteria NONE Normal [facility] Comment on above: Performed By: #### 2 87014 ####[facility],[address] [place] [address] 09256 Bilirubin Ql (U) Negative Normal NORMAL: NEGATIVE [facility] Comment on above: Performed By: #### 2 34321 ####[facility],[address] [place] [address] 75911 Casts NONE Normal [facility] Comment on above: Performed By: #### 2 17297 ####[facility],[address] [place] [address] 68967 Clarity (U) clear Normal NORMAL: CLEAR [facility] Comment on above: Performed By: #### 2 48281 ####[facility],[address] [place] [address] 25272 Color (U) yellow Normal NORMAL: YELLOW [facility] Comment on above: Performed By: #### 2 57185 ####[facility],[address] [place] [address] 33348 Crystals LM Nom (Urine sed) NONE Normal [facility] Comment on above: Performed By: #### 2 87604 ####[facility],[address] [place] [address] 88432 Epi Cells NONE Normal [facility] Comment on above: Performed By: #### 2 24015 ####[facility],[address] [place] [address] 95763 Glucose Ql (U) NORM Normal NORMAL: NORMAL [facility] Comment on above: Performed By: #### 2 06246 ####[facility],[address] [place] [address] 49309 Hemoglobin Ql (U) 50 Abnormal NORMAL: NEGATIVE [facility] Comment on above: Performed By: #### 2 38603 ####[facility],[address] [place] [address] 29690 Ketone 15 Abnormal NORMAL: NEGATIVE [facility] Comment on above: Performed By: #### 2 20666 ####[facility],[address] [place] [address] 06292 Leukocytes 25 Abnormal NORMAL: NEGATIVE [facility] Comment on above: Performed By: #### 2 99842 ####[facility],[address] [place] [address] 90620 Mucous 1+ Normal [facility] Comment on above: Performed By: #### 2 29799 ####[facility],[address] [place] [address] 64293 Nitrite Ql (U) Negative Normal NORMAL: NEGATIVE [facility] Comment on above: Performed By: #### 2 63756 ####[facility],[address] [place] [address] 48197 pH (U) 8 [pH] Normal NORMAL: 5.0-8.0 [facility] Comment on above: Performed By: #### 2 91712 ####[facility],[address] [place] [address] 23678 Protein Ql (U) 100 Abnormal NORMAL: NEGATIVE [facility] Comment on above: Performed By: #### 2 21794 ####[facility],[address] [place] [address] 95765 Rbc NONE Normal 0-3/hpf [facility] Comment on above: Performed By: #### 2 11360 ####[facility],[address] [place] [address]37 Sp [place] 1.015 Normal NORMAL: 1.010-1.030 [facility] Comment on above: Performed By: #### 2 59780 ####[facility],[address] [place] [address] Specimen Type R Normal [facility] Comment on above: Performed By: #### 2 30819 ####[facility],[address] [place], [place] [address] Urinalysis dipstick W Reflex Microscopic panel (U) SEE BELOW Normal [facility] Comment on above: Result Comment: MICR OSCOPIC Performed By: #### 2 27303 ####[facility],[address] [place] [address] Urobilinog NORM Normal NORMAL: NORMAL [facility] Comment on above: Performed By: #### 2 89366 ####[facility],[address] [place] [address] Wbc NONE Normal 0-5/hpf [facility] Comment on above: Performed By: #### 2 88353 ####[facility],[address] [place] [address] Yeast NONE Normal [facility] Comment on above: Performed By: #### 2 43308 ####[facility],[address] [place], [place] [address] URINE CULTURE [CCL]on 2024 Bacteria identified Cx Nom (U) Normal [facility] Comment on above: Performed By: #### 2 10691 ####[facility],[address] [place] [address] CNCOon 01-07-2025 CNCO Letter Text Normal [facility] CNOVon 01-07-2025 CNOV Office Visit (URCANT ) ANU LOPEZ ([id number]) 02 M Date Time Provider Department 01/07/25 11:00 AM BASILIO GOULD During your visit today, we recorded the following information about you: Basilio Gould MD 01/07/2025 11:27 AM Signed [facility] ESTABLISHED PATIENT NOTE PATIENT: Anu Lopez (24 year old) PCP: Sagar Rojo MD DATE OF SERVICE: 01/07/2025 SUMMARY: Mr. Lopez is a 24 year old male who is here for: Assessment AND Plan Feeling of incomplete bladder emptying Unable to void today Bladder scan 18 cc (prior PVR 231 cc) Unable to perform the urodynamics due to inability to pass catheter Patient noting new curvature to his penis Seen by Dr. Newsome at [place]. Planning cystoscopy, RUG, VCUG Although his cystoscopy from October was normal, his symptoms are consistent with a stricture. Agree with current scheduled testing. Will hold off on urodynamics and additional testing here until Dr. Newsome's evaluation complete. Orders: UA DIP, URINE (POC) BLADDER SCAN Hydronephrosis, left Chronic. No obstruction. Robotic-assisted laparoscopic left ureteral re-implantation, bladder psoas hitch 05/13/2024 Left kidney: Original: t1/2 136 minutes, 38% split function Current: t/12 52 minutes, 46.4% split function Hydronephrosis much improved on follow up CT I suspect he has reflux into this system based on intermittent poor bladder emptying/high pressure voiding FOLLOW UP: No follow-ups on file. CHIEF COMPLAINT: Patient presents with: Hydronephrosis HISTORY OF PRESENT ILLNESS: Prior notes were reviewed. The patient reports: Complaint: feelings of ANUM Location: bladder Duration: months Quality: none Severity: moderate Relieving: none Exacerbating: none Course: chronic Associated conditions: spraying stream, bladder pressure, aching flank pain, left hydronephrosis Diagnostics: CT Treatments: none REVIEW OF SYSTEMS: Genitourinary: Denies hematuria, dysuria, frequency, urgency, nocturia Constitutional: unintentional weight loss - denies, fevers - denies Cardiovascular: new or worsening chest pain - denies Respiratory: new or worsening shortness of breath - denies Gastrointestinal: constipation - denies, vomiting - denies Hematologic/Lymphatic: easy bleeding or bruising - denies ALLERGIES: ALLERGIES Allergen Reactions Dilaudid [Hydromorp* Rash MEDICATIONS: tamsulosin (FLOMAX) 0.4 mg Take 1 capsule by mouth once daily. polyethylene glycol 3350 (MIRALAX ORAL) Take 17 mg by mouth once daily as needed. loratadine (CLARITIN) 10 mg tablet Take 10 mg by mouth once daily as needed. PAST HISTORY: PAST MEDICAL HISTORY Diagnosis Date Hydronephrosis of left kidney PMH - PAST MEDICAL HISTORY OF Normal color vision Respiratory syncytial virus (RSV) 08/08/2003 Routine or ritual circumcision Wrist fracture, right 05/08/2013 PAST SURGICAL HISTORY Procedure Laterality Date CIRCUMCISION W/CLAMP/OTH DEV W/BLOCK S STENT,URINARY DIVERSION,[id number] 04/07/24 FAMILY HISTORY Problem Relation Age of Onset Heart Mother other (arrythmia) Mother Heart Other mggm pacemaker at age 26 years Social History Tobacco Use Smoking status: Never Passive exposure: Never Smokeless tobacco: Never Tobacco comments: smoking outside at dads-denies Vaping Use Vaping status: Never Used Substance Use Topics Alcohol use: No Drug use: No PHYSICAL EXAMINATION: There were no vitals taken for this visit. Verbal informed consent obtained for exam below: Constitutional: In no acute distress. Respiratory: Normal respiratory effort without use of accessory muscles. Cardiovascular: Regular rate Gastrointestinal: Nondistended DATA: Clinic: URINALYSIS: GLUCOSE UA (POCT) Negative 01/07/2025 BILIRUBIN UA (POCT) Negative 01/07/2025 KETONE UA (POCT) Trace 01/07/2025 SPECIFIC GRAVITY UA (POCT) 1.020 01/07/2025 HEMOGLOBIN/BLOOD UA (POCT) Trace-intact 01/07/2025 PH UA (POCT) 7.5 01/07/2025 PROTEIN UA (POCT) 100 01/07/2025 UROBILINOGEN UA (POCT) 0.2 01/07/2025 NITRITE UA (POCT) Negative 01/07/2025 LEUKOCYTES UA (POCT) Small 01/07/2025 COLOR UA (POCT) Yellow 01/07/2025 CLARITY UA (POCT) Clear 01/07/2025 Laboratory: Creatinine Date Value Ref Range Status 05/14/2024 0.90 0.50 - 1.40 mg/dL Final Comment: Patients receiving either N-Acetylcysteine (NAC) or Metamizole prior to venipuncture, may have falsely depressed results. 05/02/2024 0.98 (more content not included)... [facility] Katya 01-07-2025 [facility] Telephone ([employer]) ANU LOPEZ ([id number]) 02 M Date Time Provider Department 01/07/25 BASILIO GOULD During your visit today, we recorded the following information about you: Chey Luciano RN 01/07/2025 9:57 AM Signed Late entry from 01/05/25: Radiology called stating the patient had concerns about having a catheter placed for his CT due to the issues with unsuccessful cath placement for UDS. I spoke with Venkat Will, and she said to cancel the CT for now and for him to f/u with Dr. Gould on 01/07/25 for next steps. Chey Luciano RN Allergies As of Date: 01/07/2025 Noted Allergy Reaction DILAUDID (HYDROMORPHONE) 04/07/2024 2 - Rash Date Reviewed: 12/25/2024 Reviewed by: Chey Luciano RN - Fully Assessed Prescriptions as of 01/07/2025 - tamsulosin (FLOMAX) 0.4 mg Take 1 capsule by mouth once daily. - polyethylene glycol 3350 (MIRALAX ORAL) Take 17 mg by mouth once daily as needed. - loratadine (CLARITIN) 10 mg tablet Take 10 mg by mouth once daily as needed. Problem List As Of Date 01/07/2025 Noted Resolved Left ureteral stone [N20.1] 02/06/2024 Hydronephrosis, left [N13.30] 02/07/2024 Preop testing [Z01.818] 04/03/2024 Ureteral stricture, left [N13.5] 04/07/2024 Renal calculus, left [N20.0] 09/18/2024 Left flank pain [R10.9] 11/20/2024 Feeling of incomplete bladder emptying [R39.14] 12/04/2024 Encounter Status:Closed by CHEY LUCIANO on 01/07/25 [facility] UA DIP, URINE (POC)on 2024 BILIRUBIN UA (POCT) Negative Negative [facility] CLARITY UA (POCT) Clear [facility] COLOR UA (POCT) Yellow [facility] GLUCOSE UA (POCT) Negative Negative mg/dL [facility] Hemoglobin Ql (U) Trace-intact Abnormal Negative [facility] Interpretation and review of laboratory results Abnormal [facility] KETONE UA (POCT) Trace Negative mg/dL [facility] LEUKOCYTES UA (POCT) Small Abnormal [facility] NITRITE UA (POCT) Negative Negative [facility] PH UA (POCT) 7.5 4.5 - 8.0 [facility] Protein Ql (U) 100 mg/dL Abnormal Negative [facility] SPECIFIC GRAVITY UA (POCT) 1.02 1.005 - 1.030 [facility] UROBILINOGEN UA (POCT) 0.2 Nicole l E.U./dL [facility] [place], [address] [place] [address], [address] [place] [address] POINT OF CARE [facility] CNPNon [facility]20[id number] LOPEZ ([id number]) 02 Date Time Provider Department 12/26/24 ANANDA SMILEY [id number] During your visit today, we recorded the following information about you: Allergies As of Date: 12/26/2024 Noted Allergy Reaction DILAUDID (HYDROMORPHONE) 04/07/2024 2 - Rash Date Reviewed: 12/25/2024 Reviewed by: Chey Luciano, RN - Fully Assessed Prescriptions as of 12/28/2024 - tamsulosin (FLOMAX) 0.4 mg Take 1 capsule by mouth once daily. - polyethylene glycol 3350 (MIRALAX ORAL) Take 17 mg by mouth once daily as needed. - loratadine (CLARITIN) 10 mg tablet Take 10 mg by mouth once daily as needed. Facility-Administered Medications as of 12/28/2024 - lidocaine urojet 2 % 11 mL topical gel (GLYDO) Problem List As Of Date 12/26/2024 Noted Resolved Left ureteral stone [N20.1] 02/06/2024 Hydronephrosis, left [N13.30] 02/07/2024 Preop testing [Z01.818] 04/03/2024 Ureteral stricture, left [N13.5] 04/07/2024 Renal calculus, left [N20.0] 09/18/2024 Left flank pain [R10.9] 11/20/2024 Feeling of incomplete bladder emptying [R39.14] 12/04/2024 Encounter Status:Closed by ANANDA SMLIEY on 12/28/24 [facility] CNCOon 12-25-2024 CNCO Letter Text [facility] CNOVon 12-25-2024 CNOV Office Visit (URCANT ) ANU LOPEZ ([id number]) 4 M Date Time Provider Department 12/25/24 1:00 PM URODYNAMICS [facility] SOFYA During your visit today, we recorded the following information about you: Chey Luciano RN 12/29/2024 11:55 AM Addendum Anu Lopez [id number] 2000 December 25, 2024 Diagnoses: Incomplete bladder emptying, hydronephrosis, ureteral stricture UA done: No Procedure Performed: Multichannel urodynamic testing including uroflowmetry. Was a uroflow done at some point during the study: Yes Was a cystometrogram performed: No Was a UPP done: No Was an EMG done: No Was an intraabdominal pressure recorded: No Where were pressure catheters placed: N/A Procedure: The patient verified medications and allergies. The procedure was explained to the patient. Immediately prior to the test the patient was given Keflex 500 mg #1 by mouth and Lidocaine 2% jelly 11 ml to urethra per order. UNIVERSAL PROTOCOL / SAFETY CHECKLIST A moment to CARE: Completed Procedure to be performed: Urodynamics Sign in Communication: Completed Time Out: Team Confirms the Correct Patient, Correct Procedure, Correct Site and Site Marking, Correct Position (if applicable), Prep and Dry Time (if applicable). Time: N/A Affirmation of Time Out: N/A Sign Out Discussion: Completed Urodynamic Findings: Uroflow : Patient arrived with a crane catheter- No. Patient voided 219.5 ml; Curve: Intermittent Post void residual Unable to obtain; see notes below QMAX 27.0 ; QAVG 12.8. UDS notes: Late Entry from 12/25/24: Patient here for UDS. Patient was able to complete Uroflow initially. I attempted to strait cath the patient for PVR and after multiple attempts I was unsuccessful. I was only able to get the catheter inserted approximately 2 inches without meeting resistance and the patient was coming up off the chair in pain. At this time, the procedure was aborted. After the procedure, that patient stated I have been having issues starting my stream and once I do it is very weak and thin and sprays. He also said the same is happening with his ejaculation. He also stated that his penis is curving back towards him when he has an erection which is new. Told patient I would touch base with Dr. Gould to see what the next step is and we will call him to discuss. He voiced understanding. Plan: Patient will follow up with provider to discuss plan of care and results. Chey Luciano RN cc: Basilio Gould MD I reviewed the above procedure and results. My interpretation is as follows: Incomplete test. Patient able to void for uroflow but no evaluation of residual and unable to complete cystometrogram due to failed urethral catheter placement. Diagnosis: Incomplete bladder emptying, difficult catheter insertion Allergies As of Date: 12/25/2024 Noted Allergy Reaction DILAUDID (HYDROMORPHONE) 04/07/2024 2 - Rash Date Reviewed: 12/25/2024 Reviewed by: Chey Luciano RN - Fully Assessed Reason for Visit: Ureteral Problem [334] Hydronephrosis [336] feeling of incomplete bladder emptying [Other] Cmt: Urodynamics Primary Visit Diagnosis:Feeling of incomplete bladder emptying [R39.14] Other Visit Diagnosis:Ureteral stricture, left [N13.5] Order(s):URODYNAMICS [[id number]] Order #: [id number] [] lidocaine urojet 2 % 11 mL topical gel (GLYDO)Disp: Rfl: Prescriptions as of 01/05/2025 - tamsulosin (FLOMAX) 0.4 mg Take 1 capsule by mouth once daily. - polyethylene glycol 3350 (MIRALAX ORAL) Take 17 mg by mouth once daily as needed. - loratadine (CLARITIN) 10 mg tablet Take 10 mg by mouth once daily as needed. Problem List As Of Date 12/25/2024 Noted Resolved Left ureteral stone [N20.1] 02/06/2024 Hydronephrosis, left [N13.30] 02/07/2024 Preop testing [Z01.818] 04/03/2024 Ureteral stricture, left [N13.5] 04/07/2024 Renal calculus, left [N20.0] 09/18/2024 Left flank pain [R10.9] 11/20/2024 Feeling of incomplete bladder emptying [R39.14] 12/04/2024 Prescriptions ordered this encounter Disp Refills Start End LIDOCAINE 2 % MUCOSAL JELLY IN APPLI* 12/25/2024 12/25/2024 Route: URETHRAL Encounter Status:Closed by CHEY LUCIANO on 12/25/24 [facility] ED MED ADMINISTRATION DETAIL on 12-25-2024 ED MED ADMINISTRATION DETAIL Normal [facility] ED NURSES CLINICAL NOTEon ED NURSES CLINICAL NOTE Normal [facility] ED ORDER SHEET (CPOE ONLY)on 12-25-2024 ED ORDER SHEET (CPOE ONLY) Normal [facility] ED PHYSICIAN CLINICAL REPORT on 12-25-2024 ED PHYSICIAN CLINICAL REPORT Normal [facility] ED PHYSICIAN DISCHARGE REPOR Ton 12-25-2024 ED PHYSICIAN DISCHARGE REPORT Normal [facility] ED SUPER BILLon 12-25-2024 ED SUPER BILL Normal [facility] ED VISIT SUMMARYon ED VISIT SUMMARY Normal [facility] ED VITALS FLOW SHEETon 12-25 ED VITALS FLOW SHEET Normal [facility] Bacteria Ur Culton Bacteria identified Cx Nom (U) CULTURE, URINE: No growth (<1,000 CFU/ml) Normal [facility] Comment on above: Performed By: #### 6 30-4 #### [facility] CLIA [id number] [address] [place] [address] STATES OF [facility] CBC + DIFFon 12-14-2024 Baso # 0.01 x10EE3/UL Normal 0.00 - 0.10 [facility] Comment on above: Performed By: #### 2 54806 ####[facility],[address] [place] [address] 06946 Basophils/100 WBC (Bld) 0.3 % Normal 0.0 - 2.0 [facility] Comment on above: Performed By: #### 2 86638 ####[facility],[address] [place] [address] 49114 CBC + DIFF Normal [facility] Comment on above: Result Comment: CBC- COMPLETE BLOOD COUNT Performed By: #### 2 01521 ####[facility],[address] [place] [address] 27467 EO # 0.20 x10EE3/UL Normal 0.00 - 0.50 [facility] Comment on above: Performed By: #### 2 23564 ####[facility],[address] [place] [address] 74972 Eosinophils/100 WBC (Bld) 3.7 % Normal 0.0 - 7.0 [facility] Comment on above: Performed By: #### 2 09419 ####[facility],[address] [place] [address] 23691 Erythrocyte distribution width (RBC) [Ratio] 13.4 % Normal 12.0 - 15.6 [facility] Comment on above: Performed By: #### 2 89490 ####[facility],[address] [place] [address] 14345 Hematocrit (Bld) [Volume fraction] 48.3 % Normal 40.0 - 52.0 [facility] Comment on above: Performed By: #### 2 34360 ####[facility],[address] [place] [address] 61282 Hemoglobin (Bld) [Mass/Vol] 16.1 g/dL Normal 13.0 - 17.5 [facility] Comment on above: Performed By: #### 2 98145 ####[facility],[address] [place] [address] Lymph # 1.96 x10EE3/UL Normal 0.80 - 2.80 [facility] Comment on above: Performed By: #### 2 24193 ####[facility],[address] [place], [place] [address] Lymphocytes/100 WBC (Bld) 36.0 % Normal 20.0 - 45.0 [facility] Comment on above: Performed By: #### 2 69720 ####[facility],[address] [place], [place] [id number] MANUAL DIFF N/A Normal [facility] Comment on above: Performed By: #### 2 21059 ####[facility],[address] [place] [address] 96775 MCH (RBC) [Entitic mass] 30 pg Normal 27 - 33 [facility] Comment on above: Performed By: #### 2 50541 ####[facility],[address] [place] [address] 95534 MCHC 33 X10 3 Normal 32 - 36 [facility] Comment on above: Performed By: #### 2 56832 ####[facility],[address] [place] [address] 28900 MCV (RBC) [Entitic vol] 89 fL Normal 81 - 98 [facility] Comment on above: Performed By: #### 2 36740 ####[facility],[address] [place] [address] 05344 [place] # 0.59 x10EE3/UL Normal 0.20 - 1.00 [facility] Comment on above: Performed By: #### 2 95100 ####[facility],[address] [place] [address] 53744 MONOS % 10.7 % High 0.0 - 10.0 [facility] Comment on above: Performed By: #### 2 37410 ####[facility],[address] [place] [address] 74756 Morphology Cornel (Bld) [Interp] N/A Normal [facility] Comment on above: Performed By: #### 2 03555 ####[facility],[address] [place] [address] 26658 Neut # 2.69 x10EE3/UL Normal 1.50 - 7.10 [facility] Comment on above: Performed By: #### 2 84318 ####[facility],[address] [place] [address] 23011 Neutrophils/100 WBC (Bld) 49.3 % Normal 46.0 - 76.0 [facility] Comment on above: Performed By: #### 2 85551 ####[facility],[address] [place] [address] 16189 PLATELET 288 x10EE3/UL Normal 150 - 450 [facility] Comment on above: Performed By: #### 2 47142 ####[facility],[address] [place] [address] 00265 Platelet mean volume (Bld) [Entitic vol] 9.1 fL Normal 6.4 - 10.5 [facility] Comment on above: Result Comment: AUTO MATED DIFFERENTIAL Performed By: #### 2 65177 ####[facility],[address] [place] [address] 76712 RBC 5.45 x 10EE6/UL Normal 4.50 - 6.00 [facility] Comment on above: Performed By: #### 2 15727 ####[facility],[address] [place] [address] 95595 WBC 5.5 x 10EE3/UL Normal 4.5 - 10.8 [facility] Comment on above: Performed By: #### 2 35227 ####[facility],[address] [place] [address] 44674 CMP with eGFRon 12-14-2024 AGE 23 years Normal [facility] Comment on above: Performed By: #### 2 04808 ####[facility],[address] [place] [address] 11014 Albumin [Mass/Vol] 4.4 g/dL Normal 3.4 - 5.0 [facility] Comment on above: Performed By: #### 2 97886 ####[facility],[address] [place] [address] 79134 Albumin/Globulin [Mass ratio] 1.2 {ratio} Normal 0.9 - 1.6 [facility] Comment on above: Performed By: #### 2 77915 ####[facility],[address] [place] [address] 38098 ALK PHOS 104 U/L Normal 46 - 116 [facility] Comment on above: Performed By: #### 2 76335 ####[facility],[address] [place] [address] 30912 ALT [Catalytic activity/Vol] 21 U/L Normal 16 - 63 [facility] Comment on above: Performed By: #### 2 14939 ####[facility],[address] [place] [address] 16478 Anion gap [Moles/Vol] 11 mmol/L Normal 10 - 20 [facility] Comment on above: Performed By: #### 2 50098 ####[facility],[address] [place] [address] 55701 AST [Catalytic activity/Vol] 16 U/L Normal 15 - 37 [facility] Comment on above: Performed By: #### 2 92918 ####[facility],[address] [place] [address] 95856 B/C RATIO 15 ratio Normal 0 - 30 [facility] Comment on above: Performed By: #### 2 55138 ####[facility],[address] [place] [address] 10770 Bilirubin [Mass/Vol] 0.6 mg/dL Normal 0.2 - 1.0 [facility] Comment on above: Performed By: #### 2 26633 ####[facility],[address] [place] [address] 05295 Calcium [Mass/Vol] 8.5 mg/dL Normal 8.5 - 10.1 [facility] Comment on above: Performed By: #### 2 03588 ####[facility],[address] [place] [address] 95305 Chloride [Moles/Vol] 103 mmol/L Normal 98 - 107 [facility] Comment on above: Performed By: #### 2 70991 ####[facility],[address] [place], [place] [address] CMP with eGFR Normal [facility] Comment on above: Result Comment: COMP REHENSIVE METABOLIC PANEL Performed By: #### 2 23708 ####[facility],[address] [place] [address] 71758 CO2 [Moles/Vol] 29.7 mmol/L Normal 21.0 - 32.0 [facility] Comment on above: Performed By: #### 2 27221 ####[facility],[address] [place] [address] 63213 Creatinine [Mass/Vol] 1.10 mg/dL Normal 0.70 - 1.30 [facility] Comment on above: Performed By: #### 2 52363 ####[facility],[address] [place] [address] 39320 GFR/1.73 sq M.predicted among non-blacks MDRD (S/P/Bld) [Vol rate/Area] mL/min/{1.73_m2} Normal 60 - 999 [facility] Comment on above: Performed By: #### 2 26486 ####[facility],[address] [place] [address] Result Comment: ACCO RDING TO THE NATIONAL KIDNEY DISEASE EDUCATION PROGRAM(NKDE), A NORMAL eGFRIS A VALUE GREATER THAN OR EQUAL TO 60 ML/MIN/1.73 SQ METERS.CHRONIC KIDNEY DISEASE: <60mL/MIN/1.73 SQ METERSKIDNEY FAILURE: <15mL/MIN/1.73 SQ METERSTHIS TEST SHOULD ONLY BE USED FOR PATIENTS 18 YEARS OF AGE AND OLDER. Globulin (S) [Mass/Vol] 3.6 g/dL Normal 1.5 - 3.8 [facility] Comment on above: Performed By: #### 2 33066 ####[place] [address] Glucose [Mass/Vol] 93 mg/dL Normal 74 - 106 [facility] Comment on above: Performed By: #### 2 38521 ####[place] [address] Potassium [Moles/Vol] 3.6 mmol/L Normal 3.5 - 5.1 [facility] Comment on above: Performed By: #### 2 14326 ####[place] [id number] Protein [Mass/Vol] 8.0 g/dL Normal 6.4 - 8.2 [facility] Comment on above: Performed By: #### 2 39220 ####[facility],[address] [place] [address] 40114 Sodium [Moles/Vol] 140 mmol/L Normal 136 - 145 [facility] Comment on above: Performed By: #### 2 47443 ####[address] [address] Urea nitrogen [Mass/Vol] 16 mg/dL Normal 7 - 18 [facility] Comment on above: Performed By: #### 2 68932 ####[place] [id number] CT ABDOMEN/PELVIS Won 2024 CT ABDOMEN/PELVIS W Normal [facility] URINALYSISon 12-14-2024 Amorphous NONE Normal [facility] Comment on above: Performed By: #### 2 74271 ####[facility],[address] [place] [address] Bacteria 1+ Normal [facility] Comment on above: Performed By: #### 2 68026 ####[facility],[address] [place], [place] [address] Bilirubin Ql (U) Negative Normal NORMAL: NEGATIVE [facility] Comment on above: Performed By: #### 2 12890 ####[facility],[address] [place], [place] [id number] Casts NONE Normal [facility] Comment on above: Performed By: #### 2 98144 ####[facility],[address] [place] [address] Clarity (U) clear Normal NORMAL: CLEAR [facility] Comment on above: Performed By: #### 2 07658 ####[facility],[address] [place], [place] [id number] Color (U) yellow Normal NORMAL: YELLOW [facility] Comment on above: Performed By: #### 2 30495 ####[facility],[address] [place], [place] [id number] Crystals LM Nom (Urine sed) NONE Normal [facility] Comment on above: Performed By: #### 2 49460 ####[facility],[address] [place] [address] 65710 Epi Cells OCC Normal [facility] Comment on above: Performed By: #### 2 11584 ####[facility],[address] [place] [address] 45397 Glucose Ql (U) NORM Normal NORMAL: NORMAL [facility] Comment on above: Performed By: #### 2 57064 ####[facility],[address] [place] [address] 45267 Hemoglobin Ql (U) Negative Normal NORMAL: NEGATIVE [facility] Comment on above: Performed By: #### 2 17213 ####[facility],[address] [place] [address] 41534 Ketone Negative Normal NORMAL: NEGATIVE [facility] Comment on above: Performed By: #### 2 49779 ####[facility],[address] [place] [address] 50075 Leukocytes 25 Abnormal NORMAL: NEGATIVE [facility] Comment on above: Performed By: #### 2 64791 ####[facility],[address] [place] [address] 97872 Mucous 3+ Normal [facility] Comment on above: Performed By: #### 2 22632 ####[facility],[address] [place] [address] 09172 Nitrite Ql (U) Negative Normal NORMAL: NEGATIVE [facility] Comment on above: Performed By: #### 2 06648 ####[facility],[address] [place] [address] 83226 pH (U) 7 [pH] Normal NORMAL: 5.0-8.0 [facility] Comment on above: Performed By: #### 2 53876 ####[facility],[address] [place] [address] 09972 Protein Ql (U) 30 Abnormal NORMAL: NEGATIVE [facility] Comment on above: Performed By: #### 2 85410 ####[facility],[address] [place] [address] 39952 Rbc 0-5 Normal 0-3/hpf [facility] Comment on above: Performed By: #### 2 46823 ####[facility],[address] [place] [address] 09743 Sp [place] 1.010 Normal NORMAL: 1.010-1.030 [facility] Comment on above: Performed By: #### 2 75629 ####[facility],[address] [place] [address] Specimen Type R Normal [facility] Comment on above: Performed By: #### 2 86335 ####[facility],[address] [place] [address] Urinalysis dipstick W Reflex Microscopic panel (U) SEE BELOW Normal [facility] Comment on above: Result Comment: MICR OSCOPIC Performed By: #### 2 21016 ####[facility],[address] [place] [address] Urobilinog NORM Normal NORMAL: NORMAL [facility] Comment on above: Performed By: #### 2 86016 ####[facility],[address] [place] [address] Wbc 11-15 Normal 0-5/hpf [facility] Comment on above: Performed By: #### 2 93565 ####[facility],[address] [place] [address] Yeast NONE Normal [facility] Comment on above: Performed By: #### 2 67820 ####[facility],[address] [place] [address] URINE CULTURE [CCL]on 2024 Bacteria identified Cx Nom (U) Normal [facility] Comment on above: Performed By: #### 2 82814 ####[facility],[address] [place] [address] BLADDER SCANon 12-04-2024 231ml [facility] CNCOon 12-04-2024 CNCO Letter Text Normal [facility] CNOVon 12-04-2024 CNOV Office Visit (URCANT ) ANU LOEPZ ([id number]) 4 M Date Time Provider Department 12/04/24 10:15 AM BASILIO GOULD During your visit today, we recorded the following information about you: Basilio Gould MD 12/04/2024 10:52 AM Signed [facility] ESTABLISHED PATIENT NOTE PATIENT: Anu Lopez (23 year old) PCP: Sagar Rojo MD DATE OF SERVICE: 12/04/2024 SUMMARY: Mr. Lopez is a 23 year old male who is here for follow up. He was recently in [facility] (no records available) Assessment AND Plan Left flank pain Primary complaint of left flank pain and bladder pressure Possible recurrent obstruction, but patient's ureter was wide open at time of ureteroscopy for stone treatment. Concern that he's having poor bladder emptying leading to VUR in the reconstructed system Plan CT cystogram and urodynamics to confirm Hydronephrosis, left Much improved but still present Plan CT cystogram to check for reflux Orders: BLADDER SCAN UA DIP, URINE (POC) CT CYSTOGRAM W IVCON; Future CREATININE BLD; Future Feeling of incomplete bladder emptying PVR today 231 cc. He has not been taking the tamsulosin Discussed his poor bladder emptying. Plan restart tamsulosin. Ureteral stricture, left Robotic-assisted laparoscopic left ureteral re-implantation, bladder psoas hitch 05/13/2024 Left kidney: Original: t1/2 136 minutes, 38% split function Current: t/12 52 minutes, 46.4% split function Hydronephrosis much improved on follow up CT If CT cystogram negative and symptoms don't improve with correction of bladder emptying, consider repeat renal scan Renal calculus, left Cystoscopy, left flexible ureteroscopy with laser lithotripsy, left ureteral stent insertion (with string) 10/20/2024 FOLLOW UP: Return in about 4 weeks (around 01/01/2025). CHIEF COMPLAINT: Patient presents with: Urethral Stricture: Here for 6 wk f/u ureteral stricture. HISTORY OF PRESENT ILLNESS: Prior notes were reviewed. The patient reports: Complaint: flank pain Location: left Duration: weeks Quality: aching Severity: moderate Relieving: none Exacerbating: none Course: new Associated conditions: history ureteral stricture, history of hydronephrosis, renal stones Diagnostics: none Treatments: ULL REVIEW OF SYSTEMS: Genitourinary: Denies hematuria, dysuria, frequency, urgency, nocturia, ANUM, weak stream. Constitutional: unintentional weight loss - denies, fevers - denies Cardiovascular: new or worsening chest pain - denies Respiratory: new or worsening shortness of breath - denies Gastrointestinal: constipation - denies, vomiting - denies Hematologic/Lymphatic: easy bleeding or bruising - denies ALLERGIES: ALLERGIES Allergen Reactions Dilaudid [Hydromorp* Rash MEDICATIONS: tamsulosin (FLOMAX) 0.4 mg Take 1 capsule by mouth once daily. polyethylene glycol 3350 (MIRALAX ORAL) Take 17 mg by mouth once daily as needed. loratadine (CLARITIN) 10 mg tablet Take 10 mg by mouth once daily as needed. PAST HISTORY: PAST MEDICAL HISTORY Diagnosis Date Hydronephrosis of left kidney PMH - PAST MEDICAL HISTORY OF Normal color vision Respiratory syncytial virus (RSV) 08/08/2003 Routine or ritual circumcision Wrist fracture, right 05/08/2013 PAST SURGICAL HISTORY Procedure Laterality Date CIRCUMCISION W/CLAMP/OTH DEV W/BLOCK S STENT,URINARY DIVERSION,[id number] 04/07/24 FAMILY HISTORY Problem Relation Age of Onset Heart Mother other (arrythmia) Mother Heart Other mggm pacemaker at age 26 years Social History Tobacco Use Smoking status: Never Passive exposure: Never Smokeless tobacco: Never Tobacco comments: smoking outside at dads-denies Vaping Use Vaping status: Never Used Substance Use Topics Alcohol use: No Drug use: No PHYSICAL EXAMINATION: There were no vitals taken for this visit. Verbal informed consent obtained for exam below: Constitutional: In no acute distress. Respiratory: Normal respiratory effort without use of accessory muscles. Cardiovascular: Regular rate Gastrointestinal: Nondistended DATA: Clinic: URINALYSIS: GLUCOSE UA (POCT) Negative 11/20/2024 BILIRUBIN UA (POCT) Negative 11/20/2024 KETONE UA (POCT) Negative 11/20/2024 SPECIFIC GRAVITY UA (POCT) 1.020 11/20/2024 HEMOGLOBIN/BLOOD UA (POCT) Negative 11/20/2024 PH UA (POCT) 8.5 11/20/2024 PROTEIN UA (POCT) 100 11/20/2024 UROBILINOGEN UA (POCT) 0 (more content not included)... Normal [facility] UA DIP, URINE (POC)on 2024 BILIRUBIN UA (POCT) Negative Negative [facility] CLARITY UA (POCT) Clear [facility] COLOR UA (POCT) Yellow [facility] GLUCOSE UA (POCT) Negative Negative mg/dL [facility] Hemoglobin Ql (U) Negative Negative [facility] Interpretation and review of laboratory results Abnormal [facility] KETONE UA (POCT) Negative Negative mg/dL [facility] LEUKOCYTES UA (POCT) Trace Abnormal Negative [facility] NITRITE UA (POCT) Negative Negative [facility] PH UA (POCT) 8.5 Abnormal 4.5 - 8.0 [facility] Protein Ql (U) 100 mg/dL Abnormal Negative [facility] SPECIFIC GRAVITY UA (POCT) 1.015 1.005 - 1.030 [facility] UROBILINOGEN UA (POCT) 0.2 Nicole l E.U./dL [facility] Location:[facility] [place], [address] [place] [address] suite [facility], [place], [place], [address] [place] [address] POINT OF CARE [facility] ED MED ADMINISTRATION DETAIL on 12-02-2024 ED MED ADMINISTRATION DETAIL Normal [facility] ED NURSES CLINICAL NOTEon ED NURSES CLINICAL NOTE Normal [facility] ED ORDER SHEET (CPOE ONLY)on 12-02-2024 ED ORDER SHEET (CPOE ONLY) Normal [facility] ED PHYSICIAN CLINICAL REPORT on 12-02-2024 ED PHYSICIAN CLINICAL REPORT Normal [facility] ED PHYSICIAN DISCHARGE REPOR Ton 12-02-2024 ED PHYSICIAN DISCHARGE REPORT Normal [facility] ED SUPER BILLon 12-02-2024 ED SUPER BILL Normal [facility] ED VISIT SUMMARYon ED VISIT SUMMARY Normal [facility] ED VITALS FLOW SHEETon 12-02 ED VITALS FLOW SHEET Normal [facility] GROUP A STREPTOCOCCUS BY PCR [CCL]on 12-02-2024 Group A Strep PCR Not detected Normal Not detected [facility] Comment on above: Result Comment: [facility] [address] [place], [place] [address]RrxvxlFahad Bhardwaj III, M.[id number] Performed By: #### 2 43538 ####[address] [address] C-REACTIVE PROTEINon 025 CRP 0.69 mg/dl Normal 0.00 - 0.90 [facility] Comment on above: Performed By: #### 2 37987 ####[address] [address] CBC + DIFFon 12-01-2024 Baso # 0.01 x10EE3/UL Normal 0.00 - 0.10 [facility] Comment on above: Performed By: #### 2 36045 ####[facility],[address] [place] [address] Basophils/100 WBC (Bld) 0.3 % Normal 0.0 - 2.0 [facility] Comment on above: Performed By: #### 2 20844 ####[facility],[address] [place] [address] CBC + DIFF Normal [facility] Comment on above: Result Comment: CBC- COMPLETE BLOOD COUNT Performed By: #### 2 69385 ####[place] [address] EO # 0.09 x10EE3/UL Normal 0.00 - 0.50 [facility] Comment on above: Performed By: #### 2 70455 ####[facility],[address] [place] [address] Eosinophils/100 WBC (Bld) 2.2 % Normal 0.0 - 7.0 [facility] Comment on above: Performed By: #### 2 97506 ####[facility],[address] [place] [address] Erythrocyte distribution width (RBC) [Ratio] 13.4 % Normal 12.0 - 15.6 [facility] Comment on above: Performed By: #### 2 92950 ####[facility],[address] [place] [address] Hematocrit (Bld) [Volume fraction] 46.4 % Normal 40.0 - 52.0 [facility] Comment on above: Performed By: #### 2 56400 ####[facility],[address] [place] [address] Hemoglobin (Bld) [Mass/Vol] 15.8 g/dL Normal 13.0 - 17.5 [facility] Comment on above: Performed By: #### 2 79505 ####[facility],[address] [place] [address] Lymph # 1.44 x10EE3/UL Normal 0.80 - 2.80 [facility] Comment on above: Performed By: #### 2 40309 ####[facility],[address] [place] [address] Lymphocytes/100 WBC (Bld) 35.4 % Normal 20.0 - 45.0 [facility] Comment on above: Performed By: #### 2 63035 ####[facility],[address] [place] [address] MANUAL DIFF N/A Normal [facility] Comment on above: Performed By: #### 2 70727 ####[facility],[address] [place] [address] MCH (RBC) [Entitic mass] 30 pg Normal 27 - 33 [facility] Comment on above: Performed By: #### 2 57885 ####[facility],[address] [place] [address] MCHC 34 X10 3 Normal 32 - 36 [facility] Comment on above: Performed By: #### 2 93952 ####[facility],[address] [place], [place] [address] MCV (RBC) [Entitic vol] 88 fL Normal 81 - 98 [facility] Comment on above: Performed By: #### 2 88370 ####[facility],[address] [place] [address] [place] # 0.40 x10EE3/UL Normal 0.20 - 1.00 [facility] Comment on above: Performed By: #### 2 48786 ####[facility],[address] [place] [address] MONOS % 9.8 % Normal 0.0 - 10.0 [facility] Comment on above: Performed By: #### 2 11091 ####[facility],[address] [place], [place] [id number] Morphology Cornel (Bld) [Interp] N/A Normal [facility] Comment on above: Performed By: #### 2 76410 ####[facility],[address] [place], [place] [address] Neut # 2.14 x10EE3/UL Normal 1.50 - 7.10 [facility] Comment on above: Performed By: #### 2 54405 ####[facility],[address] [place] [address] Neutrophils/100 WBC (Bld) 52.4 % Normal 46.0 - 76.0 [facility] Comment on above: Performed By: #### 2 86357 ####[facility],[address] [place] [address] PLATELET 227 x10EE3/UL Normal 150 - 450 [facility] Comment on above: Performed By: #### 2 28986 ####[facility],[address] [place] [address] Platelet mean volume (Bld) [Entitic vol] 9.5 fL Normal 6.4 - 10.5 [facility] Comment on above: Result Comment: AUTO MATED DIFFERENTIAL Performed By: #### 2 33363 ####[facility],[address] [place], [place] [address] RBC 5.30 x 10EE6/UL Normal 4.50 - 6.00 [facility] Comment on above: Performed By: #### 2 63961 ####[facility],[address] [place], [place] [address] WBC 4.1 x 10EE3/UL Low 4.5 - 10.8 [facility] Comment on above: Performed By: #### 2 47045 ####[facility],[address] [place], [place] [address] CMP with eGFRon 12-01-2024 AGE 23 years Normal [facility] Comment on above: Performed By: #### 2 64651 ####[facility],[address] [place] [address] Albumin [Mass/Vol] 4.3 g/dL Normal 3.4 - 5.0 [facility] Comment on above: Performed By: #### 2 97195 ####[facility],[address] [place] [address]678 Albumin/Globulin [Mass ratio] 1.0 {ratio} Normal 0.9 - 1.6 [facility] Comment on above: Performed By: #### 2 57983 ####[facility],[address] [place] [address] 13985 ALK PHOS 96 U/L Normal 46 - 116 [facility] Comment on above: Performed By: #### 2 54940 ####[facility],[address] [place] [address] 33025 ALT [Catalytic activity/Vol] 21 U/L Normal 16 - 63 [facility] Comment on above: Performed By: #### 2 11008 ####[facility],[address] [place] [address] Anion gap [Moles/Vol] 10 mmol/L Normal 10 - 20 [facility] Comment on above: Performed By: #### 2 09443 ####[facility],[address] [place] [address] AST [Catalytic activity/Vol] 15 U/L Normal 15 - 37 [facility] Comment on above: Performed By: #### 2 57240 ####[facility],[address] [place] [address] B/C RATIO 12 ratio Normal 0 - 30 [facility] Comment on above: Performed By: #### 2 60206 ####[facility],[address] [place] [address] Bilirubin [Mass/Vol] 0.8 mg/dL Normal 0.2 - 1.0 [facility] Comment on above: Performed By: #### 2 25871 ####[facility],[address] [place] [address] Calcium [Mass/Vol] 8.8 mg/dL Normal 8.5 - 10.1 [facility] Comment on above: Performed By: #### 2 90121 ####[facility],[address] [place] [address]7967 Chloride [Moles/Vol] 103 mmol/L Normal 98 - 107 [facility] Comment on above: Performed By: #### 2 55871 ####[facility],[address] [place] [address] 19676 CMP with eGFR Normal [facility] Comment on above: Result Comment: COMP REHENSIVE METABOLIC PANEL Performed By: #### 2 53350 ####[facility],[address] [place] [address] CO2 [Moles/Vol] 31.7 mmol/L Normal 21.0 - 32.0 [facility] Comment on above: Performed By: #### 2 06773 ####[facility],[address] [place] [address]494 Creatinine [Mass/Vol] 0.92 mg/dL Normal 0.70 - 1.30 [facility] Comment on above: Performed By: #### 2 00309 ####[facility],[address] [place] [address] 27473 GFR/1.73 sq M.predicted among non-blacks MDRD (S/P/Bld) [Vol rate/Area] mL/min/{1.73_m2} Normal 60 - 999 [facility] Comment on above: Performed By: #### 2 83644 ####[facility],[address] [place] [address] Result Comment: ACCO RDING TO THE NATIONAL KIDNEY DISEASE EDUCATION PROGRAM(NKDE), A NORMAL eGFRIS A VALUE GREATER THAN OR EQUAL TO 60 ML/MIN/1.73 SQ METERS.CHRONIC KIDNEY DISEASE: <60mL/MIN/1.73 SQ METERSKIDNEY FAILURE: <15mL/MIN/1.73 SQ METERSTHIS TEST SHOULD ONLY BE USED FOR PATIENTS 18 YEARS OF AGE AND OLDER. Globulin (S) [Mass/Vol] 4.2 g/dL High 1.5 - 3.8 [facility] Comment on above: Performed By: #### 2 61089 ####[facility],[address] [place] [address] Glucose [Mass/Vol] 82 mg/dL Normal 74 - 106 [facility] Comment on above: Performed By: #### 2 61808 ####[facility],[address] [place] [address] Potassium [Moles/Vol] 3.8 mmol/L Normal 3.5 - 5.1 [facility] Comment on above: Performed By: #### 2 50298 ####[facility],[address] [place] [address] 20846 Protein [Mass/Vol] 8.5 g/dL High 6.4 - 8.2 [facility] Comment on above: Performed By: #### 2 27145 ####[facility],[address] [place] [address] 39160 Sodium [Moles/Vol] 141 mmol/L Normal 136 - 145 [facility] Comment on above: Performed By: #### 2 63996 ####[facility],[address] [place] [address] 84624 Urea nitrogen [Mass/Vol] 11 mg/dL Normal 7 - 18 [facility] Comment on above: Performed By: #### 2 04039 ####[facility],[address] [place] [address] KUB (KIDNEY STONE PROTOCO L)on 12-01-2024 CT KUB (KIDNEY STONE PROTOCOL) Normal [facility] INFLUENZA VIRUS RAPID A/Bon 12-01-2024 INFLUENZA VIRUS RAPID A/B Normal [facility] Comment on above: Performed By: #### 2 84394 ####[facility],[address] [place] [address] LACTATEon 12-01-2024 Lactate [Moles/Vol] 1.1 mmol/L Normal 0.4 - 2.0 [facility] Comment on above: Performed By: #### 2 33753 ####[facility],[address] [place] [address] 36451 RAPID STREPon 12-01-2024 S. pyogenes Ag IA Ql (Unsp spec) Rapid Strep NEG:GRP A STREP INTERNAL QC PASS EXTERNAL QC DONE? YES Normal [facility] Comment on above: Performed By: #### 2 82153 ####[facility],[address] [place] [address] S pyo DNA Throat Ql LANE+prob blane 12-01-[address]+probe Ql (Throat) Not detected Normal Not detected [facility] Comment on above: Order Comment: Speci men Type: SWAB Ordering Facility: [facility] Address: [address] [place] [address] Performed By: #### 6 0489-2 #### [facility] CLIA [id number] [address] [place] [address] OF [facility] URINALYSISon 12-01-2024 Bilirubin Ql (U) Negative Normal NORMAL: NEGATIVE [facility] Comment on above: Performed By: #### 2 50297 ####[facility],[address] [place], [place] [address] Clarity (U) clear Normal NORMAL: CLEAR [facility] Comment on above: Performed By: #### 2 77959 ####[facility],[address] [place], [place] [address] Color (U) yellow Normal NORMAL: YELLOW [facility] Comment on above: Performed By: #### 2 23380 ####[facility],[address] [place], [place] [address] Glucose Ql (U) NORM Normal NORMAL: NORMAL [facility] Comment on above: Performed By: #### 2 45681 ####[facility],[address] [place] [address] 97305 Hemoglobin Ql (U) Negative Normal NORMAL: NEGATIVE [facility] Comment on above: Performed By: #### 2 96770 ####[facility],[address] [place] [address] 72352 Ketone Negative Normal NORMAL: NEGATIVE [facility] Comment on above: Performed By: #### 2 60258 ####[facility],[address] [place] [address] 18452 Leukocytes Negative Normal NORMAL: NEGATIVE [facility] Comment on above: Performed By: #### 2 28031 ####[facility],[address] [place], [place] [address] Nitrite Ql (U) Negative Normal NORMAL: NEGATIVE [facility] Comment on above: Performed By: #### 2 03231 ####[facility],[address] [place] [address] pH (U) 8 [pH] Normal NORMAL: 5.0-8.0 [facility] Comment on above: Performed By: #### 2 47422 ####[facility],[address] [place], [place] [address] Protein Ql (U) 30 Abnormal NORMAL: NEGATIVE [facility] Comment on above: Performed By: #### 2 44786 ####[facility],[address] [place], [place] [address] Sp [place] 1.010 Normal NORMAL: 1.010-1.030 [facility] Comment on above: Performed By: #### 2 16553 ####[facility],[address] [place], [place] [address] Specimen Type R Normal [facility] Comment on above: Performed By: #### 2 08231 ####[facility],[address] [place], [place] [address] Urinalysis dipstick W Reflex Microscopic panel (U) NOT INDICATED Normal [facility] Comment on above: Performed By: #### 2 31323 ####[facility],[address] [place] [address] Urobilinog NORM Normal NORMAL: NORMAL [facility] Comment on above: Performed By: #### 2 37423 ####[facility],[address] [place] [address] CBC + DIFFon 11-27-2024 Baso # 0.01 x10EE3/UL Normal 0.00 - 0.10 [facility] Comment on above: Performed By: #### 2 48106 ####[facility],[address] [place] [address] Basophils/100 WBC (Bld) 0.3 % Normal 0.0 - 2.0 [facility] Comment on above: Performed By: #### 2 63678 ####[facility],[address] [place] [address] CBC + DIFF Normal [facility] Comment on above: Result Comment: CBC- COMPLETE BLOOD COUNT Performed By: #### 2 81575 ####[facility],[address] [place] [address] EO # 0.01 x10EE3/UL Normal 0.00 - 0.50 [facility] Comment on above: Performed By: #### 2 00606 ####[facility],[address] [place], [place] [address] Eosinophils/100 WBC (Bld) 0.3 % Normal 0.0 - 7.0 [facility] Comment on above: Performed By: #### 2 09183 ####[facility],[address] [place] [address] Erythrocyte distribution width (RBC) [Ratio] 13.7 % Normal 12.0 - 15.6 [facility] Comment on above: Performed By: #### 2 04820 ####[facility],[address],[place] [address] Hematocrit (Bld) [Volume fraction] 47.1 % Normal 40.0 - 52.0 [facility] Comment on above: Performed By: #### 2 94088 ####[facility],[address] [place] [address]1973 Hemoglobin (Bld) [Mass/Vol] 15.8 g/dL Normal 13.0 - 17.5 [facility] Comment on above: Performed By: #### 2 57527 ####[facility],[address] [place], [place] [address] Lymph # 0.92 x10EE3/UL Normal 0.80 - 2.80 [facility] Comment on above: Performed By: #### 2 26453 ####[facility],[address] [place], [place] [address] Lymphocytes/100 WBC (Bld) 21.0 % Normal 20.0 - 45.0 [facility] Comment on above: Performed By: #### 2 89137 ####[facility],[address] [place] [address] 67403 MANUAL DIFF N/A Normal [facility] Comment on above: Performed By: #### 2 27306 ####[facility],[address] [place] [address] 26556 MCH (RBC) [Entitic mass] 29 pg Normal 27 - 33 [facility] Comment on above: Performed By: #### 2 59345 ####[facility],[address] [place], [place] [address] MCHC 34 X10 3 Normal 32 - 36 [facility] Comment on above: Performed By: #### 2 21354 ####[facility],[address] [place] [address] 44604 MCV (RBC) [Entitic vol] 87 fL Normal 81 - 98 [facility] Comment on above: Performed By: #### 2 42020 ####[facility],[address] [place] [address] 96419 [place] # 0.87 x10EE3/UL Normal 0.20 - 1.00 [facility] Comment on above: Performed By: #### 2 22753 ####[address] [address] MONOS % 19.7 % High 0.0 - 10.0 [facility] Comment on above: Performed By: #### 2 74696 ####[facility],[address] [place] [address] Morphology Cornel (Bld) [Interp] N/A Normal [facility] Comment on above: Performed By: #### 2 02309 ####[facility],[address] [place] [address] Neut # 2.59 x10EE3/UL Normal 1.50 - 7.10 [facility] Comment on above: Performed By: #### 2 93605 ####[place] [address] Neutrophils/100 WBC (Bld) 58.8 % Normal 46.0 - 76.0 [facility] Comment on above: Performed By: #### 2 89949 ####[place] [address] PLATELET 206 x10EE3/UL Normal 150 - 450 [facility] Comment on above: Performed By: #### 2 07025 ####[place] [address] Platelet mean volume (Bld) [Entitic vol] 9.3 fL Normal 6.4 - 10.5 [facility] Comment on above: Result Comment: AUTO MATED DIFFERENTIAL Performed By: #### 2 89472 ####[place] [address] RBC 5.41 x 10EE6/UL Normal 4.50 - 6.00 [facility] Comment on above: Performed By: #### 2 63577 ####[facility],[address] [place] [address] 44893 WBC 4.4 x 10EE3/UL Low 4.5 - 10.8 [facility] Comment on above: Performed By: #### 2 21761 ####[facility],[address] [place] [address] 30705 CHEST 1 VIEWon 11-27-2024 CHEST 1 VIEW Normal [facility] CMP with eGFRon 11-27-2024 AGE 23 years Normal [facility] Comment on above: Performed By: #### 2 82532 ####[facility],[address] [place] [address] 10797 Albumin [Mass/Vol] 4.4 g/dL Normal 3.4 - 5.0 [facility] Comment on above: Performed By: #### 2 48554 ####[facility],[address] [place] [address] 09700 Albumin/Globulin [Mass ratio] 1.1 {ratio} Normal 0.9 - 1.6 [facility] Comment on above: Performed By: #### 2 06000 ####[facility],[address] [place] [address] 72198 ALK PHOS 100 U/L Normal 46 - 116 [facility] Comment on above: Performed By: #### 2 90296 ####[facility],[address] [place] [address] 44044 ALT [Catalytic activity/Vol] 21 U/L Normal 16 - 63 [facility] Comment on above: Performed By: #### 2 66084 ####[facility],[address] [place] [address] 93744 Anion gap [Moles/Vol] 14 mmol/L Normal 10 - 20 [facility] Comment on above: Performed By: #### 2 16609 ####[facility],[address] [place] [address] 74863 AST [Catalytic activity/Vol] 16 U/L Normal 15 - 37 [facility] Comment on above: Performed By: #### 2 85468 ####[facility],[address] [place] [address] 59263 B/C RATIO 9 ratio Normal 0 - 30 [facility] Comment on above: Performed By: #### 2 25749 ####[facility],[address] [place] [address] 26169 Bilirubin [Mass/Vol] 0.4 mg/dL Normal 0.2 - 1.0 [facility] Comment on above: Performed By: #### 2 78064 ####[facility],[address] [place] [address] 03397 Calcium [Mass/Vol] 9.2 mg/dL Normal 8.5 - 10.1 [facility] Comment on above: Performed By: #### 2 26589 ####[facility],[address] [place] [address] 67371 Chloride [Moles/Vol] 101 mmol/L Normal 98 - 107 [facility] Comment on above: Performed By: #### 2 22090 ####[facility],[address] [place] [address] 04020 CMP with eGFR Normal [facility] Comment on above: Result Comment: COMP REHENSIVE METABOLIC PANEL Performed By: #### 2 33297 ####[facility],[address] [place] [address] 83918 CO2 [Moles/Vol] 27.0 mmol/L Normal 21.0 - 32.0 [facility] Comment on above: Performed By: #### 2 78481 ####[facility],[address] [place] [address] 55300 Creatinine [Mass/Vol] 1.27 mg/dL Normal 0.70 - 1.30 [facility] Comment on above: Performed By: #### 2 14033 ####[facility],[address] [place] [address] 09772 GFR/1.73 sq M.predicted among non-blacks MDRD (S/P/Bld) [Vol rate/Area] mL/min/{1.73_m2} Normal 60 - 999 [facility] Comment on above: Performed By: #### 2 16161 ####[facility],[address] [place] [address] 24061 Result Comment: ACCO RDING TO THE NATIONAL KIDNEY DISEASE EDUCATION PROGRAM(NKDE), A NORMAL eGFRIS A VALUE GREATER THAN OR EQUAL TO 60 ML/MIN/1.73 SQ METERS.CHRONIC KIDNEY DISEASE: <60mL/MIN/1.73 SQ METERSKIDNEY FAILURE: <15mL/MIN/1.73 SQ METERSTHIS TEST SHOULD ONLY BE USED FOR PATIENTS 18 YEARS OF AGE AND OLDER. Globulin (S) [Mass/Vol] 3.9 g/dL High 1.5 - 3.8 [facility] Comment on above: Performed By: #### 2 01827 ####[facility],[address] [place] [address] 17575 Glucose [Mass/Vol] 93 mg/dL Normal 74 - 106 [facility] Comment on above: Performed By: #### 2 83214 ####[facility],[address] [place] [address] 38689 Potassium [Moles/Vol] 3.7 mmol/L Normal 3.5 - 5.1 [facility] Comment on above: Performed By: #### 2 96541 ####[facility],[address] [place] [address] 20405 Protein [Mass/Vol] 8.3 g/dL High 6.4 - 8.2 [facility] Comment on above: Performed By: #### 2 76726 ####[facility],[address] [place] [address] 90405 Sodium [Moles/Vol] 138 mmol/L Normal 136 - 145 [facility] Comment on above: Performed By: #### 2 21044 ####[facility],[address] [place] [address] 72813 Urea nitrogen [Mass/Vol] 12 mg/dL Normal 7 - 18 [facility] Comment on above: Performed By: #### 2 85105 ####[facility],[address] [place] [address] CORONAVIRUS (SARS) ANTIGEN T ESTon 11-27-2024 EXTERNAL QC DONE? YES Normal [facility] Comment on above: Performed By: #### 2 99604 ####[facility],[address] [place] [address] INTERNAL CONTROL PASS Normal [facility] Comment on above: Performed By: #### 2 84400 ####[facility],[address] [place] [address] SARS ANTIGEN Negative Normal NORMAL: NEGATIVE [facility] Comment on above: Performed By: #### 2 76885 ####[facility],[address] [place] [address] SEND TO ? NO Normal [facility] Comment on above: Result Comment: SARS -CoV-2THIS TEST IS BEING USED UNDER THE FDA EUA PROCEDURE. THIS ASSAY HAS BEENVALIDATED AT [facility] FOR USE WITH NASAL AND NASOPHARYNGEAL SWABSPECIMENS.INTERPRETIVE DATATEST RESULTS SHOULD ALWAYS BE CONSIDERED IN THE CONTEXT OF CLINICALOBSERVATIONS AND EPIDEMIOLOGICAL DATA IN MAKING FINAL DIAGNOSIS AND PATIENTMANAGEMENT DECISIONS. PATIENT MANAGEMENT SHOULD FOLLOW CURRENT CDC GUIDELINES.THE ANITA SARS ANTIGEN JUAN DOES NOT DIFFERENTIATE BETWEEN SARS-CoV & SARS-CoV-2.A POSITIVE TEST RESULT INDICATES THE PRESENCE OF SARS-CoV-2 NUCLEOCAPSID PROTEINANTIGEN, AND THE PATIENT IS INFECTED WITH THE VIRUS AND PRESUMED TO BECONTAGIOUS.A NEGATIVE TEST RESULT FOR THIS TEST MEANS THAT SARS-CoV-2 NUCLEOCAPSID PROTEINANTIGEN WAS NOT PRESENT IN THE SPECIMEN ABOVE THE LIMIT OF DETECTION. HOWEVER, ANEGATIVE RESULT DOES NOT RULE OUT COVID-19 AND SHOULD NOT BE USED THE SOLEBASIS FOR TREATMENT OR PATIENT MANAGEMENT DECISIONS. A NEGATIVE RESULT DOES NOTEXCLUDE THE POSSIBILITY OF COVID-19. NEGATIVE RESULTS, FROM PATIENTS WITHSYMPTOM ONSET BEYOND FIVE DAYS, SHOULD BE TREATED PRESUMPTIVE ANDCONFIRMATION WITH A MOLECULAR ASSAY, IF NECESSARY, FOR PATIENT MANAGEMENT, MAYBE PERFORMED.WHEN DIAGNOSTIC TESTING IS NEGATIVE, THE POSSIBLILTY OF A FALSE NEGATIVE RESULTSHOULD BE CONSIDERED IN THE CONTEXT OF A PATIENT'S RECENT EXPOSURES AND THEPRESENCE OF CLINICAL SIGNS AND SYMPTOMS CONSISTENT WITH COVID-19. THEPOSSIBILITY OF A FALSE NEGATIVE RESULT SHOULD ESPECIALLY BE CONSIDERED IF THEPATIENT'S RECENT EXPOSURES OR CLINICAL PRESENTATION INDICATE THAT COVID-19 ISLIKELY, AND DIAGNOSTIC TESTS FOR OTHER CAUSES OF ILLNESS (e.g., OTHERRESPIRATORY ILLNESS) ARE NEGATIVE. IF COVID-19 IS STILL SUSPECTED BASED ONEXPOSURE HISTORY TOGETHER WITH OTHER CLINICAL FINDINGS, RE-TESTING SHOULD BECONSIDERED BY HEALTHCARE PROVIDERS IN [facility]ATION WITH [facility] Performed By: #### 2 13702 ####[place] [address] ED MED ADMINISTRATION DETAIL on 11-27-2024 ED MED ADMINISTRATION DETAIL Normal [facility] ED NURSES CLINICAL NOTEon ED NURSES CLINICAL NOTE Normal [facility] ED ORDER SHEET (CPOE ONLY)on 11-27-2024 ED ORDER SHEET (CPOE ONLY) Normal [facility] ED PHYSICIAN CLINICAL REPORT on 11-27-2024 ED PHYSICIAN CLINICAL REPORT Normal [facility] ED PHYSICIAN DISCHARGE REPOR Ton 11-27-2024 ED PHYSICIAN DISCHARGE REPORT Normal [facility] ED SUPER BILLon 11-27-2024 ED SUPER BILL Normal [facility] ED VISIT SUMMARYon ED VISIT SUMMARY Normal [facility] ED VITALS FLOW SHEETon 11-27 ED VITALS FLOW SHEET Normal [facility] INFLUENZA VIRUS RAPID A/Bon 11-27-2024 INFLUENZA VIRUS RAPID A/B Normal [facility] Comment on above: Performed By: #### 2 94810 ####[place] [address] URINALYSISon 11-27-2024 Bilirubin Ql (U) Negative Normal NORMAL: NEGATIVE [facility] Comment on above: Performed By: #### 2 32572 ####[facility],[address] [place], [place] [address] Clarity (U) clear Normal NORMAL: CLEAR [facility] Comment on above: Performed By: #### 2 39271 ####[facility],[address] [place] [address] 11392 Color (U) yellow Normal NORMAL: YELLOW [facility] Comment on above: Performed By: #### 2 98429 ####[facility],[address] [place] [address] 98812 Glucose Ql (U) NORM Normal NORMAL: NORMAL [facility] Comment on above: Performed By: #### 2 22785 ####[facility],[address] [place], [place] [id number] Hemoglobin Ql (U) Negative Normal NORMAL: NEGATIVE [facility] Comment on above: Performed By: #### 2 32205 ####[facility],[address] [place] [address] Ketone 15 Abnormal NORMAL: NEGATIVE [facility] Comment on above: Performed By: #### 2 03909 ####[facility],[address] [place] [address] 89200 Leukocytes Negative Normal NORMAL: NEGATIVE [facility] Comment on above: Performed By: #### 2 25076 ####[facility],[address] [place] [address] 74204 Nitrite Ql (U) Negative Normal NORMAL: NEGATIVE [facility] Comment on above: Performed By: #### 2 72100 ####[facility],[address] [place] [address] 48223 pH (U) 6.5 [pH] Normal NORMAL: 5.0-8.0 [facility] Comment on above: Performed By: #### 2 74171 ####[facility],[address] [place] [address] 75263 Protein Ql (U) 30 Abnormal NORMAL: NEGATIVE [facility] Comment on above: Performed By: #### 2 16213 ####[facility],[address] [place] [address] [place] 1.010 Normal NORMAL: 1.010-1.030 [facility] Comment on above: Performed By: #### 2 17078 ####[facility],[address] [place] [address] Specimen Type R Normal [facility] Comment on above: Performed By: #### 2 80130 ####[facility],[address] [place] [address] Urinalysis dipstick W Reflex Microscopic panel (U) NOT INDICATED Normal [facility] Comment on above: Performed By: #### 2 47790 ####[facility],[address] [place] [address] Urobilinog NORM Normal NORMAL: NORMAL [facility] Comment on above: Performed By: #### 2 11918 ####[facility],[address] [place] [address] CNOVon 11-20-2024 CNOV Office Visit (URCANT ) ANU LOPEZ ([id number]) 4 M Date Time Provider Department 11/20/24 9:30 AM BASILIO GOULD URCANT During your visit today, we recorded the following information about you: Basilio Gould MD 11/20/2024 10:02 AM Signed [facility] ESTABLISHED PATIENT NOTE PATIENT: Anu Lopez (23 year old) PCP: Sagar Rojo MD DATE OF SERVICE: 11/20/2024 SUMMARY: Mr. Lopez is a 23 year old male who is here for follow up Assessment AND Plan Left flank pain Cramping left flank pain, usually occurs during voiding Did not improve after treatment of renal stone Discussed findings. There was no obstruction during ureteroscopy of the left renal unit. Possible that he's feeling transmitted pressure during voiding. Plan trial tamsulosin. Risks, benefits, and alternatives of the new medical therapy were discussed. Patient acknowledges understanding and consents to proceed. Follow up 6 weeks for symptom check. Orders: tamsulosin (FLOMAX) 0.4 mg; Take 1 capsule by mouth once daily. Renal calculus, left Cystoscopy, left flexible ureteroscopy with laser lithotripsy, left ureteral stent insertion (with string) 10/20/2024 Orders: tamsulosin (FLOMAX) 0.4 mg; Take 1 capsule by mouth once daily. Ureteral stricture, left Robotic-assisted laparoscopic left ureteral re-implantation, bladder psoas hitch 05/13/2024 Left kidney: Original: t1/2 136 minutes, 38% split function Current: t/12 52 minutes, 46.4% split function Hydronephrosis much improved on follow up CT Orders: UA DIP, URINE (POC) FOLLOW UP: Return in about 6 weeks (around 01/01/2025). CHIEF COMPLAINT: Patient presents with: Follow Up Kidney Stones HISTORY OF PRESENT ILLNESS: Prior notes were reviewed. The patient reports: Complaint: flank pain, renal stones Location: left Duration: weeks Quality: aching Severity: moderate Relieving: none Exacerbating: none Course: new Associated conditions: history ureteral stricture, history of hydronephrosis Diagnostics: none Treatments: ULL REVIEW OF SYSTEMS: Genitourinary: Denies hematuria, dysuria, frequency, urgency, nocturia, ANUM, weak stream. Constitutional: unintentional weight loss - denies, fevers - denies Cardiovascular: new or worsening chest pain - denies Respiratory: new or worsening shortness of breath - denies Gastrointestinal: constipation - denies, vomiting - denies Hematologic/Lymphatic: easy bleeding or bruising - denies ALLERGIES: ALLERGIES Allergen Reactions Dilaudid [Hydromorp* Rash MEDICATIONS: polyethylene glycol 3350 (MIRALAX ORAL) Take 17 mg by mouth once daily as needed. loratadine (CLARITIN) 10 mg tablet Take 10 mg by mouth once daily as needed. tamsulosin (FLOMAX) 0.4 mg Take 1 capsule by mouth once daily. PAST HISTORY: PAST MEDICAL HISTORY Diagnosis Date Hydronephrosis of left kidney PMH - PAST MEDICAL HISTORY OF Normal color vision Respiratory syncytial virus (RSV) 08/08/2003 Routine or ritual circumcision Wrist fracture, right 05/08/2013 PAST SURGICAL HISTORY Procedure Laterality Date CIRCUMCISION W/CLAMP/OTH DEV W/BLOCK S STENT,URINARY DIVERSION,[id number] 04/07/24 FAMILY HISTORY Problem Relation Age of Onset Heart Mother other (arrythmia) Mother Heart Other mggm pacemaker at age 26 years Social History Tobacco Use Smoking status: Never Passive exposure: Never Smokeless tobacco: Never Tobacco comments: smoking outside at dads-denies Vaping Use Vaping status: Never Used Substance Use Topics Alcohol use: No Drug use: No PHYSICAL EXAMINATION: There were no vitals taken for this visit. Verbal informed consent obtained for exam below: Constitutional: In no acute distress. Respiratory: Normal respiratory effort without use of accessory muscles. Cardiovascular: Regular rate Gastrointestinal: Nondistended DATA: Clinic: URINALYSIS: GLUCOSE UA (POCT) Negative 11/20/2024 BILIRUBIN UA (POCT) Negative 11/20/2024 KETONE UA (POCT) Negative 11/20/2024 SPECIFIC GRAVITY UA (POCT) 1.020 11/20/2024 HEMOGLOBIN/BLOOD UA (POCT) Negative 11/20/2024 PH UA (POCT) 8.5 11/20/2024 PROTEIN UA (POCT) 100 11/20/2024 UROBILINOGEN UA (POCT) 0.2 11/20/2024 NITRITE UA (POCT) Negative 11/20/2024 LEUKOCYTES UA (POCT) Trace 11/20/2024 COLOR UA (POCT) Yellow 11/20/2024 CLARITY UA (POCT) Slightly Cloudy 11/20/2024 Laboratory: Creatinine Date Value Ref Range Status 05/14/2024 (more content not included)... Normal [facility] UA DIP, URINE (POC)on 2024 BILIRUBIN UA (POCT) Negative Negative [facility] CLARITY UA (POCT) Slightly Cloudy Cl [facility] COLOR UA (POCT) Yellow [facility] GLUCOSE UA (POCT) Negative Negative mg/dL [facility] Hemoglobin Ql (U) Negative Negative [facility] Interpretation and review of laboratory results Abnormal [facility] KETONE UA (POCT) Negative Negative mg/dL [facility] LEUKOCYTES UA (POCT) Trace Abnormal Negative [facility] NITRITE UA (POCT) Negative Negative [facility] PH UA (POCT) 8.5 Abnormal 4.5 - 8.0 [facility] Protein Ql (U) 100 mg/dL Abnormal Negative [facility] SPECIFIC GRAVITY UA (POCT) 1.02 1.005 - 1.030 [facility] UROBILINOGEN UA (POCT) 0.2 Nicole l E.U./dL [facility] [place], [address] [place] [address], [address] [place] [address] POINT OF CARE [facility] ANES POSTPROC EVALon 025 ANES POSTPROC EVAL HNO ID: [id number] Author: EDY GONZALEZ DO Service: Anesthesiology Author Type: Anesthesiologist Type: Anesthesia Postprocedure Evaluation Filed: 10/20/2024 15:09 Note Text: POST ANESTHESIA EVALUATION NOTE : 2002 Procedure Summary Date: 10/20/24 Room / Location: OR 07 / OR Anesthesia Start: 1315 Anesthesia Stop: 1415 Procedures: CYSTOSCOPY, RETROPYELOGRAM URETEROSCOPY FLEXIBLE LASER CYSTOURETHROSCOPY W/ URETEROSCOPY AND/OR PYELOSCOPY W/ LITHOTRIPSY HOLMIUM (Left) INSERTION STENT URETERAL (Left) Diagnosis: Renal stone (Renal stone [N20.0]) Surgeons: Basilio Gould MD Responsible Provider: Edy Gonzalez DO Anesthesia Type: general ASA Status: 2 Anesthesia Type: general Airway Type: LMA Last Vitals Vitals Value Taken Time BP 119/61 10/20/24 1501 Temp 36.7 ?C (98.1 ?F) 10/20/24 1408 Pulse 63 10/20/24 1507 Resp 18 10/20/24 1500 SpO2 99 % 10/20/24 1507 Vitals shown include unfiled device data. Post Anesthesia Patient Status Patient Evaluation: PACU. PACU/ICU Patient Condition: stable. Anticipated Disposition: phase 2 then home. Neurological Status: aware and responsive. Pulmonary Status: breathing comfortably on room air Airway Control: returned to baseline unsupported. Cardiovascular Status: stable. Pain Management: satisfactory to patient Postoperative Hydration: acceptable. Intraoperative Events: no significant anesthesia events Post Operative Nausea/Vomiting Status: no significant post operative nausea or vomiting Recommendation: continue current plan of care. Anesthesia Observations No Documentation SIGNATURE: Edy Gonzalez DO PATIENT NAME: Anu Lopez DATE: October 20, 2024 TIME: 3:09 PM CSN: [id number] [facility] ANES POSTPROC EVAL HNO ID: [id number] Author: JESUS HEWITT DO Service: ? Author Type: Anesthesiologist Type: Anesthesia Postprocedure Evaluation Filed: 10/20/2024 12:49 Note Text: POST ANESTHESIA EVALUATION NOTE : 2002 Procedure Summary Date: 10/20/24 Room / Location: OR 07 / OR Anesthesia Start: Anesthesia Stop: Procedures: CYSTOSCOPY, RETROPYELOGRAM URETEROSCOPY FLEXIBLE LASER CYSTOURETHROSCOPY W/ URETEROSCOPY AND/OR PYELOSCOPY W/ LITHOTRIPSY HOLMIUM (Left) INSERTION STENT URETERAL (Left) Diagnosis: Renal stone (Renal stone [N20.0]) Surgeons: Basilio Gould MD Responsible Provider: Anesthesia Type: general ASA Status: 2 Anesthesia Type: general Last Vitals Vitals Value Taken Time BP 136/79 10/20/24 1221 Temp 36.7 ?C (98 ?F) 10/20/24 1217 Pulse 72 10/20/24 1219 Resp 18 10/20/24 1217 SpO2 99 % 10/20/24 1219 Vitals shown include unfiled device data. Post Anesthesia Patient Status Patient Evaluation: PACU. PACU/ICU Patient Condition: stable. Anticipated Disposition: phase 2 then home. Neurological Status: aware and responsive. Pulmonary Status: breathing comfortably on room air Airway Control: returned to baseline unsupported. Cardiovascular Status: stable. Pain Management: clinically adequate - multimodal analgesia pain management approach Postoperative Hydration: acceptable. Intraoperative Events: no significant anesthesia events Post Operative Nausea/Vomiting Status: no significant post operative nausea or vomiting Recommendation: continue current plan of care. Anesthesia Observations No Documentation SIGNATURE: Jesus Hewitt DO PATIENT NAME: Anu Lopez DATE: October 20, 2024 TIME: 12:49 PM CSN: [id number] [facility] ANES PRE-OPon 10-20-2024 ANES PRE-OP HNO ID: [id number] Author: JESUS HEWITT DO Service: ? Author Type: Anesthesiologist Type: Anesthesia Preprocedure Evaluation Filed: 10/20/2024 12:25 Note Text: ANESTHESIOLOGY DAY OF SURGERY NOTE : 2002 Procedure Information Date/Time: 10/20/24 1330 Procedures: CYSTOSCOPY, RETROPYELOGRAM URETEROSCOPY FLEXIBLE LASER CYSTOURETHROSCOPY W/ URETEROSCOPY AND/OR PYELOSCOPY W/ LITHOTRIPSY HOLMIUM (Left) INSERTION STENT URETERAL (Left) Location: MR OR 07 / MR OR Surgeons: Basilio Gould MD Estimated body mass index is 25.16 kg/m? as calculated from the following: Height as of this encounter: 185.4 cm (6' 1). Weight as of this encounter: 86.5 kg (190 lb 11.2 oz). Most recent hematocrit and potassium results: Hematocrit 42.6 05/14/2024 Potassium 4.4 05/14/2024 Relevant Problems -RENAL (+) Hydronephrosis of left kidney (+) Renal calculus, left I - PHYSICAL EVALUATION AIRWAY Patient intubated: No. Tracheostomy tube not present Mallampati: I. TM distance: >3 FB. Neck ROM: full ROM without neurological symptoms. Mouth opening: adequate. Short neck: no. Thick neck: no DENTAL Dental findings: teeth intact. II - ANESTHESIA PLAN ASA Score: 2 Anesthetic Plan: general Airway type: LMA NPO Status: adequate Beta Elvira Monitoring Plan Monitoring plan: standard ASA. Post Procedure Analgesic Plan Postoperative analgesic plan: parenteral or oral opioids and multimodal analgesia. Informed Consent Anesthetic risks, benefits, alternatives, personnel and consent discussed: yes. Patient / Responsible Democrat agrees to proceed: yes Patient / Surrogate agrees to blood products: blood products not planned Vitals Value Taken Time BP 136/79 10/20/24 1221 Pulse 72 10/20/24 1219 Resp 18 10/20/24 1217 Temp 36.7 ?C (98 ?F) 10/20/24 1217 SpO2 99 % 10/20/24 1219 Vitals shown include unfiled device data. Facility-Administered Medications as of 10/20/2024 Medication Dose Route Frequency lidocaine (PF) 10 mg/mL (1 %) 1-2 mg injection (XYLOCAINE) 0.1-0.2 mL INTRADERMAL PRN NaCl 0.9% iv flush bag 20 mL INTRAVENOUS PRN ceFAZolin iv piggyback 2 g in D5W (iso-osmotic) 100 mL (ANCEF) 2 g INTRAVENOUS Pre-Op Once Outpatient Medications as of 10/20/2024 Medication Sig oxyCODONE IR (ROXICODONE) 10 mg tab Take by mouth as needed for pain. polyethylene glycol 3350 (MIRALAX ORAL) Take 17 mg by mouth once daily as needed. loratadine (CLARITIN) 10 mg tablet Take 10 mg by mouth once daily as needed. I have interviewed and examined the patient. I have reviewed the medical record and/or the pre-anesthesia evaluation, pertinent labs, and test results. This contains updated information obtained within 48 hours of Surgery/Procedure. SIGNATURE: Jesus Hewitt DO PATIENT NAME: Anu Lopez DATE: October 20, 2024 TIME: 12:23 PM CSN: [id number] Normal [facility] Bacteria Ur Culton Bacteria identified Cx Nom (U) CULTURE, URINE: No growth (<1,000 CFU/ml) Normal [facility] Comment on above: Performed By: #### 6 30-4 #### [facility] CLIA [id number] [address] [place] [address] CNPMalinda 10-20-2024 CNPN Telephone (MRPRAD) ANU LOPEZ ([id number]) 4 M Date Time Provider Department 10/20/24 BASILIO GOULD During your visit today, we recorded the following information about you: Basilio Gould MD 10/20/2024 2:24 PM Signed Surgery today String stent removal Tuesday 10/24 with nurse or by patient at home Follow up [facility] 4 weeks for urine check AbhinavChristy 10/20/2024 4:08 PM Signed Left message for him to call back Radha Ward 10/21/2024 9:15 AM Signed Spoke with patient 10/21/24, he is going to pull stent himself. I informed him to call if he has any issues. He is also scheduled 11/20/24 for the 4 week follow up with . Allergies As of Date: 10/20/2024 Noted Allergy Reaction DILAUDID (HYDROMORPHONE) 04/07/2024 2 - Rash Date Reviewed: 10/20/2024 Reviewed by: Carri Key RN - Fully Assessed Reason for Visit: Follow Up [171] Prescriptions as of 10/21/2024 - oxyCODONE-acetaminophen (PERCOCET) 5-325 mg tablet Take 1 tablet by mouth every 6 hours as needed for pain for up to 3 days. - cephALEXin (KEFLEX) 500 mg capsule Take 1 capsule by mouth three times a day for 14 days. - polyethylene glycol 3350 (MIRALAX ORAL) Take 17 mg by mouth once daily as needed. - loratadine (CLARITIN) 10 mg tablet Take 10 mg by mouth once daily as needed. Problem List As Of Date 10/20/2024 Noted Resolved Left ureteral stone [N20.1] 02/06/2024 Hydronephrosis of left kidney [N13.30] 02/07/2024 Preop testing [Z01.818] 04/03/2024 Ureteral stricture, left [N13.5] 04/07/2024 Renal calculus, left [N20.0] 09/18/2024 Encounter Status:Closed by BASILIO GOULD on 10/20/24 [facility] HISTORY PHYSICALon HISTORY PHYSICAL HNO ID: [id number] Author: BASILIO GOULD MD Service: Urology Author Type: Physician Type: H&P Filed: 10/20/2024 12:52 Note Text: [facility] SURGICAL HISTORY AND PHYSICAL EXAMINATION NOTE SERVICE DATE: October 20, 2024 PRIMARY CARE PHYSICIAN: Sagar Rojo MD ASSESSMENT: Active Hospital Problems Diagnosis Date Noted Renal calculus, left 09/18/2024 Ureteral stricture, left 04/07/2024 PLAN: Procedure(s): CYSTOSCOPY, RETROPYELOGRAM (N/A) URETEROSCOPY FLEXIBLE (N/A) LASER CYSTOURETHROSCOPY W/ URETEROSCOPY AND/OR PYELOSCOPY W/ LITHOTRIPSY HOLMIUM (Left) INSERTION STENT URETERAL (Left) CHIEF COMPLAINT: Active Hospital Problems Diagnosis Date Noted Renal calculus, left 09/18/2024 Ureteral stricture, left 04/07/2024 Subjective Mr. Lopez is a 23 year old male who presents with the above complaint for planned surgery. Patient states no changes to medical history since our last visit. We discussed the planned procedure. Risks, benefits, and alternatives of the procedure were discussed. Patient acknowledges understanding and consents to proceed. PAST MEDICAL HISTORY Diagnosis Date Hydronephrosis of left kidney PMH - PAST MEDICAL HISTORY OF Normal color vision Respiratory syncytial virus (RSV) 08/08/2003 Routine or ritual circumcision Wrist fracture, right 05/08/2013 PAST SURGICAL HISTORY Procedure Laterality Date CIRCUMCISION W/CLAMP/OTH DEV W/BLOCK S STENT,URINARY DIVERSION,021650 04/07/24 FAMILY HISTORY Problem Relation Age of Onset Heart Mother other (arrythmia) Mother Heart Other mggm pacemaker at age 26 years Social History Tobacco Use Smoking status: Never Passive exposure: Never Smokeless tobacco: Never Tobacco comments: smoking outside at dads-denies Vaping Use Vaping status: Never Used Substance Use Topics Alcohol use: No Drug use: No oxyCODONE IR (ROXICODONE) 10 mg tab, Take by mouth as needed for pain., Disp: , Rfl: , Unknown polyethylene glycol 3350 (MIRALAX ORAL), Take 17 mg by mouth once daily as needed., Disp: , Rfl: , Unknown loratadine (CLARITIN) 10 mg tablet, Take 10 mg by mouth once daily as needed., Disp: , Rfl: , Unknown Current Facility-Administered Medications Medication Dose Route Frequency lidocaine (PF) 10 mg/mL (1 %) 1-2 mg injection (XYLOCAINE) 0.1-0.2 mL INTRADERMAL PRN NaCl 0.9% iv flush bag 20 mL INTRAVENOUS PRN ceFAZolin iv piggyback 2 g in D5W (iso-osmotic) 100 mL (ANCEF) 2 g INTRAVENOUS Pre-Op Once Allergies As of Date: 10/03/2024 Allergen Noted Reaction DILAUDID [HYDROMORPHONE] 04/07/2024 Rash Fully Assessed 09/18/2024 PHYSICAL EXAM Examination indicates no changes. LUNGS: Respirations unlabored. No wheezing. No cough CARDIAC: Regular rate SIGNATURE: Basilio Gould MD PATIENT NAME: Anu Lopez DATE: October 20, 2024 TIME: 12:52 PM [facility] OPERATIVE NOon 10-20-2024 OPERATIVE NO HNO ID: [id number] Author: BASILIO GOULD MD Service: Urology Author Type: Physician Type: Operative Report Filed: 10/20/2024 14:15 Note Text: [facility] OPERATIVE NOTE/REPORT DETAIL NAME: Anu Lopez Surgery/Procedure Date: 10/20/2024 Procedure(s): Cystoscopy, left flexible ureteroscopy with laser lithotripsy, left ureteral stent insertion (with string) Pre-Op/Pre-Procedure Diagnosis: Active Hospital Problems Diagnosis Date Noted Renal calculus, left 09/18/2024 Ureteral stricture, left 04/07/2024 Post-Op/Post-Procedure Diagnosis: same Surgeon(s)/Proceduralis t(s) and Riverboat Captain(s): Surgeons and Role: * Basilio Gould MD - Primary Operative Indications: Anu Lopez is a 23 year old male with left renal calculi, left hydronephrosis (chronic) and prior left ureteral reimplant. Procedure with risks, benefits and alternatives were reviewed with patient. All questions answered. Patient/guardian gives informed consent to proceed with procedure. Findings: Normal urethra. Prostate with no enlargement. Bladder surveyed entirely. No stones noted. No mucosal lesions. Mild cystitis cystica of trigone. Bilateral ureteral orifices of normal caliber, location, and number. There was also a reimplantation site of the left ureter near the dome. Mild bladder trabeculation. Normal bladder volume. Uncomplicated flexible left ureteroscopy and laser lithotripsy. Lower pole left renal stones were mixed with matrix material. Dusting performed and debris suction through the scope. The kidney itself was very dilated. No other stones or lesions. Left ureteral stent insertion with string. Anesthesia: General Estimated Blood Loss: zero cc Specimens: none Drains: left 6x26 Cook black double J ureteral stent Complications: None immediate Procedure Narrative: The patient was seen and examined in the pre-operative area. A surgical check in was performed per protocol. The patient was taken back to the operative suite. Anesthesia was administered. The patient was transitioned into a dorsal lithotomy position per protocol. All pressure points were padded. Prepped and draped in the usual sterile fashion. A time-out was performed. A cystoscope was passed into the urinary bladder. The bladder and urethral were visualized in their entirety with the findings as above. Bilateral ureteral orifices were in normal anatomic position and of normal number. Laterality confirmation performed. A 0.035 wire was placed without difficult into the ureter and up to the kidney under fluoroscopic guidance. I used a dual lumen catheter to pass a secondary wire as well. I attempted to advance a ureteral access sheath but this would not make the turn into the reimplanted ureter. A flexible ureteroscope was advanced over the wire and up the ureter to the level of the stone(s). There were no obstructions in the ureter. No stones or lesions of the ureter. A 200 micron Thulium laser fiber was used to fragment the calculus into tiny fragments. The remaining fragments were disintegrated using the dusting setting of the laser. At the conclusion of this portion of the procedure, the ureter was intact and no additional fragments remained. No masses or lesions of the ureter or kidney. The decision was made to leave a ureteral stent. The cystoscopy was loaded over the wire and a new ureteral stent with string was placed into the kidney. Goodposition in the kidney was confirmed by curl and fluoroscopy. Position in the bladder confirmed by visualization. The stent appeared in good position and was draining well. Hemostasis was excellent. The patient's bladder was drained and the cystoscope was removed. String taped to penile shaft. The patient tolerated the procedure well. Surgical counts were correct. The patient was awoken from anesthesia and transferred to the transport bed without incident. Disposition: The patient was transferred to the PACU in stable condition. Surgical findings were discussed with the patient's available contact per the patient's wishes. Plan of care: Discharge to home. We discussed concerning signs and symptoms and patient knows to report these immediately. If unable to reach their urologist, patient knows to report to emergency department for evaluation. Dr. Gould performed all of the blakely and critical portions of the procedure with the trust operations assistant. Dr. Gould was immediately available for all other portions of the procedure. LOG ID: [id number] Incision/Procedure Start Time: 1:26 PM Incision Close/Procedure End Time: 1:59 PM SIGNATURE: Basilio Gould MD PATIENT NAME: Anu Lopez DATE: October 20, 2024 TIME: 2:10 PM Normal [facility] Urinalysis complete panel (U )on 10-20-2024 Bacteria LM.HPF (Urine sed) [#/Area] Rare Abnormal None Seen [facility] Comment on above: Order Comment: Speci men Type: URINE SPECIMENOrdering Facility: [facility] Address: [address] [place] [address] Performed By: #### 6 30-4 #### [facility] CLIA [id number] [address] [place] [address] [place] Bilirubin Ql (U) Negative Normal Negative [facility] Comment on above: Order Comment: Speci men Type: URINE SPECIMENOrdering Facility: [facility] Address: [address] [place] [address] Performed By: #### 6 30-4 #### [facility] CLIA [id number] [address] [place] [address] [place] Clarity (Unsp spec) Hazy Abnormal Clear [facility] Comment on above: Order Comment: Speci men Type: URINE SPECIMENOrdering Facility: [facility] Address: [address] [place] [address] Performed By: #### 6 30-4 #### [facility] IA [id number] [address] [place] [address] [place] Color (U) Yellow Normal Yellow [facility] Comment on above: Order Comment: Speci men Type: URINE SPECIMENOrdering Facility: [facility] Address: [address] [place] [address] Performed By: #### 6 30-4 #### [facility] IA [id number] [address] [place] [address] [place] Epithelial cells LM.HPF (Urine sed) [#/Area] None Seen Normal [facility] Comment on above: Order Comment: Speci men Type: URINE SPECIMENOrdering Facility: [facility] Address: [address] [place] [address] Performed By: #### 6 30-4 #### [facility] CLIA [id number] [address] [place] [address] [place] Glucose Test strip (U) [Mass/Vol] Negative Normal Negative [facility] Comment on above: Order Comment: Speci men Type: URINE SPECIMENOrdering Facility: [facility] Address: [address] [place] [address] Performed By: #### 6 30-4 #### [facility] CLIA [id number] [address] [place] [address] [place] Hemoglobin Ql (U) Negative Normal Negative [facility] Comment on above: Order Comment: Speci men Type: URINE SPECIMENOrdering Facility: [facility] Address: [address] [place] [address] Performed By: #### 6 30-4 #### [facility] CLIA [id number] [address] [place] [address] [place] Ketones Ql (U) Negative Normal Negative [facility] Comment on above: Order Comment: Speci men Type: URINE SPECIMENOrdering Facility: [facility] Address: [address] [place] [address] Performed By: #### 6 30-4 #### [facility] CLIA [id number] [address] [place] [address] [place] Leukocyte esterase Test strip Ql (U) Trace Abnormal Negative [facility] Comment on above: Order Comment: Speci men Type: URINE SPECIMENOrdering Facility: [facility] Address: [address] [place] [address] Performed By: #### 6 30-4 #### [facility] CLIA [id number] [address] [place] [address] [place] Nitrite Ql (U) Negative Normal Negative [facility] Comment on above: Order Comment: Speci men Type: URINE SPECIMENOrdering Facility: [facility] Address: [address] [place] [address] Performed By: #### 6 30-4 #### [facility] CLIA [id number] [address] [place] [address] [place] pH (U) 8.0 [pH] Normal 5.0-8.0 [facility] Comment on above: Order Comment: Speci men Type: URINE SPECIMENOrdering Facility: [facility] Address: [address] [place] [address] Performed By: #### 6 30-4 #### [facility] CLIA [id number] [address] [place] [address] [place] Protein (U) [Mass/Vol] 1+ Abnormal Negative [facility] Comment on above: Order Comment: Speci men Type: URINE SPECIMENOrdering Facility: [facility] Address: [address] [place] [address] Performed By: #### 6 30-4 #### [facility] CLIA [id number] [address] [place] [address] [place] RBC LM.HPF (Urine sed) [#/Area] 3-5 /HPF Abnormal 0-3 /HPF [facility] Comment on above: Order Comment: Speci men Type: URINE SPECIMENOrdering Facility: [facility] Address: [address] [place] [address] Performed By: #### 6 30-4 #### [facility] CLIA [id number] [address] [place] [address] [place] Specific gravity (U) [Rel density] 1.014 Normal 1.005-1.030 [facility] Comment on above: Order Comment: Speci men Type: URINE SPECIMENOrdering Facility: [facility] Address: [address] [place] [address] Performed By: #### 6 30-4 #### [facility] CLIA [id number] [address] [place] [address] [place] Triple phosphate crystals LM.HPF (Urine sed) [#/Area] Few Abnormal None Seen [facility] Comment on above: Order Comment: Speci men Type: URINE SPECIMENOrdering Facility: [facility] Address: [address] [place] [address] Performed By: #### 6 30-4 #### [facility] CLIA [id number] [address] [place] [address] [place] Urobilinogen Ql (U) Negative Normal Negative [facility] Comment on above: Order Comment: Speci men Type: URINE SPECIMENOrdering Facility: [facility] Address: [address] [place] [address] Performed By: #### 6 30-4 #### [facility] CLIA [id number] [address] [place], [place] [id number] [place] WBC LM.HPF (Urine sed) [#/Area] 11-25 /HPF Abnormal 0-5 /HPF [facility] Comment on above: Order Comment: Speci men Type: URINE SPECIMENOrdering Facility: [facility] Address: [address] [place] [address] Performed By: #### 6 30-4 #### [facility] CLIA [id number] [address] [place] [id number] [place] CNOVon 09-18-2024 CNOV Office Visit (URCANT ) ANU LOPEZ ([id number]) 4 M Date Time Provider Department 09/18/24 8:30 AM BASILIO GOULD URCANT During your visit today, we recorded the following information about you: Basilio Gould MD 09/18/2024 9:00 AM Signed [facility] ESTABLISHED PATIENT NOTE PATIENT: Anu Lopez (23 year old) PCP: Sagar Rojo MD DATE OF SERVICE: 09/18/2024 SUMMARY: Mr. Lopez is a 23 year old male who is here for follow up of left flank pain Assessment AND Plan Renal calculus, left New. 11 mm lower pole renal stone Left flank pain, occasional nausea From a surgery standpoint, his function and drainage have improved but he has a new stone on the left and is having left flank pain. Discussed options Plan cystoscopy, flexible left ureteroscopy with laser lithotripsy and possible ureteral stent insert. Discussed ureteroscopic treatment of stones. Discussed the procedure details along with success and failure rates. Discussed the risks, benefits, and alternatives. The risks including but not limited to: pain, infection, bleeding, need for subsequent procedures, risk of ureteral stenting, risk of injury to the urethra, bladder, ureter or kidney, risk of sepsis, risks of anesthesia, risk of , risks of recurrent or residual disease. If symptoms persistent after stone treatment, we'll have to evaluate for other causes. Ureteral stricture, left Robotic-assisted laparoscopic left ureteral re-implantation, bladder psoas hitch 05/13/2024 Left kidney: Original: t1/2 136 minutes, 38% split function Current: t/12 52 minutes, 46.4% split function Drainage is improved but not perfect. However, this may be due to the chronic hydronephrosis on that side that may never totally resolve. Monitor serial renal scans Hydronephrosis of left kidney Significant improvement since surgery FOLLOW UP: Return for Surgery scheduling. CHIEF COMPLAINT: Patient presents with: Hydronephrosis Follow Up HISTORY OF PRESENT ILLNESS: Prior notes were reviewed. The patient reports: Complaint: flank pain Location: left Duration: weeks Quality: aching Severity: moderate Relieving: none Exacerbating: none Course: new Associated conditions: history ureteral stricture, history of hydronephrosis Diagnostics: none Treatments: none REVIEW OF SYSTEMS: Genitourinary: Denies hematuria, dysuria, frequency, urgency, nocturia, ANUM, weak stream. Constitutional: unintentional weight loss - denies, fevers - denies Cardiovascular: new or worsening chest pain - denies Respiratory: new or worsening shortness of breath - denies Gastrointestinal: constipation - denies, vomiting - denies Hematologic/Lymphatic: easy bleeding or bruising - denies ALLERGIES: ALLERGIES Allergen Reactions Dilaudid [Hydromorp* Rash MEDICATIONS: oxyCODONE IR (ROXICODONE) 10 mg tab Take by mouth as needed for pain. loratadine (CLARITIN) 10 mg tablet Take 10 mg by mouth once daily as needed. polyethylene glycol 3350 (MIRALAX ORAL) Take 17 mg by mouth two times a day. (Patient not taking: Reported on 09/18/2024) PAST HISTORY: PAST MEDICAL HISTORY Diagnosis Date Hydronephrosis of left kidney PMH - PAST MEDICAL HISTORY OF Normal color vision Respiratory syncytial virus (RSV) 08/08/2003 Routine or ritual circumcision Wrist fracture, right 05/08/2013 PAST SURGICAL HISTORY Procedure Laterality Date CIRCUMCISION W/CLAMP/OTH DEV W/BLOCK S STENT,URINARY DIVERSION,206884 04/07/24 FAMILY HISTORY Problem Relation Age of Onset Heart Mother other (arrythmia) Mother Heart Other mggm pacemaker at age 26 years Social History Tobacco Use Smoking status: Never Passive exposure: Never Smokeless tobacco: Never Tobacco comments: smoking outside at dads-denies Vaping Use Vaping status: Never Used Substance Use Topics Alcohol use: No Drug use: No PHYSICAL EXAMINATION: There were no vitals taken for this visit. Verbal informed consent obtained for exam below: Constitutional: In no acute distress. Respiratory: Normal respiratory effort without use of accessory muscles. Cardiovascular: Regular rate Gastrointestinal: Nondistended DATA: Clinic: URINALYSIS: GLUCOSE UA (POCT) Negative 08/29/2024 BILIRUBIN UA (POCT) Negative 08/29/2024 KETONE UA (POCT) Negative 08/29/2024 SPECIFIC GRAVITY UA (POCT) 1.020 08/29/2024 HEMOGLOBIN/BLOOD UA (POCT) Negative (more content not included)... [facility] RUTHIEMalinda 09-18-2024 CNPN Telephone (URCANT) ANU LOPEZ ([id number]) 4 M Date Time Provider Department 09/18/24 BASILIO GOULD During your visit today, we recorded the following information about you: Basilio Gould MD 09/18/2024 9:02 AM Signed Surgery: Cystoscopy and pyelograms, flexible left ureteroscopy with laser lithotripsy, possible ureteral stent insertion Duration: 1 hour(s) Surgeon: Basilio Gould MD Location: [facility] Anesthesia: General Fluoroscopy: Yes Special equipment: Thulium (soltive) laser PACC visit: No Presurgical testing: CBC, BMP, Urinalysis and urine culture one week prior to surgery Clearance: No Bowel prep: No Blood thinners to stop: yes Falguni Milligan 09/19/2024 10:46 AM Signed Left message for patient to call back. Need to discuss surgery date and details. Thank you, Falguni Moulton 10/02/2024 9:13 AM Signed Left another message for patient to call back, need to set a surgery date for the stones. Thank you, Falguni Moulton 10/03/2024 9:32 AM Signed Patient called back, he is scheduled for 10/20/2024. He is aware of the date and prep. I will call back to confirm next week. Thank you, Falguni Montilla Allergies As of Date: 09/18/2024 Noted Allergy Reaction DILAUDID (HYDROMORPHONE) 04/07/2024 2 - Rash Date Reviewed: 09/18/2024 Reviewed by: Basilio Gould MD - Fully Assessed Reason for Visit: Orders [681] Primary Visit Diagnosis:Renal calculus, left [N20.0] Order(s):COMPLETE BLOOD COUNT [SQCBC] Order #: [id number] FUTURE BASIC METABOLIC PANEL [SQBMP] Order #: [id number] FUTURE URINALYSIS WITH MICROSCOPIC, REFLEX CULTURE [SQUACII] Order #: [id number] FUTURE Prescriptions as of 10/03/2024 - oxyCODONE IR (ROXICODONE) 10 mg tab Take by mouth as needed for pain. - polyethylene glycol 3350 (MIRALAX ORAL) Take 17 mg by mouth two times a day. - loratadine (CLARITIN) 10 mg tablet Take 10 mg by mouth once daily as needed. Problem List As Of Date 09/18/2024 Noted Resolved Left ureteral stone [N20.1] 02/06/2024 Hydronephrosis of left kidney [N13.30] 02/07/2024 Preop testing [Z01.818] 04/03/2024 Ureteral stricture, left [N13.5] 04/07/2024 Renal calculus, left [N20.0] 09/18/2024 Encounter Status:Closed by BASILIO GOULD on 09/18/24 [facility] UA DIP, URINE (POC)on 2023 BILIRUBIN UA (POCT) Negative Negative [facility] CLARITY UA (POCT) Clear [facility] COLOR UA (POCT) Yellow [facility] GLUCOSE UA (POCT) Negative Negative mg/dL [facility] Hemoglobin Ql (U) Negative Negative [facility] Interpretation and review of laboratory results Abnormal [facility] KETONE UA (POCT) Negative Negative mg/dL [facility] LEUKOCYTES UA (POCT) Trace Abnormal Negative [facility] NITRITE UA (POCT) Negative Negative [facility] PH UA (POCT) 7.5 4.5 - 8.0 [facility] Protein Ql (U) 30 mg/dL Abnormal Negative [facility] SPECIFIC GRAVITY UA (POCT) 1.020 1.005 - 1.030 [facility] UROBILINOGEN UA (POCT) 0.2 Nicole l E.U./dL [facility] Location:[facility] [place], [address], [place], [place], [id number] [place] [address] POINT OF CARE [facility] Katya 09-16-2024 CNPN Telephone (URCANT) ANU LOPEZ ([id number]) [birth year]/ M Date Time Provider Department 09/16/24 BASILIO GOULD URCANTaniya During your visit today, we recorded the following information about you: Trinity Jordan 09/16/2024 11:16 AM Signed Result appt was scheduled for 09/25. Pt called with increased pain and wanted an earlier appt to go over his testing. This is a double book for 09/18/2024 @ 8:30am. Please let me know if this is ok. Trinity Jordan Allergies As of Date: 09/16/2024 Noted Allergy Reaction DILAUDID (HYDROMORPHONE) 04/07/2024 2 - Rash Date Reviewed: 08/29/2024 Reviewed by: Basilio Gould MD - Fully Assessed Reason for Visit: Appointment [186] Prescriptions as of 09/16/2024 - polyethylene glycol 3350 (MIRALAX ORAL) Take 17 mg by mouth two times a day. - loratadine (CLARITIN) 10 mg tablet Take 10 mg by mouth once daily as needed. Problem List As Of Date 09/16/2024 Noted Resolved Left ureteral stone [N20.1] 02/06/2024 Hydronephrosis of left kidney [N13.30] 02/07/2024 Preop testing [Z01.818] 04/03/2024 Ureteral stricture, left [N13.5] 04/07/2024 Encounter Status:Closed by TRINITY JORDAN on 09/16/24 Normal [facility] CT FLANK WO IVCONon 09-11-[address] FLANK WO IVCON * * *Final Report* * * DATE OF EXAM: Sep 11 2024 5:21PM [facility] 0529 - CT FLANK WO IVCON / PROCEDURE REASON: multiple diagnoses * * * * Physician Interpretation * * * * EXAMINATION: CT ABDOMEN AND PELVIS WITHOUT IV CONTRAST (Renal stone protocol) CLINICAL HISTORY: Previous left ureteral reimplantation, ureteral stricture, hydronephrosis Hematuria. TECHNIQUE: Non-contrast imaging of the abdomen and pelvis was performed through the urinary tract. Study performed without intravenous or oral contrast to evaluate for urinary tract calculus. MQ: [id number] Contrast: IV contrast: None Oral contrast: None CT Radiation dose: Integrated dose-length product (DLP) for this visit = 189.02 mGy*cm. CT Dose Reduction Employed: Automated exposure control(AEC) and iterative recon COMPARISON: Outside CT 02/06/2024, nuclear medicine renal function study 09/10/2024 RESULT: Limitations: Unenhanced imaging is limited for the evaluation of some renal and other intra-abdominal and pelvic pathology. Urinary Tract: Right kidney and ureter: No calculus. No hydronephrosis. No finding to suggest cyst or mass in the unenhanced kidney. Left kidney and ureter: Significant renal enlargement although improved relative the prior study. Suggestion of prominent cortical thinning with moderate hydroureteronephrosis, significant improved relative the prior study. Small dependent lower pole calculi. Significant distal hydroureter just proximal to superior bladder insertion. No finding to suggest cyst or mass in the unenhanced kidney. Bladder: No calculus. Abdomen and Pelvis: Liver: Unremarkable. Biliary: Contracted gallbladder Spleen: No splenomegaly. Pancreas: Unremarkable. Adrenals: Normal. GI Tract: No bowel dilation. Normal appendix. Lymph Nodes: No lymphadenopathy. Mesentery/peritoneum: No ascites. Vasculature: No abdominal aortic or iliac artery aneurysm. Pelvis: No mass or ascites. Bones and Soft Tissues: No acute abnormality. Lower thorax: Unremarkable. Localizer images: Unremarkable. IMPRESSION: Improved but persistent left hydroureteronephrosis. New small dependent peripelvic left lower pole renal calculi. Stand In: FAZAL Transcribe Date/Time: Sep 13 2024 10:39A Dictated by : SHANNAN JACKSON MD This examination was interpreted and the report reviewed and electronically signed by: SHANNAN JACKSON MD on Sep 13 2024 10:43AM EST [id number] [facility] NM RENAL FLOW/FXN W PHARMon 09-10-2024 NM RENAL FLOW/FXN W PHARM * * *Final Report* * * DATE OF EXAM: Sep 10 2024 12:04PM RHN [id number] - NM RENAL FLOW/FXN W PHARM / PROCEDURE REASON: Hydronephrosis with ureteral stricture, not elsewhere classified * * * * Physician Interpretation * * * * EXAMINATION: DIURETIC RENAL MAG3 SCAN CLINICAL HISTORY: History of left ureteral stricture status post ureteral reimplantation and psoas hitch 05/13/24. TECHNIQUE: 11.4 millicuries of Tc-99m MAG3 administered IV. Posterior dynamic planar imaging of the kidneys and bladder acquired for 60 seconds. Subsequent posterior static imaging of the same body region acquired for approximately 60 minutes. 40 milligrams of furosemide administered IV 30 minutes into the examination. CORRELATION: Lasix renogram 02/20/2024, 02/07/2024 RESULT: Split Function: - Left Kidney: 46.4% - Right Kidney: 53.6% Left Kidney: - Perfusion and Uptake: Prompt and symmetric - Parenchymal transit: Moderate cortical retention - Drainage: Minimal drainage prior to Lasix with mild improvement following Lasix administration - Post diuretic T-1/2 (minutes): 52.4 Right Kidney: - Perfusion and Uptake: Prompt and symmetric - Parenchymal transit: Within normal limits - Drainage: Prompt, spontaneous drainage prior to diuretic - Post diuretic T-1/2 (minutes): Invalid given normal drainage Post void: No significant additional drainage IMPRESSION: Left Kidney: Findings suggest high-grade obstruction. Right Kidney: Normal function. No obstruction. Split function, as described. Please refer to the synoptic report for respective percentages. Stand In: PSCB Transcribe Date/Time: Sep 10 2024 1:35P Dictated by : LOUISE ENCISO MD This examination was interpreted and the report reviewed and electronically signed by: JEANA WILLIS MD on Sep 10 2024 1:59PM EST [id number] [facility] NM Views for blood flow and kidney function W diuretic Tony 09-10-2024 IMPRESSION: Left Kidney: Findings suggest high-grade obstruction. Right Kidney: Normal function. No obstruction. Split function, as described. Please refer to the synoptic report for respective percentages. Stand In: PSCB Transcribe Date/Time: Sep 10 2024 1:35P Dictated by : LOUISE ENCISO MD This examination was interpreted and the report reviewed and electronically signed by: JEANA WILLIS MD on Sep 10 2024 1:59PM EST [facility] * * *Final Report* * * DATE OF EXAM: Sep 10 2024 12:04PM RHN 0035 - NM RENAL FLOW/FXN W PHARM / PROCEDURE REASON: Hydronephrosis with ureteral stricture, not elsewhere classified * * * * Physician Interpretation * * * * EXAMINATION: DIURETIC RENAL MAG3 SCAN CLINICAL HISTORY: History of left ureteral stricture status post ureteral reimplantation and psoas hitch 05/13/24. TECHNIQUE: 11.4 millicuries of Tc-99m MAG3 administered IV. Posterior dynamic planar imaging of the kidneys and bladder acquired for 60 seconds. Subsequent posterior static imaging of the same body region acquired for approximately 60 minutes. 40 milligrams of furosemide administered IV 30 minutes into the examination. CORRELATION: Lasix renogram 02/20/2024, 02/07/2024 RESULT: Split Function: - Left Kidney: 46.4% - Right Kidney: 53.6% Left Kidney: - Perfusion & Uptake: Prompt and symmetric - Parenchymal transit: Moderate cortical retention - Drainage: Minimal drainage prior to Lasix with mild improvement following Lasix administration - Post diuretic T-1/2 (minutes): 52.4 Right Kidney: - Perfusion & Uptake: Prompt and symmetric - Parenchymal transit: Within normal limits - Drainage: Prompt, spontaneous drainage prior to diuretic - Post diuretic T-1/2 (minutes): Invalid given normal drainage Post void: No significant additional drainage [facility] Provider, Scotty Phillips - 09/10/2024 * * *Final Report* * * DATE OF EXAM: Sep 10 2024 12:04PM RHN 0035 - NM RENAL FLOW/FXN W PHARM / PROCEDURE REASON: Hydronephrosis with ureteral stricture, not elsewhere classified * * * * Physician Interpretation * * * * EXAMINATION: DIURETIC RENAL MAG3 SCAN CLINICAL HISTORY: History of left ureteral stricture status post ureteral reimplantation and psoas hitch 05/13/24. TECHNIQUE: 11.4 millicuries of Tc-99m MAG3 administered IV. Posterior dynamic planar imaging of the kidneys and bladder acquired for 60 seconds. Subsequent posterior static imaging of the same body region acquired for approximately 60 minutes. 40 milligrams of furosemide administered IV 30 minutes into the examination. CORRELATION: Lasix renogram 02/20/2024, 02/07/2024 RESULT: Split Function: - Left Kidney: 46.4% - Right Kidney: 53.6% Left Kidney: - Perfusion & Uptake: Prompt and symmetric - Parenchymal transit: Moderate cortical retention - Drainage: Minimal drainage prior to Lasix with mild improvement following Lasix administration - Post diuretic T-1/2 (minutes): 52.4 Right Kidney: - Perfusion & Uptake: Prompt and symmetric - Parenchymal transit: Within normal limits - Drainage: Prompt, spontaneous drainage prior to diuretic - Post diuretic T-1/2 (minutes): Invalid given normal drainage Post void: No significant additional drainage IMPRESSION IMPRESSION: Left Kidney: Findings suggest high-grade obstruction. Right Kidney: Normal function. No obstruction. Split function, as described. Please refer to the synoptic report for respective percentages. Stand In: FAZAL Transcribe Date/Time: Sep 10 2024 1:35P Dictated by : LOUISE ENCISO MD This examination was interpreted and the report reviewed and electronically signed by: JEANA WILLIS MD on Sep 10 2024 1:59PM EST [facility] Radiology Study observation (narrative) [place] [facility] Views for blood flow and kidney function W diuretic IVOrdered By: Ccf Provider on 09-10-2024 [facility] BMP with eGFRon 09-01-2024 AGE 23 years Normal [facility] Comment on above: Performed By: #### 2 [id number] ####[facility],[address] [place] [address] Anion gap [Moles/Vol] 9 mmol/L Low 10 - 20 [facility] Comment on above: Performed By: #### 2 [id number] ####[facility],[address] [place] [address] BMP with eGFR Normal [facility] Comment on above: Result Comment: BASI C METABOLIC PANEL Performed By: #### 2 [id number] ####[facility],[address] [place] [address]97 Calcium [Mass/Vol] 9.0 mg/dL Normal 8.5 - 10.1 [facility] Comment on above: Performed By: #### 2 10651 ####[facility],[address] [place] [address]006 Chloride [Moles/Vol] 105 mmol/L Normal 98 - 107 [facility] Comment on above: Performed By: #### 2 11097 ####[facility],[address] [place] [address] 88077 CO2 [Moles/Vol] 30.5 mmol/L Normal 21.0 - 32.0 [facility] Comment on above: Performed By: #### 2 [id number] ####[facility],[address] [place] [address]015 Creatinine [Mass/Vol] 1.10 mg/dL Normal 0.70 - 1.30 [facility] Comment on above: Performed By: #### 2 81410 ####[facility],[address] [place] [address]35 GFR/1.73 sq M.predicted among non-blacks MDRD (S/P/Bld) [Vol rate/Area] mL/min/{1.73_m2} Normal 60 - 999 [facility] Comment on above: Performed By: #### 2 95472 ####[facility],[address] [place] [address] 15518 Result Comment: ACCO RDING TO THE NATIONAL KIDNEY DISEASE EDUCATION PROGRAM(NKDE), A NORMAL eGFRIS A VALUE GREATER THAN OR EQUAL TO 60 ML/MIN/1.73 SQ METERS.CHRONIC KIDNEY DISEASE: <60mL/MIN/1.73 SQ METERSKIDNEY FAILURE: <15mL/MIN/1.73 SQ METERSTHIS TEST SHOULD ONLY BE USED FOR PATIENTS 18 YEARS OF AGE AND OLDER. Glucose [Mass/Vol] 93 mg/dL Normal 74 - 106 [facility] Comment on above: Performed By: #### 2 80422 ####[facility],[address] [place] [address] 73471 Potassium [Moles/Vol] 3.6 mmol/L Normal 3.5 - 5.1 [facility] Comment on above: Performed By: #### 2 42878 ####[facility],[address] [place] [address] 38901 Sodium [Moles/Vol] 141 mmol/L Normal 136 - 145 [facility] Comment on above: Performed By: #### 2 78838 ####[facility],[address] [place] [address] 04955 Urea nitrogen [Mass/Vol] 13 mg/dL Normal 7 - 18 [facility] Comment on above: Performed By: #### 2 45300 ####[facility],[address] [place] [address] CNCOon 08-29-2024 CNCO Letter Text [facility] CNOVon 08-29-2024 CNOV Office Visit (URCANT ) ANU LOPEZ ([id number]) 4 M Date Time Provider Department 08/29/24 9:30 AM BASILIO GOULD URCANT During your visit today, we recorded the following information about you: Basilio Gould MD 08/29/2024 9:53 AM Signed [facility] ESTABLISHED PATIENT NOTE PATIENT: Anu Lopez (23 year old) PCP: Sagar Rojo MD DATE OF SERVICE: 08/29/2024 SUMMARY: Mr. Lopez is a 23 year old male who is here for evaluation of new onset pain Assessment AND Plan Ureteral stricture, left Robotic-assisted laparoscopic left ureteral re-implantation, bladder psoas hitch 05/13/2024 Was doing well but now with 2 weeks of left flank aching pain, right lower quadrant abdominal pain and occasional nausea. Patient also having pain with orgasm. Incisions look good. UA not suggestive of infection. Plan check CT flank. Obtain renal scan as scheduled. Follow up to review results. Orders: CT FLANK WO IVCON; Future Hydronephrosis of left kidney Chronic Left flank pain New. Check CT Orders: CT FLANK WO IVCON; Future Right lateral abdominal pain Orders: CT FLANK WO IVCON; Future FOLLOW UP: Return in about 2 weeks (around 09/12/2024). CHIEF COMPLAINT: Patient presents with: Hydronephrosis: 3 month follow up HISTORY OF PRESENT ILLNESS: Prior notes were reviewed. The patient reports: Complaint: flank pain, abdominal pain Location: left and right Duration: weeks Quality: aching Severity: moderate Relieving: none Exacerbating: none Course: new Associated conditions: history ureteral stricture, history of hydronephrosis Diagnostics: none Treatments: none REVIEW OF SYSTEMS: Genitourinary: Denies hematuria, dysuria, frequency, urgency, nocturia, ANUM, weak stream. Constitutional: unintentional weight loss - denies, fevers - denies Cardiovascular: new or worsening chest pain - denies Respiratory: new or worsening shortness of breath - denies Gastrointestinal: constipation - denies, vomiting - denies Hematologic/Lymphatic: easy bleeding or bruising - denies ALLERGIES: ALLERGIES Allergen Reactions Dilaudid [Hydromorp* Rash MEDICATIONS: polyethylene glycol 3350 (MIRALAX ORAL) Take 17 mg by mouth two times a day. loratadine (CLARITIN) 10 mg tablet Take 10 mg by mouth once daily as needed. PAST HISTORY: PAST MEDICAL HISTORY Diagnosis Date Hydronephrosis of left kidney PMH - PAST MEDICAL HISTORY OF Normal color vision Respiratory syncytial virus (RSV) 08/08/2003 Routine or ritual circumcision Wrist fracture, right 05/08/2013 PAST SURGICAL HISTORY Procedure Laterality Date CIRCUMCISION W/CLAMP/OTH DEV W/BLOCK S STENT,URINARY DIVERSION,[id number] 04/07/24 FAMILY HISTORY Problem Relation Age of Onset Heart Mother other (arrythmia) Mother Heart Other mggm pacemaker at age 26 years Social History Tobacco Use Smoking status: Never Passive exposure: Never Smokeless tobacco: Never Tobacco comments: smoking outside at dads-denies Vaping Use Vaping status: Never Used Substance Use Topics Alcohol use: No Drug use: No PHYSICAL EXAMINATION: There were no vitals taken for this visit. Verbal informed consent obtained for exam below: Constitutional: In no acute distress. Respiratory: Normal respiratory effort without use of accessory muscles. Cardiovascular: Regular rate Gastrointestinal: Nondistended, nontender. Incisions well healed. No hernias DATA: Clinic: URINALYSIS: GLUCOSE UA (POCT) Negative 06/13/2024 BILIRUBIN UA (POCT) Negative 06/13/2024 KETONE UA (POCT) Negative 06/13/2024 SPECIFIC GRAVITY UA (POCT) 1.020 06/13/2024 HEMOGLOBIN/BLOOD UA (POCT) Trace-intact 06/13/2024 PH UA (POCT) 7.0 06/13/2024 PROTEIN UA (POCT) 100 06/13/2024 UROBILINOGEN UA (POCT) 0.2 06/13/2024 NITRITE UA (POCT) Negative 06/13/2024 LEUKOCYTES UA (POCT) Small 06/13/2024 COLOR UA (POCT) Yellow 06/13/2024 CLARITY UA (POCT) Clear 06/13/2024 Laboratory: Creatinine Date Value Ref Range Status 05/14/2024 0.90 0.50 - 1.40 mg/dL Final Comment: Patients receiving either N-Acetylcysteine (NAC) or Metamizole prior to venipuncture, may have falsely depressed results. 05/02/2024 0.98 0.73 - 1.22 mg/dL Final 03/27/2024 0.95 0.73 - 1.22 mg/dL Final 02/10/2024 0.86 0.50 - 1.40 mg/dL Final Comment: Patients receiving either N-Acetylcysteine (NAC) or Metamizole prior to venipuncture, may have falsely depressed results. Cultures: Cul (more content not included)... Normal [facility] UA DIP, URINE (POC)on 2023 BILIRUBIN UA (POCT) Negative Negative [facility] CLARITY UA (POCT) Clear [facility] COLOR UA (POCT) Yellow [facility] GLUCOSE UA (POCT) Negative Negative mg/dL [facility] Hemoglobin Ql (U) Negative Negative [facility] Interpretation and review of laboratory results Abnormal [facility] KETONE UA (POCT) Negative Negative mg/dL [facility] LEUKOCYTES UA (POCT) Trace Abnormal Negative [facility] NITRITE UA (POCT) Negative Negative [facility] PH UA (POCT) 7.5 4.5 - 8.0 [facility] Protein Ql (U) Negative Negative mg/dL [facility] SPECIFIC GRAVITY UA (POCT) 1.020 1.005 - 1.030 [facility] UROBILINOGEN UA (POCT) 0.2 Nicole l E.U./dL [facility] Location:[facility], [address] [place] [address], [id number] [place] [address] OF CARE [facility] CNOVon 06-13-2024 CNOV Office Visit (URCANT ) LOPEZANU ([id number]) 4 M Date Time Provider Department 06/13/24 10:30 AM BASILIO GOULD URCANT During your visit today, we recorded the following information about you: Emily Nichols RN 06/13/2024 10:33 AM Signed Production Inspector assist with procedure NUBIA Rosales Christopher J, MD 06/13/2024 10:40 AM Signed [facility] POST-CYSTOSCOPY AND STENT REMOVAL INSTRUCTIONS You have undergone a cystoscopy and stent removal. Your doctor has visualized your lower urinary tract using a scope and removed a stent(s) from your kidney. WHAT TO EXPECT: Possible burning during urination and/or blood-tinged urine for up to 72 hours. Possible cramping or spasm in your bladder or kidney for up to 72 hours. WHAT TO DO: Resume normal activity aside from no heavy lifting/pushing/pulling (25 lbs) for 24 hours. Continue current medications (unless instructed by physician) An antibiotic was prescribed and you are to pick the medication up at your pharmacy. Drink 6-8 glasses of fluid (water is best) each day for 3 days to help flush your urinary system. You may take OTC acetaminophen or ibuprofen for discomfort. WHEN TO CALL THE DOCTOR: If you have a temperature over 101 degrees Fahrenheit. If you are unable to urinate. If you have severe pain in the kidney or abdomen. If blood clots form in your urine. If your urine becomes very bloody and does not clear with drinking extra fluids. Thank you. Basilio Gould MD 06/13/2024 10:49 AM Signed [facility] PROCEDURE NOTE PATIENT: Anu De La O Jazmine (23 year old) DATE OF SERVICE: 06/13/2024 PRE-OPERATIVE DIAGNOSIS: Left hydronephrosis, left ureteral stricture POST-OPERATIVE DIAGNOSIS: same PROCEDURE: Cystoscopy and removal of left ureteral stent ANESTHESIA: Local BLOOD LOSS: none SPECIMENS: none COMPLICATIONS: None FINDINGS: Stent removed intact. No masses or lesions present. INDICATIONS: Anu Lopez is a 23 year old male who presents for cystoscopy and stent removal. We discussed the planned procedure. Risks, benefits, and alternatives of the procedure were discussed. Patient acknowledges understanding and consents to proceed. Production Inspector present for entirety of procedure. PROCEDURE DETAIL: Patient?s identity was confirmed, written informed consent was obtained, and the time out performed before the procedure was initiated The patient was placed on the procedure table in the supine position and prepped and draped in the usual sterile fashion. 2% Lidocaine Jelly was placed per urethra as an anesthetic in the standard fashion. The tip of the flexible cystoscope was carefully placed into the urethra under direct visual guidance. The scope was negotiated through the urethra to the level of the bladder. The bladder was entered and careful nguyen-endoscopy was carried out. The posterior, superior and lateral avendaño and dome of the bladder were all well visualized and the scope was retroflexed upon itself. There was an indwelling ureteral stent. This stent was removed intact using cystoscopic graspers. At the conclusion of the procedure, the flexible cystoscope was removed atraumatically. The patient tolerated the procedure without complications. DISPOSITION: The patient tolerated the procedure well. Discharge to home. Postoperative care, limitations, and expectations were reviewed with the patient. We discussed concerning signs and symptoms and patient knows to report these immediately. If unable to reach their urologist, patient knows to report to emergency department for evaluation. PLAN: Rx sent for Keflex. Follow up 3 months with renal scan. Risks, benefits, and alternatives of the new medical therapy were discussed. Patient acknowledges understanding and consents to proceed. ORDERS TODAY: Orders Placed This Encounter UA DIP, URINE (POC) UNIVERSAL PROTOCOL / SAFETY CHECKLIST A Moment of CARE was completed. Sign In: History and Physical on chart: Completed Allergies and Medications Review: Completed Informed Consent: Completed. Sign in Communication: Completed Time Out: Team Confirms the Correct Patient, Correct Procedure, Correct Site and Site Marking (if applicable), Correct Position, Sterility, Fire Risk, Medications to be given: Affirmation of Time Out: Yes Sign Out: All specimen containers correctly labeled when applicable. Sign Out Discussion: Completed Patient instructions: Completed Basilio Gould MD 06/13/2024 Allergies As of Date: 06/13/2024 N (more content not included)... Normal [facility] UA DIP, URINE (POC)on 2023 BILIRUBIN UA (POCT) Negative Negative [facility] CLARITY UA (POCT) Clear [facility] COLOR UA (POCT) Yellow [facility] GLUCOSE UA (POCT) Negative Negative mg/dL [facility] Hemoglobin Ql (U) Trace-intact Abnormal Negative [facility] Interpretation and review of laboratory results Abnormal [facility] KETONE UA (POCT) Negative Negative mg/dL [facility] LEUKOCYTES UA (POCT) Small Abnormal Negative [facility] NITRITE UA (POCT) Negative Negative [facility] PH UA (POCT) 7.0 4.5 - 8.0 [facility] Protein Ql (U) 100 mg/dL Abnormal Negative [facility] SPECIFIC GRAVITY UA (POCT) 1.020 1.005 - 1.030 [facility] UROBILINOGEN UA (POCT) 0.2 Nicole l E.U./dL [facility] Location:[facility] [place], [address], [place], [place], [address] [facility] POINT OF CARE [facility] Katya 05-15-2024 CNPN Telephone (URCANT) ANU LOPEZ ([id number]) 4 M Date Time Provider Department 05/15/24 BASILIO GOULD During your visit today, we recorded the following information about you: Christy La 05/15/2024 3:05 PM Signed Patient had surgery with earlier this week, he called in saying that he was to schedule an appointment with you. He does have an appointment for stent removal, does he need one before that? Please advise Christy La 05/16/2024 3:14 PM Signed Spoke with patient he understood Sabino Jordan MA 06/05/2024 3:33 PM Signed Does this pt need to get a KUB before his appt? If so, please place KUB order. Thank you, Sabino Jordan MA Allergies As of Date: 05/15/2024 Noted Allergy Reaction DILAUDID (HYDROMORPHONE) 04/07/2024 2 - Rash Date Reviewed: 05/14/2024 Reviewed by: Michelle Bolden, RN - Fully Assessed Reason for Visit: Appointment [186] Prescriptions as of 06/05/2024 - polyethylene glycol 3350 (MIRALAX ORAL) Take 17 mg by mouth two times a day. - loratadine (CLARITIN) 10 mg tablet Take 10 mg by mouth once daily as needed. Problem List As Of Date 05/15/2024 Noted Resolved Left ureteral stone [N20.1] 02/06/2024 Hydronephrosis of left kidney [N13.30] 02/07/2024 Preop testing [Z01.818] 04/03/2024 Ureteral stricture, left [N13.5] 04/07/2024 Encounter Status:Closed by CHRISTY LA on 05/16/24 Normal [facility] Basic metabolic 2000 panelon 05-14-2024 Anion gap [Moles/Vol] 10 mmol/L Normal 5-[address] [facility] Comment on above: Order Comment: Speci men Type: BLOOD SPECIMENOrdering Facility: [facility] Address: [address] [place] [address] Performed By: #### 2 4321-2 ####[facility] LABORATORYCLIA [id number] [place] [address] [place] Calcium [Mass/Vol] 9.6 mg/dL Normal 8.5-10.5 [facility] Comment on above: Order Comment: Speci men Type: BLOOD SPECIMENOrdering Facility: [facility] Address: [address] [place] [address] Performed By: #### 2 4321-2 ####[facility] LABORATORYCLIA [id number] [place] [address] [place] Chloride [Moles/Vol] 108 mmol/L High 98-107 [facility] Comment on above: Order Comment: Speci men Type: BLOOD SPECIMENOrdering Facility: [facility] [facility] Address: [address] [place] [address] Performed By: #### 2 4321-2 ####[facility] LABORATORYCLIA [id number] [place] [id number] [place] CO2 [Moles/Vol] 23 mmol/L Normal 21-32 [facility] Comment on above: Order Comment: Speci men Type: BLOOD SPECIMENOrdering Facility: [facility] Address: [address] [place] [address] Performed By: #### 2 4321-2 ####[facility] LABORATORYCLIA [id number] [place] [id number] [place] Creatinine [Mass/Vol] 0.90 mg/dL Normal 0.50-1.[address] [facility] Comment on above: Order Comment: Speci men Type: BLOOD SPECIMENOrdering Facility: [facility] Address: [address] [place] [id number] Result Comment: Shelley ents receiving either N-Acetylcysteine (NAC) or Metamizole prior to venipuncture, may have falsely depressed results. Performed By: #### 2 4321-2 ####[facility] LABORATORYCLIA [id number] [place] [id number] [place] Creatinine and Glomerular filtration rate.predicted panel (S/P/Bld) 125 mL/min/1.73m??? Normal >=60 [facility] Comment on above: Order Comment: Spectevin brooks Type: BLOOD SPECIMENOrdering Facility: [facility] Address: [address] [place] [address] Result Comment: Sridevi mated Glomerular Filtration Rate (eGFR) is calculated using the 2020 CKD-EPI creatinine equation. This equation utilizes serum creatinine, sex, and age as parameters. The creatinine assay has traceable calibration to isotope dilution-mass spectrometry. Refer to KDIGO guidelines for clinical interpretation. In patients with unstable renal function, e.g. those with acute kidney injury, the eGFR may not accurately reflect actual GFR. Performed By: #### 2 4321-2 ####[facility] LABORATORYCLIA [id number] [place] [address] [place] Glucose [Mass/Vol] 127 mg/dL High 70-100 [facility] Comment on above: Order Comment: Roderick brooks Type: BLOOD SPECIMENOrdering Facility: [facility] Address: [address] [place] [address] Result Comment: The [place] Diabetes Association (ADA) provides guidance for cutoff values for fasting glucose and random glucose. The ADA defines fasting as no caloric intake for at least 8 hours. Fasting plasma glucose results between 100 to 125 mg/dL indicate increased risk for diabetes (prediabetes). Fasting plasma glucose results greater than or equal to 126 mg/dL meet the criteria for diagnosis of diabetes. In the absence of unequivocal hyperglycemia, results should be confirmed by repeat testing. In a patient with classic symptoms of hyperglycemia or hyperglycemic crisis, random plasma glucose results greater than or equal to 200 mg/dL meet the criteria for diagnosis of diabetes. Reference: Standards of Medical Care in Diabetes 2016, [place] [employer] Association. Diabetes Care. 2016.39(Suppl 1). Results may be falsely elevated after the administration of Sulfapyridine. Results may be falsely depressed after the administration of Sulfasalazine. Performed By: #### 2 4321-2 ####[facility] LABORATORYCLIA [id number] [place] [address] [place] Potassium [Moles/Vol] 4.4 mmol/L Normal 3.5-5.[address] [facility] Comment on above: Order Comment: Speci men Type: BLOOD SPECIMENOrdering Facility: [facility] Address: [address] [place] [address] Performed By: #### 2 4321-2 ####[facility] LABORATORYCLIA [id number] [address] STATES OF [facility] Sodium [Moles/Vol] 141 mmol/L Normal 136-145 [facility] Comment on above: Order Comment: Speci men Type: BLOOD SPECIMENOrdering Facility: [facility] Address: [address] [place] [address] Performed By: #### 2 4321-2 ####[facility] LABORATORYCLIA [id number] [address] [place] Urea nitrogen [Mass/Vol] 14 mg/dL Normal 7-26 [facility] Comment on above: Order Comment: Speci men Type: BLOOD SPECIMENOrdering Facility: [facility] Address: [address] [place] [address] Performed By: #### 2 4321-2 ####[facility] LABORATORYCLIA [id number] [place] [id number] [place] CBC panel Auto (Bld)on 05-14 Erythrocyte distribution width (RBC) [Ratio] 12.8 % Normal 11.5-15.0 [facility] Comment on above: Order Comment: Speci men Type: BLOOD SPECIMENOrdering Facility: [facility] Address: [address] [place] [address] Performed By: #### 5 8410-2 ####[facility] LABORATORYCLIA [id number] [address] [place] Hematocrit (Bld) [Volume fraction] 42.6 % Normal 39.0-51.0 [facility] Comment on above: Order Comment: Speci men Type: BLOOD SPECIMENOrdering Facility: [facility] Address: [address] [place] [address] Performed By: #### 5 8410-2 ####[facility] LABORATORYCLIA [id number] [place] [address] [place] Hemoglobin (Bld) [Mass/Vol] 13.8 g/dL Normal 13.0-17.0 [facility] Comment on above: Order Comment: Speci men Type: BLOOD SPECIMENOrdering Facility: [facility] Address: [address] [place] [address] Performed By: #### 5 8410-2 ####[facility] LABORATORYCLIA [id number] [address] [place] MCH (RBC) [Entitic mass] 29.4 pg Normal 26.0-34.0 [facility] Comment on above: Order Comment: Speci men Type: BLOOD SPECIMENOrdering Facility: [facility] Address: [address] [place] [address] Performed By: #### 5 8410-2 ####[facility] LABORATORYCLIA [id number] [place] [address] [place] MCHC (RBC) [Mass/Vol] 32.4 g/dL Normal 30.5-36.[address] [facility] Comment on above: Order Comment: Speci men Type: BLOOD SPECIMENOrdering Facility: [facility] Address: [address] [place], [place] [id number] Performed By: #### 5 8410-2 ####[facility] LABORATORYCLIA [id number] [address] [place] MCV (RBC) [Entitic vol] 90.8 fL Normal 80.0-100.0 M [facility] Comment on above: Order Comment: Speci men Type: BLOOD SPECIMENOrdering Facility: [facility] Address: [address] [place] [address] Performed By: #### 5 8410-2 ####[facility] LABORATORYCLIA [id number] [place] [id number] [place] Nucleated RBC (Bld) [#/Vol] 10*3/uL Normal <0.01 [facility] Comment on above: Order Comment: Speci men Type: BLOOD SPECIMENOrdering Facility: [facility] Address: [address] [place] [address] Performed By: #### 5 8410-2 ####[facility] LABORATORYCLIA [id number] [place] [address] [place] Platelet mean volume (Bld) [Entitic vol] 11.2 fL Normal 9.0-12.7 [facility] Comment on above: Order Comment: Speci men Type: BLOOD SPECIMENOrdering Facility: [facility] Address: [address] [place] [address] Performed By: #### 5 8410-2 ####[facility] LABORATORYCLIA [id number] [place] [address] [place] Platelets (Bld) [#/Vol] 237 10*3/uL Normal 150-400 [facility] Comment on above: Order Comment: Speci men Type: BLOOD SPECIMENOrdering Facility: [facility] Address: [address] [place] [address] Performed By: #### 5 8410-2 ####[facility] LABORATORYCLIA [id number] [place] [address] [place] RBC (Bld) [#/Vol] 4.69 10*6/uL Normal 4.20-6.00 [facility] Comment on above: Order Comment: Speci men Type: BLOOD SPECIMENOrdering Facility: [facility] Address: [address] [place] [address] Performed By: #### 5 8410-2 ####[facility] LABORATORYCLIA [id number] [place] [id number] [place] WBC (Bld) [#/Vol] 14.07 10*3/uL High 3.70-11.00 [facility] Comment on above: Order Comment: Speci men Type: BLOOD SPECIMENOrdering Facility: [facility] Address: [address] [place] [address] Performed By: #### 5 8410-2 ####[facility] LABORATORYCLIA [id number] [place] [address] [facility] CNDSon 05-14-2024 CNDS HNO ID: [id number] Author: BASILIO GOULD MD Service: Urology Author Type: Physician Type: Discharge Summary Filed: 05/14/2024 09:02 Note Text: [facility] DISCHARGE NOTE ADMIT DATE: 05/13/2024 DISCHARGE DATE: 05/14 DISCHARGE DIAGNOSIS: Active Problems at Discharge Diagnosis Hydronephrosis of left kidney Ureteral stricture, left Problems Managed and Resolved During This Admission No resolved problems to display. HOSPITAL COURSE: Mr. Lopez is a 23 year old male who was admitted to the urology service. DISCHARGE CONDITION: Good DISCHARGE DISPOSITION: To home DISCHARGE MEDICATIONS: Medication List START taking these medications oxyCODONE-acetaminophen 5-325 mg tablet Commonly known as: PERCOCET Take 1 tablet by mouth every 6 hours as needed for pain for up to 3 days. CONTINUE taking these medications loratadine 10 mg tablet Commonly known as: CLARITIN MIRALAX ORAL Where to Get Your Medications These medications were sent to [facility] [address] [place], [place] [id number] [place] [address] [place] [place] [address] oxyCODONE-acetaminophen 5-325 mg tablet DISCHARGE INSTRUCTIONS: [facility] You have undergone a robotic surgery to remove blockage in your kidney/ureter. WHAT TO EXPECT: Your abdomen will be sore from the procedure. You may see blood in your urine. You may have a stent in place. This may cause cramping in your bladder or your kidney. You have dissolvable stitches along with skin glue over your incisions. Both will resolve with time. WHAT TO DO: Resume normal activity aside from no heavy lifting/pushing/pulling (25 lbs) for 6 weeks. You may resume your regular diet. You may shower but do not bathe or submerge in water. Continue current medications (unless instructed by physician) Drink 6-8 glasses of fluid (water is best) each day while the stent is in place to help flush your urinary system. Use a stool softener or laxative (Miralax) if constipated. You may take OTC acetaminophen or ibuprofen or your prescribed medication for discomfort. You may drive once no longer using pain medication. WHEN TO CALL THE DOCTOR: If you have a temperature over 101 degrees Fahrenheit. If your urine becomes very bloody (like ketchup) and does not clear with drinking extra fluids. If you have severe pain. If you have nausea or vomiting If you have chest pain, shortness of breath or new onset leg swelling/pain. If your incisions appear infected (increasing redness, swelling, or drainage). FOLLOW UP: You will see your doctor to review surgical findings and the future care plan in a few weeks. Thank you. Basilio Gould MD 05/14/2024 7:17 AM [facility] ANES POSTPROC EVALon 024 ANES POSTPROC EVAL HNO ID: [id number] Author: CHAS CAMPBELL DO Service: Anesthesiology Author Type: Anesthesiologist Type: Anesthesia Postprocedure Evaluation Filed: 05/13/2024 15:10 Note Text: POST ANESTHESIA EVALUATION NOTE : 2002 Procedure Summary Date: 05/13/24 Room / Location: OR 04 / OR Anesthesia Start: 1149 Anesthesia Stop: 1425 Procedure: ROBOTIC LAPAROSCOPY URETERONEOCYSTOSTOMY W/O CYSTOSCOPY AND URETERAL STENT PLACEMENT (Left) Diagnosis: Other hydronephrosis (Other hydronephrosis [N13.39]) Surgeons: Basilio Gould MD Responsible Provider: Chas Campbell DO Anesthesia Type: general ASA Status: 1 Anesthesia Type: general Airway Type: ETT Last Vitals Vitals Value Taken Time BP 148/99 05/13/24 1500 Temp 36.9 ?C (98.5 ?F) 05/13/24 1423 Pulse 82 05/13/24 1508 Resp 20 05/13/24 1500 SpO2 95 % 05/13/24 1508 Vitals shown include unfiled device data. Post Anesthesia Patient Status Patient Evaluation: PACU. PACU/ICU Patient Condition: stable. Anticipated Disposition: inpatient floor planned admission. Neurological Status: aware and responsive. Pulmonary Status: breathing comfortably on room air Airway Control: returned to baseline unsupported. Cardiovascular Status: stable. Pain Management: clinically adequate Postoperative Hydration: acceptable. Intraoperative Events: no significant anesthesia events Post Operative Nausea/Vomiting Status: no significant post operative nausea or vomiting Recommendation: further care per PACU/ICU/floor team. Anesthesia Observations No Documentation SIGNATURE: Chas Campbell DO PATIENT NAME: Anu Lopez DATE: May 13, 2024 TIME: 3:09 PM CSN: [id number] [facility] ANES PRE-OPon 05-13-2024 ANES PRE-OP HNO ID: [id number] Author: CHAS CAMPBELL DO Service: Anesthesiology Author Type: Anesthesiologist Type: Anesthesia Preprocedure Evaluation Filed: 05/13/2024 10:57 Note Text: ANESTHESIOLOGY DAY OF SURGERY NOTE : 2002 Procedure Information Date/Time: 05/13/24 1145 Procedure: ROBOTIC LAPAROSCOPY URETERONEOCYSTOSTOMY W/O CYSTOSCOPY AND URETERAL STENT PLACEMENT (Left) Location: OR 04 / OR Surgeons: Basilio Gould MD Estimated body mass index is 24.23 kg/m? as calculated from the following: Height as of this encounter: 185.4 cm (6' 1). Weight as of this encounter: 83.3 kg (183 lb 10.3 oz). Most recent hematocrit and potassium results: Hematocrit 46.1 05/02/2024 Potassium 4.6 05/02/2024 Relevant Problems No relevant active problems I - PHYSICAL EVALUATION AIRWAY Patient intubated: No. Tracheostomy tube not present Mallampati: II. TM distance: >3 FB. Neck ROM: full ROM without neurological symptoms. Mouth opening: adequate. Short neck: no. Thick neck: no DENTAL Dental findings: teeth intact. Additional exam findings: yes. CARDIOVASCULAR Normal cardiovascular observations. PULMONARY Normal pulmonary observations. II - ANESTHESIA PLAN ASA Score: 1 Anesthetic Plan: general Airway type: ETT NPO Status: adequate Beta Elvira Monitoring Plan Monitoring plan: standard ASA. Post Procedure Analgesic Plan Postoperative analgesic plan: parenteral or oral opioids and multimodal analgesia. Informed Consent Anesthetic risks, benefits, alternatives, personnel and consent discussed: yes. Patient / Responsible Democrat agrees to proceed: yes Patient / Surrogate agrees to blood products: Yes Significant changes in the patient condition since the History and Physical, not otherwise documented in primary service progress note: no. Potential Anesthesia issues that may suggest increased risk of complications or contraindication to planned procedure: none. Vitals Value Taken Time BP 136/92 05/13/24 1022 Pulse 57 05/13/24 1018 Resp 17 05/13/24 1018 Temp 36.7 ?C (98 ?F) 05/13/24 1018 SpO2 99 % 05/13/24 1018 Facility-Administered Medications as of 05/13/2024 Medication Dose Route Frequency lactated ringers iv infusion 30 mL/hr INTRAVENOUS CONTINUOUS NaCl 0.9% iv flush bag 20 mL INTRAVENOUS PRN [COMPLETED] lidocaine (PF) 10 mg/mL (1 %) 1-2 mg injection (XYLOCAINE) 0.1-0.2 mL INTRADERMAL PRN ceFAZolin iv piggyback 2 g in D5W (iso-osmotic) 100 mL (ANCEF) 2 g INTRAVENOUS Pre-Op Once Outpatient Medications as of 05/13/2024 Medication Sig polyethylene glycol 3350 (MIRALAX ORAL) Take 17 mg by mouth two times a day. loratadine (CLARITIN) 10 mg tablet Take 10 mg by mouth once daily as needed. I have interviewed and examined the patient. I have reviewed the medical record and/or the pre-anesthesia evaluation, pertinent labs, and test results. This contains updated information obtained within 48 hours of Surgery/Procedure. SIGNATURE: Chas Campbell DO PATIENT NAME: Anu Lopez DATE: May 13, 2024 TIME: 10:56 AM CSN: [id number] [facility] HISTORY PHYSICALon HISTORY PHYSICAL HNO ID: [id number] Author: BASILIO GOULD MD Service: Urology Author Type: Physician Type: H&P Filed: 05/13/2024 10:51 Note Text: [facility] SURGICAL HISTORY AND PHYSICAL EXAMINATION NOTE SERVICE DATE: May 13, 2024 PRIMARY CARE PHYSICIAN: Sagar Rojo MD ASSESSMENT: Active Hospital Problems Diagnosis Date Noted Hydronephrosis of left kidney 02/07/2024 Ureteral stricture, left 04/07/2024 PLAN: Procedure(s): ROBOTIC LAPAROSCOPY URETERONEOCYSTOSTOMY W/O CYSTOSCOPY AND URETERAL STENT PLACEMENT (Left) CHIEF COMPLAINT: Active Hospital Problems Diagnosis Date Noted Hydronephrosis of left kidney 02/07/2024 Ureteral stricture, left 04/07/2024 Subjective Mr. Lopez is a 23 year old male who presents with the above complaint for planned surgery. Patient states no changes to medical history since our last visit. We discussed the planned procedure. Risks, benefits, and alternatives of the procedure were discussed. Patient acknowledges understanding and consents to proceed. PAST MEDICAL HISTORY No date: Hydronephrosis of left kidney No date: PMH - PAST MEDICAL HISTORY OF Comment: Normal color vision 08/08/2003: Respiratory syncytial virus (RSV) No date: Routine or ritual circumcision 05/08/2013: Wrist fracture, right PAST SURGICAL HISTORY No date: CIRCUMCISION W/CLAMP/OTH DEV W/BLOCK No date: S STENT,URINARY DIVERSION,[id number] Comment: 04/07/24 FAMILY HISTORY Problem Relation Age of Onset Heart Mother other (arrythmia) Mother Heart Other mggm pacemaker at age 26 years Social History Tobacco Use Smoking status: Never Passive exposure: Never Smokeless tobacco: Never Tobacco comments: smoking outside at dads-denies Vaping Use Vaping Use: Never used Substance Use Topics Alcohol use: No Drug use: No polyethylene glycol 3350 (MIRALAX ORAL), Take 17 mg by mouth two times a day., Disp: , Rfl: loratadine (CLARITIN) 10 mg tablet, Take 10 mg by mouth once daily as needed., Disp: , Rfl: Current Facility-Administered Medications Medication Dose Route Frequency lactated ringers iv infusion 30 mL/hr INTRAVENOUS CONTINUOUS NaCl 0.9% iv flush bag 20 mL INTRAVENOUS PRN ceFAZolin iv piggyback 2 g in D5W (iso-osmotic) 100 mL (ANCEF) 2 g INTRAVENOUS Pre-Op Once Allergies As of Date: 04/09/2024 Allergen Noted Reaction DILAUDID [HYDROMORPHONE] 04/07/2024 Rash Fully Assessed 04/07/2024 PHYSICAL EXAM Examination indicates no changes. LUNGS: Respirations unlabored. No wheezing. No cough CARDIAC: Regular rate SIGNATURE: Basilio Gould MD PATIENT NAME: Anu Lopez DATE: May 13, 2024 TIME: 10:51 AM Normal [facility] OPERATIVE NOon 05-13-2024 OPERATIVE NO HNO ID: [id number] Author: BRANDON RAMOS MD Service: Urology Author Type: Physician Type: Operative Report Filed: 05/13/2024 14:19 Note Text: [facility] UROLOGY OPERATIVE REPORT NAME: Anu Lopez LOG ID: [id number] Surgery/Procedure Date: 05/13/2024 Incision/Procedure Start Time: 12:20 PM Incision Close/Procedure End Time: 2:16 PM Surgeon: Brandon Ramos MD Co-Surgeon(s): Basilio Gould MD Procedure(s): Robotic-assisted laparoscopic left ureteroneocystotomy with Psoas hitch Anesthesia: General Estimated Blood Loss: Per Dr. Gould Specimens: ID Type Source Tests Collected by Time A : Left Distal Ureteral Margin to rule out cancer Tissue Ureter, Left, Biopsy SURGICAL PATHOLOGY Basilio Gould MD 05/13/2024 1:21 PM Implantable Devices: None Drains: 15-Fr round AKUA drain; 16-Fr Crane catheter Complications: None immediate Accidental Punctures and Lacerations: None Pre-Op/Pre-Procedure Diagnosis: (N13.39) Other hydronephrosis Post-Op/Post-Procedure Diagnosis: Same as above Operative Indications: Anu Lopez is a 23 year old male who presents for surgery. Informed consent was obtained. Findings: Per Dr. Gould Procedure Narrative: A huddle was performed wherein the patient, procedure, and laterality were verified in the presence of the patient and operative team. The patient was transported to the operating room and transferred to the operating table in the supine position. Sequential compression devices were placed on the lower extremities and turned on. After the placement of lines and monitors, general endotracheal anesthesia was induced, and an orogastric tube was inserted. Prophylactic antibiotics were administered prior to the procedure start. A Crane catheter was inserted and placed to gravity drainage. The table was placed in Trendelenburg position. All pressure points were padded appropriately. The patient was shaved, prepped, and draped in the usual sterile fashion. A time out was performed, wherein the patient, procedure, and laterality were confirmed prior to starting. Intraabdominal access and robotic docking A small midline incision was made in the skin superior to the umbilicus. A Veress needle was inserted in the peritoneal space. The peritoneum was insufflated without difficulty. Once the abdomen was fully insufflated, an 8-mm robotic port was inserted for the camera. The remaining ports were placed under direct vision, including 3, 8-mm robotic ports, and a right-sided 12-mm trust operations assistant port in the standard 'W' configuration. All incision sites were infiltrated with 0.25% bupivacaine. The patient was placed in steep Trendelenburg position, and the robot was docked. Ureteral dissection After lysing adhesions between the sigmoid colon and pelvic sidewall, the peritoneum was opened cranially along the white line of Toldt, allowing the sigmoid colon to be reflected medially. The left ureter was identified as it coursed over the common iliac vessels. The ureter was dissected out down into the deep pelvis, and any visible vessels were controlled with the judicious use of cautery. At the the level of the superior vesicle pedicle, tapering of the ureter was noted. The ureter was dissected out circumferentially at the area of tapering. Ureteral excision and reimplantation At the level of the obstruction, the ureter was divided.The indwelling stent was left in the ureter but removed from the bladder. The distal end of the ureter was clipped with a Hem-o-derek clip. A distal ureteral margin was sent for frozen section and was negative of malignancy. Next, the anterior surface of the Psoas tendon was identified. The bladder was fully mobilized off the anterior abdominal wall. The bladder was filled with normal saline. The ureter appeared to reach the bladder without the need for further dissection. The posterior surface of the peritoneal edge of the bladder was affixed to the Psoas tendon superficially with 2-0 V-Loc suture in a Psoas hitch fashion. A cystotomy was made in the bladder at the site of the planned ureteral implantation, and the bladder was drained. The cut ureter was spatulated, and the ureterovesical anastomosis was performed using two, 3-0 V-Loc sutures in a running fashion. Prior to completing the anastomoses, the distal end of the ureteral stent was internalized within the bladder. The anastomosis was tested and proved to be watertight, widely patent, and tension-free. Closure The robot was undocked. The specimen was removed through the 12-mm port site and sent to Pathology. The fascia of the extraction incision was closed with 0 Vicryl suture using a Torrey-Itz device. A drain was placed in the pelvis through the left-most robotic port, secured to the skin with a drain stitch, and connected to bulb suction. All ports were removed under (more content not included)... [facility] OPERATIVE NO HNO ID: [id number] Author: BASILIO GOULD MD Service: Urology Author Type: Physician Type: Operative Report Filed: 05/13/2024 14:46 Note Text: . [facility] OPERATIVE NOTE/REPORT DETAIL NAME: Anu Lopez LOG ID: [id number] Surgery/Procedure Date: 05/13/2024 Surgeon(s)/Proceduralis t(s) and Riverboat Captain(s): Basilio Gould MD - Surgeon Brandon Ramos MD - Co-surgeon Procedure(s): Robotic-assisted laparoscopic left ureteral re-implantation, bladder psoas hitch Anesthesia: General Estimated Blood Loss: 25 ml Specimens: ID Type Source Tests Collected by Time Destination A : Left Distal Ureteral Margin to rule out cancer Tissue Ureter, Left, Biopsy SURGICAL PATHOLOGY Basilio Gould MD 05/13/2024 1:21 PM Implantable Devices: None Drains: 15-Fr round AKUA drain; 6-Fr x 26-cm double J ureteral stent, 16 Fr Crane catheter Complications: None immediate Pre-Op/Pre-Procedure Diagnosis: Left ureteral stricture Post-Op/Post-Procedure Diagnosis: Same as above Operative Indications: Anu Lopez is a 23 year old male who presents for surgery. Informed consent was obtained. Findings: Large dilation of left ureter up to transition point at crossing of superior vesical artery. Distal ureter narrowed. No evidence of tumor or malignancy. Psoas hitch performed. Uncomplicated, tension-free and water tight anastomosis Procedure Narrative: A huddle was performed wherein the patient, procedure, and laterality were verified in the presence of the patient and operative team. The patient was transported to the operating room and transferred to the operating table in the supine position. Sequential compression devices were placed on the lower extremities and turned on. After the placement of lines and monitors, general endotracheal anesthesia was induced, and an orogastric tube was inserted. Prophylactic antibiotics were administered prior to the procedure start. All pressure points were padded appropriately. The patient was shaved, prepped, and draped in the usual sterile fashion. A time out was performed, wherein the patient, procedure, and laterality were confirmed prior to starting. A Crane catheter was inserted sterilely on the field. Intraabdominal access and robotic docking Midline Veress needle was inserted in the peritoneal space. The peritoneum was insufflated without difficulty. Once the abdomen was fully insufflated, we inserted an 8-mm robotic port for the camera in the midline supraumbilical space. The remaining ports were placed under direct vision, including 3, 8-mm robotic ports, and a right-sided 12-mm trust operations assistant port in the standard 'W' configuration. All of the port sites were infiltrated with 0.25% bupivacaine at the onset of the case. Veress needle site inspected and found to be an atraumatic entry. The patient was placed in steep Trendelenburg position, and the robot was docked. Lysis of adhesions, ureteral dissection After lysing adhesions between the sigmoid colon and pelvic sidewall, the peritoneum was opened cranially along the white line of Toldt, allowing the colon to be reflected medially. The ureter was identified as it coursed over the common iliac vessels. The ureter was dissected out into the pelvis, and any visible vessels were controlled with cautery. At the crossing of the superior vesical artery, a narrowing was noted. Ureteral ligation and division The ureter was opened at the transition point. A surgical margin was sent for frozen section (and was negative). The distal ureteral segment was clipped. The proximal segment was mobilized with the stent in place. Bladder ureteral reimplantation The bladder was mobilized off the anterior abdominal wall and the lateral attachments. A psoas hitch was performed using a 2-0 V-lock. The bladder was opened adjacent to the ureter. The ureteroneocystostomy was performed using 3-0 V-lock. The indwelling stent was left in place. A drain was placed into the pelvis. Specimen extraction and closure 12 mm fascia port closed using an endoclosure device and a 0 Vicryl suture. A drain stitch was applied. The skin was closed with 4-0 Vicryl suture and skin adhesive. A drain site dressing was placed. The patient was awakened, extubated, and transferred to the recovery room in stable condition. All sponge, needle, and instrument counts were correct at the end of the case. Hospital Course: TBD Disposition: PACU, then floor Participation: I was present for the entire surgery including the critical and blakely portions of the surgery, and I was immediately available to provide assistance. Due to the complexity of the surgery and lack of a resident surgeon or qualified trust operations assistant, a co-surgeon was employed. Dr. Ramos and I performed the following steps jointly: Intraabdominal access and robotic docking; I performed the following (more content not included)... [facility] SURGICAL PATHOLOGYon 024 CASE REPORT [facility] Comment on above: Order Comment: Roderick brooks Type: TISSUE SPECIMENOrdering Facility: [facility] Address: [address] [place] [address] Result Comment: Surg ica Pathology Report Case: [id number] Authorizing Provider: Basilio Gould MD Collected: 05/13/2024 01:21 PM Ordering Location: [facility] Surgery Received: 05/13/2024 01:40 PM Pathologist: Michelle Matute MD Specimen: Ureter, Left, Biopsy, Left Distal Ureteral Margin to rule out cancer Performed By: #### S ####[facility] LABORATORYCLIA [id number] [address] OF [facility] CLINICAL HISTORY [facility] Comment on above: Order Comment: Roderick brooks Type: TISSUE SPECIMENOrdering Facility: [facility] Address: [address] [place] [address] Result Comment: Pre- op diagnosis: Other hydronephrosis [N13.39] Performed By: #### S ####[facility] LABORATORYCLIA [id number] [address] OF [facility] FINAL DIAGNOSIS [facility] Comment on above: Order Comment: Roderick brooks Type: TISSUE SPECIMENOrdering Facility: [facility] Address: [address] [place] [address] Result Comment: A. L eft distal ureteral margin: - Segment of ureter showing chronic inflammation, negative for malignancy. Performed By: #### S ####[facility] LABORATORYCLIA [id number] [address] FINAL PERFORMING LAB [facility] Comment on above: Order Comment: Speci men Type: TISSUE SPECIMENOrdering Facility: [facility] Address: [address] [place] [address] Result Comment: Diag nostic interpretation performed at [facility], [address] [place] [address] CLIA# [id number] Tire Service Technician: Michelle Matute M.D. Performed By: #### S ####[facility]ORATORYCLIA [id number] [address] GROSS DESCRIPTION [facility] Comment on above: Order Comment: Speci men Type: TISSUE SPECIMENOrdering Facility: [facility] Address: [address] [place] [address] Result Comment: A. U jessieerFrankie, Biopsy Received fresh for intraoperative consultation labeled with the patient's name and left distal ureteral margin is a 1.0 x 0.6 x 0.2 cm portion of pink-meier mucosa with attached fibroadipose tissue measuring 1.5 x 0.8 x 0.3 cm in toto. The specimen is bisected and entirely submitted for frozen section diagnosis in 1 cassette. Gross examination performed at [facility], [address] [place] [address] CLIA#[id number] May 13, 2024 2:55 PM Performed By: #### S ####[facility] LABORATORYCLIA [id number] [address] INTRAOPERATIVE DIAGNOSIS [facility] Comment on above: Order Comment: Speci men Type: TISSUE SPECIMENOrdering Facility: [facility] Address: [address] [place] [address] Result Comment: A. U reter Left, Biopsy - Benign Per Yoshi Porter MD, 05/13/24 1337hrs Frozen section performed at: [address] [place] [address] Performed By: #### S ####[facility] LABORATORYCLIA [id number] [address] MICROSCOPIC DESCRIPTION Three H AND E fr ozen section prepared from one cryo block and one H AND E stained permanent section slides are examined. [facility] Comment on above: Order Comment: Speci men Type: TISSUE SPECIMENOrdering Facility: [facility] Address: [address] [place] [address] Performed By: #### S ####[facility] LABORATORYCLIA [id number] [address] OF MAJOR Bacteria Ur Culton Bacteria identified Cx Nom (U) CULTURE, URINE: No growth to date [facility] Comment on above: Performed By: #### 6 30-4 #### [facility] CLIA [id number] [address] [place] [address] OF MAJOR CNCOon 05-07-2024 CNCO Letter Text [facility] CNOVon 05-07-2024 CNOV Office Visit (URCANT ) ANU LOPEZ ([id number]) 4 M Date Time Provider Department 05/07/24 2:30 PM BASILIO GOULD URCANT During your visit today, we recorded the following information about you: Pulse Blood pressure 69/minute 123/74 Basilio Gould MD 05/07/2024 3:00 PM Signed [facility] ESTABLISHED PATIENT NOTE PATIENT: Anu Lopez (23 year old) PCP: Sagar Rojo MD DATE OF SERVICE: 05/07/2024 ASSESSMENT: 1. Hydronephrosis of left kidney - ICD9: 591, ICD10: N13.30 (primary diagnosis) 2. Ureteral stricture, left - ICD9: 593.3, ICD10: N13.5 Cystoscopy, pyelograms, left ureteroscopy, left ureteral stent change 6x26 Konstantin rosas 04/07/2024 4 cm distal left ureteral stricture. Proximal hydronephrosis and hydroureter. No filling defects. Ureteroscopy revealed a distal stricture with no masses or lesions 45% split function on left Patient of Dr. Rosas PLAN: Left ureteral stricture. Reviewed findings. Discussed treatment options. Plan for robotic left ureteral reimplantation with possible distal ureterectomy, possible psoas hitch of the bladder. We discussed the planned procedure. Risks, benefits, and alternatives of the procedure were discussed. Discussed the stent after the procedure and the possibility of a Crane and a drain. Discussed risk of leak. Discussed risk of recurrence. Patient acknowledges understanding and consents to proceed. ORDERS TODAY: Orders Placed This Encounter Urine Culture - today FOLLOW UP: Return for Surgery. CHIEF COMPLAINT: Patient presents with: Hydronephrosis: Discuss ROBOTIC LAPAROSCOPY URETERONEOCYSTOSTOMY W/O CYSTOSCOPY AND URETERAL STENT PLACEMENT HISTORY OF PRESENT ILLNESS: Prior notes were reviewed. Mr. Lopez is a 23 year old male who is here for follow up. The patient reports he feels well. No pain. No hematuria. REVIEW OF SYSTEMS: Genitourinary: Denies hematuria, dysuria, frequency, urgency, nocturia, ANUM, weak stream. Constitutional: unintentional weight loss - denies, fevers - denies Cardiovascular: new or worsening chest pain - denies Respiratory: new or worsening shortness of breath - denies Gastrointestinal: constipation - denies, vomiting - denies Hematologic/Lymphatic: easy bleeding or bruising - denies ALLERGIES: ALLERGIES Allergen Reactions Dilaudid [Hydromorp* Rash MEDICATIONS: loratadine (CLARITIN) 10 mg tablet Take 10 mg by mouth once daily as needed. PAST HISTORY: PAST MEDICAL HISTORY No date: Hydronephrosis of left kidney No date: [facility] - PAST MEDICAL HISTORY OF Comment: Normal color vision 08/08/2003: Respiratory syncytial virus (RSV) No date: Routine or ritual circumcision 05/08/2013: Wrist fracture, right PAST SURGICAL HISTORY No date: CIRCUMCISION W/CLAMP/OTH DEV W/BLOCK FAMILY HISTORY Problem Relation Age of Onset Heart Mother other (arrythmia) Mother Heart Other mggm pacemaker at age 26 years Social History Tobacco Use Smoking status: Never Smokeless tobacco: Never Tobacco comments: smoking outside at dads Vaping Use Vaping Use: Never used Substance Use Topics Alcohol use: No Drug use: No PHYSICAL EXAMINATION: BP 123/74 Pulse 69 Constitutional: In no acute distress. Respiratory: Normal respiratory effort without use of accessory muscles. Musculoskeletal: Normal gait and station Cardiovascular: Regular rate Gastrointestinal: Nondistended DATA: Clinic: URINALYSIS: No results found for this basename: uglucpoc,ubilipoc,uketo npoc,usgpoc,uhbpoc,uphp oc,upropoc,uuropoc,unit poc,uwbcpo- c,ucolpoc,uclarpoc Laboratory: Creatinine Date Value Ref Range Status 05/02/2024 0.98 0.73 - 1.22 mg/dL Final 03/27/2024 0.95 0.73 - 1.22 mg/dL Final 02/10/2024 0.86 0.50 - 1.40 mg/dL Final Comment: Patients receiving either N-Acetylcysteine (NAC) or Metamizole prior to venipuncture, may have falsely depressed results. 02/09/2024 0.89 0.50 - 1.40 mg/dL Final Comment: Patients receiving either N-Acetylcysteine (NAC) or Metamizole prior to venipuncture, may have falsely depressed results. Cultures: Culture Results - Past 1 Year Culture 02/24/2024 <10,000 CFU/ml Normal urogenital elodia 03/27/2024 <10,000 CFU/ml Normal urogenital elodia Susceptibility Tests - Past 1 Year Collected Organism 02/24/24 Normal urogenital elodia 03/27/[address] Scan Results No results found for this or any previous visit from the past 1 (more content not included)... Normal [facility] UA DIP, URINE (POC)on 2023 BILIRUBIN UA (POCT) Negative Negative [facility] CLARITY UA (POCT) Clear [facility] COLOR UA (POCT) Yellow [facility] GLUCOSE UA (POCT) Negative Negative mg/dL [facility] Hemoglobin Ql (U) Moderate Abnormal Negative [facility] Interpretation and review of laboratory results Abnormal [facility] KETONE UA (POCT) Negative Negative mg/dL [facility] LEUKOCYTES UA (POCT) Trace Abnormal Negative [facility] NITRITE UA (POCT) Negative [facility] PH UA (POCT) 7.0 4.5 - 8.0 [facility] Protein Ql (U) 100 mg/dL Abnormal Negative [facility] SPECIFIC GRAVITY UA (POCT) 1.020 1.005 - 1.030 [facility] UROBILINOGEN UA (POCT) 0.2 Nicole l E.U./dL [facility] Location:[address], [address] [facility] POINT OF CARE [facility] Views for blood flow and kidney function W diuretic Tony 02-20-2024 IMPRESSION: RIGHT KIDNEY: SATISFACTORY FLOW AND FUNCTION AND DRAINAGE WITH NO EVIDENCE OF OBSTRUCTION ON THE RIGHT. LEFT KIDNEY: DECREASED FLOW AND FUNCTION. DELAYED DRAINAGE. FINDINGS SUGGESTIVE OF OBSTRUCTION ON THE LEFT. SPLIT FUNCTION: LEFT KIDNEY 45 % AND RIGHT KIDNEY 55% Stand In: FAZAL Transcribe Date/Time: Feb 20 2024 2:36P Dictated by : ARACELY WASHBURN MD This examination was interpreted and the report reviewed and electronically signed by: ARACELY WASHBURN MD on Feb 20 2024 2:45PM EST [facility] * * *Final Report* * * DATE OF EXAM: Feb 20 2024 2:20PM RHN 0035 - NM RENAL FLOW/FXN W PHARM / PROCEDURE REASON: Hydronephrosis with ureteral stricture, not elsewhere classified * * * * Physician Interpretation * * * * DIURETIC RENAL SCAN: CLINICAL HISTORY: Hydronephrosis TECHNIQUE: 10.8 mCi Tc 99m MAG3 IV. Medications and allergies reviewed. 40 mg Lasix was given IV. Imaging of the kidneys for flow and function obtained in posterior views. CORRELATION: Renal scan 02/07/2024 RESULT: RENAL PERFUSION: There is delayed perfusion to the left kidney. There is prompt perfusion to the right kidney. RENAL FUNCTION: There is delayed uptake in an enlarged left kidney followed by sluggish parenchymal transit. There is delayed drainage of activity by the left kidney with progressive accumulation. Following Lasix there is mild clearance into a prominent dilated right ureter. Significant retention in the postvoid images. Post Lasix t- half clearance time is 136 minutes on the left, which suggest obstruction. Overall persistent delayed clearance on the left compared to the previous renal scan with minimal change. There is satisfactory uptake and normal rate of parenchymal transit by the right kidney. There is spontaneous drainage of activity by the right kidney. Following Lasix there is almost complete clearance with no evidence of obstruction.Post Lasix t- half clearance time is 1 minutes on the right which does not suggest obstruction. By computer analysis, the contribution to total renal function is 45% from the left kidney, and 55% from the right kidney. [facility] Provider, Scotty Phillips - 02/20/2024 * * *Final Report* * * DATE OF EXAM: Feb 20 2024 2:20PM RHN 0035 - NM RENAL FLOW/FXN W PHARM / PROCEDURE REASON: Hydronephrosis with ureteral stricture, not elsewhere classified * * * * Physician Interpretation * * * * DIURETIC RENAL SCAN: CLINICAL HISTORY: Hydronephrosis TECHNIQUE: 10.8 mCi Tc 99m MAG3 IV. Medications and allergies reviewed. 40 mg Lasix was given IV. Imaging of the kidneys for flow and function obtained in posterior views. CORRELATION: Renal scan 02/07/2024 RESULT: RENAL PERFUSION: There is delayed perfusion to the left kidney. There is prompt perfusion to the right kidney. RENAL FUNCTION: There is delayed uptake in an enlarged left kidney followed by sluggish parenchymal transit. There is delayed drainage of activity by the left kidney with progressive accumulation. Following Lasix there is mild clearance into a prominent dilated right ureter. Significant retention in the postvoid images. Post Lasix t- half clearance time is 136 minutes on the left, which suggest obstruction. Overall persistent delayed clearance on the left compared to the previous renal scan with minimal change. There is satisfactory uptake and normal rate of parenchymal transit by the right kidney. There is spontaneous drainage of activity by the right kidney. Following Lasix there is almost complete clearance with no evidence of obstruction.Post Lasix t- half clearance time is 1 minutes on the right which does not suggest obstruction. By computer analysis, the contribution to total renal function is 45% from the left kidney, and 55% from the right kidney. IMPRESSION IMPRESSION: RIGHT KIDNEY: SATISFACTORY FLOW AND FUNCTION AND DRAINAGE WITH NO EVIDENCE OF OBSTRUCTION ON THE RIGHT. LEFT KIDNEY: DECREASED FLOW AND FUNCTION. DELAYED DRAINAGE. FINDINGS SUGGESTIVE OF OBSTRUCTION ON THE LEFT. SPLIT FUNCTION: LEFT KIDNEY 45 % AND RIGHT KIDNEY 55% Stand In: PSCB Transcribe Date/Time: Feb 20 2024 2:36P Dictated by : ARACELY WASHBURN MD This examination was interpreted and the report reviewed and electronically signed by: ARACELY WASHBURN MD on Feb 20 2024 2:45PM EST [facility] Radiology Study observation (narrative) [place] Views for blood flow and kidney function W diuretic IVOrdered By: Ccf Provider on 02-20-2024 [facility] Emergency Department Summary on 12-15-2023 Emergency Department Summary [facility] Medical Records Department [address] [place] [address] Emergency Department Summary 12/15/23 MR#: [id number] Acct: [id number] Name: ANU LOPEZ MADELIN Rep #: [id number] : 2000 22 From: Julio Vega MD PCP: Care Physician,No Primary Status:REG ER Location: ED HPI HPI - URI History of Present Illness Chief Complaint: Cold Sx Informant: patient Narrative Narrative: Patient has had an illness with fever for the past 2 days. Multiple sick contacts at work with illness that have been out recently because of that. He has had a nonproductive cough along with some burning in his chest only when he coughs. No pleuritic symptoms if he is not coughing and no dyspnea. Initially fever was in the 100 range, this morning was 103.9. He has had a sore throat and some congestion with it, as well as vomiting. He states he has been drinking fluids, having trouble keeping it down but is drinking. He is urinating. ROS ROS ED Constitutional Constitutional ED: Reports body ache(s), chills, fatigue, fever(s), headache(s) and malaise Eyes Eyes: Denies change in vision or diplopia ENT ENT ED: Reports nasal congestion and sore throat Cardiovascular Cardiovascular: Reports as per HPI and chest pain; Denies leg edema, palpitations or radiating jaw, neck or arm pain Respiratory/Chest Respiratory/Chest: Reports cough; Denies dyspnea or dyspnea on exertion Gastrointestinal Gastrointestinal: Reports nausea and vomiting; Denies abdominal pain or diarrhea Genitourinary Genitourinary ED: Denies dysuria or hematuria Musculoskeletal Musculoskeletal: Denies back pain or neck pain Integumentary Denies abscess or rash Neurologic Neurologic: Reports headache(s); Denies paresthesias or weakness Psychiatric Psychiatric: Denies anxiety or suicidal thoughts PFSH PFSH Medical History no medical history no medical history Allergy/AdvReac Type Severity Reaction Status Date / Time No Known Allergies Allergy Verified 12/15/23 08:55 Social History Smoking Status: Never smoker EXAM Physical Exam Const Vital Signs: 12/15/23 08:53 Temperature 97.4 F L Temperature Source Temporal Pulse Rate 118 H Respiratory Rate 20 H Blood Pressure 149/91 H Blood Pressure Mean 110 Pulse Ox 97 Oxygen Delivery Method Room Air Positive well nourished and well developed Constitutional Narrative: Malaised-appearing, no distress General Appearance ED: well developed and NAD HEENT Reports moist mucous membranes HEENT Narrative: Posterior oropharynx with diffuse mild erythema no exudates or petechia. No tonsillar asymmetry/enlargement/e xudates. No trismus. normocephalic and atraumatic Eyes PERRL and EOMs intact bilaterally Neck full ROM, no lymphadenopathy, supple and no meningeal signs Resp normal respiratory effort and clear to auscultation bilaterally Cardio regular rate, regular rhythm and no murmurs GI non-tender and non-distended Auscultation: normoactive bowel sounds Palpation: soft Back/Spine no CVA tenderness General Back: other FROM Extremity normal to inspection and no calf tenderness General Extremety ED: Negative for edema, pulses abnormal or tenderness General Extremity: Negative for edema or pulses abnormal Neuro oriented x3, CN's II-XII intact bilaterally and no sensory deficits noted Sensorium / Orientation: awake and alert Motor Exam: strength 5/5 throughout Skin no rashes or lesions noted and no wounds MDM MDM MDM Narrative Medical decision making narrative: Very likely viral syndrome here. His pulse ox is 97% room air his lungs are clear to auscultation throughout and he is not dyspneic so I do not think he needs a chest x-ray this does not sound like pneumonia due to all of this. More likely to be viral in etiology than strep, so COVID/influenza/RSV swab was sent and he was offered treatment options. He was offered IV fluids, oral ibuprofen, and Zofran/Toradol. He opted for IM Toradol with an oral Zofran and no IV. This was given. I felt a little better. His swab is positive for influenza A, supporting the lack of need for a chest x-ray. Patient given instructions for supportive care and a work note. Discharge Plan Triage Chief Complaint: Cold Sx ED Provider: Julio Vega Dx/Rx/DC Orders Clinical Impression: Influenza A Instructions: ED Influenza (Adult) Stand Alone Forms: ED Work / School Excuse Primary Care Provider: Care Physician,No Primary Referrals: Doctor,Your [Non-Staff] - As Needed Disposition Disposition: Home, Self Care What to do if you have Problems For any increased pain, shortness of breath, bleeding, nausea or vomiting, chest pain, or any unexpected problems, contact your Primary Care Provider. Call [facility] ([phone] (more content not included)... Normal [facility] - Microbiology an d Antimicrobial susceptibilityOrdered By: Julio Vega on 12-15-2023 SARS-CoV-2 (COVID-19) RNA LANE+probe Ql (Unsp spec) Influenzae A [facility] M100.678on 12-15-2023 M100.678 Normal Reference Ran ge = Negative COV + FLU + RSV PCR GeneXpert Instrument, PCR method COV + FLU + RSV PCR Copy of report sent to Infection Control Printer [id number] 12/15/23 1038 EDETWEILE. RESULTS CALLED TO ZBEAM 12/15/23 1038 Carri Lara. REPORT READ BACK BY . SARS-CoV-2 (COVID 19) Negative INFLUENZA A Positive A INFLUENZA A Positive A RSV PCR Negative FLUA Normal [facility] Comment on above: Performed By: #### M 100.678 #### [facility] [address] [place], [address] Coronavirus 2019on 0 COVID 19 Result [employer] Normal Negative for COVID19 (SARS CoV2) by PCR. [facility] Comment on above: Result Comment: Nega tive for This test was developed and its performance characteristics determined by [facility]'s [facility] Pathology [facility] Laboratory [facility] [place]. This test has been authorized by FDA under an Emergency Use Authorization (EUA). This test has been validated in accordance with the FDA's Guidance Document Policy for Diagnostics Testing in Laboratories Certified to Perform High Complexity Testing under CLIA prior to Emergency use Authorization for Coronavirus Disease 2019 during the Public Health Emergency issued on December 06, 2019. COVID19 (SARS This test was developed and its performance characteristics determined by [facility]'s [facility] [place]. This test has been authorized by FDA under an Emergency Use Authorization (EUA). This test has been validated in accordance with the FDA's Guidance Document Policy for Diagnostics Testing in Laboratories Certified to Perform High Complexity Testing under CLIA prior to Emergency use Authorization for Coronavirus Disease 2019 during the Public Health Emergency issued on December 06, 2019. CoV2) by PCR. This test was developed and its performance characteristics determined by [facility]'s Shannan Vargas [facility] [place]. This test has been authorized by FDA under an Emergency Use Authorization (EUA). This test has been validated in accordance with the FDA's Guidance Document Policy for Diagnostics Testing in Laboratories Certified to Perform High Complexity Testing under CLIA prior to Emergency use Authorization for Coronavirus Disease 2019 during the Public Health Emergency issued on December 06, 2019. 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 Normal [facility] Reference Lab Vital Signs Date Time Vital Sign Value Performing Clinician Faci lity 08-03-2025 08:40-0400 Body height 185.4 cm Brandon Schwarz MD Work Phone: [facility] 08-03-2025 08:40-0400 Body mass index (BMI) [Ratio] 25.09 kg/m2 Brandon Schwarz MD Work Phone: [facility] 08-03-2025 08:40-0400 Body weight 86.27 kg Brandon Schwarz MD Work Phone: [facility] 08-03-2025 08:40-0400 Diastolic blood pressure 91 mm[Hg] Brandon Schwarz MD Work Phone: [facility] 08-03-2025 08:40-0400 Heart rate 68 /min Brandon Schwarz MD Work Phone: [facility] 08-03-2025 08:40-0400 SaO2% (BldA) [Mass fraction] 98 % Brandon Schwarz MD Work Phone: [facility] 08-03-2025 08:40-0400 Systolic blood pressure 153 mm[Hg] Brandon Schwarz MD Work Phone: [facility] 07-29-2025 14:52-0400 Body height 185.4 cm Clifton Newsome MD, PhD Work Phone: [facility] 07-29-2025 14:52-0400 Body mass index (BMI) [Ratio] 25.07 kg/m2 Clifton Newsome MD, PhD Work Phone: [facility] 07-29-2025 14:52-0400 Body weight 86.18 kg Clifton Newsome MD, PhD Work Phone: [facility] 07-29-2025 14:52-0400 Heart rate 76 /min Clifton Newsome MD, PhD Work Phone: [facility] 07-29-2025 14:52-0400 SaO2% (BldA) [Mass fraction] 99 % Clifton Newsome MD, PhD Work Phone: [facility] 07-11-2025 06:51-0400 Body temperature 98.2 [degF] Interventional Ihisschedule Work Phone: [facility] 07-11-2025 06:51-0400 Diastolic blood pressure 71 mm[Hg] Interventional Ihisschedule Work Phone: [facility] 07-11-2025 06:51-0400 Heart rate 66 /min Interventional Ihisschedule Work Phone: [facility] 07-11-2025 06:51-0400 Respiratory rate 14 /min Interventional Ihisschedule Work Phone: [facility] 07-11-2025 06:51-0400 SaO2% (BldA) [Mass fraction] 99 % Interventional Ihisschedule Work Phone: [facility] 07-11-2025 06:51-0400 Systolic blood pressure 127 mm[Hg] Interventional Ihisschedule Work Phone: [facility] 07-10-2025 06:20-0400 Body height 185.4 cm Interventional Ihisschedule Work Phone: [facility] 07-10-2025 06:20-0400 Body mass index (BMI) [Ratio] 23.48 kg/m2 Interventional Ihisschedule Work Phone: [facility] 07-10-2025 06:20-0400 Body weight 80.74 kg Interventional Ihisschedule Work Phone: [facility] 07-08-2025 09:17-0400 Body temperature 98.71 [degF] [facility] Buddy Mejía [facility] 07-08-2025 09:17-0400 Diastolic blood pressure 91 mm[Hg] [facility] Jonathan Mejía [facility] 07-08-2025 09:17-0400 Heart rate 72 /min [facility] Buddy Mejía [facility] 07-08-2025 09:17-0400 Respiratory rate 18 /min [facility] Buddy Mejía [facility] 07-08-2025 09:17-0400 SaO2% (BldA) [Mass fraction] 95 % [facility] Jonathan Mejía [facility] 07-08-2025 09:17-0400 Systolic blood pressure 131 mm[Hg] [facility] Jonathan Mejía [facility] 06-17-2025 15:52-0400 Body height 182.9 cm Rena Aviles MD Work Phone: [facility] 06-17-2025 15:52-0400 Body mass index (BMI) [Ratio] 25.01 kg/m2 Rena Aviles MD Work Phone: [facility] 06-17-2025 15:52-0400 Body weight 83.64 kg Rena Aviles MD Work Phone: [facility] 06-17-2025 15:52-0400 Diastolic blood pressure 75 mm[Hg] Rena Aviles MD Work Phone: [facility] 06-17-2025 15:52-0400 Heart rate 83 /min Rena Aviles MD Work Phone: 3(224)[phone] [place] [address] 06-17-2025 15:52-0400 SaO2% (BldA) [Mass fraction] 97 % Rena Aviles MD Work Phone: 0(317)[phone] [place] [address] 06-17-2025 15:52-0400 Systolic blood pressure 152 mm[Hg] Rena Aviles MD Work Phone: 7(576)048-833678 [place] [address] 01-21-2025 09:25-0400 Body height 182.9 cm Clifton Jackson MD, P hD Work Phone: 4([phone])[phone] [place] [address] 01-21-2025 09:25-0400 Body mass index (BMI) [Ratio] 24.82 kg/m2 Clifton Jackson MD, PhD Work Phone: 5(283)867-173478 [place] [address] 01-21-2025 09:25-0400 Body weight 83.01 kg Clifton Jackson MD, P hD Work Phone: 8(480)628-0016[address] [place] [address] 01-21-2025 09:25-0400 Diastolic blood pressure 92 mm[Hg] Clifton Jackson MD, PhD Work Phone: 0(660)803-923678 [place] [address] 01-21-2025 09:25-0400 Heart rate 66 /min Clifton Jackson MD, P hD Work Phone: 9([phone])792-233178 [place] [address] 01-21-2025 09:25-0400 SaO2% (BldA) [Mass fraction] 97 % Clifton Jackson MD, PhD Work Phone: 2(814)177-350578 [place] [address] 01-21-2025 09:25-0400 Systolic blood pressure 161 mm[Hg] Clifton Jackson MD, PhD Work Phone: 8(098)343-461478 [place] [address] 01-06-2025 15:04-0400 Body height 182.9 cm Clifton Jackson MD, P hD Work Phone: 7([phone])[phone] [place] [address] 01-06-2025 15:04-0400 Body mass index (BMI) [Ratio] 24.82 kg/m2 Clifton Jackson MD, PhD Work Phone: [facility] 01-06-2025 15:04-0400 Body weight 83.01 kg Clifton Jackson MD, P hD Work Phone: [facility] 01-06-2025 15:04-0400 Diastolic blood pressure 70 mm[Hg] Clifton Jackson MD, PhD Work Phone: [facility] 01-06-2025 15:04-0400 Heart rate 78 /min Clifton Jackson MD, P hD Work Phone: [facility] 01-06-2025 15:04-0400 SaO2% (BldA) [Mass fraction] 99 % Clifton Jackson MD, PhD Work Phone: [facility] 01-06-2025 15:04-0400 Systolic blood pressure 130 mm[Hg] Clifton Jackson MD, PhD Work Phone: [facility] 05-07-2024 14:39-0400 Diastolic blood pressure 74 mm[Hg] Basilio Gould MD Work Phone: [facility] 05-07-2024 14:39-0400 Heart rate 69 /min Basilio Gould MD Work Phone: [facility] 05-07-2024 14:39-0400 Systolic blood pressure 123 mm[Hg] Basilio Gould MD Work Phone: [facility] 03-12-2024 14:26-0400 Diastolic blood pressure 86 mm[Hg] Basilio Gould MD Work Phone: [facility] 03-12-2024 14:26-0400 Heart rate 71 /min Basilio Gould MD Work Phone: [facility] 03-12-2024 14:26-0400 SaO2% (BldA) [Mass fraction] 97 % Basilio Gould MD Work Phone: [facility] 03-12-2024 14:26-0400 Systolic blood pressure 135 mm[Hg] Basilio Gould MD Work Phone: [facility] 12-15-2023 11:14-0500 Body temperature 98.6 [degF] [facility] 12-15-2023 11:14-0500 Diastolic blood pressure 75 mm[Hg] [facility] 12-15-2023 11:14-0500 Heart rate 87 /min [facility] 12-15-2023 11:14-0500 Respiratory rate 16 /min [facility] 12-15-2023 11:14-0500 SaO2% (BldA) [Mass fraction] 99 % [facility] 12-15-2023 11:14-0500 Systolic blood pressure 123 mm[Hg] [facility] 12-15-2023 08:53-0500 Body height 185.42 cm [facility] 12-15-2023 08:53-0500 Body mass index (BMI) [Ratio] 22.3 kg/m2 [facility] 12-15-2023 08:53-0500 Body weight 76.83 kg [facility] Encounters Encounter Date Encounter Type Care Provider Facility Start: 08-26-2025 ambulatory BRANDON SCHWARZ Facility: [facility] Start: 08-19-2025 ambulatory CLIFTON NEWSOME Facility:[facility] Start: 08-17-2025 End: 08-17-2025 [facility] Start: 08-12-2025 ambulatory SELF SELF Facility:[facility] Start: 08-12-2025 Encounter for other preprocedural examination SELF SELF Facility:[facility] Start: 08-03-2025 End: 08-03-2025 Office outpatient visit 25 minutes Brandon Schwarz MD Work Phone: [facility] Comment on above: Nephrolithiasis (Quynh nahun Dx) Start: 08-03-2025 ambulatory BRANDON SCHWARZ Facility: [facility] Start: 07-29-2025 End: 07-29-2025 Office outpatient visit 25 minutes Clifton Newsome MD, PhD Work Phone: [facility] [place] Comment on above: Left flank pain (Quynh nahun Dx); Ureteral stricture; Ureteral stricture, left; Renal calculus, left Start: 07-29-2025 ambulatory CLIFTON NEWSOME Facility:[facility] Start: 07-10-2025 End: 07-11-2025 ambulatory SHELBY VASQUEZCLAUDE Facility:[facility] Start: 07-10-2025 End: 07-11-2025 Subsequent hospital visit by physician Anais Mcdaniel Work Phone: [facility] Comment on above: History of insertion of nephrostomy tube Start: 07-08-2025 ambulatory RENA Esposito ty:[facility] Start: 07-08-2025 End: 07-08-2025 Office outpatient new 45 minutes Rena Aviles MD Work Phone: [facility] Comment on above: Hydronephrosis, left (Primary Dx) Start: 06-26-2025 ambulatory SELF SELF Facility: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 Start: 06-15-2025 End: 06-15-2025 Emergency department patient visit MANOJ RAYMOND [facility] Start: 06-01-2025 End: 06-01-2025 ambulatory Ananda Shear [employer] [facility] Comment on above: Feeling of incomplet e bladder emptying (Primary Dx); Pain with urination Start: 05-26-2025 End: 05-26-2025 ambulatory AMENA Klarissa [facility] Start: 05-11-2025 End: 05-11-2025 ambulatory Ananda Shear [employer] [facility] Comment on above: Feeling of incomplet e bladder emptying (Primary Dx); Pain with urination Start: 05-05-2025 End: 05-08-2025 ambulatory Simin Jones MD Work Phone: Urology Start: 05-05-2025 End: 05-05-2025 Patient encounter procedure Simin Jones MD Work Phone: Urology Comment on above: Hydronephrosis with ureteral stricture, not elsewhere classified (Primary Dx); Screening for genitourinary condition Start: 05-04-2025 End: 05-04-2025 ambulatory [employer] [facility] Comment on above: Feeling of incomplet e bladder emptying (Primary Dx); Pain with urination Start: 04-29-2025 End: 04-29-2025 ambulatory [employer] [facility] Comment on above: Feeling of incomplet e bladder emptying (Primary Dx); Pain with urination Start: 04-27-2025 End: 04-27-2025 Telephone encounter [employer] [facility] Comment on above: Appointment (Patient NS. No answer. ) Start: 04-20-2025 End: 04-20-2025 ambulatory Myesha Fletcher PT Work Phone: [facility] Comment on above: Feeling of incomplet e bladder emptying (Primary Dx); Pain with urination Start: 04-07-2025 End: 04-07-2025 ambulatory PAT WILL Facility:[id number] Start: 04-07-2025 End: 04-07-2025 Office outpatient visit 25 minutes Patzay Okeefemadeline DUNCAN.[employer]ING [employer] Work Phone: Urology Comment on above: Feeling of incomplet e bladder emptying (Primary Dx); Hydronephrosis of left kidney Start: 04-05-2025 End: 04-05-2025 Emergency department patient visit DOYLE ACUNA [facility] Start: 03-27-2025 End: 03-27-2025 Follow-up encounter Ananda Smiley APRN.SUPERVISING [employer]AIL[employer] Work Phone: [facility] Comment on above: Results Start: 03-26-2025 End: 03-26-2025 Telephone encounter Ananda Smiley APRN.SUPERVISING [employer] Work Phone: Urology Start: 03-26-2025 End: 03-26-2025 Office outpatient visit 25 minutes Ananda Smiley PATIENT ACCOUNT REPRESENTATIVE.[employer]PER[employer]ING [employer] Work Phone: Urology Comment on above: Feeling of incomplet e bladder emptying (Primary Dx); Hydronephrosis of left kidney; Dysuria Start: 03-26-2025 End: 03-26-2025 ambulatory ANANDA SMILEY Facility:[id number] Start: 03-04-2025 End: 03-04-2025 Emergency department patient visit JUMA AYONSHAY [facility] Start: 02-26-2025 End: 02-26-2025 ambulatory [facility] Facility:[facility] Start: 02-19-2025 End: 02-19-2025 Telephone encounter Basilio Gould MD Work Phone: Urology Comment on above: Patient Question Start: 02-17-2025 End: 02-17-2025 Telephone encounter Basilio Gould MD Work Phone: [facility] Start: 02-13-2025 End: 02-13-2025 [facility] Start: 02-13-2025 End: 02-13-2025 Patient encounter procedure Proc [facility] Work Phone: Urology Comment on above: Feeling of incomplet e bladder emptying (Primary Dx) Start: 02-12-2025 End: 02-12-2025 Telephone encounter Basilio Gould MD Work Phone: Urology Start: 01-30-2025 End: 01-30-2025 ambulatory BASILIO GOULD Facility:[id number] Start: 01-26-2025 End: 01-26-2025 Emergency department patient visit DONI MATHIS [facility] Start: 01-21-2025 End: 01-26-2025 Telephone encounter Basilio Gould MD Work Phone: Urology Start: 01-21-2025 End: 01-21-2025 Subsequent hospital visit by physician Clifton Newsome MD, PhD Work Phone: Department of Radiology Comment on above: Arrived Start: 01-21-2025 ambulatory CLIFTON NEWSOME Facility: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 (Primary Dx) Start: 01-15-2025 End: 01-15-2025 [facility] Start: 01-07-2025 End: 01-07-2025 Telephone encounter Basilio Gould MD Work Phone: Urology Start: 01-07-2025 End: 01-07-2025 Patient encounter procedure Basilio Gould MD Work Phone: Urology Comment on above: Feeling of incomplet e bladder emptying (Primary Dx); Hydronephrosis, left Start: 01-07-2025 End: 01-07-2025 ambulatory BASILIO GOULD Facility:[id number] Start: 01-06-2025 End: 01-06-2025 ambulatory CLIFTON NEWSOME Facility:[facility] Start: 01-06-2025 End: 01-06-2025 Office consultation new/estab patient 60 min Clifton Newsome MD, PhD Work Phone: [facility] Comment on above: 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 (Primary Dx) Start: 01-05-2025 ambulatory BASILIO GOULD Faci lity:[id number] Start: 01-05-2025 End: 01-05-2025 Subsequent hospital visit by physician [facility] Work Phone: Radiology CT Scan Start: 12-26-2024 End: 12-28-2024 Telephone encounter Ananda Smiley APRN.CNP Work Phone: Urology Start: 12-25-2024 End: 12-25-2024 ambulatory SAGAR [facility] Facility:[id number] Start: 12-25-2024 End: 12-25-2024 Patient encounter procedure [facility] Aman Damon Work Phone: Urology Comment on above: Feeling of incomplet e bladder emptying (Primary Dx); Ureteral stricture, left Start: 12-14-2024 End: 12-14-2024 Emergency department patient visit VIKTOR RAMOS [facility] Start: 12-04-2024 End: 12-04-2024 ambulatory BASILIO GOULD Facility:[id number] Start: 12-04-2024 End: 12-04-2024 Patient encounter procedure Basilio Gould MD Work Phone: Urology Comment on above: Hydronephrosis, left (Primary Dx); Left flank pain; Feeling of incomplete bladder emptying; Ureteral stricture, left; Renal calculus, left Start: 12-01-2024 End: 12-01-2024 Emergency department patient visit DONI MATHIS [facility] Start: 11-27-2024 End: 11-27-2024 Emergency department patient visit SAGAR [facility] Start: 11-20-2024 End: 11-20-2024 ambulatory BASILIO GOULD Facility:[id number] Start: 11-20-2024 End: 11-20-2024 Patient encounter procedure Basilio Gould MD Work Phone: Urology Comment on above: Ureteral stricture, left (Primary Dx); Left flank pain; Renal calculus, left Start: 10-20-2024 End: 10-20-2024 Telephone encounter Basilio Gould MD Work Phone: [facility] Comment on above: Follow Up Start: 10-20-2024 End: 10-20-2024 ambulatory BASILIO GOULD Facility:[id number] Start: 09-18-2024 End: 09-18-2024 Telephone encounter Basilio Gould MD Work Phone: Urology Comment on above: Orders Start: 09-18-2024 End: 09-18-2024 ambulatory BASILIO GOULD Facility:[id number] Start: 09-18-2024 End: 09-18-2024 Patient encounter procedure Basilio Gould MD Work Phone: Urology Comment on above: Renal calculus, left (Primary Dx); Ureteral stricture, left; Hydronephrosis of left kidney Start: 09-16-2024 End: 09-16-2024 Telephone encounter Basilio Gould MD Work Phone: Urology Comment on above: Appointment Start: 09-11-2024 [id number] Start: 09-11-2024 End: 09-11-2024 [facility] Work Phone: Radiology CT Scan Comment on above: Ureteral stricture, left [N13.5] Start: 09-10-2024 End: 09-10-2024 Patient encounter procedure Collin Hamm Angy RT(R) Nuclear Medicine Start: 09-10-2024 End: 09-10-2024 ambulatory Collin S Angy RT(R) Nuclear Medicine Comment on above: Radiology NM Start: 09-10-2024 End: 09-10-2024 Subsequent hospital visit by physician [facility] Work Phone: Nuclear Medicine Comment on above: Hydronephrosis with ureteral stricture, not elsewhere classified [N13.1] Start: 09-01-2024 End: 09-01-[address] [facility] Start: 08-29-2024 End: 08-29-2024 ambulatory BASILIO GOULD Facility:[id number] Start: 08-29-2024 End: 08-29-2024 Patient encounter procedure Basilio Gould MD Work Phone: Urology Comment on above: Ureteral stricture, left (Primary Dx); Hydronephrosis of left kidney; Left flank pain; Right lateral abdominal pain Start: 06-13-2024 End: 06-13-2024 Patient encounter procedure Basilio Gould MD Work Phone: Urology Comment on above: Ureteral stricture, left (Primary Dx); Hydronephrosis of left kidney; Hydronephrosis with ureteral stricture, not elsewhere classified Start: 06-13-2024 End: 06-13-2024 ambulatory BASILIO GOULD Facility:[id number] Start: 05-15-2024 Telephone encounter Luis Fernando Gould MD Work Phone: Urology Comment on above: Appointment Start: 05-13-2024 End: 05-14-2024 ambulatory BASILIO GOULD Facility:[id number] Start: 05-07-2024 End: 05-07-2024 Patient encounter procedure Basilio Gould MD Work Phone: Urology Comment on above: Hydronephrosis of le ft kidney (Primary Dx); Ureteral stricture, left Start: 05-07-2024 End: 05-07-2024 ambulatory BASILIO GOULD Facility:[id number] Start: 04-07-2024 Patient encounter status Basilio Gould MD Work Phone: [facility] Start: 04-07-2024 Telephone encounter Luis Fernando Gould MD Work Phone: PROVIDER ADULT Comment on above: Orders Start: 03-12-2024 End: 03-12-2024 Patient encounter procedure Basilio Gould MD Work Phone: Urology Comment on above: Hydronephrosis of le ft kidney (Primary Dx) Start: 03-12-2024 Telephone encounter Luis Fernando Gould MD Work Phone: Urology Comment on above: Orders Start: 02-26-2024 Telephone encounter Luis Fernando Gould MD Work Phone: Urology Start: 02-25-[address] BARRY DAVID MD Faci lity:A Start: 02-20-2024 ambulatory Marilin Pereira RT(R) N uclear Medicine Comment on above: Radiology NM Start: 02-20-2024 Patient encounter procedure Marilin Pereira RT(R) Nuclear Medicine Start: 02-20-2024 End: 02-20-2024 Subsequent hospital visit by physician [facility] Work Phone: Nuclear Medicine Comment on above: Hydronephrosis with ureteral stricture, not elsewhere classified [N13.1] Start: 02-15-2024 Telephone encounter Luis Fernando Gould MD Work Phone: Urology Start: 02-13-2024 End: 02-13-2024 Patient encounter procedure Saul Rosas MD Work Phone: Urology Comment on above: Hydronephrosis of le ft kidney (Primary Dx); Hydronephrosis with ureteral stricture, not elsewhere classified Start: 02-10-2024 Orders Only Saul Rosas MD Work Phone: Urology Comment on above: Hydronephrosis of le ft kidney (Primary Dx) Hydronephrosis with ureteral stricture, not elsewhere classified (Primary Dx) Start: 02-07-2024 ambulatory Collin Keithna RT(R) Nuc lear Medicine Comment on above: Radiology NM Start: 02-07-2024 Patient encounter procedure Collin Keithna RT(R) Nuclear Medicine Start: 12-15-2023 End: 12-15-2023 Emergency department patient visit [facility] Facility:[facility] Start: 12-15-2023 End: 12-15-2023 Emergency department patient visit [facility] Work Phone: Start: 04-25-2023 End: 04-25-2023 ambulatory [facility] Procedures Date Procedure Procedure Detail Performing Clinician Start: 07-11-2025 Assay of magnesium Pascale Crawley Work Phone: Start: 07-10-2025 H/O: surgery History of insertion of nephrostomy tube Interventional Rad Ihisschedule Work Phone: Start: 07-10-2025 GENERAL PROCEDURE Annalise Hall MD Work Phone: Start: 07-10-2025 End: 07-10-2025 Creatinine blood Palmer Woo PATIENT ACCOUNT REPRESENTATIVE- [employer]PER[employer] Work Phone: Start: 06-17-2025 Urnls dip stick/tablet rgnt non-auto w/o micrscp Rena Aviles MD Work Phone: Start: 06-15-2025 Urinalysis [facility]TROS [facility] Comment on above: Result Comment: URINALYSIS Performed By: #### [id number] ####[place] [id number] Start: 05-05-2025 Urnls dip stick/tablet rgnt auto w/o microscopy Bulk Order Provider Start: 04-07-2025 BLADDER SCAN Pat Suman PATIENT ACCOUNT REPRESENTATIVE.CN P Work Phone: Start: 04-05-2025 Urinalysis [facility]OS [facility] Comment on above: Result Comment: URINALYSIS Performed By: #### [id number] ####[facility],[address] [place] [address] Start: 03-26-2025 BLADDER SCAN Ananda Smiley PATIENT ACCOUNT REPRESENTATIVE.SUPER[employer]ING [employer] Work Phone: Start: 03-26-2025 Urnls dip stick/tablet rgnt auto w/o microscopy Ananda Smiley PATIENT ACCOUNT REPRESENTATIVE.SUPERVISING [employer]AILIFF Work Phone: Start: 03-04-2025 Urinalysis [facility]OS [facility] Comment on above: Result Comment: URINALYSIS Performed By: #### [id number] ####[facility],[address] [place], [place] [id number] Start: 02-13-2025 Urnls dip stick/tablet rgnt auto w/o microscopy Bouchra MCGEE Work Phone: Start: 01-26-2025 Urinalysis BUTROS LATOUF Comment on above: Result Comment: URINALYSIS Performed By: #### [id number] ####[facility],[address] [place], [place] [id number] Start: 01-21-2025 Cystourethroscopy Clifton Newsome MD, PhD Work Phone: Start: 01-21-2025 Njx retrograde urethrocstograpy Clifton Newsome MD, PhD Work Phone: Start: 01-15-2025 Urinalysis BUTROS LATOUF Comment on above: Result Comment: URINALYSIS Performed By: #### [id number] ####[facility],[address] [place] [address] Start: 01-07-2025 Urnls dip stick/tablet rgnt auto w/o microscopy Basilio Gould MD Work Phone: Start: 12-14-2024 Urinalysis BUTROS LATOUF Comment on above: Result Comment: URINALYSIS Performed By: #### [id number] ####[facility],[address] [place] [address] Start: 12-04-2024 BLADDER SCAN Basilio De La O Work Phone: Start: 12-04-2024 Urnls dip stick/tablet rgnt auto w/o microscopy Basilio Gould MD Work Phone: Start: 12-01-2024 Urinalysis BUTROS LATOUF Comment on above: Result Comment: URINALYSIS Performed By: #### [id number] ####[facility],[address] [place] [address] Start: 11-27-2024 Urinalysis BUTROS LATOUF Comment on above: Result Comment: URINALYSIS Performed By: #### [id number] ####[facility],[address] [place] [address] Start: 11-20-2024 Urnls dip stick/tablet rgnt auto w/o microscopy Basilio Gould MD Work Phone: Start: 09-18-2024 Urnls dip stick/tablet rgnt auto w/o microscopy Basilio Gould MD Work Phone: Start: 09-10-2024 Kidney img morphology vascular flow 1 w/rx Basilio Gould MD Work Phone: Start: 08-29-2024 Urnls dip stick/tablet rgnt auto w/o microscopy Basilio Gould MD Work Phone: Start: 06-13-2024 Urnls dip stick/tablet rgnt auto w/o microscopy Basilio Gould MD Work Phone: Start: 05-07-2024 Urnls dip stick/tablet rgnt auto w/o microscopy Basilio Gould MD Work Phone: Start: 02-20-2024 Kidney img morphology vascular flow 1 w/rx Saul Rosas MD Work Phone: Start: 12-15-2023 SARS-CoV-2, Influenza & RSV (PCR) H/O: surgery History of inser tion of nephrostomy tube Interventional Ihisschedule Work Phone: Plan of Treatment Date Care Activity Detail Author Start: 08-19-2025 End: 08-19-2025 Patient encounter procedure 08/19/2025 11:00 AM EST Office Visit [facility] [address] [place] [address] Clifton Newsome MD, PhD [address] [place] [phone] [facility] Start: 07-30-2025 End: 07-30-2025 Patient encounter procedure 07/30/2025 8:30 AM EDT Office [facility] [address] [place] [address] Doyle Burns MD [address] [place] [address] [address] [place] [address] [facility] Start: 07-29-2025 End: 07-29-2025 Patient encounter procedure 07/29/2025 2:45 PM EDT Office Visit [facility] [address] [place] [phone] Clifton Newsome MD, PhD [address] [place] [phone] [facility] Start: 07-10-2025 Subsequent hospital visit by physician 07/10/2025 Hospital Encounter Interventional Radiology Lab [address] [place] [address] Ihisschedule, Interventional Rad [address] [place], [place] [id number] Hydronephrosis, left [facility] Lab Comment on above: Hydronephrosis, left Start: 07-10-2025 End: 07-10-2025 Admission to same day surgery center 07/10/2025 7:20 AM EDT - 07/10/2025 8:50 AM EDT Surgery Interventional Radiology Lab [address] [place] [address] Ihisschedule, Interventional Rad (Ir Dept Use Only) [address] [place] [address] PLACEMENT NEPHROSTOMY CATHETER PERCUTANEOUS W/ IMAGE GUIDANCE Percutaneous Antegrade Nephrostogram w/ Tube Placement Interventional [facility]iology Lab Comment on above: PLACEMENT NEPHROSTOMY CATHETER PERCUTANE OUS W/ IMAGE GUIDANCE Percutaneous Antegrade Nephrostogram w/ Tube Placement Start: 06-17-2025 End: 07-14-2025 ME POST VOID RESIDUAL ME POST VOID RESIDUAL ME - OFFICE PERFORMED Routine Feeling of incomplete bladder emptying Left flank pain Expected: 06/17/2025, Expires: 07/14/2025 [facility] Comment on above: Expected: 06/17/2025, Expires: Start: 06-08-2025 COVID-19 VACCINE ( season) COVID-19 VACCINE ( season) [facility] Start: 06-08-2025 COVID-19 VACCINE ( season) COVID-19 VACCINE ( season) [facility] Start: 06-08-2025 Influenza vaccination [facility] Start: 06-01-2025 End: 06-01-2025 Manual pelvic examination 06/01/2025 10:45 AM EDT OT/PT/Speech Visit [facility] [address] [facility] [place] [address] Ananda Souza PTA PELVIC FLOOR [facility] Comment on above: PELVIC FLOOR Start: 05-11-2025 End: 05-11-2025 Manual pelvic examination 05/11/2025 10:00 AM EDT OT/PT/Speech Visit [facility] [address] [place] [address] Ananda Souza PTA Pelvic Floor [facility] Comment on above: Pelvic Floor Start: 05-05-2025 End: 05-05-2025 Patient encounter procedure 05/05/2025 11:00 AM EDT Office Visit Urology [address] [address] Simin Jones MD [address] [place] [address] Enlarged Kidney Urology Comment on above: Enlarged Kidney Start: 05-04-2025 End: 05-04-2025 Manual pelvic examination 05/04/2025 11:30 AM EDT OT/PT/Speech Visit [facility] [address] [place] [address] Ananda Souza PTA Pelvic Floor [facility] Comment on above: Pelvic Floor Start: 04-29-2025 End: 04-29-2025 ambulatory 04/29/2025 11:30 AM EDT OT/PT/Speech Visit [facility] [address] [place] [address] Ananda Souza PTA pelivc [facility] Comment on above: pelivc Start: 04-27-2025 End: 04-27-2025 Manual pelvic examination 04/27/2025 9:15 AM EDT OT/PT/Speech Visit [facility] [address] [place] [address] Ananda Souza PTA Pelvic Floor [facility] Comment on above: Pelvic Floor Start: 04-20-2025 End: 04-20-2025 ambulatory 04/20/2025 2:00 PM EDT OT/PT/Speech Visit [facility] [address] [place] [address] Myesha Fletcher, PT [address] [place] [address] Feeling of incomplete bladder emptying [R39.14] [facility] Comment on above: Feeling of incomplete bladder emptying [ R39.14] Start: 03-06-2025 End: 03-06-2025 Patient encounter procedure 03/06/2025 10:00 AM EDT Office Visit Urology [address] [place] [address] Basilio Golud MD [address] [place], [place] [id number] 4 week follow up Urology Comment on above: 4 week follow up Start: 02-26-2025 End: 02-26-2025 Patient encounter procedure 02/26/2025 8:00 AM EDT Office Visit Urology [address] [place] [address] [facility], Proc [address] [place] [address] [facility] Comment on above: [facility] Start: 02-13-2025 End: 02-13-2025 Patient encounter procedure 02/13/2025 10:00 AM EDT Office Visit Urology [address] [place] [address] [facility], Proc [address] [place] [address] [facility] Comment on above: [facility] Start: 01-30-2025 End: 01-30-2025 Patient encounter procedure 01/30/2025 10:00 AM EDT Office Visit Urology [address] [place] [address] Basilio Gould MD [address] [facility] [place], [place] [id number] 6 WEEK FOLLOW UP; urine, pvr Urology Comment on above: 6 WEEK FOLLOW UP; urine, pvr Start: 01-21-2025 End: 01-21-2026 FLUORO IMAGING FOR UROLOGY [facility] Comment on above: Expected: 01/21/2025, Expires: 1 Occurrences starti ng 01/21/2025 until 01/21/2025 Start: 01-07-2025 End: 01-07-2025 Patient encounter procedure Urology Comment on above: [address] and urodynamic fo llow up CT and urodynamic fo llow up; urine, pvr Start: 01-05-2025 End: 01-05-2025 Patient encounter procedure 01/05/2025 3:00 PM EDT Appointment Radiology CT Scan [address] [place] [address] Scan Comment on above: hydronephrosis Start: 12-25-2024 End: 12-25-2024 Patient encounter procedure 12/25/2024 1:00 PM EDT Office Visit Urology [address] [facility] [place] [address] [facility] Comment on above: [facility] Start: 12-20-2024 End: 12-20-2024 Patient encounter procedure 12/20/2024 10:00 AM EDT Appointment Radiology CT Scan [address] [place] [address] Scan Comment on above: hydronephrosis Start: 12-04-2024 End: 03-05-2025 CREATININE BLD CREATININE BLD Lab Routine Hydronephrosis, left Expected: 12/04/2024, Expires: 03/05/2025 [facility] Comment on above: Expected: 12/04/2024, Expires: Start: 10-20-2024 End: 10-20-2024 Cysto bladder w/ureteral catheterization CYSTOSCOPY, RETROPYELOGRAM Renal stone 10/20/2024 1:05 PM EST MR OR Start: 10-20-2024 End: 10-20-2024 Cysto w/insert ureteral stent INSERTION STENT URETERAL Renal stone 10/20/2024 1:05 PM EST MR OR Start: 10-20-2024 End: 10-20-2024 Cysto w/ureteroscopy w/lithotripsy LASER CYSTOURETHROSCOPY W/ URETEROSCOPY AND/OR PYELOSCOPY W/ LITHOTRIPSY HOLMIUM Renal stone 10/20/2024 1:05 PM EST MR OR Start: 10-20-2024 End: 10-20-2024 Cysto w/urtroscopy&/pyeloscopy dx URETEROSCOPY FLEXIBLE Renal stone 10/20/2024 1:05 PM EST MR OR Start: 09-25-2024 End: 09-25-2024 Patient encounter procedure 09/25/2024 10:15 AM EST Office Visit Urology [address] [place] [address] Basilio Gould MD [address] [facility] [place], [place] [id number] follow up Urology Comment on above: follow up Start: 09-19-2024 End: 12-19-2024 Basic metabolic 2000 panel - Serum or Plasma BASIC METABOLIC PANEL Lab Routine Renal calculus, left Expected: 09/19/2024 (Approximate), Expires: 12/19/2024 [facility] Comment on above: Expected: 09/19/2024 (Approximate), Expi res: 12/19/2024 Start: 09-19-2024 End: 12-19-2024 CBC panel - Blood by Automated count COMPLETE BLOOD COUNT Lab Routine Renal calculus, left Expected: 09/19/2024 (Approximate), Expires: 12/19/2024 [facility] Work Phone: Comment on above: Expected: 09/19/2024 (Approximate), Expi res: 12/19/2024 Start: 09-19-2024 End: 12-19-2024 Urinalysis complete panel - Urine URINALYSIS WITH MICROSCOPIC, REFLEX CULTURE Lab Routine Renal calculus, left Expected: 09/19/2024 (Approximate), Expires: 12/19/2024 [facility] Comment on above: Expected: 09/19/2024 (Approximate), Expi res: 12/19/2024 Start: 09-18-2024 End: 09-18-2024 Patient encounter procedure 09/18/2024 8:30 AM EST Office Visit [place]rology [address] [place] [address] Basilio Gould MD [address] [place] [address] follow up Urology Comment on above: follow up Start: 09-17-2024 End: 09-17-2024 Patient encounter procedure 09/17/2024 10:15 AM EST Office Visit Urology [address] [place] [address] Basilio Gould MD [facility] [facility] [place] [address] 3 month follow up, renal flow scan prior Urology Comment on above: 3 month follow up, renal flow scan prior Start: 09-11-2024 End: 09-11-2024 Patient encounter procedure 09/11/2024 5:00 PM EST Appointment Radiology CT Scan [address] [place] [address] [place] [address] Scan Comment on above: ct flank Start: 09-10-2024 End: 09-10-2024 Patient encounter procedure Nuclear Medicine Comment on above: NM RENAL FLOW/FXN W PHARM Start: 06-13-2024 End: 07-13-2025 NM Views for blood flow and kidney function W diuretic IV NM RENAL FLOW/FXN W PHARM Radiology Routine Hydronephrosis with ureteral stricture, not elsewhere classified Expected: 06/13/2024, Expires: 07/13/2025 [facility] Comment on above: Expected: 06/13/2024, Expires: Start: 06-13-2024 End: 06-13-2024 Patient encounter procedure 06/13/2024 10:30 AM EDT Office Visit Urology [address] [place] [address] Basilio [facility] [address] [address] cysto, stent removal Urology Comment on above: cysto, stent removal Start: 06-08-2024 Covid-19 Vaccine ( season) Covid-19 Vaccine ( season) [facility] Start: 06-08-2024 Covid-19 Vaccine ( season) Covid-19 Vaccine () [facility] Start: 06-08-2024 Influenza vaccination [facility] Start: 05-13-2024 End: 05-13-2024 Admission to same day surgery center 05/13/2024 11:45 AM EDT - 05/13/2024 4:15 PM EDT Surgery [facility] Surgery [address] [place] [address] [place] [address] Basilio Gould MD [address] [place] [address] [place] [address] ROBOTIC LAPAROSCOPY URETERONEOCYSTOSTOMY W/O CYSTOSCOPY AND URETERAL STENT PLACEMENT [facility] Comment on above: ROBOTIC LAPAROSCOPY URETERONEOCYSTOSTOMY W/O CYSTOSCOPY AND URETERAL STENT PLACEMENT Start: 05-13-2024 End: 05-13-2024 Laps urtroneocstost w/o cstsc&urtrl stent plmt ROBOTIC LAPAROSCOPY URETERONEOCYSTOSTOMY W/O CYSTOSCOPY AND URETERAL STENT PLACEMENT Other hydronephrosis 05/13/2024 11:45 AM EDT MR OR Start: 05-13-2024 Subsequent hospital visit by physician 05/13/2024 11:45 AM EDT Hospital Encounter [facility] Surgery [address] [place] [address] [place] [address] Basilio Gould MD [address] [place] [address] [address] Other hydronephrosis [N13.39] [facility] Comment on above: Other hydronephrosis [N13.39] Start: 04-21-2024 Tetanus vaccination TETANUS [facility] Start: 04-21-2024 Urine microalbumin profile DTaP,Tdap,Td Vaccine (7 - Td or Tdap) [facility] Start: 04-08-2024 End: 07-08-2024 Basic metabolic 2000 panel - Serum or Plasma BASIC METABOLIC PANEL Lab Routine Ureteral stricture, left Expected: 04/08/2024 (Approximate), Expires: 07/08/2024 [facility] Comment on above: Expected: 04/08/2024 (Approximate), Expi res: 07/08/2024 Start: 04-08-2024 End: 07-08-2024 CBC panel - Blood by Automated count COMPLETE BLOOD COUNT Lab Routine Ureteral stricture, left Expected: 04/08/2024 (Approximate), Expires: 07/08/2024 [facility] Work Phone: Comment on above: Expected: 04/08/2024 (Approximate), Expi res: 07/08/2024 Start: 04-08-2024 End: 04-07-2025 ECG COMPLETE ECG COMPLETE ECG Routine Ureteral stricture, left Expected: 04/08/2024 (Approximate), Expires: 04/07/2025 [facility] Comment on above: Expected: 04/08/2024 (Approximate), Expi res: 04/07/2025 Start: 04-07-2024 End: 04-07-2024 Cysto bladder w/ureteral catheterization CYSTOSCOPY, RETROPYELOGRAM Other hydronephrosis 04/07/2024 1:24 PM EDT MR OR Start: 04-07-2024 End: 04-07-2024 Cysto w/insert ureteral stent INSERTION STENT URETERAL Other hydronephrosis 04/07/2024 1:24 PM EDT MR OR Start: 04-07-2024 End: 04-07-2024 Cysto w/simple removal stone & stent CYSTOURETHROSCOPY W/ REMOVE URETERAL STENT Other hydronephrosis 04/07/2024 1:24 PM EDT MR OR Start: 04-07-2024 End: 04-07-2024 Cysto w/urtroscopy&/pyeloscopy dx URETEROSCOPY FLEXIBLE Other hydronephrosis 04/07/2024 1:24 PM EDT MR OR Start: 03-13-2024 End: 06-12-2024 Basic metabolic 2000 panel - Serum or Plasma BASIC METABOLIC PANEL Lab Routine Hydronephrosis of left kidney Expected: 03/13/2024 (Approximate), Expires: 06/12/2024 [facility] Comment on above: Expected: 03/13/2024 (Approximate), Expi res: 06/12/2024 Start: 03-13-2024 End: 06-12-2024 CBC panel - Blood by Automated count COMPLETE BLOOD COUNT Lab Routine Hydronephrosis of left kidney Expected: 03/13/2024 (Approximate), Expires: 06/12/2024 [facility] Work Phone: Comment on above: Expected: 03/13/2024 (Approximate), Expi res: 06/12/2024 Start: 03-13-2024 End: 06-12-2024 Urinalysis complete panel - Urine URINALYSIS WITH MICROSCOPIC, REFLEX CULTURE Lab Routine Hydronephrosis of left kidney Expected: 03/13/2024 (Approximate), Expires: 06/12/2024 [facility] Comment on above: Expected: 03/13/2024 (Approximate), Expi res: 06/12/2024 Start: 03-12-2024 End: 03-12-2024 Patient encounter procedure 03/12/2024 2:45 PM EDT Office Visit Urology [address] [place] [address] Basilio Gould MD [address] [place] [address] Renal scan f/u Urology Comment on above: Renal scan f/u Start: 02-20-2024 End: 03-15-2025 NM Views for blood flow and kidney function W diuretic IV [facility] Work Phone: Comment on above: Expected: 02/20/2024, Expires: Expected: 02/20/2024 , Expires: 03/15/2025 Start: 02-20-2024 End: 02-20-2024 Patient encounter procedure 02/20/2024 1:00 PM EDT Appointment Nuclear Medicine [address] [place] [address] NM RENAL FLOW/FXN W PHARM Nuclear Medicine Comment on above: NM RENAL FLOW/FXN W PHARM Start: 12-15-2023 [facility] Start: 12-15-2023 [facility] Start: 10-08-2023 Behavioral Health Screening Behavioral Health Screening [facility] Start: 06-08-2023 Covid-19 Vaccine () Covid-19 Vaccine () [facility] Start: 2020 Anxiety Screening Anxiety Screening [facility] Start: 2020 Depression Screening Depression Screening [facility] Start: 2020 Hepatitis C screening Hepatitis C Screening [facility] Start: 2020 HIV screening HIV Screening [facility] Start: 2018 Meningococcal B Vaccine (1 of 2 - Standard) Meningococcal B Vaccine (1 of 2 - Standard) [facility] Start: 2018 Meningococcal B Vaccine: Consider Based On Risk (1 of 2 - Patient Seeks Protection) Meningococcal B Vaccine: Consider Based On Risk (1 of 2 - Patient Seeks Protection) [facility] Start: 2017 HIV screening HIV SCREENING DISCUSSION [facility] Start: 2016 Peds To Adult Transition Annual Assessment Peds To Adult Transition Annual Assessment [facility] Start: 2014 Peds To Adult Transition Initial Discussion Peds To Adult Transition Initial Discussion [facility] Start: 2002 Hepatitis C screening HEPATITIS C VIRUS SCREENING [facility] Bacteria identified in Urine by Culture URINE CULTURE Microbiology Routine Hydronephrosis of left kidney Ureteral stricture, left 05/07/2024 3:23 PM EDT [facility] Work Phone: Bacteria identified in Urine by Culture BACTERIAL CULTURE, URINE Microbiology Routine Feeling of incomplete bladder emptying Ordered: 02/13/2025 [facility] Work Phone: Comment on above: Ordered: 02/13/2025 Bacteria identified in Urine by Culture BACTERIAL CULTURE, URINE Microbiology Routine Dysuria Ordered: 03/26/2025 [facility] Comment on above: Ordered: 03/26/2025 BLADDER SCAN BLADDER SCAN Pro cedures Routine Feeling of incomplete bladder emptying Ordered: 01/07/2025 [facility] Work Phone: Comment on above: Ordered: 01/07/2025 CASE REQUEST DEPARTM ENT USE ONLY INTERVENTIONAL RADIOLOGY CASE REQUEST DEPARTMENT USE ONLY INTERVENTIONAL RADIOLOGY Procedures Routine Hydronephrosis, left Ordered: 07/10/2025 [facility] Comment on above: Ordered: 07/10/2025 End: 09-28-2025 CT Abdomen and Pelvis WO contrast CT FLANK WO IVCON Radiology Routine Ureteral stricture, left Left flank pain Right lateral abdominal pain 1 Occurrences starting 08/29/2024 until 09/28/2025 [facility] Work Phone: Comment on above: 1 Occurrences starting 08/29/2024 until 09/28/2025 CT Abdomen and Pelvi s WO contrast CT FLANK WO IVCON Radiology Routine Ureteral stricture, left Left flank pain Right lateral abdominal pain 09/11/2024 5:21 PM EST [facility] Work Phone: End: 01-03-2026 CT Urinary bladder W contrast intra bladder CT CYSTOGRAM W IVCON Radiology Routine Hydronephrosis, left 1 Occurrences starting 12/04/2024 until 01/03/2026 [facility] Work Phone: Comment on above: 1 Occurrences starting 12/04/2024 until 01/03/2026 Cysto w/insert urete ral stent CYSTOSCOPY, INSERTION STENT URETERAL J Kidney stones [facility] Cysto w/simple remov al stone & stent CYSTO W/URETER STENT EXTRACT Procedures Routine Ureteral stricture, left Ordered: 06/13/2024 [facility] Work Phone: Comment on above: Ordered: 06/13/2024 Exchange nephrostomy catheter prq w/img gid rs&i EXCHANGE NEPHROSTOMY CATHETER PERCUTANEOUS W/ IMAGE GUIDANCE Hydronephrosis, left [facility] INTER[facility] NEPHROLITHOTOMY PERCUTANEOUS ([facility]) NEPHROLITHOTOMY PERCUTANEOUS ([facility]) Nephrolithiasis [facility] Patient Education ED Influenza (Adult) [facility] Work Phone: Patient referral [facility] Work Phone: End: 07-08-2025 PLACEMENT NEPHROSTOMY CATHETER PERCUTANEOUS W/ IMAGE GUIDANCE [facility] Work Phone: Comment on above: One Time for 1 Occurrences starting 10/2024 until 07/08/2025 Urinalysis complete panel - Urine URINALYSIS, WITH MICROSCOPIC Lab Routine Dysuria Ordered: 03/26/2025 [facility] Work Phone: Comment on above: Ordered: 03/26/2025 URODYNAMICS URODYNAMICS Proc edures Routine Feeling of incomplete bladder emptying Ureteral stricture, left Ordered: 12/19/2024 [facility] Work Phone: Comment on above: Ordered: 12/19/2024 Immunizations Immunization Date Immunization Notes Care Provider Fa christopher 03-10-2019 Human Papillomavirus 9-valent vaccine Collin Angy RT(R) [facility] 03-10-2019 meningococcal polysaccharide (groups A, C, Y and W-135) diphtheria toxoid conjugate vaccine (MCV4P) Collin Angy RT(R) [facility] 09-25-2016 Human Papillomavirus 9-valent vaccine Collin Angy RT(R) [facility] 04-21-2014 human papilloma viru s vaccine, quadrivalent Collin Angy RT(R) [facility] 04-21-2014 meningococcal polysaccharide (groups A, C, Y and W-135) diphtheria toxoid conjugate vaccine (MCV4P) Collin Angy RT(R) [facility] 04-21-2014 tetanus toxoid, redu bisi diphtheria toxoid, and acellular pertussis vaccine, adsorbed Collin Angy RT(R) [facility] 08-03-2009 novel influenza-H1N1 -09, all formulations Collin Angy RT(R) [facility] Work Phone: 08-03-2009 influenza virus vacc ine, unspecified formulation Clifton Jackson MD, PhD Work Phone: [facility] 01-30-2008 diphtheria, tetanus toxoids and acellular pertussis vaccine Collin Angy RT(R) [facility] 01-30-2008 measles, mumps and rubella virus vaccine Collin Angy RT(R) [facility] Work Phone: 01-30-2008 poliovirus vaccine, inactivated Collin Angy RT(R) [facility] 01-30-2008 varicella virus vaccine Collin Angy RT(R) [facility] 07-26-2004 influenza virus vacc ine, unspecified formulation Collin Angy RT(R) [facility] 07-26-2004 pneumococcal conjuga te vaccine, 7 valent Collin Angy RT(R) [facility] 05-06-2004 diphtheria, tetanus toxoids and acellular pertussis vaccine Collin Angy RT(R) [facility] 05-06-2004 haemophilus influenz ae type b vaccine, HbOC conjugate Collin Angy RT(R) [facility] 02-11-2004 measles, mumps and rubella virus vaccine Collin Angy RT(R) [facility] 02-11-2004 varicella virus vaccine Collin Angy RT(R) [facility] 10-17-2003 hepatitis B vaccine, pediatric or pediatric/adolescent dosage Collin Angy RT(R) [facility] 10-17-2003 poliovirus vaccine, inactivated Collin Angy RT(R) [facility] 09-21-2003 influenza virus vacc ine, unspecified formulation Collin Angy RT(R) [facility] 07-30-2003 diphtheria, tetanus toxoids and acellular pertussis vaccine Collin Angy RT(R) [facility] 07-30-2003 haemophilus influenz ae type b vaccine, HbOC conjugate Collin Angy RT(R) [facility] 07-30-2003 pneumococcal conjuga te vaccine, 7 valent Collin Angy RT(R) [facility] 05-21-2003 diphtheria, tetanus toxoids and acellular pertussis vaccine Collin Angy RT(R) [facility] 05-21-2003 haemophilus influenz ae type b vaccine, HbOC conjugate Collin Angy RT(R) [facility] 05-21-2003 pneumococcal conjuga te vaccine, 7 valent Collin Angy RT(R) [facility] 05-21-2003 poliovirus vaccine, inactivated Collin Angy RT(R) [facility] 03-18-2003 pneumococcal conjuga te vaccine, 7 valent Collin Angy RT(R) [facility] 02-18-2003 diphtheria, tetanus toxoids and acellular pertussis vaccine Collin Angy RT(R) [facility] 02-18-2003 haemophilus influenz ae type b vaccine, HbOC conjugate Collin Angy RT(R) [facility] 02-18-2003 hepatitis B vaccine, pediatric or pediatric/adolescent dosage Collin Angy RT(R) [facility] 02-18-2003 poliovirus vaccine, inactivated Collin Angy RT(R) [facility] 2002 hepatitis B vaccine, pediatric or pediatric/adolescent dosage Collin Travis RT(R) [facility] Payers Date Payer Category Payer Managed Care (unspecified) [employer] HMO PPO POS [id number] 2023 Self-pay 2023 [employer] BLUE CARD PPO OOS [id number] 2023 Unknown [employer] BLUE CARD PPO OOS [id number] 2023-Present [phone] [address] [place] [address] PPO [id number] 2023 Unknown [id number] 2002 Unknown [id number] 2.16.840.1.997347.3.579. 2.627 2002 Unknown [id number] 2.16.840.1.511959.3.579. 2.594 2002 Unknown [id number] 2.16840.1.566773.3.579. 2.594 2002 Unknown [id number] 2.16840.1.973044.3.579. 2.594 2002 Unknown [id number] 2.16.840.1.806347.3.579. 2.594 2002 Unknown [id number] 2.16840.1.297999.3.579. 2.594 2002 Unknown [id number] 2.16840.1.209475.3.579. 2.594 2002 Unknown [id number] 2.16840.1.040064.3.579. 2.594 2002 Unknown [id number] 2.16840.1.716229.3.579. 2.594 2002 Unknown [id number] 2.840.1.087565.3.579. 2.594 2002 Unknown [id number] 2.16840.1.611279.3.579. 2.594 2002 Unknown [id number] 2.16840.1.823861.3.579. 2.594 2002 Unknown [id number] 2.16840.1.034880.3.579. 2.594 2002 Unknown [id number] 2.840.1.049347.3.579. 2.594 2002 Unknown [id number] 2.16840.1.031354.3.579. 2.651 2002 Unknown [id number] 2.16840.1.499423.3.579. 2.651 2002 Unknown [id number] 2.16840.1.029470.3.579. 2.651 2002 Unknown [id number] 2.16840.1.964875.3.579. 2.651 2002 Unknown [id number] 2.16840.1.264911.3.579. 2.651 2002 Unknown [id number] 2.16.840.1.210318.3.579. 2.651 2002 Unknown [id number] 2.16.840.1.662713.3.579. 2.651 2002 Unknown [id number] 2.16.840.1.685413.3.579. 2.651 2002 Unknown [id number] 2.16.840.1.671014.3.579. 2.651 2002 Unknown [id number] 2.16.840.1.394315.3.579. 2.651 2002 Unknown [id number] 2.16.840.1.520479.3.579. 2.651 Unknown [id number] 2.16.840.1.960051.3.579. 2.462 Social History Date Type Detail Facility Start: 12-15-2023 Tobacco smoking status VTIS Unknown if ever smoked [facility] Start: 2002 Sex Assigned At Male W [facility] Start: 11-05-2017 End: 01-06-2025 Tobacco smoking status VTIS Never smoked tobacco [facility] Start: 11-05-2017 End: 01-06-2025 Tobacco use and exposure Smokeless tobacco non-user [facility] Start: 03-10-2019 End: 04-07-2025 Alcohol intake Current non-drinker of alcohol (finding) [facility] Start: 03-10-2019 End: 07-08-2025 History of Social function [facility] Start: 03-10-2019 End: 07-08-2025 Tobacco use panel [facility] Start: 09-08-2012 National Score (1-100), lower number is lower risk Not on file [facility] Start: 10-30-2012 End: 04-02-2024 Tobacco Comment smoking outside at [facility] Start: 2002 Sex Assigned At Not on file [facility] Start: 05-07-2024 Tobacco Comment smoking outsid e at [facility] Start: 01-06-2025 End: 08-03-2025 Alcoholic beverage intake Lifetime non-drinker (finding) [facility] Start: 12-26-2024 Sex Male (finding) [facility] In the past 12 months, was there a time when you were not able to pay the mortgage or rent on time? No [facility] NEGATED: Highlighted rowStart: NINF History of tobacco use Passive smoker [facility] Medical Equipment Procedure Code Equipment Code Equipment Origin al Text Equipment Identifier Dates Set 7fr .038in 2 Pigtail Curve Black Stainless Steel Vinyl Silicone 26cm - [id number] Start: 02-08-2024 Set 6fr .038in 2 Pigtail Curve Filiform Black Stainless Steel Vinyl - [id number] Start: 04-07-2024 Set 6fr .038in 2 Pigtail Curve Filiform Black Stainless Steel Vinyl - [id number] Start: 10-20-2024 Functional Status Date Assessment Result Facility 07-10-2025 Are you deaf, or do you have serious difficulty hearing No 07/10/2025 10:59 AM Brandon Stewart RN No [facility] 07-10-2025 Are you blind, or do you have serious difficulty seeing, even when wearing glasses No 07/10/2025 10:59 AM Brandon Stewart, NUBIA No [facility] 07-10-2025 Do you have serious difficulty walking or climbing stairs No 07/10/2025 10:59 AM Brandon Stewart, NUBIA No [facility] 07-10-2025 Do you have difficul ty dressing or bathing No 07/10/2025 10:59 AM Brandon Stewart RN No [facility] 07-10-2025 Because of a physica l, mental, or emotional condition, do you have difficulty doing errands alone such as visiting a physician's office or shopping No 07/10/2025 10:59 AM Brandon Stewart RN No [facility] 07-08-2025 Are you deaf, or do you have serious difficulty hearing No 07/08/2025 9:23 AM Vaibhav Escobar, NUBIA No [facility] 07-08-2025 Are you blind, or do you have serious difficulty seeing, even when wearing glasses No 07/08/2025 9:23 AM Vaibhav Escobar, NUBIA No [facility] 02-10-2024 Are you deaf, or do you have serious difficulty hearing No 02/10/2024 3:40 PM Henrietta Ferrer RN No [facility] 02-10-2024 Are you blind, or do you have serious difficulty seeing, even when wearing glasses No 02/10/2024 3:40 PM Henrietta Ferrer RN No [facility] 02-10-2024 Do you have serious difficulty walking or climbing stairs No 02/10/2024 3:40 PM Henrietta Ferrer RN No [facility] 02-10-2024 Do you have difficul ty dressing or bathing No 02/10/2024 3:40 PM Henrietta Ferrer RN No [facility] 02-10-2024 Because of a physica l, mental, or emotional condition, do you have difficulty doing errands alone such as visiting a physician's office or shopping No 02/10/2024 3:40 PM Henrietta Ferrer RN No [facility] Mental Status Date Assessment Result Facility 07-10-2025 Because of a physica l, mental, or emotional condition, do you have serious difficulty concentrating, remembering, or making decisions No 07/10/2025 10:59 AM Brandon Stewart RN No [facility] 02-10-2024 Because of a physica l, mental, or emotional condition, do you have serious difficulty concentrating, remembering, or making decisions No 02/10/2024 3:40 PM Henrietta Ferrer RN No [facility] 12-15-2023 Cognitive function Level Of Cons ciousness Awake;Alert;Appropriate;Fol lows Commands [facility] Work Phone: Clinical Notes 12-15-2023 to 08-03-2025 Brandon Schwarz MD - 08/03/2025 8:45 AM Vesna Barrettr, MA - 08/03/2025 8:45 AM EDTAddendum Note - Marline Vaughn - 08/03/2025 8:45 AM EDTAddendum Note - Marline Vaughn - 08/03/2025 8:45 AM EDT Note Date & Type Note Facility 08-03-2025 History of Present illness Narrative HPI: Anu Lopez is a 24 y.o. 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 Gould) c/b left flank pain s/p L URS/LL, stent placement (10/20/24, Dr. Gould). He had a cysto/RUG with Dr. Clifton Newsome 01/21/25 which was normal. He was seeing Dr clifton newsome for concern for an anterior urethral stricture (which was ultimately not the case). He says after his robotic reimplant he never had improvement in his pain. He had a left PCN placed on 07/10/25. he says he still has pressure/pain (dull achy, sometimes crampy, sharp, sometimes nausea). However the pressure did seem to improve after the left nephrostomy tube was placed. He still has a dull aching feeling that worsens when he voids. He describes it as a pop can being crushed. The patient has a has required URS in the past (Oct [address] Gould at [facility]). Operative report reports the left ureter is wide open This patient has a positive history of: none The patient has a positive history of the following neurologic comorbidities: none CT abdomen and pelvis- personally reviewed 06/15/25 Left lower pole stone burden appears to be layering debris PAST MEDICAL HISTORY: Past Medical History[1] PAST SURGICAL HISTORY: Past Surgical History[2] ALLERGIES: Hydromorphone MEDICATIONS: Current Medications[3] FAMILY HISTORY History reviewed. No pertinent family history. SOCIAL HISTORY: Social History[4] REVIEW OF SYSTEMS: 10 out of 14 ROS negative except for above EXAM: Vitals: 08/03/25 0840 BP: (!) 153/91 Pulse: 68 SpO2: 98% General appearance: Well-developed, well nourished male in no apparent distress. Mental Status: Alert and oriented. HEENT: Normocephalic, atraumatic. RESP: breathing comfortably on room air Back: No evidence of flank discomfort. Extremities: No cyanosis, clubbing, or edema. Skin: Normal Neuro: Motor and Sensory exams grossly intact. Psych: Cooperative with normal affect. IMAGING/LABS: Lab Results Component Value Date WBC 8.39 07/11/2025 HGB 14.1 07/11/2025 HCT 44.1 07/11/2025 PLATELET 249 07/11/2025 MCV 89.8 07/11/2025 Lab Results Component Value Date CREATSERUM 0.94 07/11/2025 CREATSERUM 0.77 07/10/2025 BUN 17 07/11/2025 POTASSIUM 3.6 07/11/2025 CO2 28 07/11/2025 SODIUM 140 07/11/2025 CALCIUM 9.1 07/11/2025 PHOSPHORUS 3.5 07/11/2025 Estimated Creatinine Clearance: 139 mL/min (by C-G formula based on SCr of 0.94 mg/dL). MICRO: Urine dipstick shows Component Ref Range & Units (hover) 06/17/25 1633 POCT APPEARANCE, URINE clear POCT COLOR, URINE yellow POCT GLUCOSE, URINE neg POCT BILIRUBIN, URINE neg POCT KETONES, URINE neg POCT SPECIFIC GRAVITY, URINE 1.020 POCT BLOOD, URINE neg pH, Urine, POC 7.0 POCT PROTEIN, URINE 30 POCT UROBILINOGEN, URINE 0.2 POCT NITRITE, URINE neg POCT LEUKOCYTE, URINE small Imaging: See HPI above NM renal scan 09/10/24 RESULT: Split Function: - Left Kidney: 46.4% - Right Kidney: 53.6% Left Kidney: - Perfusion & Uptake: Prompt and symmetric - Parenchymal transit: Moderate cortical retention - Drainage: Minimal drainage prior to Lasix with mild improvement following Lasix administration - Post diuretic T-1/2 (minutes): 52.4 Right Kidney: - Perfusion & Uptake: Prompt and symmetric - Parenchymal transit: Within normal limits - Drainage: Prompt, spontaneous drainage prior to diuretic - Post diuretic T-1/2 (minutes): Invalid given normal drainage PLAN: N20.0 The patient has nephrolithiasis. The patient's labs and imaging were personally reviewed and interpreted in clinic. Discussed the risks and benefits of intervention vs observation. The probability of stone passage based on stone size and position in the ureter was mentioned. We discussed what to watch for in terms of needing to come into the ER and these included: Fever > 101.0 and severe, intractable flank pain. The patient had an opportunity to ask questions all of which were answered. At this point the patient the patient is scheduled to undergo Left PCNL. We have discussed the risks, benefits, and alternatives to the aforementioned intervention. Specific risks that were reviewed include: failure to removal all stone and need for further surgery, infection/sepsis, anemia/bleeding, injury to genitourinary structures (urethra, bladder, ureters, kidneys) and surrounding organs (not limited to but including: colon, pleura/lungs, spleen, liver). Despite these risks the patient wishes to proceed with surgery. We discussed that his pain may persist even with removal of left kidney stones. We also discussed that he may have persistent underlying left flank pain for ever - needs referral to [facility] medical decision making occurred as I reviewed notes from the patient's referring physician/clinic notes CT scan prior cystoscopy records urinalysis results CBC BMP prior operative notes. Additionally, I independently interpreted the patient's CT. Brandon Schwarz MD 08/03/2025 Note will be forwarded to: No primary care provider on file. [1] Past Medical History: Diagnosis Date Urethral stricture 01/06/2025 [2] Past Surgical History: Procedure Laterality Date PLACEMENT NEPHROSTOMY CATHETER PERCUTANEOUS W/ IMAGE GUIDANCE Left 07/10/2025 Laterality: Left; Surgeon: Annalise Hall MD; Location: [facility] INTERVENTIONAL RADIOLOGY (VIR) [3] Current Outpatient Medications: Sodium Chloride Flush (Saline Flush) 0.9 % Solution, Flush nephrostomy tube once daily. (Patient not taking: Reported on 08/03/2025), Disp: 10 mL, Rfl: 5 [4] Social History Tobacco Use Smoking status: Never Smokeless tobacco: Never Vaping Use Vaping status: Never Used Substance Use Topics Alcohol use: Never Drug use: Never Patient has verified full name and . U/A dip was performed and results documented. documented in this encounter [facility] 08-03-2025 Miscellaneous Notes Addended by: MARLINE VAUGHN on: 08/03/2025 04:19 PM Modules accepted: Orders documented in this encounter [facility] 08-03-2025 Note Addended by: MARLINE VAUGHN on: 08/03/2025 04:19 PM Modules accepted: Orders [facility] 07-29-2025 Evaluation + Plan note Associated Problem(s): Renal calculus, left He has a large left lower pole renal stone that may be causing flank pain and UTI. We discussed this needs to be addressed also. Will refer to endourology for further evaluation. [facility] 07-29-2025 Miscellaneous Notes Associated Problem(s): Renal calculus, left He has a large left lower pole renal stone that may be causing flank pain and UTI. We discussed this needs to be addressed also. Will refer to endourology for further evaluation. Associated Problem(s): Ureteral stricture, left We discussed the nature and etiology of his stricture disease and hydronephrosis in setting of kidney stones and ureteral surgery. Unclear if there is stricture at the site of repair or if this is reflux. Will plan for nephrostogram 4-6 weeks after nephrostomy tube placement. documented in this encounter [facility] 07-29-2025 Evaluation + Plan note Associated Problem(s): Ureteral stricture, left We discussed the nature and etiology of his stricture disease and hydronephrosis in setting of kidney stones and ureteral surgery. Unclear if there is stricture at the site of repair or if this is reflux. Will plan for nephrostogram 4-6 weeks after nephrostomy tube placement. [facility] 07-29-2025 History of Present illness Narrative UROLOGY OUTPATIENT CONSULTATION: HISTORY OF PRESENT ILLNESS Subjective Anu Lopez is a 24 y.o. male h/o distal left ureteral stricture s/p robotic left ureteral reimplantation with Psoas hitch (05/13/24; Dr. Gould) c/b left flank pain s/p L URS/LL, stent placement (10/20/24; Dr. 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 States pain radiates to left and right flank. PVR 231 cc when he [address] Dr[address] Gould (12/04/24). Was scheduled to have UDS and CT cystogram to r/o VUR. He was thought to have a urethral stricture at time of UDS when catheter could not pass. Disease Duration: 1.5 months Number of previous endoscopic stricture procedures: 0 Number of prior urethroplasties: 0 Current LUTS: Slow Stream/Weak Stream, Feelings of Incomplete Emptying, Straining, Hesitancy, and Frequency (12x per day) Denies: Urinary Retention, Nocturia (0x per night), and Urge Incontinence Current bladder management: Voiding He does not use dentures He does not use chewing tobacco/snuff Associated Factors Details Hx pelvic/perineal/urethral trauma absent Hx pelvic radiation therapy absent Hx endoscopic procedures (before stricture) absent Hx major lower urinary tract surgeries absent Hx STIs absent Hx hypospadias/epispadias surgery absent Hx diagnosed lichen sclerosus absent 01/21/25 - continues to have left flank pain and discomfort with voiding 07/29/25 - seen by Dr. Aviles 06/2025. Having ongoing issues with emptying bladder and persistent left flank pain and recurrent UTIs. Ultimately had L PCN placed on 07/10/25. Had UDS with [facility] and had PFPT which improved emptying. Makes significant volume from left kidney. Imaging reviewed demonstrates a large lower pole stone that may be contributing to flank pain. Past Medical History: Past Medical History: Diagnosis Date Urethral stricture 01/06/2025 Past Surgical History: Past Surgical History: Procedure Laterality Date PLACEMENT NEPHROSTOMY CATHETER PERCUTANEOUS W/ IMAGE GUIDANCE Left 07/10/2025 Laterality: Left; Surgeon: Annalise Hall MD; [facility] INTER[facility]OLOG[facility] (VIR) Relevant Medications: Outpatient Medications Prior to Visit Medication Sig Dispense Refill Sodium Chloride Flush (Saline Flush) 0.9 % Solution Flush nephrostomy tube once daily. 10 mL 5 No facility-administered medications prior to visit. Relevant Family and Social History: No family history on file. Social History Tobacco Use Smoking status: Never Smokeless tobacco: Never Substance Use Topics Alcohol use: Never Allergies: Allergies Allergen Reactions Hydromorphone Rash Objective Physical Exam: Physical Exam Vitals reviewed. Constitutional: Appearance: Normal appearance. He is normal weight. Pulmonary: Effort: Pulmonary effort is normal. Breath sounds: Normal breath sounds. Abdominal: General: Abdomen is flat. Palpations: Abdomen is soft. Genitourinary: Penis: Normal and circumcised. Testes: Normal. Neurological: General: No focal deficit present. Mental Status: He is alert and oriented to person, place, and time. Mental status is at baseline. Psychiatric: Mood and Affect: Mood normal. Behavior: Behavior normal. Labs: Lab Results Component Value Date SODIUM 140 07/11/2025 POTASSIUM 3.6 07/11/2025 CHLORIDE 105 07/11/2025 CO2 28 07/11/2025 BUN 17 07/11/2025 CREATSERUM 0.94 07/11/2025 GLUCOSE 107 07/11/2025 Lab Results Component Value Date WBC 8.39 07/11/2025 HGB 14.1 07/11/2025 HCT 44.1 07/11/2025 PLATELET 249 07/11/2025 MCV 89.8 07/11/2025 No results found for: HGBA1C Assessment and Plan: Anu Lopez is a 24 y.o. male h/o distal left ureteral stricture s/p robotic left ureteral reimplantation with Psoas hitch (05/13/24; Dr. Gould) c/b left flank pain s/p L URS/LL, stent placement (10/20/24; Dr. Gould) who presents for evaluation of left ureteral stricture and hydronephrosis. We discussed the following problems: Ureteral stricture, left We discussed the nature and etiology of his stricture disease and hydronephrosis in setting of kidney stones and ureteral surgery. Unclear if there is stricture at the site of repair or if this is reflux. Will plan for nephrostogram 4-6 weeks after nephrostomy tube placement. Renal calculus, left He has a large left lower pole renal stone that may be causing flank pain and UTI. We discussed this needs to be addressed also. Will refer to endourology for further evaluation. This represents a stable illness/condition for which a limited amount of review including medical records, available test results, an independent history and ordering tests of my own was required to formulate a plan. This plan includes a recommendation for management with minor or elective major surgery with a moderate possible risk of morbidity.. At the end of the visit, the patient was given time to answer any and all remaining questions. I would be happy to see them again outside of what we agreed above, should further issues arise. Clifton Newsome MD, PhD documented in this encounter [facility] 07-11-2025 Miscellaneous Notes Received call from patient after discharge requesting information regarding work restrictions and when to return to work. Patient was advised to call the surgeon Sunday morning for this information, advised not to return to work at this time, until they discuss this with the surgeons office first. Patient discharged home, IV access removed, after visit summary printed and reviewed with patient and family at bedside, denies questions or concerns at this time. Patient and all personal belongings taken off unit via wheelchair. Problem: Adult Inpatient Plan of Care Goal: Plan of Care Review Outcome: Progressing Goal: Patient-Specific Goal (Individualized) Outcome: Progressing Goal: Absence of Hospital-Acquired Illness or Injury Outcome: Progressing Goal: Optimal Comfort and Wellbeing Outcome: Progressing Goal: Readiness for Transition of Care Outcome: Progressing Problem: Surgical Site Infection Goal: Absence of Infection Signs and Symptoms Outcome: Progressing Problem: Adult Inpatient Plan of Care Goal: Plan of Care Review Outcome: Progressing Goal: Patient-Specific Goal (Individualized) Outcome: Progressing Goal: Absence of Hospital-Acquired Illness or Injury Outcome: Progressing Goal: Optimal Comfort and Wellbeing Outcome: Progressing Goal: Readiness for Transition of Care Outcome: Progressing Problem: Surgical Site Infection Goal: Absence of Infection Signs and Symptoms Outcome: Progressing Problem: Adult Inpatient Plan of Care Goal: Plan of Care Review Outcome: Progressing Goal: Patient-Specific Goal (Individualized) Outcome: Progressing Goal: Absence of Hospital-Acquired Illness or Injury Outcome: Progressing Goal: Optimal Comfort and Wellbeing Outcome: Progressing Goal: Readiness for Transition of Care Outcome: Progressing Problem: Surgical Site Infection Goal: Absence of Infection Signs and Symptoms Outcome: Progressing On admission to [facility], from IR a dual RN initial assessment of skin condition was performed by Gracy Sherman RN and Chris RN. Skin Assessment: Skin within defined limits:Yes Skin intact except puncture site to L back/flank area with Gauze tegaderm dressing in place and L neprostomy tube to gravity bag Rubén Score: 22 LDA Added:Yes Gracy Sherman RN 0907: Paged Dr. Kevin Lopez [facility] [place] [address]. Pt. complaining of left flank pain rates 6/[address] IV pain med. Thanks [phone] 1031: Handoff report given to inpatient RN Gracy Willoughby O[facility]. 1046: Pt. Transported to OBS in cart by Rena,PHOTOGRAPHER FINISH Interventional Radiology procedure completed with IR Attending Dr. Hall of percutaneous left nephrostomy tube placement. Procedure tolerated well with local anesthetic and moderate sedation. Report called. Post procedure orders in place and include strict 2 hour bedrest. Transported to [facility], [place] [address] post procedure, condition stable. 0845: Patient arrives in [facility] Phase 2 Interventional Radiology from Interventional Radiology Procedure Suite with side rails up x2 with HOB >30 degrees, accompanied by IR Nurse. Patient placed on monitors, VSS. Patient assessed, see assessment. documented in this encounter [facility] 07-11-2025 Nurse Note Received call from patient after discharge requesting information regarding work restrictions and when to return to work. Patient was advised to call the surgeon Sunday morning for this information, advised not to return to work at this time, until they discuss this with the surgeons office first. [facility] 07-11-2025 Nurse Note Patient discharged home, IV access removed, after visit summary printed and reviewed with patient and family at bedside, denies questions or concerns at this time. Patient and all personal belongings taken off unit via wheelchair. [facility] 07-11-2025 Hospital course Narrative Images from the original note were not included. Discharge Summary Name: Anu Lopez Age: 24 y.o. Birthday: 2000 Admit Date: 07/10/2025 5:51 AM Discharge Date: 07/11/2025 Admission Information Admitting Physician: Anais Mcdaniel Discharge Information Discharge Physician: SYDNIE Bloom Problem List Active Hospital Problems Diagnosis History of insertion of nephrostomy tube Resolved Hospital Problems No resolved problems to display. Brief Summary of Hospital Course for Discharge Summary: Mr. Lopez is a 24 y.o. male with no significant PMH and history of distal left ureteral stricture s/p robotic left ureteral reimplantation with Psoas hitch (05/13/24, Dr. Gould) c/b left flank pain s/p L URS/LL, stent placement (10/20/24, Dr. Gould). He was admitted to the [facility] Observation Unit for post procedural monitoring and pain control s/p left neph tube placement 07/10. Patient did well overnight. Pain controlled with OTC's. AM renal function reassuring. Has good output from the neph tube. Discussed with IR; ok to discharge from their perspective. On day of discharge, patient was evaluated. Vitals reviewed and stable. On exam, patient is well appearing, heart rate and rhythm regular, lungs CTA b/l, abdomen is soft, non-tender, bowel sounds are present, left neph site without surrounding complications or significant pain to palpation, UOP noted in neph bag and patient does not have lower extremity edema. Patient discharged in stable condition. IR and Urology follow up encouraged. Summary of last selected lab results and date obtained: Lab Results Component Value Date WBC 8.39 07/11/2025 HGB 14.1 07/11/2025 HCT 44.1 07/11/2025 PLATELET 249 07/11/2025 MCV 89.8 07/11/2025 Lab Results Component Value Date SODIUM 140 07/11/2025 POTASSIUM 3.6 07/11/2025 CHLORIDE 105 07/11/2025 CO2 28 07/11/2025 BUN 17 07/11/2025 CREATSERUM 0.94 07/11/2025 GLUCOSE 107 07/11/2025 No results found for: ALT, TRANSFERASEA, AST, GGT, GAMMAGT, ALKPHOS, BILITOTAL, BILIDIRECT Brief Summary of Labs for Discharge Summary: Discharge Orders CASE REQUEST DEPARTMENT USE ONLY INTERVENTIONAL RADIOLOGY: EXCHANGE NEPHROSTOMY CATHETER PERCUTANEOUS W/ IMAGE GUIDANCE AMB REFERRAL TO INTERVENTIONAL RADIOLOGY Current Outpatient Meds: Medication List for when you go home ASK your doctor about these medications Morning Afternoon Evening Bedtime As Needed Loratadine 10 MG TABS 1 tablet daily. Commonly known as: CLARITIN 10 mg oxyCODONE-acetaminophen 5-325 MG per tablet Take 1 tablet by mouth as needed. Commonly known as: PERCOCET 1 tablet Tamsulosin HCl 0.4 MG CAPS Take 1 capsule by mouth daily. Commonly known as: FLOMAX 0.4 mg Follow-up: [facility] [address] [facility] [address] Schedule an appointment as soon as possible for a visit in 8 week(s) Make appointment for nephrostomy tube exchange for 8-12weeks Upcoming Appointments (up to five)-Some appointments for Medical Center outpatient clinics or diagnostic testing locations are not displayed below Provider Department Dept Phone 07/29/2025 2:45 PM [facility] Arrive at: Arrive to 2nd Floor, Registration [address] Wayne Brown PA-C Cosigned by SYDNIE Martinez at 07/11/2025 5:14 PM EDT Associated attestation - Shelby Damico MBBS - 07/11/2025 5:14 PM EDT ATTENDING ATTESTATION: I independently examined and interviewed the patient in person face to face on 07/11/2025. I fully discussed the patient with the JAMEY, reviewed pertinent history, labs, and imaging, and I confirm the history, examination, and assessment and plan in their documentation with the following additions/changes. I provided a substantive portion of the care for this patient. I personally performed all aspects of the medical decision making for this encounter. I have reviewed and verified this with the JAMEY so that it accurately reflects our care. Pt stated that he was doing okay - was having slight discomfort at site of the Neph tube insertion. Discussed tube care per IR recs. Has been having increased UO from the left Neph tube but not urinating out much from his urethra. No prior imaging available at [facility] to review. Discussed can monitor UO at home as well and review with Urology as OP at next clinic visit. ROS otherwise negative. On exam: Vitals reviewed. Gen: A&Ox3, NAD CVS: RRR, normal S1 and S2, no murmurs appreciated. No JESSICA. Pulm: CTAB, non-labored breathing. Abd: soft, nontender to palpation, nondistended, normoactive bowel sounds. No guarding CVA: Left neph tube in place- slight tenderness at site. Dressing dry and clean. Skin: no rashes or lesions Neuro: no gross focal deficits Labs and imaging studies reviewed and discussed with patient as applicable. Plan: - Left hydronephrosis with hx of L ureteral stricture s/p L ureteral reimplant- Underwent Left Npeh tube with IR on 07/10. Will need close OP follow up with Urology. IR will exchange Neph tube in 8-10weeks. Agree with rest of the plan as documented below. Time spent on discharge 28min. SYDNIE Martinez [employer] - Clinical Cancer Medicine Hospitalist ->> [facility] Obs Unit Division of Hospital Medicine Dept. Of Internal Medicine [facility] documented in this encounter [facility] 07-11-2025 Plan of care note Problem: Adult Inpatient Plan of Care Goal: Plan of Care Review Outcome: Progressing Goal: Patient-Specific Goal (Individualized) Outcome: Progressing Goal: Absence of Hospital-Acquired Illness or Injury Outcome: Progressing Goal: Optimal Comfort and Wellbeing Outcome: Progressing Goal: Readiness for Transition of Care Outcome: Progressing Problem: Surgical Site Infection Goal: Absence of Infection Signs and Symptoms Outcome: Progressing [facility] 07-11-2025 Plan of care note Problem: Adult Inpatient Plan of Care Goal: Plan of Care Review Outcome: Progressing Goal: Patient-Specific Goal (Individualized) Outcome: Progressing Goal: Absence of Hospital-Acquired Illness or Injury Outcome: Progressing Goal: Optimal Comfort and Wellbeing Outcome: Progressing Goal: Readiness for Transition of Care Outcome: Progressing Problem: Surgical Site Infection Goal: Absence of Infection Signs and Symptoms Outcome: Progressing [facility] 07-10-2025 Plan of care note Problem: Adult Inpatient Plan of Care Goal: Plan of Care Review Outcome: Progressing Goal: Patient-Specific Goal (Individualized) Outcome: Progressing Goal: Absence of Hospital-Acquired Illness or Injury Outcome: Progressing Goal: Optimal Comfort and Wellbeing Outcome: Progressing Goal: Readiness for Transition of Care Outcome: Progressing Problem: Surgical Site Infection Goal: Absence of Infection Signs and Symptoms Outcome: Progressing [facility] 07-10-2025 Nurse Note On admission to [facility], from IR a dual RN initial assessment of skin condition was performed by Gracy Sherman RN and Chris RN. Skin Assessment: Skin within defined limits:Yes Skin intact except puncture site to L back/flank area with Gauze tegaderm dressing in place and L neprostomy tube to gravity bag Rubén Score: 22 LDA Added:Yes Gracy Sherman RN [facility] 07-10-2025 History and physical note Images from the original note were not included. [facility] Observation Unit History & Physical Patient: Anu Lopez, : 2000, Date of face to face patient encounter: 07/10/2025 Impression / Plan Mr. Lopez is a 24 y.o. male with no significant PMH and history of distal left ureteral stricture s/p robotic left ureteral reimplantation with Psoas hitch (05/13/24, Dr. Gould) c/b left flank pain s/p L URS/LL, stent placement (10/20/24, Dr. Gould). He is now in J[facility] for sp L nephrostomy tube placement with IR PLAN L nephrostomy tube, hx of hydronephrosis, hx nephrolithiasis -stable upon arrival to [facility] -mild L flank pain, IR says okay for tylenol, do not prefer opiates. If requiring opiates please make IR aware -keep PCN to gravity -flush 10cc NS daily -follow up 8-12 weeks -req zofran x1 for nausea in JOB -PO challenge BMI: 23.5 Fall Risk: Assessed for patient fall risk and discussed safety measures during rounding. Quality Self-Check Complexity. Wound Documentation Any conditions listed below are present on admission unless otherwise specified. Seasonal allergies -takes as needed loratadine DVT prophylaxis with ambulate Anticipated Disposition: home Code status is full Chief Complaint S/p L PCN History of Presenting Illness Mr. Lopez is a 24 y.o. male with no significant PMH and history of distal left ureteral stricture s/p robotic left ureteral reimplantation with Psoas hitch (05/13/24, Dr. Gould) c/b left flank pain s/p L URS/LL, stent placement (10/20/24, Dr. Gould). He is now in [facility] for sp L nephrostomy tube placement with IR Review of Systems Constitutional: No fever, chills, weight changes Eyes: No vision changes ENT: No ringing, loss of hearing Cardiovascular: No LE edema, leg pain with walking, PND, Orthopnea Respiratory: No cough, SOB Gastrointestinal: No abd pain, constipation, diarrhea Genitourinary: No dysuria, gross hematuria Integumentary: No rash Musculoskeletal: No joint deformity, joint pains Psychiatric: No depressed mood History Past Medical History[1] Past Surgical History[2] Social History he reports that he has never smoked. He has never used smokeless tobacco. He reports that he does not drink alcohol and does not use drugs. Family History family history is not on file. Medications / Allergies Prior to Admission Medications Prescriptions Loratadine 10 MG tablet Si tablet daily. Patient not taking: Reported on 07/08/2025 Tamsulosin HCl 0.4 MG capsule Sig: Take 1 capsule by mouth daily. Patient not taking: Reported on 07/08/2025 oxyCODONE-acetaminophen 5-325 MG per tablet Sig: Take 1 tablet by mouth as needed. Patient not taking: Reported on 07/08/2025 Facility-Administered Medications: None Allergies[3] Objective Findings BP 132/87 (BP Location: Left arm, BP Position: Lying) Pulse 57 Temp 97.9 F (36.6 C) (Oral) Resp 16 Ht 1.854 m (6' 1) Wt 80.7 kg (178 lb) SpO2 97% BMI 23.48 kg/m Smoking Status Never Physical Exam Constitutional: Appearance: Normal appearance. HENT: Head: Normocephalic and atraumatic. Eyes: Extraocular Movements: Extraocular movements intact. Cardiovascular: Rate and Rhythm: Normal rate and regular rhythm. Pulmonary: Effort: Pulmonary effort is normal. Breath sounds: Normal breath sounds. Abdominal: Palpations: Abdomen is soft. Musculoskeletal: Back: Skin: General: Skin is warm and dry. Neurological: General: No focal deficit present. Mental Status: He is alert and oriented to person, place, and time. Psychiatric: Mood and Affect: Mood normal. Behavior: Behavior normal. Data Review WBC/Hgb/Hct/Plts: 6.54/15.6/47.5/287 (07/10 647) Bun/Creat/Cl/CO2/Glucose: --/0.77/--/--/-- (07/10 647) Ptt/Pt/Inr: --/1.6/-- (07/10 655) [1] Past Medical History: Diagnosis Date Urethral stricture 01/06/2025 [2] No past surgical history on file. [3] Allergies Allergen Reactions Hydromorphone Rash Cosigned by SYDNIE Elam at 07/10/2025 3:15 PM EDT [facility] 10-03-2025 History and physical note Images from the original note were not included. [facility] Observation Unit History & Physical Patient: Anu Lopez, : 2000, Date of face to face patient encounter: 07/10/2025 Impression / Plan Mr. Lopez is a 24 y.o. male with no significant PMH and history of distal left ureteral stricture s/p robotic left ureteral reimplantation with Psoas hitch (05/13/24, Dr. Gould) c/b left flank pain s/p L URS/LL, stent placement (10/20/24, Dr. Gould). He is now in [facility] for sp L nephrostomy tube placement with IR PLAN L nephrostomy tube, hx of hydronephrosis, hx nephrolithiasis -stable upon arrival to [facility] -mild L flank pain, IR says okay for tylenol, do not prefer opiates. If requiring opiates please make IR aware -keep PCN to gravity -flush 10cc NS daily -follow up 8-12 weeks -req zofran x1 for nausea in JOB -PO challenge BMI: 23.5 Fall Risk: Assessed for patient fall risk and discussed safety measures during rounding. Quality Self-Check Complexity. Wound Documentation Any conditions listed below are present on admission unless otherwise specified. Seasonal allergies -takes as needed loratadine DVT prophylaxis with ambulate Anticipated Disposition: home Code status is full Chief Complaint S/p L PCN History of Presenting Illness Mr. Lopez is a 24 y.o. male with no significant PMH and history of distal left ureteral stricture s/p robotic left ureteral reimplantation with Psoas hitch (05/13/24, Dr. Gould) c/b left flank pain s/p L URS/LL, stent placement (10/20/24, Dr. Gould). He is now in J[facility] for sp L nephrostomy tube placement with IR Review of Systems Constitutional: No fever, chills, weight changes Eyes: No vision changes ENT: No ringing, loss of hearing Cardiovascular: No LE edema, leg pain with walking, PND, Orthopnea Respiratory: No cough, SOB Gastrointestinal: No abd pain, constipation, diarrhea Genitourinary: No dysuria, gross hematuria Integumentary: No rash Musculoskeletal: No joint deformity, joint pains Psychiatric: No depressed mood History Past Medical History[1] Past Surgical History[2] Social History he reports that he has never smoked. He has never used smokeless tobacco. He reports that he does not drink alcohol and does not use drugs. Family History family history is not on file. Medications / Allergies Prior to Admission Medications Prescriptions Loratadine 10 MG tablet Si tablet daily. Patient not taking: Reported on 07/08/2025 Tamsulosin HCl 0.4 MG capsule Sig: Take 1 capsule by mouth daily. Patient not taking: Reported on 07/08/2025 oxyCODONE-acetaminophen 5-325 MG per tablet Sig: Take 1 tablet by mouth as needed. Patient not taking: Reported on 07/08/2025 Facility-Administered Medications: None Allergies[3] Objective Findings BP 132/87 (BP Location: Left arm, BP Position: Lying) Pulse 57 Temp 97.9 F (36.6 C) (Oral) Resp 16 Ht 1.854 m (6' 1) Wt 80.7 kg (178 lb) SpO2 97% BMI 23.48 kg/m Smoking Status Never Physical Exam Constitutional: Appearance: Normal appearance. HENT: Head: Normocephalic and atraumatic. Eyes: Extraocular Movements: Extraocular movements intact. Cardiovascular: Rate and Rhythm: Normal rate and regular rhythm. Pulmonary: Effort: Pulmonary effort is normal. Breath sounds: Normal breath sounds. Abdominal: Palpations: Abdomen is soft. Musculoskeletal: Back: Skin: General: Skin is warm and dry. Neurological: General: No focal deficit present. Mental Status: He is alert and oriented to person, place, and time. Psychiatric: Mood and Affect: Mood normal. Behavior: Behavior normal. Data Review WBC/Hgb/Hct/Plts: 6.54/15.6/47.5/287 (07/10 647) Bun/Creat/Cl/CO2/Glucose: --/0.77/--/--/-- (07/10 647) Ptt/Pt/Inr: --/1.6/-- (07/10 655) [1] Past Medical History: Diagnosis Date Urethral stricture 01/06/2025 [2] No past surgical history on file. [3] Allergies Allergen Reactions Hydromorphone Rash Cosigned by SYDNIE Elam at 07/10/2025 3:15 PM EDT PERIOPERATIVE INTERVENTIONAL RADIOLOGY HISTORY AND PHYSICAL UPDATE Pre-procedure Diagnoses: Left ureteral and renal calculous, left ureteral stricture s/p robotic left ureteral reimplantation with psoas hitch (05/13/2024), recurrent UTIs Procedure to be performed: Left nephrostomy tube placement Referring Provider: Rena Aviles MD History and Physical Update: Blood pressure 139/88, pulse 57, temperature 98.2 F (36.8 C), temperature source Oral, resp. rate 18, height 1.854 m (6' 1), weight 80.7 kg (178 lb), SpO2 99%. I have reviewed Caseydebbie Lopez's pertinent history, and reviewed the medication and allergy information in the computerized patient record. I have examined the patient, reviewed the previous H&P completed on date (07/08/2025) and there are no changes. No results found for: INR, PT, PLATELET 07/10/2025 POC INR 1.6 Creatinine pending Lab Results Component Value Date WBC 6.54 07/10/2025 HGB 15.6 07/10/2025 HCT 47.5 07/10/2025 PLATELET 287 07/10/2025 MCV 87.6 07/10/2025 Current Allergies:Allergies[1] Code status is FULL Today's history and physical update was completed by DRAKE Johnson, 07/10/2025, 6:56 AM. IMPRESSION/PLAN PMH distal left ureteral and renal calculous, left ureteral stricture s/p robotic left ureteral reimplantation with psoas hitch (05/13/2024) c/b left flank pain. Left ureteral stent placed 10/20/2024 and later removed and has experienced ongoing issues with incomplete bladder emptying, persistent left flank pain that is intermittent, severe, causing nausea, and has been experiencing recurrent UTIs- To IR for percutaneous left nephrostomy catheter insertion with plan to admit patient post procedure overnight for monitoring. IV Rocephin pre procedure for infection ppx. [1] Allergies Allergen Reactions Hydromorphone Rash Cosigned by Annalise Hall MD at 07/10/2025 2:30 PM EDT Associated attestation - Annalise Hall MD - 07/10/2025 2:30 PM EDT Attending Attestation: I, Annalise Hall MD, saw and examined the patient. I have personally reviewed relevant imaging studies, clinical history and labs, and discussed the procedural risks and benefits. Recommendations / Plan: Left PCN Plan for obs overnight Annalise Hall MD [facility] Note 0907: Paged Dr. Kevin Lopez [facility] [place] [address]. Pt. complaining of left flank pain rates 03/[address] IV pain med. Thanks [phone] 1031: Handoff report given to inpatient RN Gracy Willoughby OBS. 1046: Pt. Transported to OBS in cart by ROCÍO Chase [facility] Nurse Note Interventional Radiology procedure completed with IR Attending Dr. Hall of percutaneous left nephrostomy tube placement. Procedure tolerated well with local anesthetic and moderate sedation. Report called. Post procedure orders in place and include strict 2 hour bedrest. Transported to [facility], [place] [address] post procedure, condition stable. [facility] 07-10-2025 Procedure note Associated Ord er(s): GENERAL PROCEDURE INTERVENTIONAL RADIOLOGY BRIEF PROCEDURE NOTE PROCEDURE PERFORMED BY: Annalise Hall MD PROCEDURE DATE: 07/10/2025 8:34 AM PRE PROCEDURE DIAGNOSIS: History of nephrolithiasis POST PROCEDURE DIAGNOSIS: Same PROCEDURE: Left nephrostomy tube placement CONSENT: Informed consent was obtained prior to the procedure after discussion of the risks, benefits, and alternatives and expected outcomes were discussed with the patient; consent placed in chart. The possibilities of reaction to medication, pulmonary aspiration, bleeding, infection, the need for additional procedures, failure to diagnosis a condition, and creating a complication requiring transfusion or operation were discussed with the patient. The patient concurred with the proposed plan, giving informed consent. UNIVERSAL PROTOCOL: Preprocedure verification is complete- patient verified and consents confirmed. ANESTHESIA: Moderate and Local ESTIMATED BLOOD LOSS: Less than 5 cc FINDINGS: Severe left hydronephrosis; spontaneous flow of contrast into the ureter. No large filling defects CONDITION: Stable. Patient tolerated procedure well. COMPLICATIONS: None. SPECIMEN REMOVED: None DISPOSITION OF SPECIMEN(S): None IMPRESSION/PLAN: Left PCN to gravity. Please flush with 10cc NS daily. Admit to obs Will follow-up with Urologist Otherwise, routine exchange in 8 - 12 weeks Thank you for allowing Interventional Radiology to participate in this patient's care. Annalise Hall MD 07/10/2025 8:34 AM [facility] Work Phone: 07-10-2025 Procedure note Associated Ord er(s): GENERAL PROCEDURE INTERVENTIONAL RADIOLOGY BRIEF PROCEDURE NOTE PROCEDURE PERFORMED BY: Annalise Hall MD PROCEDURE DATE: 07/10/2025 8:34 AM PRE PROCEDURE DIAGNOSIS: History of nephrolithiasis POST PROCEDURE DIAGNOSIS: Same PROCEDURE: Left nephrostomy tube placement CONSENT: Informed consent was obtained prior to the procedure after discussion of the risks, benefits, and alternatives and expected outcomes were discussed with the patient; consent placed in chart. The possibilities of reaction to medication, pulmonary aspiration, bleeding, infection, the need for additional procedures, failure to diagnosis a condition, and creating a complication requiring transfusion or operation were discussed with the patient. The patient concurred with the proposed plan, giving informed consent. UNIVERSAL PROTOCOL: Preprocedure verification is complete- patient verified and consents confirmed. ANESTHESIA: Moderate and Local ESTIMATED BLOOD LOSS: Less than 5 cc FINDINGS: Severe left hydronephrosis; spontaneous flow of contrast into the ureter. No large filling defects CONDITION: Stable. Patient tolerated procedure well. COMPLICATIONS: None. SPECIMEN REMOVED: None DISPOSITION OF SPECIMEN(S): None IMPRESSION/PLAN: Left PCN to gravity. Please flush with 10cc NS daily. Admit to obs Will follow-up with Urologist Otherwise, routine exchange in 8 - 12 weeks Thank you for allowing Interventional Radiology to participate in this patient's care. Annalise Hall MD 07/10/2025 8:34 AM documented in this encounter [facility] 07-10-2025 Nurse Note 0845: Patient arrives in [facility] Phase 2 Interventional Radiology from Interventional Radiology Procedure Suite with side rails up x2 with HOB >30 degrees, accompanied by IR Nurse. Patient placed on monitors, VSS. Patient assessed, see assessment. [facility] 07-10-2025 Hospital Discharge instructions Sahra Plasencia APRN-SUPERVISING BAILIFF - 07/10/2025 7:01 AM EDT Images from the original note were not included. Home Care after Sedation You have been given medicines during your procedure that might make you sleepy. To prevent problems: 1. Rest for the remainder of the day. You should have someone drive you home and be available for the next [address] 3. Do not drink alcoholic beverages today. 4. Do not make any important business or legally binding decisions today. 5. Do not work around the stove, machinery or power equipment today. 6. The medicines used for sedation may make you feel nauseated. Start with clear liquids, which is anything that you can see through such as tea, jello, broth and rachel gorge. As you feel better you may add soft foods such as pudding and ice cream. When you no longer feel nauseated you may try your normal diet. You should be back to eating your normal meals after 24 hours. Home Care for Your Nephrostomy Catheter ? Take your usual medicines when you get back home. ? If you take metformin (Glucophage, Glucophage XR) or glyburide/metformin (Glucovance) for diabetes, do not take that medicine for 48 hours after the catheter placement. This is because it could react badly with the dye used to during the catheter placement. The dye clears from your body in a day or two. Drinking water helps to rid the dye from your body. Restart this medicine on the third day after the procedure. Skin care and Showering Keep the drain site dry. You may take a shower 48 hours after the drain is placed or changed. Before you shower, cover the drain dressing and the skin around the site with plastic wrap taped to your skin. You must cover the site for 14 days after the first drain is placed. You do not have to cover the site following tube changes. After 14 days, if the site has healed, you can shower without the dressing and plastic wrap. After your shower, use a clean washcloth and liquid antibacterial soap like Dial with water to clean the site. Then rinse the site well with plain water. Pat the drain site gently with a towel to dry. Bathing in a tub, using a hot tub or swimming is not recommended as long as you have the drain in place. Call or go to the nearest Emergency Room if, in the first 4 to 8 hours after your catheter is put in, you have: ? Active bleeding at the catheter site that does not stop after you put finger pressure on it ? Increasing pain or swelling at or around the catheter site ? Fever of 101 degrees Fahrenheit (38 degrees Celsius) or greater with or without chills Dressing change Keep the skin around your drain clean and covered with a 4x4 gauze dressing. The gauze dressing should be changed every other day. You may need to change it more often if it becomes wet, loose, or dirty. Steps 1. Gather your supplies. ? 2 pairs of non-sterile gloves ? Cotton swabs or clean washcloths ? Antibacterial soap ? 4x4 gauze split dressings (package of two) ? Paper tape if gauze dressing is used ? Small plastic garbage bag 2. Wash your hands with soap and water for 15 seconds. Rinse and towel dry. 3. Put on the non-sterile gloves. 4. Carefully remove the old dressing to avoid dislodging the catheter. Note soreness, redness, drainage or odor at the site where the catheter goes through the skin. These signs may indicate infection. If any of these signs are noted, clean the skin site and change the dressing more often for one week. If the signs do not improve right away, call your doctor. 5. Remove the non-sterile gloves and wash your hands again. Then put on the other clean pair of gloves. 6. Clean the skin around the catheter (exit site) with a cotton swab or clean washcloth wet with liquid antibacterial soap and water. Use a circular motion moving outward from the center to about 3 inches. Repeat this step with the second swab or washcloth, and more if needed to remove any crusting. Let the area air dry. Do not fan it to speed the drying because that will put more germs near the site. If the antibacterial soap irritates your skin, use sterile saline to clean the site. 7. Apply one sterile 4x4 gauze pad around the tube. Be careful not to touch the pad where it will be placed over the catheter. 8. Use a second gauze dressing, placed over the first one to cover the tube. 9. Tape over the gauze pad with the paper tape as shown. Be sure to pinch the tape around the tube. 10.Throw the old dressing, gloves, used swabs and wrappings in the plastic bag. Remove the gloves and put them in the bag. Tie the bag shut and put it in a trash can. 11.Wash your hands with soap and warm water. Rinse and towel dry. Care of Your Drainage Bag ? Empty your drainage bag as often as needed when it is about 2/3 full. Turn the blue knob at the bottom of the bag and drain it into a measuring container. Keep track of the amount of drainage each day. ? You should not clean the drainage bag. You will be sent home with an extra drainage bag to use if there is a leak in the bag or the bag or tubing gets damaged. Special Precautions and Complications ? Keep the drainage bag below the level of your kidneys at all times, to prevent a back flow of urine into the kidneys. ? To prevent sludge and calculi or stones from forming, drink 6 to 8 glasses (8-ounce glass) of fluids a day. ? Keep your nephrostomy catheter drainage bag closed to reduce risk of infection. ? Keep the nephrostomy catheter and drainage bag tubing free of twists, kinks or leaks. When to Call Your Doctor or Medical Team Call right away at Interventional Radiology at for these problems: ? Sudden decrease in the amount of drainage with discomfort at the catheter site ? Blood in or around your catheter ? Fever greater than 101 degrees F ? Persistent blood in the urine ? Nausea and vomiting ? Chills ? Urine that is cloudy or has a strong odor ? Back pain ? Catheter becomes dislodged or broken ? Catheter begins to leak [facility] Contact Information Keep your appointments to have your nephrostomy catheter changed. Nephrostomy tubes that remain in more than 8-12 weeks need to be changed by Interventional Radiology. Please call [phone] to schedule this appointment and with any questions or concerns you may have regarding the nephrostomy tube. If you have questions or concerns, please call Interventional Radiology at After-Hours or on Weekends, please call the [facility] at [phone] and ask them for the Interventional Appliance Fixer On-Call Shanon Penn RN - 07/10/2025 1:49 PM EDT Activity: Please follow these instructions: You may perform the following activities: -Exercise as you are able. -Take rest periods during the day as needed. -Walk as much as you can to increase your strength and endurance. -Use the railing for support when going up and down stairs. -Get 8 to 10 hours of sleep at night. Shanon Penn RN - 07/10/2025 1:49 PM EDT Your doctor has recommended that you follow these diet instructions at home. Refer to the patient education materials you received during your hospital stay. If you would like more nutrition counseling, ask your doctor about making an appointment with an outpatient dietitian. Regular Diet to help you maintain your health and control your weight. Choose healthy fats and oils such as canola or olive oils, and good sources of fiber and carbohydrates. Choose lean meats or vegetables proteins. Avoid adding salt to your foods. Increase daily intake of fruits and vegetables. Shanon Penn RN - 07/10/2025 1:50 PM EDT Notify Your Doctor or Nurse if you have any of the following: Bleeding or bruising If you have bleeding, apply pressure to the site and hold the pressure firmly for 5 minutes. If the bleeding continues, apply pressure again and call 911. If the bleeding stopped, call your doctor to report it. Catheter or tube problems Call your doctor or nurse if you have problems with your tube or catheter such as it breaks or leaks, falls out, is not able to be flushed and has drainage coming from around the tube site. Decreased Circulation Call your doctor or nurse if you have swelling, numbness or loss of feeling and color change in the skin to either very pale or blue mancera in color. Airway changes: Call 911 if you suddenly have trouble breathing, hoarseness in your voice that does not clear, problems swallowing, shortness of breath and your trach came out. Decreased Urination Call your doctor or nurse if you are not able to urinate after 12 hours. Deep Vein Thrombosis Symptoms Call your doctor or nurse right away if you have any signs of blood clots such as -Tender, swollen or reddened areas anywhere in your leg. -Numbness or tingling in your lower leg or calf, or at the top of your leg or groin -Skin on you leg looks pale or blue or feels cold to touch -Chest pain or have trouble breathing -Fever or chills Fever, Chills, or Flu Call your doctor or nurse if you have a temperature greater than 100.5 degrees F and/or chills. GI Bleed Symptoms Call your doctor or nurse if you have signs of slow blood loss such as: -Black tarry bowel movements -Cold hands and feet -Weakness Call 911 if you suddenly have signs of blood loss such as: -Vomiting blood -Fast heart rate -Feeling faint or blacking out -Passing bright red blood from your rectum Nausea and Vomiting Call your doctor or nurse if you have nausea and vomiting that continues more than 24 hours, will not let you keep medicine down and will not let you keep fluids down Neurological Changes Call your doctor or nurse if you have: -A headache that does not ease with pain medication after 2 hours. -Mental confusion -Increased sleepiness -New onset of arm or hand weakness and leg or feet weakness -New or worse problems with talking -New or worse problems with balance or walking -A seizure Respiratory Changes Call your doctor or nurse if you have a cough that gets worse and blood in the sputum you cough up Unrelieved Pain Call your doctor or nurse if your pain gets worse or is not eased 1 hour after taking your pain medicine. Urinary Tract Infection Symptoms Call your doctor or nurse if you have signs of a urinary tract infection such as: -Urine is cloudy, bloody or has a bad odor -You leak urine or you have to urinate more often -You feel burning when you urinate -You have a temperature greater than 100.5 Wound Infection Symptoms Call your doctor or nurse right away if you have signs of infection at you wound such as: -More pain around the wound -Change in the amount , color and odor of drainage -The skin around the wound feels warm or has red streaks -The wound separates or opens up -You have a temperature greater than 100.5 Evening and Weekend Contacts For MEDICAL QUESTIONS: If you having an emergency, call 911. If you have questions or concerns during evening, weekend, or holiday hours, please call: [facility] and [facility] pin ticket machine operator at [phone]. Ask the pin ticket machine operator to page the on-call doctor for the [facility], the service that was responsible for your care while you were in the hospital. documented in this encounter [facility] 07-10-2025 Nurse Surgical operation note Pt denies history of chemo and radiation. Pt denies metal or foreign objects in body. Denies history of seizures. [facility] 07-10-2025 Nurse Note Pt denies history of chemo and radiation. Pt denies metal or foreign objects in body. Denies history of seizures. documented in this encounter [facility] 07-10-2025 History and physical note PERIOPERATIVE INTERVENTIONAL RADIOLOGY HISTORY AND PHYSICAL UPDATE Pre-procedure Diagnoses: Left ureteral and renal calculous, left ureteral stricture s/p robotic left ureteral reimplantation with psoas hitch (05/13/2024), recurrent UTIs Procedure to be performed: Left nephrostomy tube placement Referring Provider: Rena Aviles MD History and Physical Update: Blood pressure 139/88, pulse 57, temperature 98.2 F (36.8 C), temperature source Oral, resp. rate 18, height 1.854 m (6' 1), weight 80.7 kg (178 lb), SpO2 99%. I have reviewed Anu Lopez's pertinent history, and reviewed the medication and allergy information in the computerized patient record. I have examined the patient, reviewed the previous H&P completed on date (07/08/2025) and there are no changes. No results found for: INR, PT, PLATELET 07/10/2025 POC INR 1.6 Creatinine pending Lab Results Component Value Date WBC 6.54 07/10/2025 HGB 15.6 07/10/2025 HCT 47.5 07/10/2025 PLATELET 287 07/10/2025 MCV 87.6 07/10/2025 Current Allergies:Allergies[1] Code status is FULL Today's history and physical update was completed by Sahra Plasencia APRN-SUPERVISING BAILIFF, 07/10/2025, 6:56 AM. IMPRESSION/PLAN PMH distal left ureteral and renal calculous, left ureteral stricture s/p robotic left ureteral reimplantation with psoas hitch (05/13/2024) c/b left flank pain. Left ureteral stent placed 10/20/2024 and later removed and has experienced ongoing issues with incomplete bladder emptying, persistent left flank pain that is intermittent, severe, causing nausea, and has been experiencing recurrent UTIs- To IR for percutaneous left nephrostomy catheter insertion with plan to admit patient post procedure overnight for monitoring. IV Rocephin pre procedure for infection ppx. [1] Allergies Allergen Reactions Hydromorphone Rash Cosigned by Annalise Hall MD at 07/10/2025 2:30 PM EDT Associated attestation - Annalise Hall MD - 07/10/2025 2:30 PM EDT Attending Attestation: I, Annalise Hall MD, saw and examined the patient. I have personally reviewed relevant imaging studies, clinical history and labs, and discussed the procedural risks and benefits. Recommendations / Plan: Left PCN Plan for obs overnight Annalise Hall MD [facility] 07-08-2025 History and physical note Interventional Radiology Clinic Note Chief Complaint- here to discuss left nephrostomy catheter insertion Referring provider- Rena Aviles MD // [facility] Reason for referral- L UPJO, recommended left nephrostomy tube HPI- Anu Lopez is a 24 y.o. 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 Left ureteral stent placed 10/20/2024 and later removed and has experienced ongoing issues with incomplete bladder emptying, persistent left flank pain that is intermittent, severe, causing nausea, and has been experiencing recurrent UTIs. Patient presents to IR clinic to discuss percutaneous left nephrostomy catheter insertion as a treatment option. Today in clinic he reports left flank pain 8/10 in severity, cold sweats, nausea, vomiting, straining with urination, and urinary retention. He states that he experiences frequent UTIs and denies fever at this time. He states that his incomplete bladder emptying has improved with pelvic floor PT. Interventional Radiology History- None Code Status- Not on file Past Medical History[1] Past Surgical History[2] Social History[3] Allergies- Allergies[4] Current Medications- Prior to Admission medications Medication Sig Start Date End Date Taking? Authorizing Provider Loratadine 10 MG tablet 1 tablet daily. Patient not taking: Reported on 01/21/2025 Historical Provider oxyCODONE-acetaminophen 5-325 MG per tablet Take 1 tablet by mouth as needed. Patient not taking: Reported on 01/21/2025 10/20/24 Historical Provider Tamsulosin HCl 0.4 MG capsule Take 1 capsule by mouth daily. Patient not taking: Reported on 01/21/2025 11/20/24 02/18/25 Historical Provider Review of Systems- Denies the following: Arrhythmias, bleeding disorders, asthma, COPD, STACEY, seizure disorder, HTN, diabetes Denies problems lying flat or prone Denies previous problems with sedation Gen - denies fevers or antibiotic use Cardiovascular - occasional, intermittent sharp CP; denies palpitations Respiratory - denies SOB Gastrointestinal - + nausea, +vomiting or abdominal pain Renal - denies dysuria, hematuria, + left flank pain Neuromuscular - intermittent occasional numbness/tingling that is positional in nature; denies weakness Other ROS negative or noncontributory unless otherwise noted in HPI. Physical Exam- Blood pressure (!) 131/91, pulse 72, temperature 98.7 F (37.1 C), temperature source Oral, resp. rate 18, SpO2 95%. General: Alert and oriented, in no acute distress Cardio: S1S2 RRR Lungs: non-labored, symmetrical chest expansion Extremities: no edema Neurological: No focal deficits, spontaneous ROM Skin: warm and dry Laboratory Data- No results found for: PT, INR, PTT No results found for: WBC, WBCCOUNT, WBCFETAL, HGB, HCT, PLATELET, MCV Lab Results Component Value Date GLUCOSE neg 06/17/2025 No results found for: GFR Imaging Information- Dr. Mays has reviewed the CT A/P dated 04/05/2025. Impression and Plan Macin Lopez is a 24 y.o. 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 Left ureteral stent placed 10/20/2024 and later removed and has experienced ongoing issues with incomplete bladder emptying, persistent left flank pain that is intermittent, severe, causing nausea, and has been experiencing recurrent UTIs. Will plan for a percutaneous left nephrostomy catheter insertion with plan to admit patient post procedure overnight for monitoring. Moderate sedation- Please keep NPO at midnight prior to the procedure. Please keep Hgb >7.0-8.0 Coag goals: INR < 1.5-1.8 and platelets > 50 Please hold anticoagulation medications; none noted per chart review. Pre-procedure labs: CBC, INR, Cr Pre-procedure antibiotics Please notify IR if the situation changes. Consult and pertinent imaging were reviewed for the above procedure approved by Dr. Mays. DRAKE Pedraza 07/08/2025 12:32 PM [1] Past Medical History: Diagnosis Date Urethral stricture 01/06/2025 [2] No past surgical history on file. [3] Social History Tobacco Use Smoking status: Never Smokeless tobacco: Never Vaping Use Vaping status: Never Used Substance Use Topics Alcohol use: Never Drug use: Never [4] Allergies Allergen Reactions Hydromorphone Rash Cosigned by Obi Mays MD at 07/08/2025 10:15 PM EDT Associated attestation - Obi Mays MD - 07/08/2025 10:15 PM EDT This was an in-person visit. I independently interviewed the patient and formulated the medical decision making with the nurse practitioner. I spent 15 minutes in face to face consultation with greater than 50% of the visit spent counseling/coordination of care of the patient. I agree with the history and medical decision making as documented in the note, and I have made amendments as appropriate. Patient with left hydronephrosis. Plan for left nephrostomy tube placement under moderate sedation. Patient in agreement with this plan. Obi Mays MD Interventional Radiology 07/08/2025 10:15 PM [facility] 07-08-2025 History and physical note Interventional Radiology Clinic Note Chief Complaint- here to discuss left nephrostomy catheter insertion Referring provider- Rena Aviles MD // [facility] Reason for referral- L UPJO, recommended left nephrostomy tube HPI- Anu Lopez is a 24 y.o. 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 Left ureteral stent placed 10/20/2024 and later removed and has experienced ongoing issues with incomplete bladder emptying, persistent left flank pain that is intermittent, severe, causing nausea, and has been experiencing recurrent UTIs. Patient presents to IR clinic to discuss percutaneous left nephrostomy catheter insertion as a treatment option. Today in clinic he reports left flank pain 8/10 in severity, cold sweats, nausea, vomiting, straining with urination, and urinary retention. He states that he experiences frequent UTIs and denies fever at this time. He states that his incomplete bladder emptying has improved with pelvic floor PT. Interventional Radiology History- None Code Status- Not on file Past Medical History[1] Past Surgical History[2] Social History[3] Allergies- Allergies[4] Current Medications- Prior to Admission medications Medication Sig Start Date End Date Taking? Authorizing Provider Loratadine 10 MG tablet 1 tablet daily. Patient not taking: Reported on 01/21/2025 Historical Provider oxyCODONE-acetaminophen 5-325 MG per tablet Take 1 tablet by mouth as needed. Patient not taking: Reported on 01/21/2025 10/20/24 Historical Provider Tamsulosin HCl 0.4 MG capsule Take 1 capsule by mouth daily. Patient not taking: Reported on 01/21/2025 11/20/24 02/18/25 Historical Provider Review of Systems- Denies the following: Arrhythmias, bleeding disorders, asthma, COPD, STACEY, seizure disorder, HTN, diabetes Denies problems lying flat or prone Denies previous problems with sedation Gen - denies fevers or antibiotic use Cardiovascular - occasional, intermittent sharp CP; denies palpitations Respiratory - denies SOB Gastrointestinal - + nausea, +vomiting or abdominal pain Renal - denies dysuria, hematuria, + left flank pain Neuromuscular - intermittent occasional numbness/tingling that is positional in nature; denies weakness Other ROS negative or noncontributory unless otherwise noted in HPI. Physical Exam- Blood pressure (!) 131/91, pulse 72, temperature 98.7 F (37.1 C), temperature source Oral, resp. rate 18, SpO2 95%. General: Alert and oriented, in no acute distress Cardio: S1S2 RRR Lungs: non-labored, symmetrical chest expansion Extremities: no edema Neurological: No focal deficits, spontaneous ROM Skin: warm and dry Laboratory Data- No results found for: PT, INR, PTT No results found for: WBC, WBCCOUNT, WBCFETAL, HGB, HCT, PLATELET, MCV Lab Results Component Value Date GLUCOSE neg 06/17/2025 No results found for: GFR Imaging Information- Dr. Mays has reviewed the CT A/P dated 04/05/2025. Impression and Plan Anu Lopez is a 24 y.o. 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 Left ureteral stent placed 10/20/2024 and later removed and has experienced ongoing issues with incomplete bladder emptying, persistent left flank pain that is intermittent, severe, causing nausea, and has been experiencing recurrent UTIs. Will plan for a percutaneous left nephrostomy catheter insertion with plan to admit patient post procedure overnight for monitoring. Moderate sedation- Please keep NPO at midnight prior to the procedure. Please keep Hgb >7.0-8.0 Coag goals: INR < 1.5-1.8 and platelets > 50 Please hold anticoagulation medications; none noted per chart review. Pre-procedure labs: CBC, INR, Cr Pre-procedure antibiotics Please notify IR if the situation changes. Consult and pertinent imaging were reviewed for the above procedure approved by Dr. Mays. DRAKE Pedraza 07/08/2025 12:32 PM [1] Past Medical History: Diagnosis Date Urethral stricture 01/06/2025 [2] No past surgical history on file. [3] Social History Tobacco Use Smoking status: Never Smokeless tobacco: Never Vaping Use Vaping status: Never Used Substance Use Topics Alcohol use: Never Drug use: Never [4] Allergies Allergen Reactions Hydromorphone Rash Cosigned by Obi Mays MD at 07/08/2025 10:15 PM EDT Associated attestation - Obi Mays MD - 07/08/2025 10:15 PM EDT This was an in-person visit. I independently interviewed the patient and formulated the medical decision making with the nurse practitioner. I spent 15 minutes in face to face consultation with greater than 50% of the visit spent counseling/coordination of care of the patient. I agree with the history and medical decision making as documented in the note, and I have made amendments as appropriate. Patient with left hydronephrosis. Plan for left nephrostomy tube placement under moderate sedation. Patient in agreement with this plan. Obi Mays MD Interventional Radiology 07/08/2025 10:15 PM documented in this encounter [facility] 07-08-2025 Instructions Vaibhav Donovan RN - 07/08/2025 8:30 AM EDT Thank you for allowing us to care for you today. You were seen in clinic today by Dr. Mays and Palmer Woo NP If you have any questions or concerns, please feel free to call our department at [phone]. Vaibhav DELACRUZ Your opinion matters! You may receive a survey feedback on your clinic visit today. The Interventional Radiology Clinic greatly appreciates your feedback and always strives to provide a Very Good experience. If you any reason you would not rate your clinic experience today as Very Good, please let one of our staff members know. Your feedback helps us to make positive changes to improve clinical outcomes and we would sincerely appreciate the opportunity to speak with you in person. For any questions or concerns, or to share your recent clinic experience, please call our Patient Experience Advocate 30/04 Complaint & Advocate General Line: Vaibhav DELACRUZ documented in this encounter [facility] 06-17-2025 History of Present illness Narrative 2-step identification process completed. Patients name and verified. U/A dip was performed and results documented. Bladder Scan for Post-Void Residual: Bladder scan was performed for a residual of 79ml Patient tolerated well with no complaints. Results recorded to [facility] flow sheet. Referring provider: Self, Self Chief Complaint Flank pain Urinary retention HPI Mr. Lopez is a 24 y.o. male with no significant PMH and history of distal left ureteral stricture s/p robotic left ureteral reimplantation with Psoas hitch (05/13/24, Dr. Gould) c/b left flank pain s/p L URS/LL, stent placement (10/20/24, Dr. Gould). He had a cysto/RUG with Dr. Clifton Newsome 01/20/26 which was normal. Since his surgery, the patient has had ongoing issues with incomplete bladder emptying (this is improving with PFPT), persistent left flank pain, and recurrent UTIs. His left flank pain is intermittent and severe, reports that it causes nausea when present. He had a CT done outside of the [facility] system recently and presents with a disc. He wants to transfer his urologic care to [facility]. Past Medical History Past Medical History[1] Past Surgical History Past Surgical History[2] Medications Current Medications[3] Allergies Allergies[4] Social History Social History[5] Family History History reviewed. No pertinent family history. Physical Exam BP 152/75 (BP Location: Right arm, BP Position: Sitting) Pulse 83 Ht 1.829 m (6') Wt 83.6 kg (184 lb 6.4 oz) SpO2 97% BMI 25.01 kg/m Smoking Status Never Body mass index is 25.01 kg/m . Constitutional: NAD Pulmonary: Respirations are even and non-labored bilaterally. Neurological: A + O x 3 Extremities: MARY x 4 Labs No results found for: TESTTOTBYLCM, TESTOSTERONE, TESTOSFREEDI, TESTOSTFR, SEXHORMBNDG, ESTRADIOLENH, PROLACTIN, FSH, LH, HCT, PSA No results found for: HGBA1C No results found for: TSH, CLJ81BLG, VFR07FND, TSHBASELINE, TSHULTRASEN No results found for: CHOLESTEROL, CHOLESTEPOCT, HDL, CHOLHDL, CHOLTOTALHDL The ASCVD Risk score (Elan DK, et al., 2019) failed to calculate for the following reasons: The 2019 ASCVD risk score is only valid for ages 40 to 79 Imaging I personally reviewed the following images: Imaging uploaded in Tiny and pushed -- Most recent CT from 06/2026 with persistent severe hydronephrosis of the left kidney and a large LLP stone NM renogram 09/10/24: RESULT: Split Function: - Left Kidney: 46.4% - Right Kidney: 53.6% Left Kidney: - Perfusion & Uptake: Prompt and symmetric - Parenchymal transit: Moderate cortical retention - Drainage: Minimal drainage prior to Lasix with mild improvement following Lasix administration - Post diuretic T-1/2 (minutes): 52.4 Right Kidney: - Perfusion & Uptake: Prompt and symmetric - Parenchymal transit: Within normal limits - Drainage: Prompt, spontaneous drainage prior to diuretic - Post diuretic T-1/2 (minutes): Invalid given normal drainage Post void: No significant additional drainage Assessment/Plan Mr. Lopez is a 24 y.o. male with h/o L ureteral stricture s/p L ureteral reimplant c/b persistent left flank pain, left hydronephrosis. NM renal scan from 09/2024 shows persistent high grade obstruction with reasonable split function, and patient remains symptomatic with flank pain and recurrent UTIs. Imaging from 06/2025 shows persistent hydronephrosis, appears to be UPJO on my review. I recommended left nephrostomy tube placement for decompression and source control for infection. Patient will likely need additional work up with antegrade studies for next steps, but will have him seen by Dr. Newsome with recon whom has previously evaluated him. Rena Aviles MD [employer] Urology [1] Past Medical History: Diagnosis Date Urethral stricture 01/06/2025 [2] No past surgical history on file. [3] Current Outpatient Medications Medication Sig Dispense Refill Loratadine 10 MG tablet 1 tablet daily. (Patient not taking: Reported on 01/21/2025) oxyCODONE-acetaminophen 5-325 MG per tablet Take 1 tablet by mouth as needed. (Patient not taking: Reported on 01/21/2025) Tamsulosin HCl 0.4 MG capsule Take 1 capsule by mouth daily. (Patient not taking: Reported on 01/21/2025) No current facility-administered medications for this visit. [4] Allergies Allergen Reactions Hydromorphone Rash [5] Social History Socioeconomic History Marital status: Single Tobacco Use Smoking status: Never Smokeless tobacco: Never Vaping Use Vaping status: Never Used Substance and Sexual Activity Alcohol use: Never Drug use: Never documented in this encounter [facility] 06-01-2025 History of Present illness Narrative Program_ID:[id number] Access Code: [email or web address] URL: [email or web address] Date: 06-01-2025 Prepared By: Myesha Fletcher Program Notes Exercises - Supine Pelvic Floor Stretch - 1 x daily - 7 x weekly - 3 sets - 10 reps - Supine Transversus Abdominis Bracing with Pelvic Floor Contraction - 1 x daily - 7 x weekly - 3 sets - 10 reps - Supine Posterior Pelvic Tilt with Pelvic Floor Contraction - 1 x daily - 7 x weekly - 3 sets - 10 reps - Tree Pose - 1 x daily - 7 x weekly - 1 sets - 2 reps - Supine Hamstring Stretch - 1 x daily - 7 x weekly - 1 sets - 2 reps - Hooklying Single Knee to Chest Stretch - 1 x daily - 7 x weekly - 1 sets - 2 reps - Supine Piriformis Stretch with Leg Straight - 1 x daily - 7 x weekly - 1 sets - 2 reps - Prone Press Up On Elbows - 1 x daily - 7 x weekly - 1 sets - 2 reps - Diaphragmatic Breathing in Child's Pose with Pelvic Floor Relaxation - 1 x daily - 7 x weekly - 1 sets - 2 reps - Half Kneeling Hip Flexor Stretch - 1 x daily - 7 x weekly - 1 sets - 2 reps - Child's Pose with Sidebending - 1 x daily - 7 x weekly - 1 sets - 2 reps - Cat Cow - 1 x daily - 7 x weekly - 2 sets - 10 reps - Quadruped Transversus Abdominis Bracing - 1 x daily - 5 x weekly - 2 sets - 10 reps Patient Education - Get To Know Your Pelvic Floor- Male - cc Pelvic Floor - Bladder Helio - Irritants - cc Pelvic Floor - Diaphragmatic Breathing - cc Pelvic Floor - Bladder Health & Emptying Techniques - cc Pelvic Floor - Bladder Emptying Ideas - cc Pelvic Floor - Bladder Retraining and Urge Suppression - cc Pelvic Floor - Bowel Movement Education - cc Pelvic Floor - Kegel Exercise for Men - cc Post Op Scar Massage Instruction Episode Visit Count: 5 Therapist That Will Accept/Oversee The Plan Of Care: Myesha Fletcher PT, DPT Start of Care Date: 04/20/25 Patient Identified by Name and Date of : Yes REHABILITATION AND SPORTS THERAPY PHYSICAL THERAPY TREATMENT NOTE ASSESSMENT: Anu Lopez tolerated the session with no issues. He demonstrated improvements in bladder function. The patient will continue to benefit from ongoing skilled physical therapy to progress toward set goals. PLAN FOR NEXT VISIT: Hold chart. Pt to see new dr in jun. SUBJECTIVE: Mid jun pt will see urologist at [facility]. Pt is seeing better sex drive. Seeing longer streams of urine. Decreased pain with urinination at times. Feeling urge to go to bathroom. Pain: Pain Pain Level: 0 OBJECTIVE MEASURES WITH LEVEL OF FUNCTION: Patient has made progress toward all goals. Pelvic Floor Erectile dysfunction: getting better Ejaculatory dysfunction: getting better History of low back pain: Yes (kidney pain) Incomplete emptying: Sometimes Urgency: (has started to feel urge to urinate) Toileting habits: Time spent on toilet (time to relax pelvic floor for urination and BM) Bowel Aides / Supplements: miralax Pelvic Floor Muscle Assessment Consent for pelvic assessment/testing and treatment: Patient verbalized consent for the above treatment approaches today. Patient understands they have control of the treatment and an opportunity to stop treatment at any time. TREATMENT: Therapeutic Exercise: 1: *cat/cow 2: *quad transversus Skilled Intervention: Patient was educated in proper exercise technique and purpose for exercises. Reviewed and educated patient on additions/changes for home exercise program as above (*). Skilled judgment was used in selection of appropriate interventions. Patient education as noted. Manual Therapy: 3: IASTM to B add in supine tree pose Skilled Intervention: Manual skills to improve joint mobility, ROM, and decrease pain. Utilized anatomy knowledge of the clinician, and assessment of patient's response to intervention. Self-Residential Management: 1: education on bowel aids Skilled Intervention: Skilled judgment in the selection of proper modification for activity of daily living/home management based on clinical presentation, deficits, and needs. Reviewed patient specific diagnosis in relation to activities of daily living/home management. Activity progression based on professional judgement. Home Exercise Program Assigned: 1: Access Code: [email or web address] URL: [email or web address] Date: 06/01/2025 Prepared by: Ananda Souza Exercises - Supine Pelvic Floor Stretch - 1 x daily - 7 x weekly - 3 sets - 10 reps - Supine Transversus Abdominis Bracing with Pelvic Floor Contraction - 1 x daily - 7 x weekly - 3 sets - 10 reps - Supine Posterior Pelvic Tilt with Pelvic Floor Contraction - 1 x daily - 7 x weekly - 3 sets - 10 reps - Tree Pose - 1 x daily - 7 x weekly - 1 sets - 2 reps - 30 hold - Supine Hamstring Stretch - 1 x daily - 7 x weekly - 1 sets - 2 reps - 30 hold - Hooklying Single Knee to Chest Stretch - 1 x daily - 7 x weekly - 1 sets - 2 reps - 30 hold - Supine Piriformis Stretch with Leg Straight - 1 x daily - 7 x weekly - 1 sets - 2 reps - 30 hold - Prone Press Up On Elbows - 1 x daily - 7 x weekly - 1 sets - 2 reps - 30 hold - Diaphragmatic Breathing in Child's Pose with Pelvic Floor Relaxation - 1 x daily - 7 x weekly - 1 sets - 2 reps - 30 hold - Half Kneeling Hip Flexor Stretch - 1 x daily - 7 x weekly - 1 sets - 2 reps - 30 hold - Child's Pose with Sidebending - 1 x daily - 7 x weekly - 1 sets - 2 reps - 30 hold - Cat Cow - 1 x daily - 7 x weekly - 2 sets - 10 reps - Quadruped Transversus Abdominis Bracing - 1 x daily - 5 x weekly - 2 sets - 10 reps - 3 hold Patient Education - Get To Know Your Pelvic Floor- Male - cc Pelvic Floor - Bladder Helio - Irritants - cc Pelvic Floor - Diaphragmatic Breathing - cc Pelvic Floor - Bladder Health & Emptying Techniques - cc Pelvic Floor - Bladder Emptying Ideas - cc Pelvic Floor - Bladder Retraining and Urge Suppression - Pelvic Floor - Bowel Movement Education - cc Pelvic Floor - Kegel Exercise for Men - cc Post Op Scar Massage Instruction Billing Therapeutic Exercise Treatment Minutes: 21 Manual TherapyTreatment Minutes: 8 Self-Care/Home Management Treatment Minutes: 5 Skilled Treatment Time Minutes (timed and untimed codes): 34 Total Session Time (minutes): 34 Session Start Time : 1054 (pt late) Session Stop Time : 1128 Ananda Souza PTA documented in this encounter [facility] 06-01-2025 Note HNO ID: [id number] Author: ANANDA SOUZA PTA Service: ? Author Type: Prescription Benefit Specialist Type: Progress Notes Filed: 06/01/2025 11:42 Note Text: Episode Visit Count: 5 Therapist That Will Accept/Oversee The Plan Of Care: Myesha Fletcher, PT, DPT Start of Care Date: 04/20/25 Patient Identified by Name and Date of : Yes REHABILITATION AND SPORTS THERAPY PHYSICAL THERAPY TREATMENT NOTE ASSESSMENT: Anu Lopez tolerated the session with no issues. He demonstrated improvements in bladder function. The patient will continue to benefit from ongoing skilled physical therapy to progress toward set goals. PLAN FOR NEXT VISIT: Hold chart. Pt to see new dr in jun. SUBJECTIVE: Mid jun pt will see urologist at [facility]. Pt is seeing better sex drive. Seeing longer streams of urine. Decreased pain with urinination at times. Feeling urge to go to bathroom. Pain: Pain Pain Level: 0 OBJECTIVE MEASURES WITH LEVEL OF FUNCTION: Patient has made progress toward all goals. Pelvic Floor Erectile dysfunction: getting better Ejaculatory dysfunction: getting better History of low back pain: Yes (kidney pain) Incomplete emptying: Sometimes Urgency: (has started to feel urge to urinate) Toileting habits: Time spent on toilet (time to relax pelvic floor for urination and BM) Bowel Aides / Supplements: miralax Pelvic Floor Muscle Assessment Consent for pelvic assessment/testing and treatment: Patient verbalized consent for the above treatment approaches today. Patient understands they have control of the treatment and an opportunity to stop treatment at any time. TREATMENT: Therapeutic Exercise: 1: *cat/cow 2: *quad transversus Skilled Intervention: Patient was educated in proper exercise technique and purpose for exercises. Reviewed and educated patient on additions/changes for home exercise program as above (*). Skilled judgment was used in selection of appropriate interventions. Patient education as noted. Manual Therapy: 3: IASTM to B add in supine tree pose Skilled Intervention: Manual skills to improve joint mobility, ROM, and decrease pain. Utilized anatomy knowledge of the clinician, and assessment of patient's response to intervention. Self-Residential Management: 1: education on bowel aids Skilled Intervention: Skilled judgment in the selection of proper modification for activity of daily living/home management based on clinical presentation, deficits, and needs. Reviewed patient specific diagnosis in relation to activities of daily living/home management. Activity progression based on professional judgement. Home Exercise Program Assigned: 1: Access Code: [email or web address] URL: [email or web address] Date: 06/01/2025 Prepared by: Ananda Souza Exercises - Supine Pelvic Floor Stretch - 1 x daily - 7 x weekly - 3 sets - 10 reps - Supine Transversus Abdominis Bracing with Pelvic Floor Contraction - 1 x daily - 7 x weekly - 3 sets - 10 reps - Supine Posterior Pelvic Tilt with Pelvic Floor Contraction - 1 x daily - 7 x weekly - 3 sets - 10 reps - Tree Pose - 1 x daily - 7 x weekly - 1 sets - 2 reps - 30 hold - Supine Hamstring Stretch - 1 x daily - 7 x weekly - 1 sets - 2 reps - 30 hold - Hooklying Single Knee to Chest Stretch - 1 x daily - 7 x weekly - 1 sets - 2 reps - 30 hold - Supine Piriformis Stretch with Leg Straight - 1 x daily - 7 x weekly - 1 sets - 2 reps - 30 hold - Prone Press Up On Elbows - 1 x daily - 7 x weekly - 1 sets - 2 reps - 30 hold - Diaphragmatic Breathing in Child's Pose with Pelvic Floor Relaxation - 1 x daily - 7 x weekly - 1 sets - 2 reps - 30 hold - Half Kneeling Hip Flexor Stretch - 1 x daily - 7 x weekly - 1 sets - 2 reps - 30 hold - Child's Pose with Sidebending - 1 x daily - 7 x weekly - 1 sets - 2 reps - 30 hold - Cat Cow - 1 x daily - 7 x weekly - 2 sets - 10 reps - Quadruped Transversus Abdominis Bracing - 1 x daily - 5 x weekly - 2 sets - 10 reps - 3 hold Patient Education - Get To Know Your Pelvic Floor- Male - cc Pelvic Floor - Bladder Helio - Irritants - cc Pelvic Floor - Diaphragmatic Breathing - cc Pelvic Floor - Bladder Health AND Emptying Techniques - cc Pelvic Floor - Bladder Emptying Ideas - cc Pelvic Floor - Bladder Retraining and Urge Suppression - cc Pelvic Floor - Bowel Movement Education - cc Pelvic Floor - Kegel Exercise for Men - cc Post Op Scar Massage Instruction Billing Therapeutic Exercise Treatment Minutes: 21 Manual TherapyTreatment Minutes: 8 Self-Care/Home Management Treatment Minutes: 5 Skilled Treatment Time Minutes (timed and untimed codes): 34 Total Session Time (minutes): 34 Session Start Time : 1054 (pt late) Session Stop Time : 1128 Ananda Souza PTA [facility] 05-11-2025 Note HNO ID: [id number] Author: ANANDA SOUZA PTA Service: ? Author Type: Prescription Benefit Specialist Type: Progress Notes Filed: 05/11/2025 11:45 Note Text: Episode Visit Count: 4 Therapist That Will Accept/Oversee The Plan Of Care: Myesha Fletcher PT DPT Start of Care Date: 04/20/25 Patient Identified by Name and Date of : Yes REHABILITATION AND SPORTS THERAPY PHYSICAL THERAPY TREATMENT NOTE ASSESSMENT: Anu Lopez tolerated the session with no issues. He demonstrated improvements in symptoms since starting PT. The patient will continue to benefit from ongoing skilled physical therapy to progress toward set goals. PLAN FOR NEXT VISIT: Pt will see dr and return in ~2-3 weeks to update progress and HEP PRN> SUBJECTIVE: Pt reports increased sex drive and erections. was seeing some improvements with bladder but had a couple back to bad days. Saw dr in [place] [facility]. Pain: Pain Pain Level: 0 Post Treatment Pain Post Treatment Pain Level: No Change OBJECTIVE MEASURES WITH LEVEL OF FUNCTION: Patient has decreased pain with bladder voiding at times. Notices passing of kidney stones. Increased ability to achieve erection. TREATMENT: Therapeutic Exercise: Skilled Intervention: Patient was educated in proper exercise technique and purpose for exercises. Skilled judgment was used in selection of appropriate interventions. Patient education as noted. Self-Residential Management: 1: education for manual techniques at home 2: education to trial counting during urination to see how long stream lasts 3: education for different positions for urination to help relax plevic floor Skilled Intervention: Skilled judgment in the selection of proper modification for activity of daily living/home management based on clinical presentation, deficits, and needs. Reviewed patient specific diagnosis in relation to activities of daily living/home management. Activity progression based on professional judgement. Billing Therapeutic Exercise Treatment Minutes: 21 Manual TherapyTreatment Minutes: 15 Skilled Treatment Time Minutes (timed and untimed codes): 36 Total Session Time (minutes): 36 Session Start Time : 1001 Session Stop Time : 1037 Ananda Souza [facility] 05-11-2025 History of Present illness Narrative Episode Visit Count: 4 Therapist That Will Accept/Oversee The Plan Of Care: Myesha Fletcher PT, DPT Start of Care Date: 04/20/25 Patient Identified by Name and Date of : Yes REHABILITATION AND SPORTS THERAPY PHYSICAL THERAPY TREATMENT NOTE ASSESSMENT: Anu Lopez tolerated the session with no issues. He demonstrated improvements in symptoms since starting PT. The patient will continue to benefit from ongoing skilled physical therapy to progress toward set goals. PLAN FOR NEXT VISIT: Pt will see dr and return in ~2-3 weeks to update progress and HEP PRN> SUBJECTIVE: Pt reports increased sex drive and erections. was seeing some improvements with bladder but had a couple back to bad days. Saw dr in [place]. Pain: Pain Pain Level: 0 Post Treatment Pain Post Treatment Pain Level: No Change OBJECTIVE MEASURES WITH LEVEL OF FUNCTION: Patient has decreased pain with bladder voiding at times. Notices passing of kidney stones. Increased ability to achieve erection. TREATMENT: Therapeutic Exercise: Skilled Intervention: Patient was educated in proper exercise technique and purpose for exercises. Skilled judgment was used in selection of appropriate interventions. Patient education as noted. Self-Residential Management: 1: education for manual techniques at home 2: education to trial counting during urination to see how long stream lasts 3: education for different positions for urination to help relax plevic floor Skilled Intervention: Skilled judgment in the selection of proper modification for activity of daily living/home management based on clinical presentation, deficits, and needs. Reviewed patient specific diagnosis in relation to activities of daily living/home management. Activity progression based on professional judgement. Billing Therapeutic Exercise Treatment Minutes: 21 Manual TherapyTreatment Minutes: 15 Skilled Treatment Time Minutes (timed and untimed codes): 36 Total Session Time (minutes): 36 Session Start Time : 1001 Session Stop Time : 1037 Ananda Souza PTA documented in this encounter [facility] 05-05-2025 History of Present illness Narrative Images from the original note were not included. [facility] UROLOGY HISTORY AND PHYSICAL ESTABLISHED PATIENT VISIT PATIENT: Anu Lopez : 2000 DATE OF SERVICE: May 05, 2025 HISTORY OF PRESENT ILLNESS: Anu Lopez is a 24 year old male with PMH of distal left ureteral stricture s/p robotic left ureteral reimplantation with Psoas hitch (05/13/24, Dr. Gould) c/b left flank pain s/p L URS/LL, stent placement (10/20/24, Dr. Gould) who is in clinic today for second opinion and follow-up regarding incomplete bladder emptying. He complains of inability to fully empty his bladder, pain with orgasm, and lack of sensation to his bladder that has been ongoing during the past year. He has been doing 90 minute voiding schedule with double voiding during the day and has started pelvic floor PT a few weeks ago. OBJECTIVE: ALLERGIES: ALLERGIES Allergen Reactions Dilaudid [Hydromorp* Rash MEDICATIONS: Current Outpatient Medications Medication Sig ciprofloxacin HCl (CIPRO) 500 mg tablet tamsulosin (FLOMAX) 0.4 mg Take 1 capsule by mouth once daily. polyethylene glycol 3350 (MIRALAX ORAL) Take 17 mg by mouth once daily as needed. (Patient not taking: Reported on 03/26/2025) loratadine (CLARITIN) 10 mg tablet Take 10 mg by mouth once daily as needed. (Patient not taking: Reported on 03/26/2025) No current facility-administered medications for this visit. PAST MEDICAL HISTORY: PAST MEDICAL HISTORY Diagnosis Date Hydronephrosis of left kidney PMH - PAST MEDICAL HISTORY OF Normal color vision Respiratory syncytial virus (RSV) 08/08/2003 Routine or ritual circumcision Wrist fracture, right 05/08/2013 PAST SURGICAL HISTORY Procedure Laterality Date CIRCUMCISION W/CLAMP/OTH DEV W/BLOCK S STENT,URINARY DIVERSION,100276 04/07/24 VITALS: There were no vitals taken for this visit. PHYSICAL EXAM: General: Well-appearing, no acute distress CV: RRR, WWP Lungs: breathing comfortably on room air Abdomen: soft, non-distended, non tender : Deferred Extremities: Normal. No cyanosis, clubbing, or edema LAB REVIEW Creatinine Date Value Ref Range Status 05/14/2024 0.90 0.50 - 1.40 mg/dL Final Comment: Patients receiving either N-Acetylcysteine (NAC) or Metamizole prior to venipuncture, may have falsely depressed results. 05/02/2024 0.98 0.73 - 1.22 mg/dL Final 03/27/2024 0.95 0.73 - 1.22 mg/dL Final 02/10/2024 0.86 0.50 - 1.40 mg/dL Final Comment: Patients receiving either N-Acetylcysteine (NAC) or Metamizole prior to venipuncture, may have falsely depressed results. IMAGING: - CT AP w/ contrast (12/14/24) after reimplant: - CT AP w/ contrast (02/06/24) prior to reimplant: PATHOLOGY: None ASSESSMENT/PLAN PHYSICIAN NOTE OF PERSONAL INVOLVEMENT IN CARE: Staff Note: I reviewed the above HPI/EXAM with the fellow/RN/resident. and discussed findings face to face with patient and agreed with blakely findings and plan. IMPRESSION: This is a 24 year old male with urinary retention and difficulty voiding, left-sided hydronephrosis s/p ureteral reimplant in 2023. His inability to fully empty his bladder is likely due to pelvic floor dysfunction and unrelated to the ureteral reimplant procedure from last year. We have no UDS data prior to surgery to show his bladder function prior. The reimplant procedure has decompressed his left renal collecting system and left kidney is improved on follow-up imaging. PLAN: - Continue pelvic floor PT and re-evaluate for improvement in bladder symptoms - If no improvement, can refer for further evaluation Earl Farley MD Resident Physician, PGY-1 Urology [facility] Staff Reviewed presentation, history, medications and/or review of systems as noted by RN and/or resident. Agree with details. I explained to him that the goal of the surgery was to improve his obstructed left kidney. Further explained that this goal appears to be achieved based on imaging prior to and after surgery. Specifically a CT scan in December shows a relatively decompressed kidney. In terms of bladder function, I stressed that his surgery should not have affected bladder function. He does have stones or calcific debris in the lower pole of his left kidney which will contribute to an abnormal urinalysis. Advised him to continue with pelvic floor physical therapy. Should this not improve his symptoms he could return to see one of our voiding dysfunction specialist. Simin Jones MD documented in this encounter [facility] 05-05-2025 Note HNO ID: [id number] Author: SIMIN JONES MD Service: ? Author Type: Physician Type: Progress Notes Filed: 05/05/2025 12:19 Note Text: [facility] UROLOGY HISTORY AND PHYSICAL ESTABLISHED PATIENT VISIT PATIENT: Anu Lopez : 2000 DATE OF SERVICE: May 05, 2025 HISTORY OF PRESENT ILLNESS: Anu Lopez is a 24 year old male with PMH of distal left ureteral stricture s/p robotic left ureteral reimplantation with Psoas hitch (05/13/24, Dr. Gould) c/b left flank pain s/p L URS/LL, stent placement (10/20/24, Dr. Gould) who is in clinic today for second opinion and follow-up regarding incomplete bladder emptying. He complains of inability to fully empty his bladder, pain with orgasm, and lack of sensation to his bladder that has been ongoing during the past year. He has been doing 90 minute voiding schedule with double voiding during the day and has started pelvic floor PT a few weeks ago. OBJECTIVE: ALLERGIES: ALLERGIES Allergen Reactions Dilaudid [Hydromorp* Rash MEDICATIONS: Current Outpatient Medications Medication Sig ciprofloxacin HCl (CIPRO) 500 mg tablet tamsulosin (FLOMAX) 0.4 mg Take 1 capsule by mouth once daily. polyethylene glycol 3350 (MIRALAX ORAL) Take 17 mg by mouth once daily as needed. (Patient not taking: Reported on 03/26/2025) loratadine (CLARITIN) 10 mg tablet Take 10 mg by mouth once daily as needed. (Patient not taking: Reported on 03/26/2025) No current facility-administered medications for this visit. PAST MEDICAL HISTORY: PAST MEDICAL HISTORY Diagnosis Date Hydronephrosis of left kidney PMH - PAST MEDICAL HISTORY OF Normal color vision Respiratory syncytial virus (RSV) 08/08/2003 Routine or ritual circumcision Wrist fracture, right 05/08/2013 PAST SURGICAL HISTORY Procedure Laterality Date CIRCUMCISION W/CLAMP/OTH DEV W/BLOCK S STENT,URINARY DIVERSION,[id number] 04/07/24 VITALS: There were no vitals taken for this visit. PHYSICAL EXAM: General: Well-appearing, no acute distress CV: RRR, WWP Lungs: breathing comfortably on room air Abdomen: soft, non-distended, non tender : Deferred Extremities: Normal. No cyanosis, clubbing, or edema LAB REVIEW Creatinine Date Value Ref Range Status 05/14/2024 0.90 0.50 - 1.40 mg/dL Final Comment: Patients receiving either N-Acetylcysteine (NAC) or Metamizole prior to venipuncture, may have falsely depressed results. 05/02/2024 0.98 0.73 - 1.22 mg/dL Final 03/27/2024 0.95 0.73 - 1.22 mg/dL Final 02/10/2024 0.86 0.50 - 1.40 mg/dL Final Comment: Patients receiving either N-Acetylcysteine (NAC) or Metamizole prior to venipuncture, may have falsely depressed results. IMAGING: - CT AP w/ contrast (12/14/24) after reimplant: - CT AP w/ contrast (02/06/24) prior to reimplant: PATHOLOGY: None ASSESSMENT/PLAN PHYSICIAN NOTE OF PERSONAL INVOLVEMENT IN CARE: Staff Note: I reviewed the above HPI/EXAM with the fellow/RN/resident. and discussed findings face to face with patient and agreed with blakely findings and plan. IMPRESSION: This is a 24 year old male with urinary retention and difficulty voiding, left-sided hydronephrosis s/p ureteral reimplant in 2023. His inability to fully empty his bladder is likely due to pelvic floor dysfunction and unrelated to the ureteral reimplant procedure from last year. We have no UDS data prior to surgery to show his bladder function prior. The reimplant procedure has decompressed his left renal collecting system and left kidney is improved on follow-up imaging. PLAN: - Continue pelvic floor PT and re-evaluate for improvement in bladder symptoms - If no improvement, can refer for further evaluation Earl Farley MD Resident Physician, PGY-1 Urology [facility] Staff Reviewed presentation, history, medications and/or review of systems as noted by RN and/or resident. Agree with details. I explained to him that the goal of the surgery was to improve his obstructed left kidney. Further explained that this goal appears to be achieved based on imaging prior to and after surgery. Specifically a CT scan in December shows a relatively decompressed kidney. In terms of bladder function, I stressed that his surgery should not have affected bladder function. He does have stones or calcific debris in the lower pole of his left kidney which will contribute to an abnormal urinalysis. Advised him to continue with pelvic floor physical therapy. Should this not improve his symptoms he could return to see one of our voiding dysfunction specialist. Simin Jones MD [facility] 05-05-2025 Note Patient Outreach (UR OLMN) ANU LOPEZ ([id number]) 4 M Date Time Provider Department 05/05/25 SIMIN JONES During your visit today, we recorded the following information about you: Allergies As of Date: 05/05/2025 Noted Allergy Reaction DILAUDID (HYDROMORPHONE) 04/07/2024 2 - Rash Date Reviewed: 05/05/2025 Reviewed by: Cody Sanchez [facility] - Fully Assessed Visit Diagnosis:Screening for genitourinary condition [Z13.89] Order(s):UA DIP, URINE (POC) [[id number]] Order #: [id number] FUTURE Prescriptions as of 05/08/2025 - ciprofloxacin HCl (CIPRO) 500 mg tablet - tamsulosin (FLOMAX) 0.4 mg Take 1 capsule by mouth once daily. - polyethylene glycol 3350 (MIRALAX ORAL) Take 17 mg by mouth once daily as needed. - loratadine (CLARITIN) 10 mg tablet Take 10 mg by mouth once daily as needed. Problem List As Of Date 05/05/2025 Noted Resolved Left ureteral stone [N20.1] 02/06/2024 Hydronephrosis, left [N13.30] 02/07/2024 Preop testing [Z01.818] 04/03/2024 Ureteral stricture, left [N13.5] 04/07/2024 Renal calculus, left [N20.0] 09/18/2024 Left flank pain [R10.9] 11/20/2024 Feeling of incomplete bladder emptying [R39.14] 12/04/2024 Pain with urination [R30.9] 04/21/2025 Encounter Status:Closed by DAMION WAYUSEKlarissa on 05/08/25 [facility] 05-04-2025 History of Present illness Narrative Program_ID:[id number] Access Code: [email or web address] URL: [email or web address] Date: 05-04-2025 Prepared By: Myesha Fletcher Program Notes Exercises - Supine Pelvic Floor Stretch - 1 x daily - 7 x weekly - 3 sets - 10 reps - Supine Transversus Abdominis Bracing with Pelvic Floor Contraction - 1 x daily - 7 x weekly - 3 sets - 10 reps - Supine Posterior Pelvic Tilt with Pelvic Floor Contraction - 1 x daily - 7 x weekly - 3 sets - 10 reps - Tree Pose - 1 x daily - 7 x weekly - 1 sets - 2 reps - Supine Hamstring Stretch - 1 x daily - 7 x weekly - 1 sets - 2 reps - Hooklying Single Knee to Chest Stretch - 1 x daily - 7 x weekly - 1 sets - 2 reps - Supine Piriformis Stretch with Leg Straight - 1 x daily - 7 x weekly - 1 sets - 2 reps - Prone Press Up On Elbows - 1 x daily - 7 x weekly - 1 sets - 2 reps - Diaphragmatic Breathing in Child's Pose with Pelvic Floor Relaxation - 1 x daily - 7 x weekly - 1 sets - 2 reps - Half Kneeling Hip Flexor Stretch - 1 x daily - 7 x weekly - 1 sets - 2 reps - Child's Pose with Sidebending - 1 x daily - 7 x weekly - 1 sets - 2 reps Patient Education - Get To Know Your Pelvic Floor- Male - cc Pelvic Floor - Bladder Helio - Irritants - cc Pelvic Floor Bladder Basics - cc Pelvic Floor - Diaphragmatic Breathing - cc Pelvic Floor - Bladder Health & Emptying Techniques - cc Pelvic Floor - Bladder Emptying Ideas - cc Pelvic Floor - Bladder Retraining and Urge Suppression - cc Pelvic Floor - Bowel Movement Education - cc Pelvic Floor - Kegel Exercise for Men - cc Post Op Scar Massage Instruction Episode Visit Count: 3 Therapist That Will Accept/Oversee The Plan Of Care: Myesha Fletcher, PT, DPT Start of Care Date: 04/20/25 Patient Identified by Name and Date of : Yes REHABILITATION AND SPORTS THERAPY PHYSICAL THERAPY TREATMENT NOTE ASSESSMENT: Anu Lopez tolerated the session with expected muscle soreness. He demonstrated improvements in symptoms since starting therapy. The patient will continue to benefit from ongoing skilled physical therapy to progress toward set goals. PLAN FOR NEXT VISIT: PF relaxation. manual PRN. Add strength as symptoms resolve. SUBJECTIVE: Pt has seen less foam in urine with decreased pop. Has noticed some increase in urination and ability to empty bladder more since starting stretches. Pt still gets kink feeling at end of urination at times. Pain: Pain Pain Level: 3 Pain Location: Low Back/Lumbar Spine - Right Post Treatment Pain Post Treatment Pain Level: No Change OBJECTIVE MEASURES WITH LEVEL OF FUNCTION: Pelvic Floor Muscle Assessment Consent for pelvic assessment/testing and treatment: Patient verbalized consent for the above treatment approaches today. Patient understands they have control of the treatment and an opportunity to stop treatment at any time. Pelvic Floor Manual Assessment External Pelvic Region Tenderness/ Hyperactivity - Lower Extremity: Adductor, Anterior thigh crease Anterior thigh crease: Bilateral Adductor: Bilateral TREATMENT: Therapeutic Exercise: 1: *3 way elvis pose 2: *supine and kneeling hip flexor stretch Skilled Intervention: Patient was educated in proper exercise technique and purpose for exercises. Reviewed and educated patient on additions/changes for home exercise program as above (*). Skilled judgment was used in selection of appropriate interventions. Patient education as noted. Manual Therapy: 1: TPR R hip flexors 2: bladder mobs 3: IASTM to B add in supine tree pose Skilled Intervention: Manual skills to improve joint mobility, ROM, and decrease pain. Utilized anatomy knowledge of the clinician, and assessment of patient's response to intervention. Self-Residential Management: 1: education for sitting vs std and OP on bladder with urination Skilled Intervention: Skilled judgment in the selection of proper modification for activity of daily living/home management based on clinical presentation, deficits, and needs. Educated the patient regarding recommendations and provided written instruction to facilitate compliance. Reviewed patient specific diagnosis in relation to activities of daily living/home management. Activity progression based on professional judgement. Home Exercise Program Assigned: 1: Access Code: [email or web address] URL: [email or web address] Date: 05/04/2025 Prepared by: Ananda Souza Exercises - Supine Pelvic Floor Stretch - 1 x daily - 7 x weekly - 3 sets - 10 reps - Supine Transversus Abdominis Bracing with Pelvic Floor Contraction - 1 x daily - 7 x weekly - 3 sets - 10 reps - Supine Posterior Pelvic Tilt with Pelvic Floor Contraction - 1 x daily - 7 x weekly - 3 sets - 10 reps - Tree Pose - 1 x daily - 7 x weekly - 1 sets - 2 reps - 30 hold - Supine Hamstring Stretch - 1 x daily - 7 x weekly - 1 sets - 2 reps - 30 hold - Hooklying Single Knee to Chest Stretch - 1 x daily - 7 x weekly - 1 sets - 2 reps - 30 hold - Supine Piriformis Stretch with Leg Straight - 1 x daily - 7 x weekly - 1 sets - 2 reps - 30 hold - Prone Press Up On Elbows - 1 x daily - 7 x weekly - 1 sets - 2 reps - 30 hold - Diaphragmatic Breathing in Child's Pose with Pelvic Floor Relaxation - 1 x daily - 7 x weekly - 1 sets - 2 reps - 30 hold - Half Kneeling Hip Flexor Stretch - 1 x daily - 7 x weekly - 1 sets - 2 reps - 30 hold - Child's Pose with Sidebending - 1 x daily - 7 x weekly - 1 sets - 2 reps - 30 hold Patient Education - Get To Know Your Pelvic Floor- Male - cc Pelvic Floor - Bladder Helio - Irritants - cc Pelvic Floor Bladder Basics - Pelvic Floor - Diaphragmatic Breathing - Pelvic Floor - Bladder Health & Emptying Techniques - Pelvic Floor - Bladder Emptying Ideas - Pelvic Floor - Bladder Retraining and Urge Suppression - Pelvic Floor - Bowel Movement Education - Pelvic Floor - Kegel Exercise for Men - cc Post Op Scar Massage Instruction Billing Therapeutic Exercise Treatment Minutes: 10 Manual TherapyTreatment Minutes: 25 Self-Care/Home Management Treatment Minutes: 5 Skilled Treatment Time Minutes (timed and untimed codes): 40 Total Session Time (minutes): 40 Session Start Time : 1133 Session Stop Time : 1213 Ananda Souza PTA documented in this encounter [facility] 05-04-2025 Note HNO ID: [id number] Author: ANANDA SOUZA PTA Service: ? Author Type: Prescription Benefit Specialist Type: Progress Notes Filed: 05/04/2025 14:11 Note Text: Episode Visit Count: 3 Therapist That Will Accept/Oversee The Plan Of Care: Myesha Fletcher, PT, DPT Start of Care Date: 04/20/25 Patient Identified by Name and Date of : Yes REHABILITATION AND SPORTS THERAPY PHYSICAL THERAPY TREATMENT NOTE ASSESSMENT: Anu Lopez tolerated the session with expected muscle soreness. He demonstrated improvements in symptoms since starting therapy. The patient will continue to benefit from ongoing skilled physical therapy to progress toward set goals. PLAN FOR NEXT VISIT: PF relaxation. manual PRN. Add strength as symptoms resolve. SUBJECTIVE: Pt has seen less foam in urine with decreased pop. Has noticed some increase in urination and ability to empty bladder more since starting stretches. Pt still gets kink feeling at end of urination at times. Pain: Pain Pain Level: 3 Pain Location: Low Back/Lumbar Spine - Right Post Treatment Pain Post Treatment Pain Level: No Change OBJECTIVE MEASURES WITH LEVEL OF FUNCTION: Pelvic Floor Muscle Assessment Consent for pelvic assessment/testing and treatment: Patient verbalized consent for the above treatment approaches today. Patient understands they have control of the treatment and an opportunity to stop treatment at any time. Pelvic Floor Manual Assessment External Pelvic Region Tenderness/ Hyperactivity - Lower Extremity: Adductor, Anterior thigh crease Anterior thigh crease: Bilateral Adductor: Bilateral TREATMENT: Therapeutic Exercise: 1: *3 way elvis pose 2: *supine and kneeling hip flexor stretch Skilled Intervention: Patient was educated in proper exercise technique and purpose for exercises. Reviewed and educated patient on additions/changes for home exercise program as above (*). Skilled judgment was used in selection of appropriate interventions. Patient education as noted. Manual Therapy: 1: TPR R hip flexors 2: bladder mobs 3: IASTM to B add in supine tree pose Skilled Intervention: Manual skills to improve joint mobility, ROM, and decrease pain. Utilized anatomy knowledge of the clinician, and assessment of patient's response to intervention. Self-Residential Management: 1: education for sitting vs std and OP on bladder with urination Skilled Intervention: Skilled judgment in the selection of proper modification for activity of daily living/home management based on clinical presentation, deficits, and needs. Educated the patient regarding recommendations and provided written instruction to facilitate compliance. Reviewed patient specific diagnosis in relation to activities of daily living/home management. Activity progression based on professional judgement. Home Exercise Program Assigned: 1: Access Code: [email or web address] URL: [email or web address] Date: 05/04/2025 Prepared by: Ananda Shear Exercises - Supine Pelvic Floor Stretch - 1 x daily - 7 x weekly - 3 sets - 10 reps - Supine Transversus Abdominis Bracing with Pelvic Floor Contraction - 1 x daily - 7 x weekly - 3 sets - 10 reps - Supine Posterior Pelvic Tilt with Pelvic Floor Contraction - 1 x daily - 7 x weekly - 3 sets - 10 reps - Tree Pose - 1 x daily - 7 x weekly - 1 sets - 2 reps - 30 hold - Supine Hamstring Stretch - 1 x daily - 7 x weekly - 1 sets - 2 reps - 30 hold - Hooklying Single Knee to Chest Stretch - 1 x daily - 7 x weekly - 1 sets - 2 reps - 30 hold - Supine Piriformis Stretch with Leg Straight - 1 x daily - 7 x weekly - 1 sets - 2 reps - 30 hold - Prone Press Up On Elbows - 1 x daily - 7 x weekly - 1 sets - 2 reps - 30 hold - Diaphragmatic Breathing in Child's Pose with Pelvic Floor Relaxation - 1 x daily - 7 x weekly - 1 sets - 2 reps - 30 hold - Half Kneeling Hip Flexor Stretch - 1 x daily - 7 x weekly - 1 sets - 2 reps - 30 hold - Child's Pose with Sidebending - 1 x daily - 7 x weekly - 1 sets - 2 reps - 30 hold Patient Education - Get To Know Your Pelvic Floor- Male - cc Pelvic Floor - Bladder Helio - Irritants - cc Pelvic Floor Bladder Basics - Pelvic Floor - Diaphragmatic Breathing - cc Pelvic Floor - Bladder Health AND Emptying Techniques - cc Pelvic Floor - Bladder Emptying Ideas - cc Pelvic Floor - Bladder Retraining and Urge Suppression - cc Pelvic Floor - Bowel Movement Education - Pelvic Floor - Kegel Exercise for Men - cc Post Op Scar Massage Instruction Billing Therapeutic Exercise Treatment Minutes: 10 Manual TherapyTreatment Minutes: 25 Self-Care/Home Management Treatment Minutes: 5 Skilled Treatment Time Minutes (timed and untimed codes): 40 Total Session Time (minutes): 40 Session Start Time : 1133 Session Stop Time : 1213 Ananda Souza [facility] 04-29-2025 History of Present illness Narrative Program_ID:[id number] Access Code: [email or web address] URL: [email or web address] Date: 04-29-2025 Prepared By: Myesha Fletcher Program Notes Exercises - Supine Pelvic Floor Stretch - 1 x daily - 7 x weekly - 3 sets - 10 reps - Supine Transversus Abdominis Bracing with Pelvic Floor Contraction - 1 x daily - 7 x weekly - 3 sets - 10 reps - Supine Posterior Pelvic Tilt with Pelvic Floor Contraction - 1 x daily - 7 x weekly - 3 sets - 10 reps - Tree Pose - 1 x daily - 7 x weekly - 1 sets - 2 reps - Supine Hamstring Stretch - 1 x daily - 7 x weekly - 1 sets - 2 reps - Hooklying Single Knee to Chest Stretch - 1 x daily - 7 x weekly - 1 sets - 2 reps - Supine Piriformis Stretch with Leg Straight - 1 x daily - 7 x weekly - 1 sets - 2 reps - Prone Press Up On Elbows - 1 x daily - 7 x weekly - 1 sets - 2 reps - Diaphragmatic Breathing in Child's Pose with Pelvic Floor Relaxation - 1 x daily - 7 x weekly - 1 sets - 2 reps Patient Education - Get To Know Your Pelvic Floor- Male - cc Pelvic Floor - Bladder Helio - Irritants - cc Pelvic Floor Bladder Basics - cc Pelvic Floor - Diaphragmatic Breathing - cc Pelvic Floor - Bladder Health & Emptying Techniques - cc Pelvic Floor - Bladder Emptying Ideas - cc Pelvic Floor - Bladder Retraining and Urge Suppression - cc Pelvic Floor - Bowel Movement Education - cc Pelvic Floor - Kegel Exercise for Men - cc Post Op Scar Massage Instruction Episode Visit Count: 2 Therapist That Will Accept/Oversee The Plan Of Care: Myesha Fletcher, PT, DPT Start of Care Date: 04/20/25 Patient Identified by Name and Date of : Yes REHABILITATION AND SPORTS THERAPY PHYSICAL THERAPY TREATMENT NOTE ASSESSMENT: Anu De La O Lopez tolerated the session with no issues. He demonstrated difficulty with stretching d/t tighness/pain. The patient will continue to benefit from ongoing skilled physical therapy to progress toward set goals. PLAN FOR NEXT VISIT: PF relaxation, bladder mobs, education. Adductor IASTM nv. SUBJECTIVE: Nothing new since last visit. Pain: Pain Pain Level: 5 Pain Location: Urethra, Genital Post Treatment Pain Post Treatment Pain Level: No Change OBJECTIVE MEASURES WITH LEVEL OF FUNCTION: Pelvic Floor Muscle Assessment Consent for pelvic assessment/testing and treatment: Patient verbalized consent for the above treatment approaches today. Patient understands they have control of the treatment and an opportunity to stop treatment at any time. Pelvic Floor Muscle Assessment: Muscle Dynamics Pelvic Floor Manual Assessment External Pelvic Region Tenderness/ Hyperactivity - Trunk: Psoas Psoas: Right External Pelvic Region Tenderness/ Hyperactivity - Lower Extremity: Anterior thigh crease, Adductor Anterior thigh crease: Right Adductor: Bilateral TREATMENT: Patient education was provided to drink half their body weight in ounces with 2/3 of this fluid being water. Severe reduction in fluids can result in a concentration of urine which irritates the bladder which increases incontinence and/or urgency. Patient educated on bladder emptying. The bladder is a muscle itself and his job is to contract and eliminate urine. If the patient uses their pelvic floor muscles to assist with eliminating urine, then the bladder may become weak, and it may cause spasms to their pelvic floor muscles. Patient encouraged to stop straining and using pelvic floor muscles to assist with eliminating urine. Bladder irritants: Some foods increase urinary urgency and frequency. Stevenson the irritant by drinking 4oz of water before and after consuming to dilute the irritant. Top bladder irritants: coffee, carbonated beverages, tea, alcohol, spicy foods, citrus fruits, vinegar, tomatoes, artificial sweeteners. Patient education how a fascia line connects from jaw to pelvic floor muscles. Patient education for the importance of relaxing his pelvic floor, jaw, and upper trapezius over compensation throughout the day instead of clenching and holding. This can cause increased tension in the pelvic floor which can cause pelvic floor dysfunction, pain, or incomplete bladder emptying. Patient educated on going to the bathroom every 2-4 hours and a total of 5-8 times in 24 hours. Pelvic floor lengthening: try to push your pelvic floor outward or open the rectum. Sometimes there is a disconnect between your brain and pelvic floor. However, with practice, you can improve this function. Therapeutic Exercise: 1: *supine tree pose x30 B 2: *hamstring stretch x30 B 3: *SKTC x30 B 4: *pir stretch x30 B 5: *pron prop x30 Skilled Intervention: Patient was educated in proper exercise technique and purpose for exercises. Reviewed and educated patient on additions/changes for home exercise program as above (*). Skilled judgment was used in selection of appropriate interventions. Provided written instruction for home exercise program to facilitate proper performance and compliance. Patient education as noted. Manual Therapy: 1: TPR R hip flexors (decreased pain after) 2: bladder mobs (increase dpain) Skilled Intervention: Manual skills to improve joint mobility, ROM, and decrease pain. Utilized anatomy knowledge of the clinician, and assessment of patient's response to intervention. Self-Residential Management: 1: reviewed bladder logs 2: bladder basics 3: review pelvic floor anatomy with urination and BM and intercourse 4: scar massage Skilled Intervention: Skilled judgment in the selection of proper modification for activity of daily living/home management based on clinical presentation, deficits, and needs. Reviewed patient specific diagnosis in relation to activities of daily living/home management. Activity progression based on professional judgement. Home Exercise Program Assigned: 1: Access Code: [email or web address] URL: [email or web address] Date: 04/29/2025 Prepared by: Ananda Souza Exercises - Supine Pelvic Floor Stretch - 1 x daily - 7 x weekly - 3 sets - 10 reps - Supine Transversus Abdominis Bracing with Pelvic Floor Contraction - 1 x daily - 7 x weekly - 3 sets - 10 reps - Supine Posterior Pelvic Tilt with Pelvic Floor Contraction - 1 x daily - 7 x weekly - 3 sets - 10 reps - Tree Pose - 1 x daily - 7 x weekly - 1 sets - 2 reps - 30 hold - Supine Hamstring Stretch - 1 x daily - 7 x weekly - 1 sets - 2 reps - 30 hold - Hooklying Single Knee to Chest Stretch - 1 x daily - 7 x weekly - 1 sets - 2 reps - 30 hold - Supine Piriformis Stretch with Leg Straight - 1 x daily - 7 x weekly - 1 sets - 2 reps - 30 hold - Prone Press Up On Elbows - 1 x daily - 7 x weekly - 1 sets - 2 reps - 30 hold - Diaphragmatic Breathing in Child's Pose with Pelvic Floor Relaxation - 1 x daily - 7 x weekly - 1 sets - 2 reps - 30 hold Patient Education - Get To Know Your Pelvic Floor- Male - cc Pelvic Floor - Bladder Helio - Irritants - cc Pelvic Floor Bladder Basics - cc Pelvic Floor - Diaphragmatic Breathing - cc Pelvic Floor - Bladder Health & Emptying Techniques - cc Pelvic Floor - Bladder Emptying Ideas - cc Pelvic Floor - Bladder Retraining and Urge Suppression - cc Pelvic Floor - Bowel Movement Education - cc Pelvic Floor - Kegel Exercise for Men - cc Post Op Scar Massage Instruction Billing Therapeutic Exercise Treatment Minutes: 20 Manual TherapyTreatment Minutes: 15 Self-Care/Home Management Treatment Minutes: 10 Skilled Treatment Time Minutes (timed and untimed codes): 45 Total Session Time (minutes): 45 Session Start Time : 1130 Session Stop Time : 1215 Ananda Souza PTA documented in this encounter [facility] 04-29-2025 Note HNO ID: [id number] Author: ANANDA SOUZA PTA Service: ? Author Type: Prescription Benefit Specialist Type: Progress Notes Filed: 04/29/2025 14:13 Note Text: Episode Visit Count: 2 Therapist That Will Accept/Oversee The Plan Of Care: Myesha Fletcher PT, DPT Start of Care Date: 04/20/25 Patient Identified by Name and Date of : Yes REHABILITATION AND SPORTS THERAPY PHYSICAL THERAPY TREATMENT NOTE ASSESSMENT: Anu Lopez tolerated the session with no issues. He demonstrated difficulty with stretching d/t tighness/pain. The patient will continue to benefit from ongoing skilled physical therapy to progress toward set goals. PLAN FOR NEXT VISIT: PF relaxation, bladder mobs, education. Adductor IASTM nv. SUBJECTIVE: Nothing new since last visit. Pain: Pain Pain Level: 5 Pain Location: Urethra, Genital Post Treatment Pain Post Treatment Pain Level: No Change OBJECTIVE MEASURES WITH LEVEL OF FUNCTION: Pelvic Floor Muscle Assessment Consent for pelvic assessment/testing and treatment: Patient verbalized consent for the above treatment approaches today. Patient understands they have control of the treatment and an opportunity to stop treatment at any time. Pelvic Floor Muscle Assessment: Muscle Dynamics Pelvic Floor Manual Assessment External Pelvic Region Tenderness/ Hyperactivity - Trunk: Psoas Psoas: Right External Pelvic Region Tenderness/ Hyperactivity - Lower Extremity: Anterior thigh crease, Adductor Anterior thigh crease: Right Adductor: Bilateral TREATMENT: Patient education was provided to drink half their body weight in ounces with 2/3 of this fluid being water. Severe reduction in fluids can result in a concentration of urine which irritates the bladder which increases incontinence and/or urgency. Patient educated on bladder emptying. The bladder is a muscle itself and his job is to contract and eliminate urine. If the patient uses their pelvic floor muscles to assist with eliminating urine, then the bladder may become weak, and it may cause spasms to their pelvic floor muscles. Patient encouraged to stop straining and using pelvic floor muscles to assist with eliminating urine. Bladder irritants: Some foods increase urinary urgency and frequency. Stevenson the irritant by drinking 4oz of water before and after consuming to dilute the irritant. Top bladder irritants: coffee, carbonated beverages, tea, alcohol, spicy foods, citrus fruits, vinegar, tomatoes, artificial sweeteners. Patient education how a fascia line connects from jaw to pelvic floor muscles. Patient education for the importance of relaxing his pelvic floor, jaw, and upper trapezius over compensation throughout the day instead of clenching and holding. This can cause increased tension in the pelvic floor which can cause pelvic floor dysfunction, pain, or incomplete bladder emptying. Patient educated on going to the bathroom every 2-4 hours and a total of 5-8 times in 24 hours. Pelvic floor lengthening: try to push your pelvic floor outward or open the rectum. Sometimes there is a disconnect between your brain and pelvic floor. However, with practice, you can improve this function. Therapeutic Exercise: 1: *supine tree pose x30 B 2: *hamstring stretch x30 B 3: *SKTC x30 B 4: *pir stretch x30 B 5: *pron prop x30 Skilled Intervention: Patient was educated in proper exercise technique and purpose for exercises. Reviewed and educated patient on additions/changes for home exercise program as above (*). Skilled judgment was used in selection of appropriate interventions. Provided written instruction for home exercise program to facilitate proper performance and compliance. Patient education as noted. Manual Therapy: 1: TPR R hip flexors (decreased pain after) 2: bladder mobs (increase dpain) Skilled Intervention: Manual skills to improve joint mobility, ROM, and decrease pain. Utilized anatomy knowledge of the clinician, and assessment of patient's response to intervention. Self-Residential Management: 1: reviewed bladder logs 2: bladder basics 3: review pelvic floor anatomy with urination and BM and intercourse 4: scar massage Skilled Intervention: Skilled judgment in the selection of proper modification for activity of daily living/home management based on clinical presentation, deficits, and needs. Reviewed patient specific diagnosis in relation to activities of daily living/home management. Activity progression based on professional judgement. Home Exercise Program Assigned: 1: Access Code: [email or web address] URL: [email or web address] Date: 04/29/2025 Prepared by: Ananda Shear Exercises - Supine Pelvic Floor Stretch - 1 x daily - 7 x weekly - 3 sets - 10 reps - Supine Transversus Abdominis Bracing with Pelvic Floor Contraction - 1 x daily - 7 x weekly - 3 sets - 10 reps - Supine Posterior Pelvic Tilt with Pelvic Floor Contraction (more content not included)... [facility] 04-20-2025 History of Present illness Narrative Episode Visit Count: 1 Therapist That Will Accept/Oversee The Plan Of Care: Myesha Fletcher PT, DPT Start of Care Date: 04/20/25 Patient Identified by Name and Date of : Yes REHABILITATION AND SPORTS THERAPY PHYSICAL THERAPY EVALUATION PLAN OF CARE: Assessment: Anu Lopez presents with chief complaint of abdominal pain, pain with urination, incomplete bladder emptying that interferes with bladder function, altered sexual function, bowel function . The patient presents with impairments in overall function and sensation. Prognosis for therapy is Good due to: current objective clinical presentation . The patient will benefit from skilled therapy services to meet the goals established for this plan of care as noted below. Goals for Episode of Care: established 04/20/25 Patient demonstrates independence and compliance with home exercise program. Patient to urinate every 2 hours to demonstrate normalized bladder function. Patient reports increased ability to fully empty bladder/bowels at least 75% of the time to normalize bladder/bowel function. Patient reports at least 75% less pain with voiding bladder/bowels to normalize bladder/bowel function. Patient reports having 1 bowel movements per day/week without use of enema, suppositories, to demonstrate improved bowel function. Patient will report decreased pain rating by 2 points to meet minimal clinical important difference for numeric pain rating scale. Patient Goals: reduce pain and urinary symptoms Time Frame for Goals and Treatment : 06/19/25 Planned Interventions, Frequency, and Duration: Current Frequency: 1x/week Duration: 8 weeks Total Number of Visits Planned: 8 Planned Treatment Interventions: Therapeutic exercise (68852), Neuromuscular re-education (27732), Manual therapy (14285), Self-senior care management (05555), Gait Training (68568), Therapeutic activities (68520) PLAN FOR NEXT VISIT: PF relaxation, bladder mobs, education Patient demonstrates good understanding of plan of care and treatment. The above goals and plan of care were discussed and agreed upon by patient/family. SUBJECTIVE: Symptoms began in october of 2023. 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 Patient also has frequent UTIs, nausea, kideny pain. Pain with mictrition. Patient also notes foamy urine, loss of appetite, but no recent weight changes. Patient Goals: reduce pain and urinary symptoms Functional Limitations: bladder function, altered sexual function, bowel function Prior Level of Function: Independent without limitations Relevant History Past Relevant Medical Conditions: (frequent UTIs) Past Relevant Surgical Conditions: Comments (ureter reconstruction) Intake Information: Prescription present Previous Treatment: Surgery Pain: Pain Pain Level: 9 Pain Location: Pubic OBJECTIVE MEASURES WITH LEVEL OF FUNCTION: Pelvic Floor History of low back pain: Yes History of Hip Pain: yes Urinary/Bowel History : Urinary History, Bowel History Difficulty starting stream: Yes slow or intermittent stream: Yes strains to void: Yes Incomplete emptying: Yes Spraying: Yes Diversion of stream: Yes Stress Incontinence: Cough, Sneeze Urgency: No (none, just feels tightness in bladder and kidney pain as a signal he has to urinate.) Frequency of Urgency Episodes: 0 Frequency of Leaks Secondary to Urge: 0 Urinary Incontinence: yes Nocturia (times per night) : every 30 minutes after 1 am due to pain Daytime Frequency (hours): every 1.5 hours Fluid Intake: Water, Other beverage Water : a few bottles Other beverage : 3 bottles of gaterade Bowel Movement Frequency: every few days Bowel Movement Consistency ([place]) : 2: Sausage-shaped but lumpy Bloating / abdominal pain: Yes Pelvic Floor Muscle Assessment Consent for pelvic assessment/testing and treatment: Patient verbalized consent for the above treatment approaches today. Patient understands they have control of the treatment and an opportunity to stop treatment at any time. Appearance: General Observations General Observations: Patient was tender upon palpation at right upper quadrant over ever other quadrant. Tenderness in most of abdominal region. Water Intake: Patient education was provided to drink half their body weight in ounces with 2/3 of this fluid being water. Severe reduction in fluids can result in a concentration of urine which irritates the bladder which increases incontinence and/or urgency. I recommended the patient to drink a total of 90 ounces; 60 ounces of water; 30 ounces of other fluids. Void: Patient educated on going to the bathroom every 2-4 hours and a total of 5-8 times in 24 hours. Squatty Potty: Position yourself in a squat-like position; elevate your feet on a stool or books or purchase a Squatty Potty. Leaning forward and resting your elbows or hands on your knees will further bring you into this position. Anatomically, we are designed to empty our bowels better in a squat position vs seated. This allows your puborectalis muscle to relax around your rectum to allow the rectum to open and straighten slightly to pass stool. Do not strain! Excessively pushing and straining can put immense pressure on your pelvic floor muscles, pelvic organs, and your cardiovascular system and cause damage over time. Bladder Basics: Daytime void: 6-9x per day; 1x every 2-4 hours. Nighttime voiding frequency: 65 or younder: 0-1x/night; >65: 1-2x/day. Full bladder volume: 11-18 ounces or 15-20 seconds with a moderate to strong urine flow. Bladder irritants: Some foods increase urinary urgency and frequency. Stevenson the irritant by drinking 4oz of water before and after consuming to dilute the irritant. Top bladder irritants: coffee, carbonated beverages, tea, alcohol, spicy foods, citrus fruits, vinegar, tomatoes, artificial sweeteners. Fluid intake: urine can become too concentrated and cause urgency/frequency if you do not drink enough non-irritating fluids. Recommended for fluid intake of half your body weight in ounces with 2/3 of this fluid should be water. This should be increased if you are exercising regularly, nursing/, or are spending time in warm environment. Reduce nighttime voiding: reduce fluid intake 1-2 hours before bed. Bladder Empty: Patient education to promote bladder emptying such as relaxation, privacy, sitting down properly on the toilet, double voiding, leaning forward at the end of voiding, and manual assist on soft tissue over bladder. Handout provided. Education: Education Learning Preferences: Demonstration, Explanation, Performance, Printed Materials Barriers: None Learning/educational needs: Home exercise program, Plan of Care Education Provided: Yes, see treatment interventions for education provided Education Provided To: Patient Education Mode/Type: Demonstration, Explanation/Discussion, Literature/Printed Materials, Performance Response to Education/Teach Back: States/Identifies, Return Demonstration TREATMENT: PT Treatment Interventions: Self-Residential Management Evaluation Evaluation Self-Residential Management: 1: *fluid intake 2: *bladder logs 3: *voiding intervals 4: *squatty potty 5: *bladder irritants 6: *relaxation/stretching PF 7: *happy baby 8: *Supine TA activation 9: *Supine PPT (increased abdominal pain) 10: Access Code: [email or web address] URL: [email or web address] Date: 04/20/2025 Prepared by: Myesha Fletcher Exercises - Supine Pelvic Floor Stretch - 1 x daily - 7 x weekly - 3 sets - 10 reps - Supine Transversus Abdominis Bracing with Pelvic Floor Contraction - 1 x daily - 7 x weekly - 3 sets - 10 reps - Supine Posterior Pelvic Tilt with Pelvic Floor Contraction - 1 x daily - 7 x weekly - 3 sets - 10 reps Patient Education - Get To Know Your Pelvic Floor- Male - cc Pelvic Floor - Bladder Helio - Irritants - cc Pelvic Floor Bladder Basics - Pelvic Floor - Diaphragmatic Breathing - Pelvic Floor - Bladder Health & Emptying Techniques - Pelvic Floor - Bladder Emptying Ideas - cc Pelvic Floor - Bladder Retraining and Urge Suppression - Pelvic Floor - Bowel Movement Education - cc Pelvic Floor - Kegel Exercise for Men Skilled Intervention: Skilled judgment in the selection of proper modification for activity of daily living/home management based on clinical presentation, deficits, and needs. Educated the patient regarding recommendations and provided written instruction to facilitate compliance. Provided written instruction for activities of daily living techniques to facilitate proper performance and compliance. Reviewed patient specific diagnosis in relation to activities of daily living/home management. Billing * Evaluation Moderate Complexity: 1 Unit Self-Care/Home Management Treatment Minutes: 35 Skilled Treatment Time Minutes (timed and untimed codes): 75 Total Session Time (minutes): 88 Session Start Time : 1406 Session Stop Time : 1534 Myesha Fletcher PT, DPT Program_ID:[id number] Access Code: [email or web address] URL: [email or web address] Date: 04-20-2025 Prepared By: Myesha Fletcher Program Notes Exercises - Supine Pelvic Floor Stretch - 1 x daily - 7 x weekly - 3 sets - 10 reps - Supine Transversus Abdominis Bracing with Pelvic Floor Contraction - 1 x daily - 7 x weekly - 3 sets - 10 reps - Supine Posterior Pelvic Tilt with Pelvic Floor Contraction - 1 x daily - 7 x weekly - 3 sets - 10 reps Patient Education - Get To Know Your Pelvic Floor- Male - cc Pelvic Floor - Bladder Helio - Irritants - cc Pelvic Floor Bladder Basics - cc Pelvic Floor - Diaphragmatic Breathing - cc Pelvic Floor - Bladder Health & Emptying Techniques - cc Pelvic Floor - Bladder Emptying Ideas - cc Pelvic Floor - Bladder Retraining and Urge Suppression - Pelvic Floor - Bowel Movement Education - cc Pelvic Floor - Kegel Exercise for Men documented in this encounter [facility] 04-20-2025 Note HNO ID: [id number] Author: MYESHA FLETCHER PT Service: ? Author Type: Physical Therapist Type: Progress Notes Filed: 04/21/2025 08:13 Note Text: Episode Visit Count: 1 Therapist That Will Accept/Oversee The Plan Of Care: Myesha Fletcher PT, DPT Start of Care Date: 04/20/25 Patient Identified by Name and Date of : Yes REHABILITATION AND SPORTS THERAPY PHYSICAL THERAPY EVALUATION PLAN OF CARE: Assessment: Anu Lopez presents with chief complaint of abdominal pain, pain with urination, incomplete bladder emptying that interferes with bladder function, altered sexual function, bowel function . The patient presents with impairments in overall function and sensation. Prognosis for therapy is Good due to: current objective clinical presentation . The patient will benefit from skilled therapy services to meet the goals established for this plan of care as noted below. Goals for Episode of Care: established 04/20/25 Patient demonstrates independence and compliance with home exercise program. Patient to urinate every 2 hours to demonstrate normalized bladder function. Patient reports increased ability to fully empty bladder/bowels at least 75% of the time to normalize bladder/bowel function. Patient reports at least 75% less pain with voiding bladder/bowels to normalize bladder/bowel function. Patient reports having 1 bowel movements per day/week without use of enema, suppositories, to demonstrate improved bowel function. Patient will report decreased pain rating by 2 points to meet minimal clinical important difference for numeric pain rating scale. Patient Goals: reduce pain and urinary symptoms Time Frame for Goals and Treatment : 06/19/25 Planned Interventions, Frequency, and Duration: Current Frequency: 1x/week Duration: 8 weeks Total Number of Visits Planned: 8 Planned Treatment Interventions: Therapeutic exercise (42784), Neuromuscular re-education (39169), Manual therapy (51078), Self-senior care management (33836), Gait Training (91926), Therapeutic activities (73557) PLAN FOR NEXT VISIT: PF relaxation, bladder mobs, education Patient demonstrates good understanding of plan of care and treatment. The above goals and plan of care were discussed and agreed upon by patient/family. SUBJECTIVE: Symptoms began in october of 2023. 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 Patient also has frequent UTIs, nausea, kideny pain. Pain with mictrition. Patient also notes foamy urine, loss of appetite, but no recent weight changes. Patient Goals: reduce pain and urinary symptoms Functional Limitations: bladder function, altered sexual function, bowel function Prior Level of Function: Independent without limitations Relevant History Past Relevant Medical Conditions: (frequent UTIs) Past Relevant Surgical Conditions: Comments (ureter reconstruction) Intake Information: Prescription present Previous Treatment: Surgery Pain: Pain Pain Level: 9 Pain Location: Pubic OBJECTIVE MEASURES WITH LEVEL OF FUNCTION: Pelvic Floor History of low back pain: Yes History of Hip Pain: yes Urinary/Bowel History : Urinary History, Bowel History Difficulty starting stream: Yes slow or intermittent stream: Yes strains to void: Yes Incomplete emptying: Yes Spraying: Yes Diversion of stream: Yes Stress Incontinence: Cough, Sneeze Urgency: No (none, just feels tightness in bladder and kidney pain as a signal he has to urinate.) Frequency of Urgency Episodes: 0 Frequency of Leaks Secondary to Urge: 0 Urinary Incontinence: yes Nocturia (times per night) : every 30 minutes after 1 am due to pain Daytime Frequency (hours): every 1.5 hours Fluid Intake: Water, Other beverage Water : a few bottles Other beverage : 3 bottles of gaterade Bowel Movement Frequency: every few days Bowel Movement Consistency ([place]) : 2: Sausage-shaped but lumpy Bloating / abdominal pain: Yes Pelvic Floor Muscle Assessment Consent for pelvic assessment/testing and treatment: Patient verbalized consent for the above treatment approaches today. Patient understands they have control of the treatment and an opportunity to stop treatment at any time. Appearance: General Observations General Observations: Patient was tender upon palpation at right upper quadrant over ever other quadrant. Tenderness in most of abdominal region. Water Intake: Patient education was provided to drink half their body weight in ounces with 2/3 of this fluid being water. Severe reduction in fluids can result in a concentration of urine which irritates the bladder which increases incontinence and/or urgency. I recommended the patient to drink a total of 90 ounces; 60 ounces of water; 30 ounces of other fluids. Void: Patient educated on going to the bathroom every 2-4 hours and a total of 5-8 times in 24 hours. Squatty Potty: Position yourself in a squat-like pos (more content not included)... [facility] 04-07-2025 Note HNO ID: [id number] Author: PAT WILL APRN.SUPERVISING BAILIFF Service: ? Author Type: Nurse Practitioner Type: Progress Notes Filed: 04/18/2025 14:30 Note Text: [facility] [place] [facility] [place] [facility] [facility] PATIENT NAME: Anu Lopez DATE OF : 2000 TODAY'S DATE: 04/07/2025 CHIEF COMPLAINT: Patient presents with: Incomplete bladder emptying Assessment AND Plan: Assessment AND Plan Feeling of incomplete bladder emptying - PVR 229 cc - Obtain records from recent ER visit including imaging. - Recommend appointment with nursing to learn ISC. Recommend continuing timed/double voiding - Has not started pelvic floor physical therapy yet. -Consider potential InterStim placement. Hydronephrosis of left kidney Hx of robotic assisted lap left ureteral reimplant 05/13/24. Suspected reflux into system Follow Up: Return for Nursing to learn ISC. Follow up with Dr. Gould post PFPT HPI: Mr. Lopez is a 24 year old male who presents to the office regarding incomplete bladder emptying. Records have been reviewed. Went to the ED for frequency, flank pain- band like. Records not available for review Has been taking cipro. Starts PFT 04/23. Urinary Retention: - Recent urodynamic study and cystoscopy performed at [facility]. - Reports incomplete bladder emptying; instructed to void every 90 minutes, but notes minimal improvement. - Experiences rare sensation to urinate; often forces urination. - Recent episodes of urinary frequency, urinating 6-7 times in one hour. - Occasional post-void dribbling. - Denies significant urinary issues prior to previous surgery. - Concerns about potential nerve damage affecting bladder sensation post-surgery. - Scheduled for pelvic therapy on April 23. - Expresses reluctance towards self-catheterization and concerns about long-term management. Hydronephrosis: - History of left kidney swelling due to ureteral collapse. - Recent ER visit for severe left flank pain; diagnosed with kidney infection and chronic swelling. - Left kidney significantly larger than right; prescribed Keflex. - Pain improved with antibiotics but still present. - Concerns about recurrent kidney swelling and potential long-term damage. - Previous kidney function reduced to 10% during last swelling episode; recent scan showed improvement to 46-48% function. - Reports sharp bladder pain during sexual activity, leading to premature ejaculation. Review of symptoms All pertinent positives and negatives per HPI as stated above. Social History: PAST MEDICAL HISTORY Diagnosis Date Hydronephrosis of left kidney PMH - PAST MEDICAL HISTORY OF Normal color vision Respiratory syncytial virus (RSV) 08/08/2003 Routine or ritual circumcision Wrist fracture, right 05/08/2013 PAST SURGICAL HISTORY Procedure Laterality Date CIRCUMCISION W/CLAMP/OTH DEV W/BLOCK S STENT,URINARY DIVERSION,410449 04/07/24 ALLERGIES Allergen Reactions Dilaudid [Hydromorp* Rash Medications Current Outpatient Medications Medication Instructions ciprofloxacin HCl (CIPRO) 500 mg tablet loratadine (CLARITIN) 10 mg, ONCE DAILY NEEDED polyethylene glycol 3350 (MIRALAX ORAL) 17 mg, ONCE DAILY NEEDED tamsulosin (FLOMAX) 0.4 mg, ORAL, DAILY Physical Exam There were no vitals taken for this visit. Constitutional: In no acute distress. Well appearing. Genitourinary: CVA: Nontender bilaterally. Genitourinary: Bladder nontender and nondistended. Pertinent Labs: CBC: Lab Results Component Value Date WBC 14.07 (H) 05/14/2024 HCT 42.6 05/14/2024 MCV 90.8 05/14/2024 PLT 237 05/14/2024 CMP: Lab Results Component Value Date NA 141 05/14/2024 K 4.4 05/14/2024 CO2 23 05/14/2024 BUN 14 05/14/2024 ALT <7 (L) 02/10/2024 AST 10 02/10/2024 ALKPHOS 80 02/10/2024 URINE POC GLUCOSE UA (POCT) Negative 04/07/2025 BILIRUBIN UA (POCT) Negative 04/07/2025 KETONE UA (POCT) Negative 04/07/2025 SPECIFIC GRAVITY UA (POCT) 1.020 04/07/2025 HEMOGLOBIN/BLOOD UA (POCT) Small 04/07/2025 PH UA (POCT) 7.0 04/07/2025 PROTEIN UA (POCT) 30 04/07/2025 UROBILINOGEN UA (POCT) 0.2 04/07/2025 NITRITE UA (POCT) Negative 04/07/2025 LEUKOCYTES UA (POCT) Small 04/07/2025 COLOR UA (POCT) Yellow 04/07/2025 CLARITY UA (POCT) Clear 04/07/2025 Urine Culture: Culture Results - Past 1 Year Culture 05/07/2024 No growth to date 10/20/2024 No growth (<1,000 CFU/ml) 12/14/2024 No growth (<1,000 CFU/ml) 01/15/2025 No growth (<1,000 CFU/ml) 01/26/2025 Normal urogenital elodia: >=100,000 CFU/ml Staphylococcus epidermidis 02/13/2025 >=100,000 CFU/ml Normal Urogenital Elodia 03/04/2025 Normal urogenital elodia: >=100,000 CFU/ml Staphylococcus epidermidis 03/26/2025 >=100,000 CFU/ml Normal urogenital elodia Susceptibility Tests - Past 1 Year Collected Organism 01/26/25 Staphylococcus epidermidis 03/04/25 Staphylococcus epidermidis 03/26/25 Normal urogenital elodia Imaging: (more content not included)... [facility] 04-07-2025 History of Present illness Narrative Images from the original note were not included. [facility] [place] [facility] [place] [facility] PATIENT NAME: Anu Lopez DATE OF : 2000 TODAY'S DATE: 04/07/2025 CHIEF COMPLAINT: Patient presents with: Incomplete bladder emptying Assessment & Plan: Assessment & Plan Feeling of incomplete bladder emptying - PVR 229 cc - Obtain records from recent ER visit including imaging. - Recommend appointment with nursing to learn ISC. Recommend continuing timed/double voiding - Has not started pelvic floor physical therapy yet. -Consider potential InterStim placement. Hydronephrosis of left kidney Hx of robotic assisted lap left ureteral reimplant 05/13/24. Suspected reflux into system Follow Up: Return for Nursing to learn ISC. Follow up with Dr. Gould post PFPT HPI: Mr. Lopze is a 24 year old male who presents to the office regarding incomplete bladder emptying. Records have been reviewed. Went to the ED for frequency, flank pain- band like. Records not available for review Has been taking cipro. Starts PFT 04/23. Urinary Retention: - Recent urodynamic study and cystoscopy performed at [facility]. - Reports incomplete bladder emptying; instructed to void every 90 minutes, but notes minimal improvement. - Experiences rare sensation to urinate; often forces urination. - Recent episodes of urinary frequency, urinating 6-7 times in one hour. - Occasional post-void dribbling. - Denies significant urinary issues prior to previous surgery. - Concerns about potential nerve damage affecting bladder sensation post-surgery. - Scheduled for pelvic therapy on April 23. - Expresses reluctance towards self-catheterization and concerns about long-term management. Hydronephrosis: - History of left kidney swelling due to ureteral collapse. - Recent ER visit for severe left flank pain; diagnosed with kidney infection and chronic swelling. - Left kidney significantly larger than right; prescribed Keflex. - Pain improved with antibiotics but still present. - Concerns about recurrent kidney swelling and potential long-term damage. - Previous kidney function reduced to 10% during last swelling episode; recent scan showed improvement to 46-48% function. - Reports sharp bladder pain during sexual activity, leading to premature ejaculation. Review of symptoms All pertinent positives and negatives per HPI as stated above. Social History: PAST MEDICAL HISTORY Diagnosis Date Hydronephrosis of left kidney PMH - PAST MEDICAL HISTORY OF Normal color vision Respiratory syncytial virus (RSV) 08/08/2003 Routine or ritual circumcision Wrist fracture, right 05/08/2013 PAST SURGICAL HISTORY Procedure Laterality Date CIRCUMCISION W/CLAMP/OTH DEV W/BLOCK S STENT,URINARY DIVERSION,113066 04/07/24 ALLERGIES Allergen Reactions Dilaudid [Hydromorp* Rash Medications Current Outpatient Medications Medication Instructions ciprofloxacin HCl (CIPRO) 500 mg tablet loratadine (CLARITIN) 10 mg, ONCE DAILY NEEDED polyethylene glycol 3350 (MIRALAX ORAL) 17 mg, ONCE DAILY NEEDED tamsulosin (FLOMAX) 0.4 mg, ORAL, DAILY Physical Exam There were no vitals taken for this visit. Constitutional: In no acute distress. Well appearing. Genitourinary: CVA: Nontender bilaterally. Genitourinary: Bladder nontender and nondistended. Pertinent Labs: CBC: Lab Results Component Value Date WBC 14.07 (H) 05/14/2024 HCT 42.6 05/14/2024 MCV 90.8 05/14/2024 PLT 237 05/14/2024 CMP: Lab Results Component Value Date NA 141 05/14/2024 K 4.4 05/14/2024 CO2 23 05/14/2024 BUN 14 05/14/2024 ALT <7 (L) 02/10/2024 AST 10 02/10/2024 ALKPHOS 80 02/10/2024 URINE POC GLUCOSE UA (POCT) Negative 04/07/2025 BILIRUBIN UA (POCT) Negative 04/07/2025 KETONE UA (POCT) Negative 04/07/2025 SPECIFIC GRAVITY UA (POCT) 1.020 04/07/2025 HEMOGLOBIN/BLOOD UA (POCT) Small 04/07/2025 PH UA (POCT) 7.0 04/07/2025 PROTEIN UA (POCT) 30 04/07/2025 UROBILINOGEN UA (POCT) 0.2 04/07/2025 NITRITE UA (POCT) Negative 04/07/2025 LEUKOCYTES UA (POCT) Small 04/07/2025 COLOR UA (POCT) Yellow 04/07/2025 CLARITY UA (POCT) Clear 04/07/2025 Urine Culture: Culture Results - Past 1 Year Culture 05/07/2024 No growth to date 10/20/2024 No growth (<1,000 CFU/ml) 12/14/2024 No growth (<1,000 CFU/ml) 01/15/2025 No growth (<1,000 CFU/ml) 01/26/2025 Normal urogenital elodia: >=100,000 CFU/ml Staphylococcus epidermidis 02/13/2025 >=100,000 CFU/ml Normal Urogenital Elodia 03/04/2025 Normal urogenital elodia: >=100,000 CFU/ml Staphylococcus epidermidis 03/26/2025 >=100,000 CFU/ml Normal urogenital elodia Susceptibility Tests - Past 1 Year Collected Organism 01/26/25 Staphylococcus epidermidis 03/04/25 Staphylococcus epidermidis 03/26/25 Normal urogenital elodia Imaging: CT - No results found. CT FLANK WO IVCON Result Date: 09/13/2024 IMPRESSION: Improved but persistent left hydroureteronephrosis. New small dependent peripelvic left lower pole renal calculi. Stand In: FAZAL Transcribe Date/Time: Sep 13 2024 10:39A Dictated by : SHANNAN JACKSON MD This examination was interpreted and the report reviewed and electronically signed by: SHANNAN JACKSON MD on Sep 13 2024 10:43AM EST No results found. Procedure: PVR: 229cc An electronic signature was used to authenticate this note. Please note that portions of this chart were dictated using Everstring electronic voice recognition software. It is possible that typos and/or omissions and/or substitutions of words and/or phrases may exist, which may alter the intended meaning of the dictating provider. Pat Will APRN [facility] [place] [facility] documented in this encounter [facility] 03-27-2025 Telephone encounter Note Called pt, was unable to leave message due to mailbox being full. Carri Horton MA [facility] 03-27-2025 Telephone encounter Note ----- Message from Ananda Smiley APRN.CNP sent at 03/27/2025 12:40 PM EDT ----- Urine cx negative, but finish treatment with keflex. Ananda Smiley APRN.CNP [facility] 03-27-2025 Miscellaneous Notes Called pt, was unable to leave message due to mailbox being full. Carri Horton MA ----- Message from Ananda Smiley APRN.CNP sent at 03/27/2025 12:40 PM EDT ----- Urine cx negative, but finish treatment with keflex. Ananda Smiley APRN.CNP Urine cx negative, but finish treatment with keflex. Ananda Smiley APRN.CNP documented in this encounter [facility] 03-27-2025 Progress note Formatting of t his note might be different from the original. Urine cx negative, but finish treatment with keflex. Ananda Smiley APRN.CNP [facility] 03-26-2025 Telephone encounter Note Called Lorraine Pedro. Spoke to medical records-sending image report, visit note, and labs that were done from that ED visit. Spoke to radiology-sending images from February Ed visit. Sabnio Jordan MA [facility] 03-26-2025 Miscellaneous Notes Called Lorraine Pedro. Spoke to medical records-sending image report, visit note, and labs that were done from that ED visit. Spoke to radiology-sending images from February Ed visit. Sabino Jordan MA documented in this encounter [facility] 03-26-2025 History of Present illness Narrative Images from the original note were not included. [facility] ESTABLISHED PATIENT FOLLOW-UP NOTE PATIENT: Anu Lopez (24 year old) PCP: Sagar Rojo MD Assessment & Plan Feeling of incomplete bladder emptying Pvr- 56 cc Discussed case with Dr. Gould and recommend 90 minute voiding schedule with double voiding during the day and referral to PFT. If fails that, he may need to do ISC. Orders: BLADDER SCAN CONSULT TO PHYSICAL THERAPY; Future Hydronephrosis of left kidney Chronic. No obstruction Hx of robotic assisted lap left ureteral reimplant 05/13/24. Suspected reflux into system Orders: BLADDER SCAN Dysuria Ua- small blood, posotive nitrite, small leuk with associated burning and cloudiness of urine. Will emperically treat with keflex. Will call with results. Orders: URINALYSIS, WITH MICROSCOPIC BACTERIAL CULTURE, URINE FOLLOW UP: Return for Will call with results. CHIEF COMPLAINT: Patient presents with: Feeling of incomplete bladder emptying HISTORY OF PRESENT ILLNESS: Prior notes were reviewed. Pt known to Dr. 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 Reported continued cramping and left flank pain which generally occurred during voiding and did not improve after treatment of renal stone. Attempted flomax to see if would improve symptoms which has not. Pvr- 356 cc. Did have cysto/RUG which was without stricture. Underwent UDS which was without obstruction. REVIEW OF SYSTEMS GENERAL:denies unintentional weight loss, malaise or fevers. NEUROLOGIC: pt is alert and oriented GASTROINTESTINAL: No nausea, vomiting, or diarrhea GENITOURINARY: See HPI MUSCULOSKELETAL: Negative for joint pain or swelling, back pain or muscle pain SKIN: Negative for lesions, rash, and itching. ALLERGIES: ALLERGIES Allergen Reactions Dilaudid [Hydromorp* Rash MEDICATIONS: cephALEXin (KEFLEX) 500 mg capsule Take 1 capsule by mouth three times a day for 7 days. tamsulosin (FLOMAX) 0.4 mg Take 1 capsule by mouth once daily. polyethylene glycol 3350 (MIRALAX ORAL) Take 17 mg by mouth once daily as needed. (Patient not taking: Reported on 03/26/2025) loratadine (CLARITIN) 10 mg tablet Take 10 mg by mouth once daily as needed. (Patient not taking: Reported on 03/26/2025) PAST HISTORY: PAST MEDICAL HISTORY Diagnosis Date Hydronephrosis of left kidney PMH - PAST MEDICAL HISTORY OF Normal color vision Respiratory syncytial virus (RSV) 08/08/2003 Routine or ritual circumcision Wrist fracture, right 05/08/2013 PAST SURGICAL HISTORY Procedure Laterality Date CIRCUMCISION W/CLAMP/OTH DEV W/BLOCK S STENT,URINARY DIVERSION,[id number] 04/07/24 FAMILY HISTORY Problem Relation Age of Onset Heart Mother other (arrythmia) Mother Heart Other mggm pacemaker at age 26 years Social History Tobacco Use Smoking status: Never Passive exposure: Never Smokeless tobacco: Never Tobacco comments: smoking outside at dads-denies Vaping Use Vaping status: Never Used Substance Use Topics Alcohol use: No Drug use: No PHYSICAL EXAMINATION: There were no vitals taken for this visit. Constitutional: In no acute distress. Well appearing. Respiratory: Normal respiratory effort without use of accessory muscles. DATA: CT - No results found. CT FLANK WO IVCON Result Date: 09/13/2024 IMPRESSION: Improved but persistent left hydroureteronephrosis. New small dependent peripelvic left lower pole renal calculi. Stand In: FAZAL Transcribe Date/Time: Sep 13 2024 10:39A Dictated by : SHANNAN JACKSON MD This examination was interpreted and the report reviewed and electronically signed by: SHANNAN JACKSON MD on Sep 13 2024 10:43AM EST Clinic: GLUCOSE UA (POCT) (mg/dL) Date Value 03/26/2025 Negative BILIRUBIN UA (POCT) (no units) Date Value 03/26/2025 Negative KETONE UA (POCT) (mg/dL) Date Value 03/26/2025 Negative SPECIFIC GRAVITY UA (POCT) (no units) Date Value 03/26/2025 1.020 HEMOGLOBIN/BLOOD UA (POCT) (no units) Date Value 03/26/2025 Small (A) PH UA (POCT) (no units) Date Value 03/26/2025 6.0 PROTEIN UA (POCT) (mg/dL) Date Value 03/26/2025 100 (A) UROBILINOGEN UA (POCT) (E.U./dL) Date Value 03/26/2025 0.2 NITRITE UA (POCT) (no units) Date Value 03/26/2025 Positive (A) LEUKOCYTES UA (POCT) (no units) Date Value 03/26/2025 Small (A) COLOR UA (POCT) (no units) Date Value 03/26/2025 Other CLARITY UA (POCT) (no units) Date Value 03/26/2025 Cloudy Laboratory: Creatinine Date Value Ref Range Status 05/14/2024 0.90 0.50 - 1.40 mg/dL Final Comment: Patients receiving either N-Acetylcysteine (NAC) or Metamizole prior to venipuncture, may have falsely depressed results. Previous Urine Cultures: Culture Results - Past 1 Year Culture 05/07/2024 No growth to date 10/20/2024 No growth (<1,000 CFU/ml) 12/14/2024 No growth (<1,000 CFU/ml) 01/15/2025 No growth (<1,000 CFU/ml) 01/26/2025 Normal urogenital elodia: >=100,000 CFU/ml Staphylococcus epidermidis ! 02/13/2025 >=100,000 CFU/ml Normal Urogenital Elodia 03/04/2025 Normal urogenital elodia: >=100,000 CFU/ml Staphylococcus epidermidis ! Legend: ! Abnormal I have reviewed the problem list, family history, and social history documented by my ancillary staff. Ananda Smiley APRN.SUPERVISING [employer]AILIFF documented in this encounter [facility] 03-26-2025 Note HNO ID: [id number] Author: ANADNA SMILEY APRN.CNP Service: ? Author Type: Nurse Practitioner Type: Progress Notes Filed: 03/26/2025 09:42 Note Text: [facility] ESTABLISHED PATIENT FOLLOW-UP NOTE PATIENT: Anu Lopez (24 year old) PCP: Sagar Rojo MD --- Assessment AND Plan Feeling of incomplete bladder emptying Pvr- 56 cc Discussed case with Dr. Gould and recommend 90 minute voiding schedule with double voiding during the day and referral to PFT. If fails that, he may need to do ISC. Orders: BLADDER SCAN CONSULT TO PHYSICAL THERAPY; Future Hydronephrosis of left kidney Chronic. No obstruction Hx of robotic assisted lap left ureteral reimplant 05/13/24. Suspected reflux into system Orders: BLADDER SCAN Dysuria Ua- small blood, posotive nitrite, small leuk with associated burning and cloudiness of urine. Will emperically treat with keflex. Will call with results. Orders: URINALYSIS, WITH MICROSCOPIC BACTERIAL CULTURE, URINE FOLLOW UP: Return for Will call with results. --- CHIEF COMPLAINT: Patient presents with: Feeling of incomplete bladder emptying HISTORY OF PRESENT ILLNESS: Prior notes were reviewed. Pt known to Dr. 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 Reported continued cramping and left flank pain which generally occurred during voiding and did not improve after treatment of renal stone. Attempted flomax to see if would improve symptoms which has not. Pvr- 356 cc. Did have cysto/RUG which was without stricture. Underwent UDS which was without obstruction. REVIEW OF SYSTEMS GENERAL:denies unintentional weight loss, malaise or fevers. NEUROLOGIC: pt is alert and oriented GASTROINTESTINAL: No nausea, vomiting, or diarrhea GENITOURINARY: See HPI MUSCULOSKELETAL: Negative for joint pain or swelling, back pain or muscle pain SKIN: Negative for lesions, rash, and itching. ALLERGIES: ALLERGIES Allergen Reactions Dilaudid [Hydromorp* Rash MEDICATIONS: cephALEXin (KEFLEX) 500 mg capsule Take 1 capsule by mouth three times a day for 7 days. tamsulosin (FLOMAX) 0.4 mg Take 1 capsule by mouth once daily. polyethylene glycol 3350 (MIRALAX ORAL) Take 17 mg by mouth once daily as needed. (Patient not taking: Reported on 03/26/2025) loratadine (CLARITIN) 10 mg tablet Take 10 mg by mouth once daily as needed. (Patient not taking: Reported on 03/26/2025) PAST HISTORY: PAST MEDICAL HISTORY Diagnosis Date Hydronephrosis of left kidney PMH - PAST MEDICAL HISTORY OF Normal color vision Respiratory syncytial virus (RSV) 08/08/2003 Routine or ritual circumcision Wrist fracture, right 05/08/2013 PAST SURGICAL HISTORY Procedure Laterality Date CIRCUMCISION W/CLAMP/OTH DEV W/BLOCK S STENT,URINARY DIVERSION,[id number] 04/07/24 FAMILY HISTORY Problem Relation Age of Onset Heart Mother other (arrythmia) Mother Heart Other mggm pacemaker at age 26 years Social History Tobacco Use Smoking status: Never Passive exposure: Never Smokeless tobacco: Never Tobacco comments: smoking outside at dads-denies Vaping Use Vaping status: Never Used Substance Use Topics Alcohol use: No Drug use: No PHYSICAL EXAMINATION: There were no vitals taken for this visit. Constitutional: In no acute distress. Well appearing. Respiratory: Normal respiratory effort without use of accessory muscles. DATA: CT - No results found. CT FLANK WO IVCON Result Date: 09/13/2024 IMPRESSION: Improved but persistent left hydroureteronephrosis. New small dependent peripelvic left lower pole renal calculi. Stand In: FAZAL Transcribe Date/Time: Sep 13 2024 10:39A Dictated by : SHANNAN JACKSON MD This examination was interpreted and the report reviewed and electronically signed by: SHANNAN JACKSON MD on Sep 13 2024 10:43AM EST Clinic: GLUCOSE UA (POCT) (mg/dL) Date Value 03/26/2025 Negative BILIRUBIN UA (POCT) (no units) Date Value 03/26/2025 Negative KETONE UA (POCT) (mg/dL) Date Value 03/26/2025 Negative SPECIFIC GRAVITY UA (POCT) (no units) Date Value 03/26/2025 1.020 HEMOGLOBIN/BLOOD UA (POCT) (no units) Date Value 03/26/2025 Small (A) PH UA (POCT) (no units) Date Value 03/26/2025 6.0 PROTEIN UA (POCT) (mg/dL) Date Value 03/26/2025 100 (A) UROBILINOGEN UA (POCT) (E.U./dL) Date Value 03/26/2025 0.2 NITRITE UA (POCT) (no units) Date Value 03/26/2025 Positive (A) LEUKOCYTES UA (POCT) (no units) Date Value 03/26/2025 Small (A) COLOR UA (POCT) (no units) Date Value 03/26/2025 Other CLARITY UA (POCT) (no units) Date Value 03/26/2025 Cloudy Laboratory: Creatinine Guilherme (more content not included)... [facility] 02-26-2025 Note HNO ID: [id number] Author: BSAILIO GOULD MD Service: ? Author Type: Registered Nurse Type: Progress Notes Filed: 02/26/2025 10:51 Note Text: Anu Lopez [id number] 2000 February 26, 2025 Diagnoses: Urinary Retention UA done: No Procedure Performed: Multichannel urodynamic testing including multichannel cystometrogram, uroflowmetry, pressure voiding study, and EMG. Was a uroflow done at some point during the study: Yes Was a cystometrogram performed: Yes Was a UPP done: No Was an EMG done: Yes Was an intraabdominal pressure recorded: Yes Where were pressure catheters placed: Bladder and Rectum Procedure: The patient verified medications and allergies. The procedure was explained to the patient. Immediately prior to the test the patient was given Keflex 500 mg #1 by mouth and Lidocaine 2% jelly 11 ml to urethra per order. UNIVERSAL PROTOCOL / SAFETY CHECKLIST A moment to CARE: Completed Procedure to be performed: Urodynamics Sign in Communication: Completed Time Out: Team Confirms the Correct Patient, Correct Procedure, Correct Site and Site Marking, Correct Position (if applicable), Prep and Dry Time (if applicable). Time: 0800 Affirmation of Time Out: N/A Sign Out Discussion: Completed Urodynamic Findings: Uroflow : Patient arrived with a crane catheter- No. Patient voided 328.9 ml; Curve: Normal Post void residual 250 ml QMAX 27.3 ; QAVG 13.1 . Cystometrogram: The patient had a cystometrogram EMG: Yes First Sensation 186 ml First desire 472 ml Strong Desire 600 ml Capacity 672 ml The patient did not leak with cough. detrusor contractions beginning at 149 ml Instability associated with urge: Yes Instability associated with leakage: No Pressure-Flow Voiding Study: EMG: Yes Void 489.3 ml; Curve: Intermittent Post void residual: 375 ml Maximum detrusor pressure 43.9 Cm H20 Maximum flow rate: 15.6 ml/sec Average flow rate: 6.4 ml/sec UDS notes: Slow rise in pdet after 149 ml. Patient has not been taking Flomax. Patient experiencing strong sharp/stabbing sensation in bladder area when given permission to void. Plan: Patient will follow up with provider to discuss plan of care and results. Patient tolerated the procedure well. Home going instructions given. Patient able to repeat back understanding of instructions. Quin Medrano RN cc: Basilio Gould MD I reviewed the above procedure and results. My interpretation is as follows: Slight larger capacity bladder. Compliant Persistent elevated post void residual volumes with BVE below expected BOOI suggests not obstructed BCI also normal Pain/symptoms present at bladder capacity Basilio Gould MD 02/26/2025 [facility] 02-19-2025 Telephone encounter Note Patient called and said that he was to get an antibiotic and pain medication before his UDS, I told him that the urine culture was negative for an infection so there would not be a need for the antibiotic. When he asked about the pain medication I told him that there is lidocaine gel that is used but that would be given at the appointment. He said that he was told that it is was something he takes before he arrives. 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 Please advise. [facility] 02-19-2025 Miscellaneous Notes Patient called and said that he was to get an antibiotic and pain medication before his UDS, I told him that the urine culture was negative for an infection so there would not be a need for the antibiotic. When he asked about the pain medication I told him that there is lidocaine gel that is used but that would be given at the appointment. He said that he was told that it is was something he takes before he arrives. 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 Please advise. documented in this encounter [facility] 02-17-2025 Telephone encounter Note Attempted to call patient. No answer. VM full and could not leave a message. Chey Luciano RN [facility] 02-17-2025 Miscellaneous Notes Attempted to call patient. No answer. VM full and could not leave a message. Chey Luciano RN Please notify that urine culture did not show a UTI documented in this encounter [facility] 02-17-2025 Telephone encounter Note Please notify that urine culture did not show a UTI [facility] 02-13-2025 Note HNO ID: [id number] Author: QUIN MEDRANO RN Service: ? Author Type: Registered Nurse Type: Progress Notes Filed: 02/13/2025 10:52 Note Text: Anu Jairon Lopez [id number] 2000 February 13, 2025 Diagnoses: Urinary Retention Procedure: The patient verified medications and allergies. The procedure was explained to the patient. Immediately prior to the test the patient was given Keflex 500 mg #1 by mouth per order. UNIVERSAL PROTOCOL / SAFETY CHECKLIST A moment to CARE: Completed Procedure to be performed: Urodynamics Sign in Communication: Completed Time Out: Team Confirms the Correct Patient, Correct Procedure, Correct Site and Site Marking, Correct Position (if applicable), Prep and Dry Time (if applicable). Time: 1000 Affirmation of Time Out: N/A Sign Out Discussion: Completed UA done: Yes Dipped in room: Yes, Positive for Nitrites. Ran through [employer]? Yes Bouchra Menchaca PA-C Notified. Cultured ordered and sent. UDS rescheduled. Antibiotic ordered? No Quin Medrano RN cc: Basilio Gould MD [facility] 02-13-2025 History of Present illness Narrative Anu Lopez [id number] 2000 February 13, 2025 Diagnoses: Urinary Retention Procedure: The patient verified medications and allergies. The procedure was explained to the patient. Immediately prior to the test the patient was given Keflex 500 mg #1 by mouth per order. UNIVERSAL PROTOCOL / SAFETY CHECKLIST A moment to CARE: Completed Procedure to be performed: Urodynamics Sign in Communication: Completed Time Out: Team Confirms the Correct Patient, Correct Procedure, Correct Site and Site Marking, Correct Position (if applicable), Prep and Dry Time (if applicable). Time: 1000 Affirmation of Time Out: N/A Sign Out Discussion: Completed UA done: Yes Dipped in room: Yes, Positive for Nitrites. Ran through [employer]? Yes Bouchra Menchaca PA-C Notified. Cultured ordered and sent. UDS rescheduled. Antibiotic ordered? No Quin Medrano RN cc: Basilio Gould MD documented in this encounter [facility] 02-13-2025 Instructions Quin Medrano RN - 02/13/2025 10:08 AM EDT POST PROCEDURE INSTRUCTIONS Anu Lopez February 13, 2025 Increase your fluid intake. FOLLOW UP APPOINTMENT: 03/06/25 at 10:[address] Gould in the [place] office. WHEN TO CALL THE DOCTOR: If you develop fever (over 101 degrees) or chills. If you cannot urinate or empty your bladder. If you develop symptoms of a urinary tract infection such as burning or pain with urination, increased frequency of urination or foul smelling urine If you have any other questions or problems. Office phone number; [phone] documented in this encounter [facility] 02-12-2025 Telephone encounter Note Attempted to contact patient regarding UDS procedure tomorrow. Wanted to see if patient is aware that Valium was ordered to take prior to the procedure. 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 Quin Medrano RN [facility] 02-12-2025 Miscellaneous Notes Attempted to contact patient regarding UDS procedure tomorrow. Wanted to see if patient is aware that Valium was ordered to take prior to the procedure. 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 Quin Medrano RN documented in this encounter [facility] 01-30-2025 Note HNO ID: [id number] Author: BASILIO GOULD MD Service: ? Author Type: Physician Type: Progress Notes Filed: 01/30/2025 10:34 Note Text: [facility] ESTABLISHED PATIENT NOTE PATIENT: Anu Lopez (24 year old) PCP: Sagar Rojo MD DATE OF SERVICE: 01/30/2025 SUMMARY: Mr. Lopez is a 24 year old male who is here for: --- Assessment AND Plan Feeling of incomplete bladder emptying PVR 356 cc On tamsulosin Cystoscopy and RUG by Dr. Newsome shows no stricture I suspect this to be the cause of his pain during voiding as well as his recent infection Plan obtain UDS Follow up to review results Continue tamsulosin Orders: UA DIP, URINE (POC) BLADDER SCAN Hydronephrosis, left Chronic. No obstruction. Robotic-assisted laparoscopic left ureteral re-implantation, bladder psoas hitch 05/13/2024 I suspect he has reflux into this system based on intermittent poor bladder emptying/high pressure voiding -- FOLLOW UP: Return in about 4 weeks (around 02/27/2025). --- CHIEF COMPLAINT: Patient presents with: Follow Up: 6 week - Feeling of incomplete bladder emptying HISTORY OF PRESENT ILLNESS: Prior notes were reviewed. The patient reports ongoing issues with urinary retention, describing a sensation of his bladder going inwards during micturition. He experiences significant discomfort post-micturition, describing a sensation of his kidneys being squeezed for approximately 10 seconds, during which he is unable to move. He notes that his bladder pain has decreased recently, but he continues to experience intermittent pain on the right or left side of his abdomen, never in the midline. He also reports passing a brown blood clot and white, thick discharge during urination, which he describes as resembling chicken. He is currently on antibiotics for a UTI. The patient also reports new-onset headaches over the past 1.5 weeks, characterized by dizziness followed by sharp, excruciating pain on either the right or left side of his head, lasting 30-45 seconds and preventing him from opening his eye on the affected side. These headaches are not relieved by increased water intake. Additionally, he reports hip pain associated with left flank pain, which he suspects may be nerve-related. The patient expresses concern about the impact of his symptoms on his work and ability to play with his son, noting that physical activity for more than 15 minutes induces nausea and emesis. He also reports issues with premature ejaculation and changes in semen color to yellow, which he did not experience prior to his urinary symptoms. REVIEW OF SYSTEMS: Genitourinary: Denies hematuria, dysuria, frequency, urgency, nocturia, ANUM Constitutional: unintentional weight loss - denies, fevers - denies Cardiovascular: new or worsening chest pain - denies Respiratory: new or worsening shortness of breath - denies Gastrointestinal: constipation - denies, vomiting - denies Hematologic/Lymphatic: easy bleeding or bruising - denies ALLERGIES: ALLERGIES Allergen Reactions Dilaudid [Hydromorp* Rash MEDICATIONS: cephALEXin (KEFLEX) 500 mg capsule Take 1 capsule by mouth every 12 hours. tamsulosin (FLOMAX) 0.4 mg Take 1 capsule by mouth once daily. polyethylene glycol 3350 (MIRALAX ORAL) Take 17 mg by mouth once daily as needed. loratadine (CLARITIN) 10 mg tablet Take 10 mg by mouth once daily as needed. PAST HISTORY: PAST MEDICAL HISTORY Diagnosis Date Hydronephrosis of left kidney PMH - PAST MEDICAL HISTORY OF Normal color vision Respiratory syncytial virus (RSV) 08/08/2003 Routine or ritual circumcision Wrist fracture, right 05/08/2013 PAST SURGICAL HISTORY Procedure Laterality Date CIRCUMCISION W/CLAMP/OTH DEV W/BLOCK S STENT,URINARY DIVERSION,[id number] 04/07/24 FAMILY HISTORY Problem Relation Age of Onset Heart Mother other (arrythmia) Mother Heart Other mggm pacemaker at age 26 years Social History Tobacco Use Smoking status: Never Passive exposure: Never Smokeless tobacco: Never Tobacco comments: smoking outside at dads-denies Vaping Use Vaping status: Never Used Substance Use Topics Alcohol use: No Drug use: No PHYSICAL EXAMINATION: There were no vitals taken for this visit. Verbal informed consent obtained for exam below: Constitutional: In no acute distress. Respiratory: Normal respiratory effort without use of accessory muscles. Cardiovascular: Regular rate Gastrointestinal: Nondistended DATA: Clinic: URINALYSIS: GLUCO (more content not included)... [facility] 01-26-2025 Telephone encounter Note Patient was advised. Has appt on Sunday. Then will schedule urodynamics [facility] 01-26-2025 Miscellaneous Notes Patient was advised. Has appt on Sunday. Then will schedule urodynamics In chart Patient will contact Dr Baldwin's office to forward results Patient calling wanting to speak with you. After testing states his urethra is normal. He is still having pain and it has been about a year. Wants to speak with you to figure out what is causing the pain. documented in this encounter [facility] 01-22-2025 Telephone encounter Note In chart [facility] 01-21-2025 Evaluation + Plan note Associated Problem(s): Urethral stricture He has no evidence of urethral stricture or bladder neck contracture. Unclear why he is having left flank pain. In setting of recent surgery, will defer work up to Dr. Gould. [facility] 01-21-2025 Miscellaneous Notes Associated Problem(s): Urethral stricture He has no evidence of urethral stricture or bladder neck contracture. Unclear why he is having left flank pain. In setting of recent surgery, will defer work up to Dr. Gould. documented in this encounter [facility] 01-21-2025 Telephone encounter Note Patient will contact Dr Baldwin's office to forward results [facility] 01-21-2025 Telephone encounter Note Patient calling wanting to speak with you. After testing states his urethra is normal. He is still having pain and it has been about a year. Wants to speak with you to figure out what is causing the pain. [facility] 01-21-2025 History of Present illness Narrative Patient here today for cystoscopy with RUG. Patient escorted to procedure room where procedure was explained and patient agreed to continue. Sterile scope was set up with Normal Saline (Scope # 276). Medications and allergies were verified with the patient and are consistent with the EMR. Consent was obtained per Dr. Newsome. Patient was placed in supine position prepped in sterile fashion. Time Out Per Collins Acuna, RN. Patient tolerated the procedure well. UROLOGY OUTPATIENT CONSULTATION: HISTORY OF PRESENT ILLNESS Victor Manuel Lopez is a 24 y.o. male h/o distal left ureteral stricture s/p robotic left ureteral reimplantation with Psoas hitch (05/13/24; Dr. Gould) c/b left flank pain s/p L URS/LL, stent placement (10/20/24; Dr. 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 States pain radiates to left and right flank. PVR 231 cc [address] Gould (12/04/24). Was scheduled to have UDS and CT cystogram to r/o VUR. He was thought to have a urethral stricture at time of UDS when catheter could not pass. Disease Duration: 1.5 months Number of previous endoscopic stricture procedures: 0 Number of prior urethroplasties: 0 Current LUTS: Slow Stream/Weak Stream, Feelings of Incomplete Emptying, Straining, Hesitancy, and Frequency (12x per day) Denies: Urinary Retention, Nocturia (0x per night), and Urge Incontinence Current bladder management: Voiding He does not use dentures He does not use chewing tobacco/snuff Associated Factors Details Hx pelvic/perineal/urethral trauma absent Hx pelvic radiation therapy absent Hx endoscopic procedures (before stricture) absent Hx major lower urinary tract surgeries absent Hx STIs absent Hx hypospadias/epispadias surgery absent Hx diagnosed lichen sclerosus absent 01/21/25 - continues to have left flank pain and discomfort with voiding Past Medical History: Past Medical History: Diagnosis Date Urethral stricture 01/06/2025 Past Surgical History: No past surgical history on file. Relevant Medications: Outpatient Medications Prior to Visit Medication Sig Dispense Refill Loratadine 10 MG tablet 1 tablet daily. (Patient not taking: Reported on 01/21/2025) oxyCODONE-acetaminophen 5-325 MG per tablet Take 1 tablet by mouth as needed. (Patient not taking: Reported on 01/21/2025) Tamsulosin HCl 0.4 MG capsule Take 1 capsule by mouth daily. (Patient not taking: Reported on 01/21/2025) No facility-administered medications prior to visit. Relevant Family and Social History: No family history on file. Social History Tobacco Use Smoking status: Never Smokeless tobacco: Never Substance Use Topics Alcohol use: Never Allergies: Allergies Allergen Reactions Hydromorphone Rash Objective Physical Exam: Physical Exam Vitals reviewed. Constitutional: Appearance: Normal appearance. He is normal weight. Pulmonary: Effort: Pulmonary effort is normal. Breath sounds: Normal breath sounds. Abdominal: General: Abdomen is flat. Palpations: Abdomen is soft. Genitourinary: Penis: Normal and circumcised. Testes: Normal. Neurological: General: No focal deficit present. Mental Status: He is alert and oriented to person, place, and time. Mental status is at baseline. Psychiatric: Mood and Affect: Mood normal. Behavior: Behavior normal. Labs: No results found for: SODIUM, POTASSIUM, CHLORIDE, CO2, BUN, CREATSERUM, GLUCOSE No results found for: WBC, WBCCOUNT, WBCFETAL, HGB, HCT, PLATELET, MCV No results found for: HGBA1C Assessment and Plan: Anu Lopez is a 24 y.o. male h/o distal left ureteral stricture s/p robotic left ureteral reimplantation with Psoas hitch (05/13/24; Dr. Gould) c/b left flank pain s/p L URS/LL, stent placement (10/20/24; Dr. 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 We discussed the following problems: Urethral stricture He has no evidence of urethral stricture or bladder neck contracture. Unclear why he is having left flank pain. In setting of recent surgery, will defer work up to Dr. Gould. This represents a stable illness/condition for which a limited amount of review including medical records and available test results was required to formulate a plan. This plan includes a recommendation for management with lifestyle modifications and non-medical management with a low risk of morbidity.. At the end of the visit, the patient was given time to answer any and all remaining questions. I would be happy to see them again outside of what we agreed above, should further issues arise. 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 Pre-Procedure Details: The risks, benefits and alternatives were discussed with the patient including but not limited to infection and bleeding. Informed consent was obtained. Does this procedure require a [place] Protocol? Yes, [place] Protocol is required. Indications: urethral stricture Procedure Details: Procedure performed: urethrogram The patient was taken back to the procedure room and placed in the lateral decubitus position. They were prepped and draped in the standard sterile fashion. A tube repairer film was obtained. The penis was placed on stretch. With the aid of a catheter and gauze mL of radiocontrast was administered into the patient's anterior urethra. Fluoroscopy images performed. Findings: Patent urethra with no evidence of urethral stricture Post-Procedure Details: All contrast was drained. Post-drainage films were taken. The procedure was tolerated well, no immediate complications CYSTOSCOPY Date/Time: 01/21/2025 9:00 AM Performed by: Clifton Jackson MD, PhD Authorized by: Clifton Jackson MD, PhD The attending physician was present for the entire procedure. Pre-Procedure: Indications: urethral stricture Detailed information of all possible complications and side effects were discussed with the patient, these include but not only; UTI, sepsis, hematuria, incontinence, urethral injury and cardiovascular complications. Informed consent was obtained. Does this procedure require a [place] Protocol? Yes. [place] Protocol is required. The patient was not given antibiotics. Urine was not collected. Procedure: Procedure performed: cystoscopy The patient was placed supine with all pressure points well padded. with chlorhexidine. lidocaine 2% topical gel was inserted into urethra for local anesthesia. A penile clamp was gently applied. The flexible cystoscope was lubricated and placed into the urethral tract under direct visualization. A 360 survey of the bladder was performed. The cystoscope was reflected and the bladder neck and the ureteral orifices were inspected. The findings are detailed below. The cystoscope was removed following any additional procedures documented below. Findings: The urinary meatus appeared normal. There was not a prominent median lobe. The lateral lobes were not obstructive in appearance. No tumors observed. No bladder fistula present. No foreign bodies observed. No stones found. No trabeculations were found. Both ureteral orifices were normal in size, shape and position with efflux of clear urine. The urethra was inspected. No foreign body(s) present in urethra. No urethral diverticulum observed. No urethral stricture found. Cystoscopy normal Post Procedure: Patient tolerated procedure with no immediate complications EBL: no blood loss Provided education regarding water intake of at least 2 liters per day. 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 Pre-Procedure Details: The risks, benefits and alternatives were discussed with the patient including but not limited to infection and bleeding. Informed consent was obtained. Does this procedure require a [place] Protocol? Yes, Gal[place] Protocol is required. Indications: urethral stricture Procedure Details: Procedure performed: urethrogram The patient was taken back to the procedure room and placed in the lateral decubitus position. They were prepped and draped in the standard sterile fashion. A tube repairer film was obtained. The penis was placed on stretch. With the aid of a catheter and gauze mL of radiocontrast was administered into the patient's anterior urethra. Fluoroscopy images performed. Findings: Patent urethra with no evidence of urethral stricture Post-Procedure Details: All contrast was drained. Post-drainage films were taken. The procedure was tolerated well, no immediate complications CYSTOSCOPY Date/Time: 01/21/2025 9:00 AM Performed by: Clifton Jackson MD, PhD Authorized by: Clifton Jackson MD, PhD The attending physician was present for the entire procedure. Pre-Procedure: Indications: urethral stricture Detailed information of all possible complications and side effects were discussed with the patient, these include but not only; UTI, sepsis, hematuria, incontinence, urethral injury and cardiovascular complications. Informed consent was obtained. Does this procedure require a Gal[place] Protocol? Yes. [place] Protocol is required. The patient was not given antibiotics. Urine was not collected. Procedure: Procedure performed: cystoscopy The patient was placed supine with all pressure points well padded. with chlorhexidine. lidocaine 2% topical gel was inserted into urethra for local anesthesia. A penile clamp was gently applied. The flexible cystoscope was lubricated and placed into the urethral tract under direct visualization. A 360 survey of the bladder was performed. The cystoscope was reflected and the bladder neck and the ureteral orifices were inspected. The findings are detailed below. The cystoscope was removed following any additional procedures documented below. Findings: The urinary meatus appeared normal. There was not a prominent median lobe. The lateral lobes were not obstructive in appearance. No tumors observed. No bladder fistula present. No foreign bodies observed. No stones found. No trabeculations were found. Both ureteral orifices were normal in size, shape and position with efflux of clear urine. The urethra was inspected. No foreign body(s) present in urethra. No urethral diverticulum observed. No urethral stricture found. Cystoscopy normal Post Procedure: Patient tolerated procedure with no immediate complications EBL: no blood loss Provided education regarding water intake of at least 2 liters per day. documented in this encounter [facility] 01-07-2025 Note HNO ID: [id number] Author: BASILIO GOULD MD Service: ? Author Type: Physician Type: Progress Notes Filed: 01/07/2025 11:27 Note Text: [facility] ESTABLISHED PATIENT NOTE PATIENT: Anu Lopez (24 year old) PCP: Sagar Rojo MD DATE OF SERVICE: 01/07/2025 SUMMARY: Mr. Lopez is a 24 year old male who is here for: --- Assessment AND Plan Feeling of incomplete bladder emptying Unable to void today Bladder scan 18 cc (prior PVR 231 cc) Unable to perform the urodynamics due to inability to pass catheter Patient noting new curvature to his penis Seen by Dr. Newsome at [place]. Planning cystoscopy, RUG, [facility]G Although his cystoscopy from October was normal, his symptoms are consistent with a stricture. Agree with current scheduled testing. Will hold off on urodynamics and additional testing here until Dr. Newsome's evaluation complete. Orders: UA DIP, URINE (POC) BLADDER SCAN Hydronephrosis, left Chronic. No obstruction. Robotic-assisted laparoscopic left ureteral re-implantation, bladder psoas hitch 05/13/2024 Left kidney: Original: t1/2 136 minutes, 38% split function Current: t 52 minutes, 46.4% split function Hydronephrosis much improved on follow up CT I suspect he has reflux into this system based on intermittent poor bladder emptying/high pressure voiding --- FOLLOW UP: No follow-ups on file. --- CHIEF COMPLAINT: Patient presents with: Hydronephrosis HISTORY OF PRESENT ILLNESS: Prior notes were reviewed. The patient reports: Complaint: feelings of ANUM Location: bladder Duration: months Quality: none Severity: moderate Relieving: none Exacerbating: none Course: chronic Associated conditions: spraying stream, bladder pressure, aching flank pain, left hydronephrosis Diagnostics: CT Treatments: none REVIEW OF SYSTEMS: Genitourinary: Denies hematuria, dysuria, frequency, urgency, nocturia Constitutional: unintentional weight loss - denies, fevers - denies Cardiovascular: new or worsening chest pain - denies Respiratory: new or worsening shortness of breath - denies Gastrointestinal: constipation - denies, vomiting - denies Hematologic/Lymphatic: easy bleeding or bruising - denies ALLERGIES: ALLERGIES Allergen Reactions Dilaudid [Hydromorp* Rash MEDICATIONS: tamsulosin (FLOMAX) 0.4 mg Take 1 capsule by mouth once daily. polyethylene glycol 3350 (MIRALAX ORAL) Take 17 mg by mouth once daily as needed. loratadine (CLARITIN) 10 mg tablet Take 10 mg by mouth once daily as needed. PAST HISTORY: PAST MEDICAL HISTORY Diagnosis Date Hydronephrosis of left kidney PMH - PAST MEDICAL HISTORY OF Normal color vision Respiratory syncytial virus (RSV) 08/08/2003 Routine or ritual circumcision Wrist fracture, right 05/08/2013 PAST SURGICAL HISTORY Procedure Laterality Date CIRCUMCISION W/CLAMP/OTH DEV W/BLOCK S STENT,URINARY DIVERSION,[id number] 04/07/24 FAMILY HISTORY Problem Relation Age of Onset Heart Mother other (arrythmia) Mother Heart Other mggm pacemaker at age 26 years Social History Tobacco Use Smoking status: Never Passive exposure: Never Smokeless tobacco: Never Tobacco comments: smoking outside at dads-denies Vaping Use Vaping status: Never Used Substance Use Topics Alcohol use: No Drug use: No PHYSICAL EXAMINATION: There were no vitals taken for this visit. Verbal informed consent obtained for exam below: Constitutional: In no acute distress. Respiratory: Normal respiratory effort without use of accessory muscles. Cardiovascular: Regular rate Gastrointestinal: Nondistended DATA: Clinic: URINALYSIS: GLUCOSE UA (POCT) Negative 01/07/2025 BILIRUBIN UA (POCT) Negative 01/07/2025 KETONE UA (POCT) Trace 01/07/2025 SPECIFIC GRAVITY UA (POCT) 1.020 01/07/2025 HEMOGLOBIN/BLOOD UA (POCT) Trace-intact 01/07/2025 PH UA (POCT) 7.5 01/07/2025 PROTEIN UA (POCT) 100 01/07/2025 UROBILINOGEN UA (POCT) 0.2 01/07/2025 NITRITE UA (POCT) Negative 01/07/2025 LEUKOCYTES UA (POCT) Small 01/07/2025 COLOR UA (POCT) Yellow 01/07/2025 CLARITY UA (POCT) Clear 01/07/2025 Laboratory: Creatinine Date Value Ref Range Status 05/14/2024 0.90 0.50 - 1.40 mg/dL Final Comment: Patients receiving either N-Acetylcysteine (NAC) or Metamizole prior to venipuncture, may have falsely depressed results. 05/02/2024 0.98 0.73 - 1.22 mg/dL Final 03/27/2024 0.95 0.73 - 1.22 mg/dL Final 02/10/2024 0.86 0.50 - 1.40 mg/dL Final Comment: Patients receiving either N-Acetylcysteine (NAC) or Metamizole prior to ve (more content not included)... [facility] 01-07-2025 History of Present illness Narrative Images from the original note were not included. [facility] ESTABLISHED PATIENT NOTE PATIENT: Anu Lopez (24 year old) PCP: Sagar Rojo MD DATE OF SERVICE: 01/07/2025 SUMMARY: Mr. Lopez is a 24 year old male who is here for: Assessment & Plan Feeling of incomplete bladder emptying Unable to void today Bladder scan 18 cc (prior PVR 231 cc) Unable to perform the urodynamics due to inability to pass catheter Patient noting new curvature to his penis Seen by Dr. Newsome at [place]. Planning cystoscopy, RUG, [facility]CUG Although his cystoscopy from October was normal, his symptoms are consistent with a stricture. Agree with current scheduled testing. Will hold off on urodynamics and additional testing here until Dr. Newsome's evaluation complete. Orders: UA DIP, URINE (POC) BLADDER SCAN Hydronephrosis, left Chronic. No obstruction. Robotic-assisted laparoscopic left ureteral re-implantation, bladder psoas hitch 05/13/2024 Left kidney: Original: t1/2 136 minutes, 38% split function Current: t/12 52 minutes, 46.4% split function Hydronephrosis much improved on follow up CT I suspect he has reflux into this system based on intermittent poor bladder emptying/high pressure voiding FOLLOW UP: No follow-ups on file. CHIEF COMPLAINT: Patient presents with: Hydronephrosis HISTORY OF PRESENT ILLNESS: Prior notes were reviewed. The patient reports: Complaint: feelings of ANUM Location: bladder Duration: months Quality: none Severity: moderate Relieving: none Exacerbating: none Course: chronic Associated conditions: spraying stream, bladder pressure, aching flank pain, left hydronephrosis Diagnostics: CT Treatments: none REVIEW OF SYSTEMS: Genitourinary: Denies hematuria, dysuria, frequency, urgency, nocturia Constitutional: unintentional weight loss - denies, fevers - denies Cardiovascular: new or worsening chest pain - denies Respiratory: new or worsening shortness of breath - denies Gastrointestinal: constipation - denies, vomiting - denies Hematologic/Lymphatic: easy bleeding or bruising - denies ALLERGIES: ALLERGIES Allergen Reactions Dilaudid [Hydromorp* Rash MEDICATIONS: tamsulosin (FLOMAX) 0.4 mg Take 1 capsule by mouth once daily. polyethylene glycol 3350 (MIRALAX ORAL) Take 17 mg by mouth once daily as needed. loratadine (CLARITIN) 10 mg tablet Take 10 mg by mouth once daily as needed. PAST HISTORY: PAST MEDICAL HISTORY Diagnosis Date Hydronephrosis of left kidney PMH - PAST MEDICAL HISTORY OF Normal color vision Respiratory syncytial virus (RSV) 08/08/2003 Routine or ritual circumcision Wrist fracture, right 05/08/2013 PAST SURGICAL HISTORY Procedure Laterality Date CIRCUMCISION W/CLAMP/OTH DEV W/BLOCK S STENT,URINARY DIVERSION,[id number] 04/07/24 FAMILY HISTORY Problem Relation Age of Onset Heart Mother other (arrythmia) Mother Heart Other mggm pacemaker at age 26 years Social History Tobacco Use Smoking status: Never Passive exposure: Never Smokeless tobacco: Never Tobacco comments: smoking outside at [facility]-denies Vaping Use Vaping status: Never Used Substance Use Topics Alcohol use: No Drug use: No PHYSICAL EXAMINATION: There were no vitals taken for this visit. Verbal informed consent obtained for exam below: Constitutional: In no acute distress. Respiratory: Normal respiratory effort without use of accessory muscles. Cardiovascular: Regular rate Gastrointestinal: Nondistended DATA: Clinic: URINALYSIS: GLUCOSE UA (POCT) Negative 01/07/2025 BILIRUBIN UA (POCT) Negative 01/07/2025 KETONE UA (POCT) Trace 01/07/2025 SPECIFIC GRAVITY UA (POCT) 1.020 01/07/2025 HEMOGLOBIN/BLOOD UA (POCT) Trace-intact 01/07/2025 PH UA (POCT) 7.5 01/07/2025 PROTEIN UA (POCT) 100 01/07/2025 UROBILINOGEN UA (POCT) 0.2 01/07/2025 NITRITE UA (POCT) Negative 01/07/2025 LEUKOCYTES UA (POCT) Small 01/07/2025 COLOR UA (POCT) Yellow 01/07/2025 CLARITY UA (POCT) Clear 01/07/2025 Laboratory: Creatinine Date Value Ref Range Status 05/14/2024 0.90 0.50 - 1.40 mg/dL Final Comment: Patients receiving either N-Acetylcysteine (NAC) or Metamizole prior to venipuncture, may have falsely depressed results. 05/02/2024 0.98 0.73 - 1.22 mg/dL Final 03/27/2024 0.95 0.73 - 1.22 mg/dL Final 02/10/2024 0.86 0.50 - 1.40 mg/dL Final Comment: Patients receiving either N-Acetylcysteine (NAC) or Metamizole prior to venipuncture, may have falsely depressed results. Cultures: Culture Results - Past 1 Year Culture 02/24/2024 <10,000 CFU/ml Normal urogenital elodia 03/27/2024 <10,000 CFU/ml Normal urogenital elodia 05/07/2024 No growth to date 10/20/2024 No growth (<1,000 CFU/ml) 12/14/2024 No growth (<1,000 CFU/ml) Susceptibility Tests - Past 1 Year Collected Organism 02/24/24 Normal urogenital elodia 03/27/24 Normal urogenital elodia PSA: No results found for: PSA I have reviewed the problem list, family history, and social history documented by my ancillary staff. Basilio Gould MD Staff Urologist Office documented in this encounter [facility] 01-07-2025 Telephone encounter Note Late entry from 01/05/25: Radiology called stating the patient had concerns about having a catheter placed for his CT due to the issues with unsuccessful cath placement for UDS. I spoke with Venkat Will, and she said to cancel the CT for now and for him to f/u with Dr. Gould on 01/07/25 for next steps. Chey Luciano RN [facility] 01-07-2025 Miscellaneous Notes Late entry from 01/05/25: Radiology called stating the patient had concerns about having a catheter placed for his CT due to the issues with unsuccessful cath placement for UDS. I spoke with Venkat Will, and she said to cancel the CT for now and for him to f/u with Dr. Gould on 01/07/25 for next steps. Chey Luciano RN documented in this encounter [facility] 01-06-2025 Evaluation + Plan note Associated Problem(s): Urethral stricture We discussed further evaluation to determine the length and location of the diseased areas of the urethra are necessary. He is agreeable. Schedule for RUG, VCUG, cystoscopy for next available procedure date. [facility] 01-06-2025 Miscellaneous Notes Associated Problem(s): Urethral stricture We discussed further evaluation to determine the length and location of the diseased areas of the urethra are necessary. He is agreeable. Schedule for RUG, VCUG, cystoscopy for next available procedure date. documented in this encounter [facility] 01-06-2025 History of Present illness Narrative UROLOGY OUTPATIENT CONSULTATION: HISTORY OF PRESENT ILLNESS Subjective Anu Lopez is a 24 y.o. male h/o distal left ureteral stricture s/p robotic left ureteral reimplantation with Psoas hitch (05/13/24; Dr. Gould) c/b left flank pain s/p L URS/LL, stent placement (10/20/24; Dr. 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 States pain radiates to left and right flank. PVR 231 cc [address] he [address] Gould (12/04/24). Was scheduled to have UDS and CT cystogram to r/o VUR. He was thought to have a urethral stricture at time of UDS when catheter could not pass. Disease Duration: 1.5 months Number of previous endoscopic stricture procedures: 0 Number of prior urethroplasties: 0 Current LUTS: Slow Stream/Weak Stream, Feelings of Incomplete Emptying, Straining, Hesitancy, and Frequency (12x per day) Denies: Urinary Retention, Nocturia (0x per night), and Urge Incontinence Current bladder management: Voiding He does not use dentures He does not use chewing tobacco/snuff Associated Factors Details Hx pelvic/perineal/urethral trauma absent Hx pelvic radiation therapy absent Hx endoscopic procedures (before stricture) absent Hx major lower urinary tract surgeries absent Hx STIs absent Hx hypospadias/epispadias surgery absent Hx diagnosed lichen sclerosus absent Past Medical History: Past Medical History: Diagnosis Date Urethral stricture 01/06/2025 Past Surgical History: No past surgical history on file. Relevant Medications: Outpatient Medications Prior to Visit Medication Sig Dispense Refill oxyCODONE-acetaminophen 5-325 MG per tablet Take 1 tablet by mouth as needed. Loratadine 10 MG tablet 1 tablet daily. (Patient not taking: Reported on 01/06/2025) Tamsulosin HCl 0.4 MG capsule Take 1 capsule by mouth daily. (Patient not taking: Reported on 01/06/2025) No facility-administered medications prior to visit. Relevant Family and Social History: History reviewed. No pertinent family history. Social History Tobacco Use Smoking status: Never Smokeless tobacco: Never Substance Use Topics Alcohol use: Never Allergies: Allergies Allergen Reactions Hydromorphone Rash Objective Physical Exam: Physical Exam Vitals reviewed. Constitutional: Appearance: Normal appearance. He is normal weight. Pulmonary: Effort: Pulmonary effort is normal. Breath sounds: Normal breath sounds. Abdominal: General: Abdomen is flat. Palpations: Abdomen is soft. Genitourinary: Penis: Normal and circumcised. Testes: Normal. Neurological: General: No focal deficit present. Mental Status: He is alert and oriented to person, place, and time. Mental status is at baseline. Psychiatric: Mood and Affect: Mood normal. Behavior: Behavior normal. Labs: No results found for: SODIUM, POTASSIUM, CHLORIDE, CO2, BUN, CREATSERUM, GLUCOSE No results found for: WBC, WBCCOUNT, WBCFETAL, HGB, HCT, PLATELET, MCV No results found for: HGBA1C Assessment and Plan: Anu Lopez is a 24 y.o. male h/o distal left ureteral stricture s/p robotic left ureteral reimplantation with Psoas hitch (05/13/24; Dr. Gould) c/b left flank pain s/p L URS/LL, stent placement (10/20/24; Dr. 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 We discussed the following problems: Urethral stricture We discussed further evaluation to determine the length and location of the diseased areas of the urethra are necessary. He is agreeable. Schedule for RUG, VCUG, cystoscopy for next available procedure date. This represents an undiagnosed new problem with uncertain prognosis; for which a moderate amount of review including medical records and available test results was required to formulate a plan. This plan includes a recommendation for management with minor or elective major surgery with a moderate possible risk of morbidity.. After the discussion outlined above, the patient and I mutually agreed on the following course of action: -Schedule for RUG, VCUG, Cystoscopy At the end of the visit, the patient was given time to answer any and all remaining questions. I would be happy to see them again outside of what we agreed above, should further issues arise. Clifton Newsome MD, PhD 2-step identification process completed. Patients name and verified. documented in this encounter [facility] 01-05-2025 History of Present illness Narrative Summary: Unable To Perform Cysto RADIOLOGY SERVICE PROGRESS NOTE DATE OF SERVICE: January 05, 2025 TIME OF SERVICE: 3:17 pm EVENT: EXAM/PROCEDURE NOT COMPLETED - Patient was unsure of crane placement for Cysto as patient had difficulty with exam week prior that also required catheter placement. Called office at request of patient. Office stated to have patient keep 01/07/2025 appointment and he could speak to Dr. Gould at that time. Patient informed of office conversation. Patient stated he would speak to doctor first and then proceed from there. SIGNATURE: BENNY Grewal)(CT) PATIENT NAME: Anu Lopez DATE: January 05, 2025 TIME: 3:41 PM PAGER/CONTACT #: documented in this encounter [facility] 01-05-2025 Note HNO ID: [id number] Author: SAYRA SUERO RT(R) Service: Radiology Author Type: Technologist Type: Progress Notes Filed: 01/05/2025 15:43 Note Text: Summary: Unable To Perform Cysto RADIOLOGY SERVICE PROGRESS NOTE DATE OF SERVICE: January 05, 2025 TIME OF SERVICE: 3:17 pm EVENT: EXAM/PROCEDURE NOT COMPLETED - Patient was unsure of crane placement for Cysto as patient had difficulty with exam week prior that also required catheter placement. Called office at request of patient. Office stated to have patient keep 01/07/2025 appointment and he could speak to Dr. Gould at that time. Patient informed of office conversation. Patient stated he would speak to doctor first and then proceed from there. SIGNATURE: RT Uri(R)(CT) PATIENT NAME: Anu Lopez DATE: January 05, 2025 TIME: 3:41 PM PAGER/CONTACT #: [facility] 12-29-2024 Note HNO ID: [id number] Author: BASILIO GOULD MD Service: ? Author Type: Registered Nurse Type: Progress Notes Filed: 01/05/2025 13:56 Note Text: Caseydebbie De La O Jazmine [id number] 2000 December 25, 2024 Diagnoses: Incomplete bladder emptying, hydronephrosis, ureteral stricture UA done: No Procedure Performed: Multichannel urodynamic testing including uroflowmetry. Was a uroflow done at some point during the study: Yes Was a cystometrogram performed: No Was a UPP done: No Was an EMG done: No Was an intraabdominal pressure recorded: No Where were pressure catheters placed: N/A Procedure: The patient verified medications and allergies. The procedure was explained to the patient. Immediately prior to the test the patient was given Keflex 500 mg #1 by mouth and Lidocaine 2% jelly 11 ml to urethra per order. UNIVERSAL PROTOCOL / SAFETY CHECKLIST A moment to CARE: Completed Procedure to be performed: Urodynamics Sign in Communication: Completed Time Out: Team Confirms the Correct Patient, Correct Procedure, Correct Site and Site Marking, Correct Position (if applicable), Prep and Dry Time (if applicable). Time: N/A Affirmation of Time Out: N/A Sign Out Discussion: Completed Urodynamic Findings: Uroflow : Patient arrived with a crane catheter- No. Patient voided 219.5 ml; Curve: Intermittent Post void residual Unable to obtain; see notes below QMAX 27.0 ; QAVG 12.8. UDS notes: Late Entry from 12/25/24: Patient here for UDS. Patient was able to complete Uroflow initially. I attempted to strait cath the patient for PVR and after multiple attempts I was unsuccessful. I was only able to get the catheter inserted approximately 2 inches without meeting resistance and the patient was coming up off the chair in pain. At this time, the procedure was aborted. After the procedure, that patient stated I have been having issues starting my stream and once I do it is very weak and thin and sprays. He also said the same is happening with his ejaculation. He also stated that his penis is curving back towards him when he has an erection which is new. Told patient I would touch base with Dr. Gould to see what the next step is and we will call him to discuss. He voiced understanding. Plan: Patient will follow up with provider to discuss plan of care and results. Chey Luciano RN cc: Basilio Gould MD I reviewed the above procedure and results. My interpretation is as follows: Incomplete test. Patient able to void for uroflow but no evaluation of residual and unable to complete cystometrogram due to failed urethral catheter placement. Diagnosis: Incomplete bladder emptying, difficult catheter insertion [facility] 12-04-2024 Note HNO ID: [id number] Author: BASILIO GOULD MD Service: ? Author Type: Physician Type: Progress Notes Filed: 12/04/2024 10:52 Note Text: [facility] ESTABLISHED PATIENT NOTE PATIENT: Anu Lopez (23 year old) PCP: Sagar Rojo MD DATE OF SERVICE: 12/04/2024 --- SUMMARY: Mr. Lopez is a 23 year old male who is here for follow up. He was recently in [facility] (no records available) Assessment AND Plan Left flank pain Primary complaint of left flank pain and bladder pressure Possible recurrent obstruction, but patient's ureter was wide open at time of ureteroscopy for stone treatment. Concern that he's having poor bladder emptying leading to VUR in the reconstructed system Plan CT cystogram and urodynamics to confirm Hydronephrosis, left Much improved but still present Plan CT cystogram to check for reflux Orders: BLADDER SCAN UA DIP, URINE (POC) CT CYSTOGRAM W IVCON; Future CREATININE BLD; Future Feeling of incomplete bladder emptying PVR today 231 cc. He has not been taking the tamsulosin Discussed his poor bladder emptying. Plan restart tamsulosin. Ureteral stricture, left Robotic-assisted laparoscopic left ureteral re-implantation, bladder psoas hitch 05/13/2024 Left kidney: Original: t1/2 136 minutes, 38% split function Current: t12 52 minutes, 46.4% split function Hydronephrosis much improved on follow up CT If CT cystogram negative and symptoms don't improve with correction of bladder emptying, consider repeat renal scan Renal calculus, left Cystoscopy, left flexible ureteroscopy with laser lithotripsy, left ureteral stent insertion (with string) 10/20/2024 --- FOLLOW UP: Return in about 4 weeks (around 01/01/2025). --- CHIEF COMPLAINT: Patient presents with: Urethral Stricture: Here for 6 wk f/u ureteral stricture. HISTORY OF PRESENT ILLNESS: Prior notes were reviewed. The patient reports: Complaint: flank pain Location: left Duration: weeks Quality: aching Severity: moderate Relieving: none Exacerbating: none Course: new Associated conditions: history ureteral stricture, history of hydronephrosis, renal stones Diagnostics: none Treatments: ULL REVIEW OF SYSTEMS: Genitourinary: Denies hematuria, dysuria, frequency, urgency, nocturia, ANUM, weak stream. Constitutional: unintentional weight loss - denies, fevers - denies Cardiovascular: new or worsening chest pain - denies Respiratory: new or worsening shortness of breath - denies Gastrointestinal: constipation - denies, vomiting - denies Hematologic/Lymphatic: easy bleeding or bruising - denies ALLERGIES: ALLERGIES Allergen Reactions Dilaudid [Hydromorp* Rash MEDICATIONS: tamsulosin (FLOMAX) 0.4 mg Take 1 capsule by mouth once daily. polyethylene glycol 3350 (MIRALAX ORAL) Take 17 mg by mouth once daily as needed. loratadine (CLARITIN) 10 mg tablet Take 10 mg by mouth once daily as needed. PAST HISTORY: PAST MEDICAL HISTORY Diagnosis Date Hydronephrosis of left kidney PMH - PAST MEDICAL HISTORY OF Normal color vision Respiratory syncytial virus (RSV) 08/08/2003 Routine or ritual circumcision Wrist fracture, right 05/08/2013 PAST SURGICAL HISTORY Procedure Laterality Date CIRCUMCISION W/CLAMP/OTH DEV W/BLOCK S STENT,URINARY DIVERSION,[id number] 04/07/24 FAMILY HISTORY Problem Relation Age of Onset Heart Mother other (arrythmia) Mother Heart Other mggm pacemaker at age 26 years Social History Tobacco Use Smoking status: Never Passive exposure: Never Smokeless tobacco: Never Tobacco comments: smoking outside at dads-denies Vaping Use Vaping status: Never Used Substance Use Topics Alcohol use: No Drug use: No PHYSICAL EXAMINATION: There were no vitals taken for this visit. Verbal informed consent obtained for exam below: Constitutional: In no acute distress. Respiratory: Normal respiratory effort without use of accessory muscles. Cardiovascular: Regular rate Gastrointestinal: Nondistended DATA: Clinic: URINALYSIS: GLUCOSE UA (POCT) Negative 11/20/2024 BILIRUBIN UA (POCT) Negative 11/20/2024 KETONE UA (POCT) Negative 11/20/2024 SPECIFIC GRAVITY UA (POCT) 1.020 11/20/2024 HEMOGLOBIN/BLOOD UA (POCT) Negative 11/20/2024 PH UA (POCT) 8.5 11/20/2024 PROTEIN UA (POCT) 100 11/20/2024 UROBILINOGEN UA (POCT) 0.2 11/20/2024 NITRITE UA (POCT) Negative 11/20/2024 LEUKOCYTES UA (POCT) Trace 11/20/2024 COLOR UA (POCT) Yellow 11/20/2024 CLARITY UA (POCT) Slightly Cloudy 11/20/2024 Laboratory: Creatinine (more content not included)... [facility] 12-04-2024 History of Present illness Narrative Images from the original note were not included. [facility] ESTABLISHED PATIENT NOTE PATIENT: Anu Lopez (23 year old) PCP: Sagar Rojo MD DATE OF SERVICE: 12/04/2024 SUMMARY: Mr. Lopez is a 23 year old male who is here for follow up. He was recently in [facility] (no records available) Assessment & Plan Left flank pain Primary complaint of left flank pain and bladder pressure Possible recurrent obstruction, but patient's ureter was wide open at time of ureteroscopy for stone treatment. Concern that he's having poor bladder emptying leading to VUR in the reconstructed system Plan CT cystogram and urodynamics to confirm Hydronephrosis, left Much improved but still present Plan CT cystogram to check for reflux Orders: BLADDER SCAN UA DIP, URINE (POC) CT CYSTOGRAM W IVCON; Future CREATININE BLD; Future Feeling of incomplete bladder emptying PVR today 231 cc. He has not been taking the tamsulosin Discussed his poor bladder emptying. Plan restart tamsulosin. Ureteral stricture, left Robotic-assisted laparoscopic left ureteral re-implantation, bladder psoas hitch 05/13/2024 Left kidney: Original: t1/2 136 minutes, 38% split function Current: t/12 52 minutes, 46.4% split function Hydronephrosis much improved on follow up CT If CT cystogram negative and symptoms don't improve with correction of bladder emptying, consider repeat renal scan Renal calculus, left Cystoscopy, left flexible ureteroscopy with laser lithotripsy, left ureteral stent insertion (with string) 10/20/2024 FOLLOW UP: Return in about 4 weeks (around 01/01/2025). CHIEF COMPLAINT: Patient presents with: Urethral Stricture: Here for 6 wk f/u ureteral stricture. HISTORY OF PRESENT ILLNESS: Prior notes were reviewed. The patient reports: Complaint: flank pain Location: left Duration: weeks Quality: aching Severity: moderate Relieving: none Exacerbating: none Course: new Associated conditions: history ureteral stricture, history of hydronephrosis, renal stones Diagnostics: none Treatments: ULL REVIEW OF SYSTEMS: Genitourinary: Denies hematuria, dysuria, frequency, urgency, nocturia, ANUM, weak stream. Constitutional: unintentional weight loss - denies, fevers - denies Cardiovascular: new or worsening chest pain - denies Respiratory: new or worsening shortness of breath - denies Gastrointestinal: constipation - denies, vomiting - denies Hematologic/Lymphatic: easy bleeding or bruising - denies ALLERGIES: ALLERGIES Allergen Reactions Dilaudid [Hydromorp* Rash MEDICATIONS: tamsulosin (FLOMAX) 0.4 mg Take 1 capsule by mouth once daily. polyethylene glycol 3350 (MIRALAX ORAL) Take 17 mg by mouth once daily as needed. loratadine (CLARITIN) 10 mg tablet Take 10 mg by mouth once daily as needed. PAST HISTORY: PAST MEDICAL HISTORY Diagnosis Date Hydronephrosis of left kidney PMH - PAST MEDICAL HISTORY OF Normal color vision Respiratory syncytial virus (RSV) 08/08/2003 Routine or ritual circumcision Wrist fracture, right 05/08/2013 PAST SURGICAL HISTORY Procedure Laterality Date CIRCUMCISION W/CLAMP/OTH DEV W/BLOCK S STENT,URINARY DIVERSION,[id number] 04/07/24 FAMILY HISTORY Problem Relation Age of Onset Heart Mother other (arrythmia) Mother Heart Other mggm pacemaker at age 26 years Social History Tobacco Use Smoking status: Never Passive exposure: Never Smokeless tobacco: Never Tobacco comments: smoking outside at dads-denies Vaping Use Vaping status: Never Used Substance Use Topics Alcohol use: No Drug use: No PHYSICAL EXAMINATION: There were no vitals taken for this visit. Verbal informed consent obtained for exam below: Constitutional: In no acute distress. Respiratory: Normal respiratory effort without use of accessory muscles. Cardiovascular: Regular rate Gastrointestinal: Nondistended DATA: Clinic: URINALYSIS: GLUCOSE UA (POCT) Negative 11/20/2024 BILIRUBIN UA (POCT) Negative 11/20/2024 KETONE UA (POCT) Negative 11/20/2024 SPECIFIC GRAVITY UA (POCT) 1.020 11/20/2024 HEMOGLOBIN/BLOOD UA (POCT) Negative 11/20/2024 PH UA (POCT) 8.5 11/20/2024 PROTEIN UA (POCT) 100 11/20/2024 UROBILINOGEN UA (POCT) 0.2 11/20/2024 NITRITE UA (POCT) Negative 11/20/2024 LEUKOCYTES UA (POCT) Trace 11/20/2024 COLOR UA (POCT) Yellow 11/20/2024 CLARITY UA (POCT) Slightly Cloudy 11/20/2024 Laboratory: Creatinine Date Value Ref Range Status 05/14/2024 0.90 0.50 - 1.40 mg/dL Final Comment: Patients receiving either N-Acetylcysteine (NAC) or Metamizole prior to venipuncture, may have falsely depressed results. 05/02/2024 0.98 0.73 - 1.22 mg/dL Final 03/27/2024 0.95 0.73 - 1.22 mg/dL Final 02/10/2024 0.86 0.50 - 1.40 mg/dL Final Comment: Patients receiving either N-Acetylcysteine (NAC) or Metamizole prior to venipuncture, may have falsely depressed results. Cultures: Culture Results - Past 1 Year Culture 02/24/2024 <10,000 CFU/ml Normal urogenital elodia 03/27/2024 <10,000 CFU/ml Normal urogenital elodia 05/07/2024 No growth to date 10/20/2024 No growth (<1,000 CFU/ml) Susceptibility Tests - Past 1 Year Collected Organism 02/24/24 Normal urogenital elodia 03/27/24 Normal urogenital elodia PSA: No results found for: PSA I have reviewed the problem list, family history, and social history documented by my ancillary staff. Basilio Gould MD Staff Urologist Office documented in this encounter [facility] 11-20-2024 History of Present illness Narrative Images from the original note were not included. [facility] ESTABLISHED PATIENT NOTE PATIENT: Anu Lopez (23 year old) PCP: Sagar Rojo MD DATE OF SERVICE: 11/20/2024 SUMMARY: Mr. Lopez is a 23 year old male who is here for follow up Assessment & Plan Left flank pain Cramping left flank pain, usually occurs during voiding Did not improve after treatment of renal stone Discussed findings. There was no obstruction during ureteroscopy of the left renal unit. Possible that he's feeling transmitted pressure during voiding. Plan trial tamsulosin. Risks, benefits, and alternatives of the new medical therapy were discussed. Patient acknowledges understanding and consents to proceed. Follow up 6 weeks for symptom check. Orders: tamsulosin (FLOMAX) 0.4 mg; Take 1 capsule by mouth once daily. Renal calculus, left Cystoscopy, left flexible ureteroscopy with laser lithotripsy, left ureteral stent insertion (with string) 10/20/2024 Orders: tamsulosin (FLOMAX) 0.4 mg; Take 1 capsule by mouth once daily. Ureteral stricture, left Robotic-assisted laparoscopic left ureteral re-implantation, bladder psoas hitch 05/13/2024 Left kidney: Original: t1/2 136 minutes, 38% split function Current: t/12 52 minutes, 46.4% split function Hydronephrosis much improved on follow up CT Orders: UA DIP, URINE (POC) FOLLOW UP: Return in about 6 weeks (around 01/01/2025). CHIEF COMPLAINT: Patient presents with: Follow Up Kidney Stones HISTORY OF PRESENT ILLNESS: Prior notes were reviewed. The patient reports: Complaint: flank pain, renal stones Location: left Duration: weeks Quality: aching Severity: moderate Relieving: none Exacerbating: none Course: new Associated conditions: history ureteral stricture, history of hydronephrosis Diagnostics: none Treatments: ULL REVIEW OF SYSTEMS: Genitourinary: Denies hematuria, dysuria, frequency, urgency, nocturia, ANUM, weak stream. Constitutional: unintentional weight loss - denies, fevers - denies Cardiovascular: new or worsening chest pain - denies Respiratory: new or worsening shortness of breath - denies Gastrointestinal: constipation - denies, vomiting - denies Hematologic/Lymphatic: easy bleeding or bruising - denies ALLERGIES: ALLERGIES Allergen Reactions Dilaudid [Hydromorp* Rash MEDICATIONS: polyethylene glycol 3350 (MIRALAX ORAL) Take 17 mg by mouth once daily as needed. loratadine (CLARITIN) 10 mg tablet Take 10 mg by mouth once daily as needed. tamsulosin (FLOMAX) 0.4 mg Take 1 capsule by mouth once daily. PAST HISTORY: PAST MEDICAL HISTORY Diagnosis Date Hydronephrosis of left kidney PMH - PAST MEDICAL HISTORY OF Normal color vision Respiratory syncytial virus (RSV) 08/08/2003 Routine or ritual circumcision Wrist fracture, right 05/08/2013 PAST SURGICAL HISTORY Procedure Laterality Date CIRCUMCISION W/CLAMP/OTH DEV W/BLOCK S STENT,URINARY DIVERSION,[id number] 04/07/24 FAMILY HISTORY Problem Relation Age of Onset Heart Mother other (arrythmia) Mother Heart Other mggm pacemaker at age 26 years Social History Tobacco Use Smoking status: Never Passive exposure: Never Smokeless tobacco: Never Tobacco comments: smoking outside at dads-denies Vaping Use Vaping status: Never Used Substance Use Topics Alcohol use: No Drug use: No PHYSICAL EXAMINATION: There were no vitals taken for this visit. Verbal informed consent obtained for exam below: Constitutional: In no acute distress. Respiratory: Normal respiratory effort without use of accessory muscles. Cardiovascular: Regular rate Gastrointestinal: Nondistended DATA: Clinic: URINALYSIS: GLUCOSE UA (POCT) Negative 11/20/2024 BILIRUBIN UA (POCT) Negative 11/20/2024 KETONE UA (POCT) Negative 11/20/2024 SPECIFIC GRAVITY UA (POCT) 1.020 11/20/2024 HEMOGLOBIN/BLOOD UA (POCT) Negative 11/20/2024 PH UA (POCT) 8.5 11/20/2024 PROTEIN UA (POCT) 100 11/20/2024 UROBILINOGEN UA (POCT) 0.2 11/20/2024 NITRITE UA (POCT) Negative 11/20/2024 LEUKOCYTES UA (POCT) Trace 11/20/2024 COLOR UA (POCT) Yellow 11/20/2024 CLARITY UA (POCT) Slightly Cloudy 11/20/2024 Laboratory: Creatinine Date Value Ref Range Status 05/14/2024 0.90 0.50 - 1.40 mg/dL Final Comment: Patients receiving either N-Acetylcysteine (NAC) or Metamizole prior to venipuncture, may have falsely depressed results. 05/02/2024 0.98 0.73 - 1.22 mg/dL Final 03/27/2024 0.95 0.73 - 1.22 mg/dL Final 02/10/2024 0.86 0.50 - 1.40 mg/dL Final Comment: Patients receiving either N-Acetylcysteine (NAC) or Metamizole prior to venipuncture, may have falsely depressed results. Cultures: Culture Results - Past 1 Year Culture 02/24/2024 <10,000 CFU/ml Normal urogenital elodia 03/27/2024 <10,000 CFU/ml Normal urogenital elodia 05/07/2024 No growth to date 10/20/2024 No growth (<1,000 CFU/ml) Susceptibility Tests - Past 1 Year Collected Organism 02/24/24 Normal urogenital elodia 03/27/24 Normal urogenital elodia PSA: No results found for: PSA I have reviewed the problem list, family history, and social history documented by my ancillary staff. Basilio Gould MD Staff Urologist Office documented in this encounter [facility] 11-20-2024 Note HNO ID: [id number] Author: BASILIO GOULD MD Service: ? Author Type: Physician Type: Progress Notes Filed: 11/20/2024 10:02 Note Text: [facility] ESTABLISHED PATIENT NOTE PATIENT: Anu Lopez (23 year old) PCP: Sagar Rojo MD DATE OF SERVICE: 11/20/2024 --- SUMMARY: Mr. Lopez is a 23 year old male who is here for follow up Assessment AND Plan Left flank pain Cramping left flank pain, usually occurs during voiding Did not improve after treatment of renal stone Discussed findings. There was no obstruction during ureteroscopy of the left renal unit. Possible that he's feeling transmitted pressure during voiding. Plan trial tamsulosin. Risks, benefits, and alternatives of the new medical therapy were discussed. Patient acknowledges understanding and consents to proceed. Follow up 6 weeks for symptom check. Orders: tamsulosin (FLOMAX) 0.4 mg; Take 1 capsule by mouth once daily. Renal calculus, left Cystoscopy, left flexible ureteroscopy with laser lithotripsy, left ureteral stent insertion (with string) 10/20/2024 Orders: tamsulosin (FLOMAX) 0.4 mg; Take 1 capsule by mouth once daily. Ureteral stricture, left Robotic-assisted laparoscopic left ureteral re-implantation, bladder psoas hitch 05/13/2024 Left kidney: Original: t1/2 136 minutes, 38% split function Current: t/12 52 minutes, 46.4% split function Hydronephrosis much improved on follow up CT Orders: UA DIP, URINE (POC) --- FOLLOW UP: Return in about 6 weeks (around 01/01/2025). --- CHIEF COMPLAINT: Patient presents with: Follow Up Kidney Stones HISTORY OF PRESENT ILLNESS: Prior notes were reviewed. The patient reports: Complaint: flank pain, renal stones Location: left Duration: weeks Quality: aching Severity: moderate Relieving: none Exacerbating: none Course: new Associated conditions: history ureteral stricture, history of hydronephrosis Diagnostics: none Treatments: ULL REVIEW OF SYSTEMS: Genitourinary: Denies hematuria, dysuria, frequency, urgency, nocturia, ANUM, weak stream. Constitutional: unintentional weight loss - denies, fevers - denies Cardiovascular: new or worsening chest pain - denies Respiratory: new or worsening shortness of breath - denies Gastrointestinal: constipation - denies, vomiting - denies Hematologic/Lymphatic: easy bleeding or bruising - denies ALLERGIES: ALLERGIES Allergen Reactions Dilaudid [Hydromorp* Rash MEDICATIONS: polyethylene glycol 3350 (MIRALAX ORAL) Take 17 mg by mouth once daily as needed. loratadine (CLARITIN) 10 mg tablet Take 10 mg by mouth once daily as needed. tamsulosin (FLOMAX) 0.4 mg Take 1 capsule by mouth once daily. PAST HISTORY: PAST MEDICAL HISTORY Diagnosis Date Hydronephrosis of left kidney PMH - PAST MEDICAL HISTORY OF Normal color vision Respiratory syncytial virus (RSV) 08/08/2003 Routine or ritual circumcision Wrist fracture, right 05/08/2013 PAST SURGICAL HISTORY Procedure Laterality Date CIRCUMCISION W/CLAMP/OTH DEV W/BLOCK S STENT,URINARY DIVERSION,[id number] 04/07/24 FAMILY HISTORY Problem Relation Age of Onset Heart Mother other (arrythmia) Mother Heart Other mggm pacemaker at age 26 years Social History Tobacco Use Smoking status: Never Passive exposure: Never Smokeless tobacco: Never Tobacco comments: smoking outside at dads-denies Vaping Use Vaping status: Never Used Substance Use Topics Alcohol use: No Drug use: No PHYSICAL EXAMINATION: There were no vitals taken for this visit. Verbal informed consent obtained for exam below: Constitutional: In no acute distress. Respiratory: Normal respiratory effort without use of accessory muscles. Cardiovascular: Regular rate Gastrointestinal: Nondistended DATA: Clinic: URINALYSIS: GLUCOSE UA (POCT) Negative 11/20/2024 BILIRUBIN UA (POCT) Negative 11/20/2024 KETONE UA (POCT) Negative 11/20/2024 SPECIFIC GRAVITY UA (POCT) 1.020 11/20/2024 HEMOGLOBIN/BLOOD UA (POCT) Negative 11/20/2024 PH UA (POCT) 8.5 11/20/2024 PROTEIN UA (POCT) 100 11/20/2024 UROBILINOGEN UA (POCT) 0.2 11/20/2024 NITRITE UA (POCT) Negative 11/20/2024 LEUKOCYTES UA (POCT) Trace 11/20/2024 COLOR UA (POCT) Yellow 11/20/2024 CLARITY UA (POCT) Slightly Cloudy 11/20/2024 Laboratory: Creatinine Date Value Ref Range Status 05/14/2024 0.90 0.50 - 1.40 mg/dL Final Comment: Patients receiving either N-Acetylcysteine (NAC) or Metamizole prior to venipuncture, may have falsely depressed results. 05/02/2024 0.98 0.73 - 1.22 m (more content not included)... [facility] 10-20-2024 Telephone encounter Note Left message for him to call back [facility] 10-20-2024 Miscellaneous Notes Left message for him to call back Surgery today String stent removal Tuesday 10/24 with nurse or by patient at home Follow up CJL 4 weeks for urine check documented in this encounter [facility] 10-20-2024 Telephone encounter Note Surgery today String stent removal Tuesday 10/24 with nurse or by patient at home Follow up CJL 4 weeks for urine check [facility] 10-20-2024 Note HNO ID: [id number] Author: ED ANGELES APRN.ACID WASH OPERATOR Service: Anesthesiology Author Type: Nurse Seed Laboratory Assistant Type: Anesthesia Procedure Notes Filed: 10/20/2024 13:22 Note Text: ANESTHESIOLOGY PROCEDURE NOTE Airway General Information Procedure Start Time/Medication Administration: 10/20/2024 1:18 PM Procedure End Time: 10/20/2024 1:20 PM Patient location during procedure: OR Timeout Performed Pre-procedure: timeout performed Consent Obtained: Yes Patient identity confirmed: arm band and patient Staffing ACID WASH OPERATOR: Ed Angeles APRN.ACID WASH OPERATOR Performed by: GREGORIO Indications and Patient Condition Indications for airway management: anesthesia Preoxygenated: yes anesthesia circuit Patient position: sniffing Method: asleep Cricoid Pressure: No Manual In-Line Stabilization: No Difficult Mask: No Final Airway Details Final airway type: supraglottic airway Number of attempts at approach: 1 Final Supraglottic Airway: i-gel (LMA Laryseal) Size 4 Seal Adequate: yes SIGNATURE: Ed Angeles APRN.ACID WASH OPERATOR PATIENT NAME: Anu Lopez DATE: October 20, 2024 TIME: 1:22 PM CSN: [id number] [facility] 10-17-2024 Note HNO ID: [id number] Author: OSMAR MELENDEZ RN Service: ? Author Type: Registered Nurse Type: Progress Notes Filed: 10/17/2024 13:43 Note Text: MEDICATION INSTRUCTIONS PRIOR TO SURGERY Please read below carefully for your personalized instructions. Medications: If you are on blood thinner or anticoagulants including aspirin, please confirm with your surgical team on when to stop these medications. Unless instructed differently by your surgical team, stay on all of your medications until your surgery. Pre-Surgery Med Instructions Medication Instructions oxyCODONE IR (ROXICODONE) 10 mg tab PRN if needed polyethylene glycol 3350 (MIRALAX ORAL) DO NOT TAKE MORNING OF SURGERY loratadine (CLARITIN) 10 mg tablet PRN if needed If you have any medication changes between receiving these instructions and your surgery date, please provide this updated information with the nurse who calls you the week day prior to your surgical procedure so we can update your list and provide you with updated instructions for the morning of your procedure. PRE-PROCEDURE INSTRUCTIONS TO PREPARE FOR YOUR PROCEDURE: Your arrival time for your procedure is 1200. Do NOT eat any solid foods after MIDNIGHT the night prior to your procedure - this includes gum or mints. You can drink clear liquids* up until 1000 , which is 2 hours before your arrival time. *Clear liquids = water, carbohydrate drink (sports drink that is clear or yellow in color), Ensure Pre-Surgery (given by SANTHOSH or shivam Rivera), fruit juice without pulp (apple/cranberry), clear tea, black coffee (no cream). NO CARBONATED BEVERAGES AND NO ALCOHOL. Shower the morning of the procedure, put on clean clothes, and have clean sheets for your bed to help prevent infection after your procedure. Leave all valuables such as jewelry including rings, piercings, wallets, and purses at home. Wear comfortable, loose-fitting clothing. If you wear glasses or contacts, please bring a case. SPECIAL INSTRUCTIONS: If instructed, bring your first voided urine specimen with you. If you were provided skin preparation to use prior to your procedure, complete this as directed.. This should be consumed quickly (in less than 5 minutes, rather than sipped over time) If a bowel preparation has been ordered by your physician, it is very important to follow the bowel prep instructions or your procedure may need to be rescheduled. If you use crutches or a walker, bring them with you. If you have a home CPAP/BIPAP machine, bring it with you. If you were instructed to complete a fleets enema or bowel prep, complete as directed. Bring copy of Living Will/Power 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 Box 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. Do not smoke or chew. If you use tobacco, quit or at least cut down before surgery. Do not smoke or chew after midnight the day before your surgery. This effects bleeding, infection, healing, and so much more. Do not take any Diet or Herbal Supplements 2 weeks prior to your surgery date. Please notify your physician if there is any change in your physical condition such as a cold, cough, fever, sore throat, or skin irritation near the surgical site. Visitors under the age of 14 are restricted in the Surgery Center. UPON ARRIVAL: Access to [facility] (the [facility]) is located on [address] [email or web address] parking is available for your convenience from 5am-5pm- there is a $5.00 charge for this service. Take the elevators directly inside the entrance to the 1st Floor Surgery Lobby. Sign in at the podium located to the left when you get off the elevators. A payment may be expected at the time of service. One visitor may come back to the preoperative area with you. The preoperative staff will be reviewing your medical history, please let them know if you prefer not to have a visitor with you during this time. Once you are ready for your procedure, two visitors at a time are permitted in your preprocedure room. [facility] 10-17-2024 Note HNO ID: [id number] Author: OBI BAUMAN PA-C Service: ? Author Type: Physician Riverboat Captain Type: Progress Notes Filed: 10/17/2024 13:14 Note Text: Summary: DOS meds MEDICATION INSTRUCTIONS PRIOR TO SURGERY Please read below carefully for your personalized instructions. Medications: If you are on blood thinner or anticoagulants including aspirin, please confirm with your surgical team on when to stop these medications. Unless instructed differently by your surgical team, stay on all of your medications until your surgery. Pre-Surgery Med Instructions Medication Instructions oxyCODONE IR (ROXICODONE) 10 mg tab PRN if needed polyethylene glycol 3350 (MIRALAX ORAL) DO NOT TAKE MORNING OF SURGERY loratadine (CLARITIN) 10 mg tablet PRN if needed If you have any medication changes between receiving these instructions and your surgery date, please provide this updated information with the nurse who calls you the week day prior to your surgical procedure so we can update your list and provide you with updated instructions for the morning of your procedure. [facility] 09-18-2024 Telephone encounter Note Surgery: Cystoscopy and pyelograms, flexible left ureteroscopy with laser lithotripsy, possible ureteral stent insertion Duration: 1 hour(s) Surgeon: Basilio Gould MD Location: [facility] Anesthesia: General Fluoroscopy: Yes Special equipment: Thulium (soltive) laser PACC visit: No Presurgical testing: CBC, BMP, Urinalysis and urine culture one week prior to surgery Clearance: No Bowel prep: No Blood thinners to stop: yes [facility] 09-18-2024 Miscellaneous Notes Surgery: Cystoscopy and pyelograms, flexible left ureteroscopy with laser lithotripsy, possible ureteral stent insertion Duration: 1 hour(s) Surgeon: Basilio Gould MD Location: [facility] Anesthesia: General Fluoroscopy: Yes Special equipment: Thulium (soltive) laser PACC visit: No Presurgical testing: CBC, BMP, Urinalysis and urine culture one week prior to surgery Clearance: No Bowel prep: No Blood thinners to stop: yes documented in this encounter [facility] 09-18-2024 Note HNO ID: [id number] Author: BASILIO GOULD MD Service: ? Author Type: Physician Type: Progress Notes Filed: 09/18/2024 09:00 Note Text: [facility] ESTABLISHED PATIENT NOTE PATIENT: Anu Lopez (23 year old) PCP: Sagar Rojo MD DATE OF SERVICE: 09/18/2024 --- SUMMARY: Mr. Lopez is a 23 year old male who is here for follow up of left flank pain Assessment AND Plan Renal calculus, left New. 11 mm lower pole renal stone Left flank pain, occasional nausea From a surgery standpoint, his function and drainage have improved but he has a new stone on the left and is having left flank pain. Discussed options Plan cystoscopy, flexible left ureteroscopy with laser lithotripsy and possible ureteral stent insert. Discussed ureteroscopic treatment of stones. Discussed the procedure details along with success and failure rates. Discussed the risks, benefits, and alternatives. The risks including but not limited to: pain, infection, bleeding, need for subsequent procedures, risk of ureteral stenting, risk of injury to the urethra, bladder, ureter or kidney, risk of sepsis, risks of anesthesia, risk of , risks of recurrent or residual disease. If symptoms persistent after stone treatment, we'll have to evaluate for other causes. Ureteral stricture, left Robotic-assisted laparoscopic left ureteral re-implantation, bladder psoas hitch 05/13/2024 Left kidney: Original: t1/2 136 minutes, 38% split function Current: t/12 52 minutes, 46.4% split function Drainage is improved but not perfect. However, this may be due to the chronic hydronephrosis on that side that may never totally resolve. Monitor serial renal scans Hydronephrosis of left kidney Significant improvement since surgery --- FOLLOW UP: Return for Surgery scheduling. --- CHIEF COMPLAINT: Patient presents with: Hydronephrosis Follow Up HISTORY OF PRESENT ILLNESS: Prior notes were reviewed. The patient reports: Complaint: flank pain Location: left Duration: weeks Quality: aching Severity: moderate Relieving: none Exacerbating: none Course: new Associated conditions: history ureteral stricture, history of hydronephrosis Diagnostics: none Treatments: none REVIEW OF SYSTEMS: Genitourinary: Denies hematuria, dysuria, frequency, urgency, nocturia, ANUM, weak stream. Constitutional: unintentional weight loss - denies, fevers - denies Cardiovascular: new or worsening chest pain - denies Respiratory: new or worsening shortness of breath - denies Gastrointestinal: constipation - denies, vomiting - denies Hematologic/Lymphatic: easy bleeding or bruising - denies ALLERGIES: ALLERGIES Allergen Reactions Dilaudid [Hydromorp* Rash MEDICATIONS: oxyCODONE IR (ROXICODONE) 10 mg tab Take by mouth as needed for pain. loratadine (CLARITIN) 10 mg tablet Take 10 mg by mouth once daily as needed. polyethylene glycol 3350 (MIRALAX ORAL) Take 17 mg by mouth two times a day. (Patient not taking: Reported on 09/18/2024) PAST HISTORY: PAST MEDICAL HISTORY Diagnosis Date Hydronephrosis of left kidney PMH - PAST MEDICAL HISTORY OF Normal color vision Respiratory syncytial virus (RSV) 08/08/2003 Routine or ritual circumcision Wrist fracture, right 05/08/2013 PAST SURGICAL HISTORY Procedure Laterality Date CIRCUMCISION W/CLAMP/OTH DEV W/BLOCK S STENT,URINARY DIVERSION,[id number] 04/07/24 FAMILY HISTORY Problem Relation Age of Onset Heart Mother other (arrythmia) Mother Heart Other mggm pacemaker at age 26 years Social History Tobacco Use Smoking status: Never Passive exposure: Never Smokeless tobacco: Never Tobacco comments: smoking outside at dads-denies Vaping Use Vaping status: Never Used Substance Use Topics Alcohol use: No Drug use: No PHYSICAL EXAMINATION: There were no vitals taken for this visit. Verbal informed consent obtained for exam below: Constitutional: In no acute distress. Respiratory: Normal respiratory effort without use of accessory muscles. Cardiovascular: Regular rate Gastrointestinal: Nondistended DATA: Clinic: URINALYSIS: GLUCOSE UA (POCT) Negative 08/29/2024 BILIRUBIN UA (POCT) Negative 08/29/2024 KETONE UA (POCT) Negative 08/29/2024 SPECIFIC GRAVITY UA (POCT) 1.020 08/29/2024 HEMOGLOBIN/BLOOD UA (POCT) Negative 08/29/2024 PH UA (POCT) 7.5 08/29/2024 PROTEIN UA (POCT) Negative 08/29/2024 UROBILINOGEN UA (POCT) 0.2 08/29/2024 NITRITE UA (POCT) Negative 08/29/2024 LEUKOCYTES UA (POCT) Trace 08/29/2024 COLOR (more content not included)... [facility] 09-18-2024 History of Present illness Narrative Images from the original note were not included. [facility] ESTABLISHED PATIENT NOTE PATIENT: Anu Lopez (23 year old) PCP: Sagar Rojo MD DATE OF SERVICE: 09/18/2024 SUMMARY: Mr. Lopez is a 23 year old male who is here for follow up of left flank pain Assessment & Plan Renal calculus, left New. 11 mm lower pole renal stone Left flank pain, occasional nausea From a surgery standpoint, his function and drainage have improved but he has a new stone on the left and is having left flank pain. Discussed options Plan cystoscopy, flexible left ureteroscopy with laser lithotripsy and possible ureteral stent insert. Discussed ureteroscopic treatment of stones. Discussed the procedure details along with success and failure rates. Discussed the risks, benefits, and alternatives. The risks including but not limited to: pain, infection, bleeding, need for subsequent procedures, risk of ureteral stenting, risk of injury to the urethra, bladder, ureter or kidney, risk of sepsis, risks of anesthesia, risk of , risks of recurrent or residual disease. If symptoms persistent after stone treatment, we'll have to evaluate for other causes. Ureteral stricture, left Robotic-assisted laparoscopic left ureteral re-implantation, bladder psoas hitch 05/13/2024 Left kidney: Original: t1/2 136 minutes, 38% split function Current: t/12 52 minutes, 46.4% split function Drainage is improved but not perfect. However, this may be due to the chronic hydronephrosis on that side that may never totally resolve. Monitor serial renal scans Hydronephrosis of left kidney Significant improvement since surgery FOLLOW UP: Return for Surgery scheduling. CHIEF COMPLAINT: Patient presents with: Hydronephrosis Follow Up HISTORY OF PRESENT ILLNESS: Prior notes were reviewed. The patient reports: Complaint: flank pain Location: left Duration: weeks Quality: aching Severity: moderate Relieving: none Exacerbating: none Course: new Associated conditions: history ureteral stricture, history of hydronephrosis Diagnostics: none Treatments: none REVIEW OF SYSTEMS: Genitourinary: Denies hematuria, dysuria, frequency, urgency, nocturia, ANUM, weak stream. Constitutional: unintentional weight loss - denies, fevers - denies Cardiovascular: new or worsening chest pain - denies Respiratory: new or worsening shortness of breath - denies Gastrointestinal: constipation - denies, vomiting - denies Hematologic/Lymphatic: easy bleeding or bruising - denies ALLERGIES: ALLERGIES Allergen Reactions Dilaudid [Hydromorp* Rash MEDICATIONS: oxyCODONE IR (ROXICODONE) 10 mg tab Take by mouth as needed for pain. loratadine (CLARITIN) 10 mg tablet Take 10 mg by mouth once daily as needed. polyethylene glycol 3350 (MIRALAX ORAL) Take 17 mg by mouth two times a day. (Patient not taking: Reported on 09/18/2024) PAST HISTORY: PAST MEDICAL HISTORY Diagnosis Date Hydronephrosis of left kidney PMH - PAST MEDICAL HISTORY OF Normal color vision Respiratory syncytial virus (RSV) 08/08/2003 Routine or ritual circumcision Wrist fracture, right 05/08/2013 PAST SURGICAL HISTORY Procedure Laterality Date CIRCUMCISION W/CLAMP/OTH DEV W/BLOCK S STENT,URINARY DIVERSION,[id number] 04/07/24 FAMILY HISTORY Problem Relation Age of Onset Heart Mother other (arrythmia) Mother Heart Other mggm pacemaker at age 26 years Social History Tobacco Use Smoking status: Never Passive exposure: Never Smokeless tobacco: Never Tobacco comments: smoking outside at dads-denies Vaping Use Vaping status: Never Used Substance Use Topics Alcohol use: No Drug use: No PHYSICAL EXAMINATION: There were no vitals taken for this visit. Verbal informed consent obtained for exam below: Constitutional: In no acute distress. Respiratory: Normal respiratory effort without use of accessory muscles. Cardiovascular: Regular rate Gastrointestinal: Nondistended DATA: Clinic: URINALYSIS: GLUCOSE UA (POCT) Negative 08/29/2024 BILIRUBIN UA (POCT) Negative 08/29/2024 KETONE UA (POCT) Negative 08/29/2024 SPECIFIC GRAVITY UA (POCT) 1.020 08/29/2024 HEMOGLOBIN/BLOOD UA (POCT) Negative 08/29/2024 PH UA (POCT) 7.5 08/29/2024 PROTEIN UA (POCT) Negative 08/29/2024 UROBILINOGEN UA (POCT) 0.2 08/29/2024 NITRITE UA (POCT) Negative 08/29/2024 LEUKOCYTES UA (POCT) Trace 08/29/2024 COLOR UA (POCT) Yellow 08/29/2024 CLARITY UA (POCT) Clear 08/29/2024 Laboratory: Creatinine Date Value Ref Range Status 05/14/2024 0.90 0.50 - 1.40 mg/dL Final Comment: Patients receiving either N-Acetylcysteine (NAC) or Metamizole prior to venipuncture, may have falsely depressed results. 05/02/2024 0.98 0.73 - 1.22 mg/dL Final 03/27/2024 0.95 0.73 - 1.22 mg/dL Final 02/10/2024 0.86 0.50 - 1.40 mg/dL Final Comment: Patients receiving either N-Acetylcysteine (NAC) or Metamizole prior to venipuncture, may have falsely depressed results. Cultures: Culture Results - Past 1 Year Culture 02/24/2024 <10,000 CFU/ml Normal urogenital elodia 03/27/2024 <10,000 CFU/ml Normal urogenital elodia 05/07/2024 No growth to date Susceptibility Tests - Past 1 Year Collected Organism 02/24/24 Normal urogenital elodia 03/27/24 Normal urogenital elodia PSA: No results found for: PSA I have reviewed the problem list, family history, and social history documented by my ancillary staff. Basilio Gould MD Staff Urologist Office documented in this encounter [facility] 09-16-2024 Telephone encounter Note Result appt was scheduled for 09/25. Pt called with increased pain and wanted an earlier appt to go over his testing. This is a double book for 09/18/2024 @ 8:30am. Please let me know if this is ok. Trinity Jordan [facility] 09-16-2024 Miscellaneous Notes Result appt was scheduled for 09/25. Pt called with increased pain and wanted an earlier appt to go over his testing. This is a double book for 09/18/2024 @ 8:30am. Please let me know if this is ok. Trinity Jordan documented in this encounter [facility] 09-11-2024 History of Present illness Narrative Summary: CT SCAN Radiology Service Progress Note PATIENT NAME: Anu Lopez DATE OF SERVICE: September 11, 2024 TIME: 5:12 PM PATIENT IDENTITY VERIFICATION COMPLETED USING TWO (2) IDENTIFIERS: Name and Date of confirmed by patient verbally and Name and Date of confirmed by identification band. FALL SCREENING: Has the patient had 2 falls in the last year or 1 fall with injury or currently using an Ambulatory Assistive Device (Walker, Cane, Wheelchair, Crutches, etc.)? No PATIENT GENDER DATA: Male PATIENT RELEVANT IMPLANT DATA REVIEWED: Not Applicable PATIENT PRESENTS WITH AN IMPLANTABLE OR ATTACHED COMPUTER TECHNICIAN: No RADIOLOGY DEPARTMENT: CT; Exam(s) Completed: Abdomen/Pelvis PERIPHERAL IV DATA: Not applicable SIGNED BY: BENNY Grewal)(CT) September 11, 2024 5:12 PM documented in this encounter [facility] 09-11-2024 Note HNO ID: [id number] Author: SAYRA SUERO RT(R) Service: Radiology Author Type: Technologist Type: Progress Notes Filed: 09/11/2024 17:12 Note Text: Summary: CT SCAN Radiology Service Progress Note PATIENT NAME: Anu Lopez DATE OF SERVICE: September 11, 2024 TIME: 5:12 PM PATIENT IDENTITY VERIFICATION COMPLETED USING TWO (2) IDENTIFIERS: Name and Date of confirmed by patient verbally and Name and Date of confirmed by identification band. FALL SCREENING: Has the patient had 2 falls in the last year or 1 fall with injury or currently using an Ambulatory Assistive Device (Walker, Cane, Wheelchair, Crutches, etc.)? No PATIENT GENDER DATA: Male PATIENT RELEVANT IMPLANT DATA REVIEWED: Not Applicable PATIENT PRESENTS WITH AN IMPLANTABLE OR ATTACHED COMPUTER TECHNICIAN: No RADIOLOGY DEPARTMENT: CT; Exam(s) Completed: Abdomen/Pelvis PERIPHERAL IV DATA: Not applicable SIGNED BY: BENNY Grewal)(CT) September 11, 2024 5:12 PM [facility] 09-10-2024 Note HNO ID: [id number] Author: COLLIN TRAVIS RT(R) Service: ? Author Type: Technologist Type: Progress Notes Filed: 09/10/2024 11:28 Note Text: RADIOLOGY SERVICE PROGRESS NOTE SERVICE DATE: 09/10/2024 SERVICE TIME: 11:27 AM PATIENT IDENTITY VERIFICATION COMPLETED USING TWO (2) STANDARD IDENTIFIERS: Name and Date of confirmed by patient verbally FALL SCREENING: Has the patient had 2 falls in the last year or 1 fall with injury or currently using an Ambulatory Assistive Device (Walker, Cane, Wheelchair, Crutches, etc.)? No PATIENT GENDER DATA: .male : No ALLERGIES: NA MEDICATIONS REVIEWED: Not applicable PATIENT RELEVANT IMPLANT DATA REVIEWED: Not Applicable PATIENT PRESENTS WITH AN IMPLANTABLE OR ATTACHED COMPUTER TECHNICIAN: No CREATININE: Creatinine Date Value Ref Range Status 05/14/2024 0.90 0.50 - 1.40 mg/dL Final Comment: Patients receiving either N-Acetylcysteine (NAC) or Metamizole prior to venipuncture, may have falsely depressed results. 05/02/2024 0.98 0.73 - 1.22 mg/dL Final 03/27/2024 0.95 0.73 - 1.22 mg/dL Final Estimated Glomerular Filtration Rate Date Value Ref Range Status 05/14/2024 125 >=60 mL/min/1.73m? Final Comment: Estimated Glomerular Filtration Rate (eGFR) is calculated using the 2020 CKD-EPI creatinine equation. This equation utilizes serum creatinine, sex, and age as parameters. The creatinine assay has traceable calibration to isotope dilution-mass spectrometry. Refer to KDIGO guidelines for clinical interpretation. In patients with unstable renal function, e.g. those with acute kidney injury, the eGFR may not accurately reflect actual GFR. P.O.C.T. RESULTS: N/A September 10, [address] PERFORMED: No IV SITE: Ambulatory: A peripheral IV was started in the Left hand with a Angio cath: 24 gauge. POST EXAM PIV STATUS: Discontinued PROCEDURE TYPE: NM INJECT: RENAL SCAN. 11.4 mCi Tc99m MAG-3. Lasix 40 milligrams intravenous at 1120. ADMINISTRATION TIME: 1050 PATIENT DISCHARGED TO: Ambulatory patient, left [place] department area. Is this a therapy: No A Diagnostic radioactive procedure has taken place, with no further precautions necessary other than routine body substance precautions. More information regarding radiation safety can be found using this link: [email or web address] [email or web address] 20Diagnostic%20Nuclear%[email or web address] [email or web address] SIGNATURE: RT Galina(R) PATIENT NAME: Anu Lopez DATE: September 10, 2024 TIME: 11:27 AM PAGER/CONTACT #: [facility] 09-10-2024 History of Present illness Narrative RADIOLOGY SERVICE PROGRESS NOTE SERVICE DATE: 09/10/2024 SERVICE TIME: 11:27 AM PATIENT IDENTITY VERIFICATION COMPLETED USING TWO (2) STANDARD IDENTIFIERS: Name and Date of confirmed by patient verbally FALL SCREENING: Has the patient had 2 falls in the last year or 1 fall with injury or currently using an Ambulatory Assistive Device (Walker, Cane, Wheelchair, Crutches, etc.)? No PATIENT GENDER DATA: .male : No ALLERGIES: NA MEDICATIONS REVIEWED: Not applicable PATIENT RELEVANT IMPLANT DATA REVIEWED: Not Applicable PATIENT PRESENTS WITH AN IMPLANTABLE OR ATTACHED COMPUTER TECHNICIAN: No CREATININE: Creatinine Date Value Ref Range Status 05/14/2024 0.90 0.50 - 1.40 mg/dL Final Comment: Patients receiving either N-Acetylcysteine (NAC) or Metamizole prior to venipuncture, may have falsely depressed results. 05/02/2024 0.98 0.73 - 1.22 mg/dL Final 03/27/2024 0.95 0.73 - 1.22 mg/dL Final Estimated Glomerular Filtration Rate Date Value Ref Range Status 05/14/2024 125 >=60 mL/min/1.73m Final Comment: Estimated Glomerular Filtration Rate (eGFR) is calculated using the 2020 CKD-EPI creatinine equation. This equation utilizes serum creatinine, sex, and age as parameters. The creatinine assay has traceable calibration to isotope dilution-mass spectrometry. Refer to KDIGO guidelines for clinical interpretation. In patients with unstable renal function, e.g. those with acute kidney injury, the eGFR may not accurately reflect actual GFR. P.O.C.T. RESULTS: N/A September 10, [address] PERFORMED: No IV SITE: Ambulatory: A peripheral IV was started in the Left hand with a Angio cath: 24 gauge. POST EXAM PIV STATUS: Discontinued PROCEDURE TYPE: NM INJECT: RENAL SCAN. 11.4 mCi Tc99m MAG-3. Lasix 40 milligrams intravenous at 1120. ADMINISTRATION TIME: 1050 PATIENT DISCHARGED TO: Ambulatory patient, left [place] department area. Is this a therapy: No A Diagnostic radioactive procedure has taken place, with no further precautions necessary other than routine body substance precautions. More information regarding radiation safety can be found using this link: [email or web address] [email or web address] [email or web address] SIGNATURE: RT Galina(Klarissa) PATIENT NAME: Anu Lopez DATE: September 10, 2024 TIME: 11:27 AM PAGER/CONTACT #: documented in this encounter [facility] 08-29-2024 History of Present illness Narrative Images from the original note were not included. [facility] ESTABLISHED PATIENT NOTE PATIENT: Anu Lopez (23 year old) PCP: Sagar Rojo MD DATE OF SERVICE: 08/29/2024 SUMMARY: Mr. Lopez is a 23 year old male who is here for evaluation of new onset pain Assessment & Plan Ureteral stricture, left Robotic-assisted laparoscopic left ureteral re-implantation, bladder psoas hitch 05/13/2024 Was doing well but now with 2 weeks of left flank aching pain, right lower quadrant abdominal pain and occasional nausea. Patient also having pain with orgasm. Incisions look good. UA not suggestive of infection. Plan check CT flank. Obtain renal scan as scheduled. Follow up to review results. Orders: CT FLANK WO IVCON; Future Hydronephrosis of left kidney Chronic Left flank pain New. Check CT Orders: CT FLANK WO IVCON; Future Right lateral abdominal pain Orders: CT FLANK WO IVCON; Future FOLLOW UP: Return in about 2 weeks (around 09/12/2024). CHIEF COMPLAINT: Patient presents with: Hydronephrosis: 3 month follow up HISTORY OF PRESENT ILLNESS: Prior notes were reviewed. The patient reports: Complaint: flank pain, abdominal pain Location: left and right Duration: weeks Quality: aching Severity: moderate Relieving: none Exacerbating: none Course: new Associated conditions: history ureteral stricture, history of hydronephrosis Diagnostics: none Treatments: none REVIEW OF SYSTEMS: Genitourinary: Denies hematuria, dysuria, frequency, urgency, nocturia, ANUM, weak stream. Constitutional: unintentional weight loss - denies, fevers - denies Cardiovascular: new or worsening chest pain - denies Respiratory: new or worsening shortness of breath - denies Gastrointestinal: constipation - denies, vomiting - denies Hematologic/Lymphatic: easy bleeding or bruising - denies ALLERGIES: ALLERGIES Allergen Reactions Dilaudid [Hydromorp* Rash MEDICATIONS: polyethylene glycol 3350 (MIRALAX ORAL) Take 17 mg by mouth two times a day. loratadine (CLARITIN) 10 mg tablet Take 10 mg by mouth once daily as needed. PAST HISTORY: PAST MEDICAL HISTORY Diagnosis Date Hydronephrosis of left kidney PMH - PAST MEDICAL HISTORY OF Normal color vision Respiratory syncytial virus (RSV) 08/08/2003 Routine or ritual circumcision Wrist fracture, right 05/08/2013 PAST SURGICAL HISTORY Procedure Laterality Date CIRCUMCISION W/CLAMP/OTH DEV W/BLOCK S STENT,URINARY DIVERSION,[id number] 04/07/24 FAMILY HISTORY Problem Relation Age of Onset Heart Mother other (arrythmia) Mother Heart Other mggm pacemaker at age 26 years Social History Tobacco Use Smoking status: Never Passive exposure: Never Smokeless tobacco: Never Tobacco comments: smoking outside at dads-denies Vaping Use Vaping status: Never Used Substance Use Topics Alcohol use: No Drug use: No PHYSICAL EXAMINATION: There were no vitals taken for this visit. Verbal informed consent obtained for exam below: Constitutional: In no acute distress. Respiratory: Normal respiratory effort without use of accessory muscles. Cardiovascular: Regular rate Gastrointestinal: Nondistended, nontender. Incisions well healed. No hernias DATA: Clinic: URINALYSIS: GLUCOSE UA (POCT) Negative 06/13/2024 BILIRUBIN UA (POCT) Negative 06/13/2024 KETONE UA (POCT) Negative 06/13/2024 SPECIFIC GRAVITY UA (POCT) 1.020 06/13/2024 HEMOGLOBIN/BLOOD UA (POCT) Trace-intact 06/13/2024 PH UA (POCT) 7.0 06/13/2024 PROTEIN UA (POCT) 100 06/13/2024 UROBILINOGEN UA (POCT) 0.2 06/13/2024 NITRITE UA (POCT) Negative 06/13/2024 LEUKOCYTES UA (POCT) Small 06/13/2024 COLOR UA (POCT) Yellow 06/13/2024 CLARITY UA (POCT) Clear 06/13/2024 Laboratory: Creatinine Date Value Ref Range Status 05/14/2024 0.90 0.50 - 1.40 mg/dL Final Comment: Patients receiving either N-Acetylcysteine (NAC) or Metamizole prior to venipuncture, may have falsely depressed results. 05/02/2024 0.98 0.73 - 1.22 mg/dL Final 03/27/2024 0.95 0.73 - 1.22 mg/dL Final 02/10/2024 0.86 0.50 - 1.40 mg/dL Final Comment: Patients receiving either N-Acetylcysteine (NAC) or Metamizole prior to venipuncture, may have falsely depressed results. Cultures: Culture Results - Past 1 Year Culture 02/24/2024 <10,000 CFU/ml Normal urogenital elodia 03/27/2024 <10,000 CFU/ml Normal urogenital elodia 05/07/2024 No growth to date Susceptibility Tests - Past 1 Year Collected Organism 02/24/24 Normal urogenital elodia 03/27/24 Normal urogenital elodia PSA: No results found for: PSA I have reviewed the problem list, family history, and social history documented by my ancillary staff. Basilio Gould MD Staff Urologist Office documented in this encounter [facility] 08-29-2024 Note HNO ID: [id number] Author: BASILIO GOULD MD Service: ? Author Type: Physician Type: Progress Notes Filed: 08/29/2024 09:53 Note Text: [facility] ESTABLISHED PATIENT NOTE PATIENT: Anu Lopez (23 year old) PCP: Sagar Rojo MD DATE OF SERVICE: 08/29/2024 --- SUMMARY: Mr. Lopez is a 23 year old male who is here for evaluation of new onset pain Assessment AND Plan Ureteral stricture, left Robotic-assisted laparoscopic left ureteral re-implantation, bladder psoas hitch 05/13/2024 Was doing well but now with 2 weeks of left flank aching pain, right lower quadrant abdominal pain and occasional nausea. Patient also having pain with orgasm. Incisions look good. UA not suggestive of infection. Plan check CT flank. Obtain renal scan as scheduled. Follow up to review results. Orders: CT FLANK WO IVCON; Future Hydronephrosis of left kidney Chronic Left flank pain New. Check CT Orders: CT FLANK WO IVCON; Future Right lateral abdominal pain Orders: CT FLANK WO IVCON; Future --- FOLLOW UP: Return in about 2 weeks (around 09/12/2024). --- CHIEF COMPLAINT: Patient presents with: Hydronephrosis: 3 month follow up HISTORY OF PRESENT ILLNESS: Prior notes were reviewed. The patient reports: Complaint: flank pain, abdominal pain Location: left and right Duration: weeks Quality: aching Severity: moderate Relieving: none Exacerbating: none Course: new Associated conditions: history ureteral stricture, history of hydronephrosis Diagnostics: none Treatments: none REVIEW OF SYSTEMS: Genitourinary: Denies hematuria, dysuria, frequency, urgency, nocturia, ANUM, weak stream. Constitutional: unintentional weight loss - denies, fevers - denies Cardiovascular: new or worsening chest pain - denies Respiratory: new or worsening shortness of breath - denies Gastrointestinal: constipation - denies, vomiting - denies Hematologic/Lymphatic: easy bleeding or bruising - denies ALLERGIES: ALLERGIES Allergen Reactions Dilaudid [Hydromorp* Rash MEDICATIONS: polyethylene glycol 3350 (MIRALAX ORAL) Take 17 mg by mouth two times a day. loratadine (CLARITIN) 10 mg tablet Take 10 mg by mouth once daily as needed. PAST HISTORY: PAST MEDICAL HISTORY Diagnosis Date Hydronephrosis of left kidney PMH - PAST MEDICAL HISTORY OF Normal color vision Respiratory syncytial virus (RSV) 08/08/2003 Routine or ritual circumcision Wrist fracture, right 05/08/2013 PAST SURGICAL HISTORY Procedure Laterality Date CIRCUMCISION W/CLAMP/OTH DEV W/BLOCK S STENT,URINARY DIVERSION,[id number] 04/07/24 FAMILY HISTORY Problem Relation Age of Onset Heart Mother other (arrythmia) Mother Heart Other mggm pacemaker at age 26 years Social History Tobacco Use Smoking status: Never Passive exposure: Never Smokeless tobacco: Never Tobacco comments: smoking outside at dads-denies Vaping Use Vaping status: Never Used Substance Use Topics Alcohol use: No Drug use: No PHYSICAL EXAMINATION: There were no vitals taken for this visit. Verbal informed consent obtained for exam below: Constitutional: In no acute distress. Respiratory: Normal respiratory effort without use of accessory muscles. Cardiovascular: Regular rate Gastrointestinal: Nondistended, nontender. Incisions well healed. No hernias DATA: Clinic: URINALYSIS: GLUCOSE UA (POCT) Negative 06/13/2024 BILIRUBIN UA (POCT) Negative 06/13/2024 KETONE UA (POCT) Negative 06/13/2024 SPECIFIC GRAVITY UA (POCT) 1.020 06/13/2024 HEMOGLOBIN/BLOOD UA (POCT) Trace-intact 06/13/2024 PH UA (POCT) 7.0 06/13/2024 PROTEIN UA (POCT) 100 06/13/2024 UROBILINOGEN UA (POCT) 0.2 06/13/2024 NITRITE UA (POCT) Negative 06/13/2024 LEUKOCYTES UA (POCT) Small 06/13/2024 COLOR UA (POCT) Yellow 06/13/2024 CLARITY UA (POCT) Clear 06/13/2024 Laboratory: Creatinine Date Value Ref Range Status 05/14/2024 0.90 0.50 - 1.40 mg/dL Final Comment: Patients receiving either N-Acetylcysteine (NAC) or Metamizole prior to venipuncture, may have falsely depressed results. 05/02/2024 0.98 0.73 - 1.22 mg/dL Final 03/27/2024 0.95 0.73 - 1.22 mg/dL Final 02/10/2024 0.86 0.50 - 1.40 mg/dL Final Comment: Patients receiving either N-Acetylcysteine (NAC) or Metamizole prior to venipuncture, may have falsely depressed results. Cultures: Culture Results - Past 1 Year Culture 02/24/2024 <10,000 CFU/ml Normal urogenital elodia 03/27/2024 <10,000 CFU/ml Normal urogenital elodia 05/07/2024 No growth to date Susceptibility Tests - Past 1 (more content not included)... [facility] 06-13-2024 Note HNO ID: [id number] Author: BASILIO GOULD MD Service: ? Author Type: Physician Type: Procedures Filed: 06/13/2024 10:49 Note Text: [facility] PROCEDURE NOTE PATIENT: Anu Lopez (23 year old) DATE OF SERVICE: 06/13/2024 PRE-OPERATIVE DIAGNOSIS: Left hydronephrosis, left ureteral stricture POST-OPERATIVE DIAGNOSIS: same PROCEDURE: Cystoscopy and removal of left ureteral stent ANESTHESIA: Local BLOOD LOSS: none SPECIMENS: none COMPLICATIONS: None FINDINGS: Stent removed intact. No masses or lesions present. INDICATIONS: Anu Lopez is a 23 year old male who presents for cystoscopy and stent removal. We discussed the planned procedure. Risks, benefits, and alternatives of the procedure were discussed. Patient acknowledges understanding and consents to proceed. Production Inspector present for entirety of procedure. PROCEDURE DETAIL: Patient?s identity was confirmed, written informed consent was obtained, and the time out performed before the procedure was initiated The patient was placed on the procedure table in the supine position and prepped and draped in the usual sterile fashion. 2% Lidocaine Jelly was placed per urethra as an anesthetic in the standard fashion. The tip of the flexible cystoscope was carefully placed into the urethra under direct visual guidance. The scope was negotiated through the urethra to the level of the bladder. The bladder was entered and careful nguyen-endoscopy was carried out. The posterior, superior and lateral avendaño and dome of the bladder were all well visualized and the scope was retroflexed upon itself. There was an indwelling ureteral stent. This stent was removed intact using cystoscopic graspers. At the conclusion of the procedure, the flexible cystoscope was removed atraumatically. The patient tolerated the procedure without complications. DISPOSITION: The patient tolerated the procedure well. Discharge to home. Postoperative care, limitations, and expectations were reviewed with the patient. We discussed concerning signs and symptoms and patient knows to report these immediately. If unable to reach their urologist, patient knows to report to emergency department for evaluation. --- PLAN: Rx sent for Keflex. Follow up 3 months with renal scan. Risks, benefits, and alternatives of the new medical therapy were discussed. Patient acknowledges understanding and consents to proceed. ORDERS TODAY: Orders Placed This Encounter UA DIP, URINE (POC) --- UNIVERSAL PROTOCOL / SAFETY CHECKLIST A Moment of CARE was completed. Sign In: History and Physical on chart: Completed Allergies and Medications Review: Completed Informed Consent: Completed. Sign in Communication: Completed Time Out: Team Confirms the Correct Patient, Correct Procedure, Correct Site and Site Marking (if applicable), Correct Position, Sterility, Fire Risk, Medications to be given: Affirmation of Time Out: Yes Sign Out: All specimen containers correctly labeled when applicable. Sign Out Discussion: Completed Patient instructions: Completed Bsailio Gould MD 06/13/2024 [facility] 06-13-2024 Procedure note Images from the original note were not included. [facility] PROCEDURE NOTE PATIENT: Anu Lopez (23 year old) DATE OF SERVICE: 06/13/2024 PRE-OPERATIVE DIAGNOSIS: Left hydronephrosis, left ureteral stricture POST-OPERATIVE DIAGNOSIS: same PROCEDURE: Cystoscopy and removal of left ureteral stent ANESTHESIA: Local BLOOD LOSS: none SPECIMENS: none COMPLICATIONS: None FINDINGS: Stent removed intact. No masses or lesions present. INDICATIONS: Anu Lopez is a 23 year old male who presents for cystoscopy and stent removal. We discussed the planned procedure. Risks, benefits, and alternatives of the procedure were discussed. Patient acknowledges understanding and consents to proceed. Production Inspector present for entirety of procedure. PROCEDURE DETAIL: Patient s identity was confirmed, written informed consent was obtained, and the time out performed before the procedure was initiated The patient was placed on the procedure table in the supine position and prepped and draped in the usual sterile fashion. 2% Lidocaine Jelly was placed per urethra as an anesthetic in the standard fashion. The tip of the flexible cystoscope was carefully placed into the urethra under direct visual guidance. The scope was negotiated through the urethra to the level of the bladder. The bladder was entered and careful nguyen-endoscopy was carried out. The posterior, superior and lateral avendaño and dome of the bladder were all well visualized and the scope was retroflexed upon itself. There was an indwelling ureteral stent. This stent was removed intact using cystoscopic graspers. At the conclusion of the procedure, the flexible cystoscope was removed atraumatically. The patient tolerated the procedure without complications. DISPOSITION: The patient tolerated the procedure well. Discharge to home. Postoperative care, limitations, and expectations were reviewed with the patient. We discussed concerning signs and symptoms and patient knows to report these immediately. If unable to reach their urologist, patient knows to report to emergency department for evaluation. PLAN: Rx sent for Keflex. Follow up 3 months with renal scan. Risks, benefits, and alternatives of the new medical therapy were discussed. Patient acknowledges understanding and consents to proceed. ORDERS TODAY: Orders Placed This Encounter UA DIP, URINE (POC) UNIVERSAL PROTOCOL / SAFETY CHECKLIST A Moment of CARE was completed. Sign In: History and Physical on chart: Completed Allergies and Medications Review: Completed Informed Consent: Completed. Sign in Communication: Completed Time Out: Team Confirms the Correct Patient, Correct Procedure, Correct Site and Site Marking (if applicable), Correct Position, Sterility, Fire Risk, Medications to be given: Affirmation of Time Out: Yes Sign Out: All specimen containers correctly labeled when applicable. Sign Out Discussion: Completed Patient instructions: Completed Basilio Goudl MD 06/13/2024 [facility] 06-13-2024 Procedure note Images from the original note were not included. [facility] PROCEDURE NOTE PATIENT: Anu Lopez (23 year old) DATE OF SERVICE: 06/13/2024 PRE-OPERATIVE DIAGNOSIS: Left hydronephrosis, left ureteral stricture POST-OPERATIVE DIAGNOSIS: same PROCEDURE: Cystoscopy and removal of left ureteral stent ANESTHESIA: Local BLOOD LOSS: none SPECIMENS: none COMPLICATIONS: None FINDINGS: Stent removed intact. No masses or lesions present. INDICATIONS: Anu Lopez is a 23 year old male who presents for cystoscopy and stent removal. We discussed the planned procedure. Risks, benefits, and alternatives of the procedure were discussed. Patient acknowledges understanding and consents to proceed. Production Inspector present for entirety of procedure. PROCEDURE DETAIL: Patient s identity was confirmed, written informed consent was obtained, and the time out performed before the procedure was initiated The patient was placed on the procedure table in the supine position and prepped and draped in the usual sterile fashion. 2% Lidocaine Jelly was placed per urethra as an anesthetic in the standard fashion. The tip of the flexible cystoscope was carefully placed into the urethra under direct visual guidance. The scope was negotiated through the urethra to the level of the bladder. The bladder was entered and careful nguyen-endoscopy was carried out. The posterior, superior and lateral avendaño and dome of the bladder were all well visualized and the scope was retroflexed upon itself. There was an indwelling ureteral stent. This stent was removed intact using cystoscopic graspers. At the conclusion of the procedure, the flexible cystoscope was removed atraumatically. The patient tolerated the procedure without complications. DISPOSITION: The patient tolerated the procedure well. Discharge to home. Postoperative care, limitations, and expectations were reviewed with the patient. We discussed concerning signs and symptoms and patient knows to report these immediately. If unable to reach their urologist, patient knows to report to emergency department for evaluation. PLAN: Rx sent for Keflex. Follow up 3 months with renal scan. Risks, benefits, and alternatives of the new medical therapy were discussed. Patient acknowledges understanding and consents to proceed. ORDERS TODAY: Orders Placed This Encounter UA DIP, URINE (POC) UNIVERSAL PROTOCOL / SAFETY CHECKLIST A Moment of CARE was completed. Sign In: History and Physical on chart: Completed Allergies and Medications Review: Completed Informed Consent: Completed. Sign in Communication: Completed Time Out: Team Confirms the Correct Patient, Correct Procedure, Correct Site and Site Marking (if applicable), Correct Position, Sterility, Fire Risk, Medications to be given: Affirmation of Time Out: Yes Sign Out: All specimen containers correctly labeled when applicable. Sign Out Discussion: Completed Patient instructions: Completed Basilio Gould MD 06/13/2024 documented in this encounter [facility] 06-13-2024 Instructions Basilio Gould MD - 06/13/2024 10:40 AM EDT [facility] POST-CYSTOSCOPY AND STENT REMOVAL INSTRUCTIONS You have undergone a cystoscopy and stent removal. Your doctor has visualized your lower urinary tract using a scope and removed a stent(s) from your kidney. WHAT TO EXPECT: Possible burning during urination and/or blood-tinged urine for up to 72 hours. Possible cramping or spasm in your bladder or kidney for up to 72 hours. WHAT TO DO: Resume normal activity aside from no heavy lifting/pushing/pulling (25 lbs) for 24 hours. Continue current medications (unless instructed by physician) An antibiotic was prescribed and you are to pick the medication up at your pharmacy. Drink 6-8 glasses of fluid (water is best) each day for 3 days to help flush your urinary system. You may take OTC acetaminophen or ibuprofen for discomfort. WHEN TO CALL THE DOCTOR: If you have a temperature over 101 degrees Fahrenheit. If you are unable to urinate. If you have severe pain in the kidney or abdomen. If blood clots form in your urine. If your urine becomes very bloody and does not clear with drinking extra fluids. Thank you. documented in this encounter [facility] 06-13-2024 Nurse Note Production Inspector assist with procedure Emily Nichols RN [facility] 06-13-2024 Nurse Note Production Inspector assist with procedure Emily Nichols RN documented in this encounter [facility] 05-16-2024 Telephone encounter Note Spoke with patient he understood [facility] 05-16-2024 Miscellaneous Notes Spoke with patient he understood Patient had surgery with earlier this week, he called in saying that he was to schedule an appointment with you. He does have an appointment for stent removal, does he need one before that? Please advise documented in this encounter [facility] 05-15-2024 Telephone encounter Note Patient had surgery with earlier this week, he called in saying that he was to schedule an appointment with you. He does have an appointment for stent removal, does he need one before that? Please advise [facility] 05-14-2024 Note HNO ID: [id number] Author: BASILIO GOULD MD Service: Urology Author Type: Physician Type: Progress Notes Filed: 05/14/2024 07:15 Note Text: [facility] POST OP PROGRESS NOTE PATIENT: Anu Lopez (23 year old) SERVICE DATE: 05/14/2024 SUMMARY: 1 Day Post-Op Procedure(s): ROBOTIC LAPAROSCOPY URETERONEOCYSTOSTOMY W/O CYSTOSCOPY AND URETERAL STENT PLACEMENT --- ASSESSMENT: Active Hospital Problems Diagnosis Date Noted Hydronephrosis of left kidney 02/07/2024 Ureteral stricture, left 04/07/2024 PLAN: Pain control as needed. Regular diet. Wean IVF. Ambulate. Encouraged IS. SCDs for DVT prophylaxis. Anticipate discharge home later today. Timothy out today. --- CHIEF COMPLAINT: Pre-Op Diagnosis Codes: * Other hydronephrosis [N13.39] SUBJECTIVE: No events overnight. Patient states pain is controlled. Tolerating diet. Ambulating. MEDICATIONS: Current Facility-Administered Medications Medication Dose Route Frequency acetaminophen 1,000 mg tab(s) (TYLENOL) 1,000 mg ORAL q 6 H ondansetron (PF) 4 mg injection (ZOFRAN) 4 mg INTRAVENOUS q 6 H PRN magnesium hydroxide 400 mg/5 mL 30 mL (MOM) 30 mL ORAL DAILY PRN melatonin 3 mg tab(s) 3 mg ORAL DAILY (8 PM) docusate sodium 100 mg cap(s) (COLACE) 100 mg ORAL TID diphenhydrAMINE 25 mg injection (BENADRYL) 25 mg INTRAVENOUS q 6 H PRN aluminum-magnesium hydroxide-simethicone 200-200-20 mg/5 mL 30 mL 30 mL ORAL q 6 H PRN phenol 1 Weikert (CHLORASEPTIC) 1 Weikert MUCOUS MEMBRANE (TOPICAL MOUTH AND THROAT) PRN morphine 1-2 mg injection 1-2 mg INTRAVENOUS q 2 H PRN keTORolac 15 mg injection (Toradol) 15 mg INTRAVENOUS q 6 H oxyCODONE IR 5-10 mg tab(s) (ROXICODONE) 5-10 mg ORAL q 6 H PRN PHYSICAL EXAMINATION: BP 143/74 Pulse (!) 55 Temp 36.5 ?C (97.7 ?F) (Oral) Resp 16 Ht 185.4 cm (6' 1) Wt 83.3 kg (183 lb 10.3 oz) SpO2 97% BMI 24.23 kg/m? Incisions: clean, dry, and intact. No ecchymosis or drainage Drains: AKUA serosanguinous Genitourinary: Crane out. Constitutional: No acute distress. Gastrointestinal: soft, nondistended, appropriately tender to palpation Cardiovascular: regular rate Respiratory: unlabored Extremities: no calf edema or tenderness DATA: Laboratory: Chemistry: Glucose (mg/dL) Date/Time Value 05/14/2024 0506 127 (H) BUN (mg/dL) Date/Time Value 05/14/2024 0506 14 Creatinine (mg/dL) Date/Time Value 05/14/2024 0506 0.90 Sodium (mmol/L) Date/Time Value 05/14/2024 0506 141 Potassium (mmol/L) Date/Time Value 05/14/2024 0506 4.4 Chloride (mmol/L) Date/Time Value 05/14/2024 0506 108 (H) CO2 (mmol/L) Date/Time Value 05/14/2024 0506 23 Calcium, Total (mg/dL) Date/Time Value 05/14/2024 0506 9.6 CBC: Hemoglobin (g/dL) Date/Time Value 05/14/2024 0506 13.8 Hematocrit (%) Date/Time Value 05/14/2024 0506 42.6 WBC (k/uL) Date/Time Value 05/14/2024 0506 14.07 (H) Platelet Count (k/uL) Date/Time Value 05/14/2024 0506 237 Urine: Cultures: Culture Results - Past 1 Year Culture 02/24/2024 <10,000 CFU/ml Normal urogenital elodia 03/27/2024 <10,000 CFU/ml Normal urogenital elodia 05/07/2024 No growth to date Susceptibility Tests - Past 1 Year Collected Organism 02/24/24 Normal urogenital elodia 03/27/24 Normal urogenital elodia SIGNATURE: Basilio Gould MD UROLOGY STAFF PHYSICIAN DATE: May 14, 2024 PATIENT NAME: Anu Lopez TIME: 7:15 AM [facility] 05-13-2024 Note HNO ID: [id number] Author: GABE NOLEN RN Service: Nursing Author Type: Registered Nurse Type: Nursing Progress Note Filed: 05/13/2024 18:41 Note Text: Pt up in [facility] 05-13-2024 Note HNO ID: [id number] Author: GABE NOLEN RN Service: Nursing Author Type: Registered Nurse Type: Nursing Progress Note Filed: 05/13/2024 16:13 Note Text: Md notified pt family would like to speak to him [facility] 05-13-2024 Note HNO ID: [id number] Author: JONATHAN MAYERS APRN.GREGORIO Service: ? Author Type: Nurse Seed Laboratory Assistant Type: Anesthesia Procedure Notes Filed: 05/13/2024 12:14 Note Text: ANESTHESIOLOGY PROCEDURE NOTE PIV General Information Procedure Start Time/Medication Administration: 05/13/2024 12:07 PM Procedure End Time: 05/13/2024 12:09 PM Patient Location: OR Staffing SRNA: Viktor Lopez SRNA Performed by: SHERMAN Preparation Sterility Preparation: hand hygiene performed prior to procedure, sterile gloves, drapes, and procedure tray, surgical cap used, mask used, sterile drape used during line insertion, skin prep agent completely dried prior to procedure Sterility Technique Not Completely Performed Due to Extreme Emergency: No Site Prep: alcohol Procedure Details Indication: need for IV access Needle Size/Type: 20 gauge angiocath Orientation: Right Location: Hand Imaging Guidance Used: No SIGNATURE: Jonathan Mayers CRNA, APRN.CRNA PATIENT NAME: Anu Lopez DATE: May 13, 2024 TIME: 12:13 PM CSN: [id number] [facility] 05-13-2024 Note HNO ID: [id number] Author: JONATHAN MAYERS APRN.GREGORIO Service: ? Author Type: Nurse Seed Laboratory Assistant Type: Anesthesia Procedure Notes Filed: 05/13/2024 12:06 Note Text: ANESTHESIOLOGY PROCEDURE NOTE Airway General Information Procedure Start Time/Medication Administration: 05/13/2024 11:54 AM Procedure End Time: 05/13/2024 11:55 AM Patient location during procedure: OR Timeout Performed Pre-procedure: timeout performed Consent Obtained: Yes Patient identity confirmed: arm band Staffing ACID WASH OPERATOR: Jonathan Mayers APRN.ACID WASH OPERATOR Performed by: GREGORIO Indications and Patient Condition Indications for airway management: anesthesia and airway protection Preoxygenated: yes anesthesia circuit Patient position: sniffing Method: asleep Cricoid Pressure: No Manual In-Line Stabilization: No Difficult Mask: No Final Airway Details Final airway type: endotracheal airway Final Endotracheal Airway: ETT Cuffed: yes Successful intubation technique: video laryngoscopy Devices used: Grady Blade size: #3 ETT size (mm): 8.0 Measured from: lips Measurement (cm): 22 Placement verified by: chest auscultation Cormack-Lehane Classification: grade I - full view of glottis Number of attempts at approach: 1 Ventilation between attempts: BVM Failed airway: no Unrecognized esophageal intubation: no Airway not difficult SIGNATURE: Jonathan Mayers CRNA, PERLA.GREGORIO PATIENT NAME: Anu Lopez DATE: May 13, 2024 TIME: 12:05 PM CSN: [id number] [facility] 05-12-2024 Note HNO ID: [id number] Author: NOEMÍ BAUMAN RN Service: Nursing Author Type: Registered Nurse Type: Progress Notes Filed: 05/12/2024 16:44 Note Text: PRE-PROCEDURE INSTRUCTIONS TO PREPARE FOR YOUR PROCEDURE: Your arrival time for your procedure is 1015. Do NOT eat any solid foods after MIDNIGHT the night prior to your procedure - this includes gum or mints. You can drink clear liquids* up until 0815, which is 2 hours before your arrival time. *Clear liquids = water, carbohydrate drink (sports drink that is clear or yellow in color), Ensure Pre-Surgery (given by SANTHOSH or your ), fruit juice without pulp (apple/cranberry), clear tea, black coffee (no cream). NO CARBONATED BEVERAGES AND NO ALCOHOL. Shower the morning of the procedure, put on clean clothes, and have clean sheets for your bed to help prevent infection after your procedure. Leave all valuables such as jewelry including rings, piercings, wallets, and purses at home. Wear comfortable, loose-fitting clothing. If you wear glasses or contacts, please bring a case. SPECIAL INSTRUCTIONS: If instructed, bring your first voided urine specimen with you. If you were provided skin preparation to use prior to your procedure, complete this as directed. If you were provided Ensure Pre-Surgery drink, you need to drink this at N/A. This should be consumed quickly (in less than 5 minutes, rather than sipped over time) If a bowel preparation has been ordered by your physician, it is very important to follow the bowel prep instructions or your procedure may need to be rescheduled. If you use crutches or a walker, bring them with you. If you have a home CPAP/BIPAP machine, bring it with you. If you were instructed to complete a fleets enema or bowel prep, complete as directed. Bring copy of Living Will/Power 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 Box 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. Do not smoke or chew. If you use tobacco, quit or at least cut down before surgery. Do not smoke or chew after midnight the day before your surgery. This effects bleeding, infection, healing, and so much more. Do not take any Diet or Herbal Supplements 2 weeks prior to your surgery date. Please notify your physician if there is any change in your physical condition such as a cold, cough, fever, sore throat, or skin irritation near the surgical site. Visitors under the age of 14 are restricted in the Surgery Center. UPON ARRIVAL: Access to [facility] (the infirmary [facility]) is located on [address] Power System Operator parking is available for your convenience from 5am-5pm- there is a $5.00 charge for this service. Take the elevators directly inside the entrance to the 1st Floor Surgery Lobby. Sign in at the podium located to the left when you get off the elevators. A payment may be expected at the time of service. One visitor may come back to the preoperative area with you. The preoperative staff will be reviewing your medical history, please let them know if you prefer not to have a visitor with you during this time. Once you are ready for your procedure, two visitors at a time are permitted in your preprocedure room. MEDICATION INSTRUCTIONS PRIOR TO SURGERY Please read below carefully for your personalized instructions. Medications: If you are on blood thinner or anticoagulants including aspirin, please confirm with your surgical team on when to stop these medications. Unless instructed differently by your surgical team, stay on all of your medications until your surgery. Pre-Surgery Med Instructions Medication Instructions polyethylene glycol 3350 (MIRALAX ORAL) DO NOT TAKE MORNING OF SURGERY loratadine (CLARITIN) 10 mg tablet PRN if needed If you have any medication changes between receiving these instructions and your surgery date, please provide this updated information with the nurse who calls you the week day prior to your surgical procedure so we can update your list and provide you with updated instructions for the morning of your procedure. Arrival time and instructions left with patient's mother. [facility] 05-08-2024 Note HNO ID: [id number] Author: OBI BAUMAN PA-C Service: ? Author Type: Physician Riverboat Captain Type: Progress Notes Filed: 05/08/2024 07:59 Note Text: Summary: DOS meds MEDICATION INSTRUCTIONS PRIOR TO SURGERY Please read below carefully for your personalized instructions. Medications: If you are on blood thinner or anticoagulants including aspirin, please confirm with your surgical team on when to stop these medications. Unless instructed differently by your surgical team, stay on all of your medications until your surgery. Pre-Surgery Med Instructions Medication Instructions polyethylene glycol 3350 (MIRALAX ORAL) DO NOT TAKE MORNING OF SURGERY loratadine (CLARITIN) 10 mg tablet PRN if needed If you have any medication changes between receiving these instructions and your surgery date, please provide this updated information with the nurse who calls you the week day prior to your surgical procedure so we can update your list and provide you with updated instructions for the morning of your procedure. [facility] 05-07-2024 History of Present illness Narrative [facility] ESTABLISHED PATIENT NOTE PATIENT: Anu Lopez (23 year old) PCP: Sagar Rojo MD DATE OF SERVICE: 05/07/2024 ASSESSMENT: 1. Hydronephrosis of left kidney - ICD9: 591, ICD10: N13.30 (primary diagnosis) 2. Ureteral stricture, left - ICD9: 593.3, ICD10: N13.5 Cystoscopy, pyelograms, left ureteroscopy, left ureteral stent change 6x26 Konstantin rosas 04/07/2024 4 cm distal left ureteral stricture. Proximal hydronephrosis and hydroureter. No filling defects. Ureteroscopy revealed a distal stricture with no masses or lesions 45% split function on left Patient of Dr. Rosas PLAN: Left ureteral stricture. Reviewed findings. Discussed treatment options. Plan for robotic left ureteral reimplantation with possible distal ureterectomy, possible psoas hitch of the bladder. We discussed the planned procedure. Risks, benefits, and alternatives of the procedure were discussed. Discussed the stent after the procedure and the possibility of a Crane and a drain. Discussed risk of leak. Discussed risk of recurrence. Patient acknowledges understanding and consents to proceed. ORDERS TODAY: Orders Placed This Encounter Urine Culture - today FOLLOW UP: Return for Surgery. CHIEF COMPLAINT: Patient presents with: Hydronephrosis: Discuss ROBOTIC LAPAROSCOPY URETERONEOCYSTOSTOMY W/O CYSTOSCOPY AND URETERAL STENT PLACEMENT HISTORY OF PRESENT ILLNESS: Prior notes were reviewed. Mr. Lopez is a 23 year old male who is here for follow up. The patient reports he feels well. No pain. No hematuria. REVIEW OF SYSTEMS: Genitourinary: Denies hematuria, dysuria, frequency, urgency, nocturia, ANUM, weak stream. Constitutional: unintentional weight loss - denies, fevers - denies Cardiovascular: new or worsening chest pain - denies Respiratory: new or worsening shortness of breath - denies Gastrointestinal: constipation - denies, vomiting - denies Hematologic/Lymphatic: easy bleeding or bruising - denies ALLERGIES: ALLERGIES Allergen Reactions Dilaudid [Hydromorp* Rash MEDICATIONS: loratadine (CLARITIN) 10 mg tablet Take 10 mg by mouth once daily as needed. PAST HISTORY: PAST MEDICAL HISTORY No date: Hydronephrosis of left kidney No date: PMH - PAST MEDICAL HISTORY OF Comment: Normal color vision 08/08/2003: Respiratory syncytial virus (RSV) No date: Routine or ritual circumcision 05/08/2013: Wrist fracture, right PAST SURGICAL HISTORY No date: CIRCUMCISION W/CLAMP/OTH DEV W/BLOCK FAMILY HISTORY Problem Relation Age of Onset Heart Mother other (arrythmia) Mother Heart Other mggm pacemaker at age 26 years Social History Tobacco Use Smoking status: Never Smokeless tobacco: Never Tobacco comments: smoking outside at dads Vaping Use Vaping Use: Never used Substance Use Topics Alcohol use: No Drug use: No PHYSICAL EXAMINATION: BP 123/74 Pulse 69 Constitutional: In no acute distress. Respiratory: Normal respiratory effort without use of accessory muscles. Musculoskeletal: Normal gait and station Cardiovascular: Regular rate Gastrointestinal: Nondistended DATA: Clinic: URINALYSIS: No results found for this basename: uglucpoc,ubilipoc,uketonpoc,usgpoc, uhbpoc,uphpoc,upropoc,uuropoc,unitp oc,uwbcpoc,ucolpoc,uclarpoc Laboratory: Creatinine Date Value Ref Range Status 05/02/2024 0.98 0.73 - 1.22 mg/dL Final 03/27/2024 0.95 0.73 - 1.22 mg/dL Final 02/10/2024 0.86 0.50 - 1.40 mg/dL Final Comment: Patients receiving either N-Acetylcysteine (NAC) or Metamizole prior to venipuncture, may have falsely depressed results. 02/09/2024 0.89 0.50 - 1.40 mg/dL Final Comment: Patients receiving either N-Acetylcysteine (NAC) or Metamizole prior to venipuncture, may have falsely depressed results. Cultures: Culture Results - Past 1 Year Culture 02/24/2024 <10,000 CFU/ml Normal urogenital elodia 03/27/2024 <10,000 CFU/ml Normal urogenital elodia Susceptibility Tests - Past 1 Year Collected Organism 02/24/24 Normal urogenital elodia 03/27/[address] Scan Results No results found for this or any previous visit from the past 1095 days. PSA: No results found for: PSA NM renal scan IMPRESSION: RIGHT KIDNEY: SATISFACTORY FLOW AND FUNCTION AND DRAINAGE WITH NO EVIDENCE OF OBSTRUCTION ON THE RIGHT. LEFT KIDNEY: DECREASED FLOW AND FUNCTION. DELAYED DRAINAGE. FINDINGS SUGGESTIVE OF OBSTRUCTION ON THE LEFT. SPLIT FUNCTION: LEFT KIDNEY 45 % AND RIGHT KIDNEY 55% I have reviewed the problem list, family history, and social history documented by my ancillary staff. Basilio Gould MD Staff Urologist Office documented in this encounter [facility] 05-07-2024 Note HNO ID: [id number] Author: BASILIO GOULD MD Service: ? Author Type: Physician Type: Progress Notes Filed: 05/07/2024 15:00 Note Text: [facility] ESTABLISHED PATIENT NOTE PATIENT: Anu De La O Lopez (23 year old) PCP: Sagar Rojo MD DATE OF SERVICE: 05/07/2024 --- ASSESSMENT: 1. Hydronephrosis of left kidney - ICD9: 591, ICD10: N13.30 (primary diagnosis) 2. Ureteral stricture, left - ICD9: 593.3, ICD10: N13.5 Cystoscopy, pyelograms, left ureteroscopy, left ureteral stent change 6x26 Konstantin rosas 04/07/2024 4 cm distal left ureteral stricture. Proximal hydronephrosis and hydroureter. No filling defects. Ureteroscopy revealed a distal stricture with no masses or lesions 45% split function on left Patient of Dr. Rosas PLAN: Left ureteral stricture. Reviewed findings. Discussed treatment options. Plan for robotic left ureteral reimplantation with possible distal ureterectomy, possible psoas hitch of the bladder. We discussed the planned procedure. Risks, benefits, and alternatives of the procedure were discussed. Discussed the stent after the procedure and the possibility of a Crane and a drain. Discussed risk of leak. Discussed risk of recurrence. Patient acknowledges understanding and consents to proceed. --- ORDERS TODAY: Orders Placed This Encounter Urine Culture - today FOLLOW UP: Return for Surgery. --- CHIEF COMPLAINT: Patient presents with: Hydronephrosis: Discuss ROBOTIC LAPAROSCOPY URETERONEOCYSTOSTOMY W/O CYSTOSCOPY AND URETERAL STENT PLACEMENT HISTORY OF PRESENT ILLNESS: Prior notes were reviewed. Mr. Lopez is a 23 year old male who is here for follow up. The patient reports he feels well. No pain. No hematuria. REVIEW OF SYSTEMS: Genitourinary: Denies hematuria, dysuria, frequency, urgency, nocturia, ANUM, weak stream. Constitutional: unintentional weight loss - denies, fevers - denies Cardiovascular: new or worsening chest pain - denies Respiratory: new or worsening shortness of breath - denies Gastrointestinal: constipation - denies, vomiting - denies Hematologic/Lymphatic: easy bleeding or bruising - denies ALLERGIES: ALLERGIES Allergen Reactions Dilaudid [Hydromorp* Rash MEDICATIONS: loratadine (CLARITIN) 10 mg tablet Take 10 mg by mouth once daily as needed. PAST HISTORY: PAST MEDICAL HISTORY No date: Hydronephrosis of left kidney No date: PMH - PAST MEDICAL HISTORY OF Comment: Normal color vision 08/08/2003: Respiratory syncytial virus (RSV) No date: Routine or ritual circumcision 05/08/2013: Wrist fracture, right PAST SURGICAL HISTORY No date: CIRCUMCISION W/CLAMP/OTH DEV W/BLOCK FAMILY HISTORY Problem Relation Age of Onset Heart Mother other (arrythmia) Mother Heart Other mggm pacemaker at age 26 years Social History Tobacco Use Smoking status: Never Smokeless tobacco: Never Tobacco comments: smoking outside at dads Vaping Use Vaping Use: Never used Substance Use Topics Alcohol use: No Drug use: No PHYSICAL EXAMINATION: BP 123/74 Pulse 69 Constitutional: In no acute distress. Respiratory: Normal respiratory effort without use of accessory muscles. Musculoskeletal: Normal gait and station Cardiovascular: Regular rate Gastrointestinal: Nondistended DATA: Clinic: URINALYSIS: No results found for this basename: uglucpoc,ubilipoc,uketonpoc,usgpoc, uhbpoc,uphpoc,upropoc,uuropoc,unitp oc,uwbcpoc ,ucolpoc,uclarpoc Laboratory: Creatinine Date Value Ref Range Status 05/02/2024 0.98 0.73 - 1.22 mg/dL Final 03/27/2024 0.95 0.73 - 1.22 mg/dL Final 02/10/2024 0.86 0.50 - 1.40 mg/dL Final Comment: Patients receiving either N-Acetylcysteine (NAC) or Metamizole prior to venipuncture, may have falsely depressed results. 02/09/2024 0.89 0.50 - 1.40 mg/dL Final Comment: Patients receiving either N-Acetylcysteine (NAC) or Metamizole prior to venipuncture, may have falsely depressed results. Cultures: Culture Results - Past 1 Year Culture 02/24/2024 <10,000 CFU/ml Normal urogenital elodia 03/27/2024 <10,000 CFU/ml Normal urogenital elodia Susceptibility Tests - Past 1 Year Collected Organism 02/24/24 Normal urogenital elodia 03/27/[address] Scan Results No results found for this or any previous visit from the past 1095 days. PSA: No results found for: PSA NM renal scan IMPRESSION: RIGHT KIDNEY: SATISFACTORY FLOW AND FUNCTION AND DRAINAGE WITH NO EVIDENCE OF OBSTRUCTION ON THE RIGHT. LEFT KIDNEY: DECREASED FLOW AND FUNCTION. DELAYED [place] (more content not included)... [facility] 04-07-2024 Telephone encounter Note Surgery: Robotic left ureteral reimplantation Duration: 4 hour(s) Surgeon: Basilio Gould MD Riverboat Captain: Brandon Ramos MD Location: [facility] Anesthesia: General Fluoroscopy: No Special equipment: Da Wisam XI robot system, intra-operative PACC visit: No Pre-op visit: Yes, office visit with CJL one week prior to surgery Pre-op testing: Yes, bmp, cbc, urinalysis Clearance: No Bowel prep: Yes, 1 week Miralax prep Blood thinners request to stop: Yes Admission: Yes, expected less than 48 hours Follow up visit: Yes, after surgery, 4-6 weeks with CJL for office cystoscopy and stent removal [facility] 04-07-2024 Miscellaneous Notes Surgery: Robotic left ureteral reimplantation Duration: 4 hour(s) Surgeon: Basilio Gould MD Riverboat Captain: Brandon Ramos MD Location: [facility] Anesthesia: General Fluoroscopy: No Special equipment: Da Wisam XI robot system, intra-operative PACC visit: No Pre-op visit: Yes, office visit with CJL one week prior to surgery Pre-op testing: Yes, bmp, cbc, urinalysis Clearance: No Bowel prep: Yes, 1 week Miralax prep Blood thinners request to stop: Yes Admission: Yes, expected less than 48 hours Follow up visit: Yes, after surgery, 4-6 weeks with CJL for office cystoscopy and stent removal documented in this encounter [facility] 03-12-2024 Telephone encounter Note Surgery: Cystoscopy and pyelograms, left ureteroscopy, possible stent change or removal Duration: 1 hour(s) Surgeon: Basilio Gould MD Location: [facility] Anesthesia: General Fluoroscopy: Yes Special equipment: none PACC visit: No Presurgical testing: CBC, BMP, Urinalysis and urine culture one week prior to surgery, Clearance: No Bowel prep: No Blood thinners to stop: Not applicable Diabetes medication to stop: Not applicable [facility] 03-12-2024 Miscellaneous Notes Surgery: Cystoscopy and pyelograms, left ureteroscopy, possible stent change or removal Duration: 1 hour(s) Surgeon: Basilio Gould MD Location: [facility] Anesthesia: General Fluoroscopy: Yes Special equipment: none PACC visit: No Presurgical testing: CBC, BMP, Urinalysis and urine culture one week prior to surgery, Clearance: No Bowel prep: No Blood thinners to stop: Not applicable Diabetes medication to stop: Not applicable documented in this encounter [facility] 03-12-2024 History of Present illness Narrative Images from the original note were not included. [facility] ESTABLISHED PATIENT NOTE PATIENT: Anu Lopez (23 year old) PCP: Sagar Rojo MD DATE OF SERVICE: 03/12/2024 ASSESSMENT: 1. Hydronephrosis of left kidney - ICD9: 591, ICD10: N13.[address] Rosas PLAN: Left hydronephrosis. Imaging and reports reviewed. He has left hydroureteronephrosis with decreased left renal function (but improved after stent insertion). He is status post dilation of a suspected left ureteral stricture. Discussed findings and treatment options. Plan cystoscopy, pyelograms, left ureteroscopy and left ureteral stent removal or change. We discussed the planned procedure. Risks, benefits, and alternatives of the procedure were discussed. Patient acknowledges understanding and consents to proceed. If obstruction/stricture still present, may need robotic reimplantation of left ureter FOLLOW UP: Return for Surgery. CHIEF COMPLAINT: Patient presents with: Hydronephrosis of left kidney: Burning when urinating Nauseas Side pain-left HISTORY OF PRESENT ILLNESS: Prior notes were reviewed. Mr. Lopez is a 23 year old male who is here for follow up. The patient reports he feels okay. He still has intermittent pain in the left kidney and debris in his urine. No hematuria. No fevers. REVIEW OF SYSTEMS: Genitourinary: Denies hematuria, dysuria, frequency, urgency, nocturia, ANUM, weak stream. Constitutional: unintentional weight loss - denies, fevers - denies Cardiovascular: new or worsening chest pain - denies Respiratory: new or worsening shortness of breath - denies Gastrointestinal: constipation - denies, vomiting - denies Hematologic/Lymphatic: easy bleeding or bruising - denies ALLERGIES: ALLERGIES No Known Allergies MEDICATIONS: loratadine (CLARITIN) 10 mg tablet Take 10 mg by mouth once daily as needed. tamsulosin (FLOMAX) 0.4 mg Take 1 capsule by mouth once daily for 5 days. IBUPROFEN (MOTRIN ORAL) Take by mouth. (Patient not taking: Reported on 02/06/2024) PAST HISTORY: PAST MEDICAL HISTORY Diagnosis Date PMH - PAST MEDICAL HISTORY OF Normal color vision Respiratory syncytial virus (RSV) 08/10 Routine or ritual circumcision Wrist fracture, right 05/2013 PAST SURGICAL HISTORY Procedure Laterality Date CIRCUMCISION W/CLAMP/OTH DEV W/BLOCK FAMILY HISTORY Problem Relation Age of Onset Heart Mother other (arrythmia) Mother Heart Other mggm pacemaker at age 26 years Social History Tobacco Use Smoking status: Never Smokeless tobacco: Never Tobacco comments: smoking outside at dads Substance Use Topics Alcohol use: No Drug use: No PHYSICAL EXAMINATION: BP 135/86 Pulse 71 SpO2 97% Constitutional: In no acute distress. Well appearing. Respiratory: Normal respiratory effort without use of accessory muscles. Musculoskeletal: Normal gait and station Cardiovascular: Regular rate Gastrointestinal: Nondistended DATA: Clinic: URINALYSIS: No results found for this basename: uglucpoc,ubilipoc,uketonpoc,usgpoc, uhbpoc,uphpoc,upropoc,uuropoc,unitp oc,uwbcpoc,ucolpoc,uclarpoc Laboratory: Creatinine Date Value Ref Range Status 02/10/2024 0.86 0.50 - 1.40 mg/dL Final Comment: Patients receiving either N-Acetylcysteine (NAC) or Metamizole prior to venipuncture, may have falsely depressed results. 02/09/2024 0.89 0.50 - 1.40 mg/dL Final Comment: Patients receiving either N-Acetylcysteine (NAC) or Metamizole prior to venipuncture, may have falsely depressed results. 02/08/2024 0.97 0.50 - 1.40 mg/dL Final Comment: Patients receiving either N-Acetylcysteine (NAC) or Metamizole prior to venipuncture, may have falsely depressed results. 02/07/2024 0.94 0.50 - 1.40 mg/dL Final Comment: Patients receiving either N-Acetylcysteine (NAC) or Metamizole prior to venipuncture, may have falsely depressed results. Cultures: Culture Results - Past 1 Year Culture 02/24/2024 <10,000 CFU/ml Normal urogenital elodia Susceptibility Tests - Past 1 Year Collected Organism 02/24/[address] Scan Results No results found for this or any previous visit from the past 1095 days. PSA: No results found for: PSA NM renal scan 02/07/2024 RESULT: Split Differential Function: - Left Kidney: 38% - Right Kidney: 62% IMPRESSION: Left Kidney: Decreased function with high-grade obstruction. Right Kidney: No evidence of obstruction. Cystoscopy left ureteroscopy double-J stent placement 02/08/2024 When she is getting satisfactory general endotracheal anesthetic looking the bladder is neck was normal bladder looks pretty normal I can see his left renal EXTR easily I cannulated very easily through the wire and the first attempt I then used a 16 x 4 for 18 x 4 ureteral dilator and dilated ureter initially by hand I typically look up the ureter could still not get through so I went ahead and dilated it with a loop getting is hard for her ureteral dilators getting as high as 10 kevyn did this for couple minutes I did pull out looked at again I still could not get up ureter I tried with some pressure. Side at this time it looks like his ureter is stricture I do not think there is any tumor or anything there clogging so but I do not know for certain so the stopped and I placed a [id number] stent up that ureter firmly in proper location by fluoroscopy. NM renal scan 02/20/2024 IMPRESSION: RIGHT KIDNEY: SATISFACTORY FLOW AND FUNCTION AND DRAINAGE WITH NO EVIDENCE OF OBSTRUCTION ON THE RIGHT. LEFT KIDNEY: DECREASED FLOW AND FUNCTION. DELAYED DRAINAGE. FINDINGS SUGGESTIVE OF OBSTRUCTION ON THE LEFT. SPLIT FUNCTION: LEFT KIDNEY 45 % AND RIGHT KIDNEY 55% I have reviewed the problem list, family history, and social history documented by my ancillary staff. Basilio Gould MD Staff Urologist Office documented in this encounter [facility] 02-20-2024 History of Present illness Narrative RADIOLOGY SERVICE PROGRESS NOTE SERVICE DATE: 02/20/2024 SERVICE TIME: 1:16 PM PATIENT IDENTITY VERIFICATION COMPLETED USING TWO (2) STANDARD IDENTIFIERS: Name and Date of confirmed by patient verbally FALL SCREENING: Has the patient had 2 falls in the last year or 1 fall with injury or currently using an Ambulatory Assistive Device (Walker, Cane, Wheelchair, Crutches, etc.)? No PATIENT GENDER DATA: .male ALLERGIES: Reviewed and unchanged MEDICATIONS REVIEWED: Not applicable PATIENT RELEVANT IMPLANT DATA REVIEWED: Not Applicable PATIENT PRESENTS WITH AN IMPLANTABLE OR ATTACHED COMPUTER TECHNICIAN: No CREATININE: Creatinine Date Value Ref Range Status 02/10/2024 0.86 0.50 - 1.40 mg/dL Final Comment: Patients receiving either N-Acetylcysteine (NAC) or Metamizole prior to venipuncture, may have falsely depressed results. 02/09/2024 0.89 0.50 - 1.40 mg/dL Final Comment: Patients receiving either N-Acetylcysteine (NAC) or Metamizole prior to venipuncture, may have falsely depressed results. 02/08/2024 0.97 0.50 - 1.40 mg/dL Final Comment: Patients receiving either N-Acetylcysteine (NAC) or Metamizole prior to venipuncture, may have falsely depressed results. Estimated Glomerular Filtration Rate Date Value Ref Range Status 02/10/2024 126 >=60 mL/min/1.73m Final Comment: Estimated Glomerular Filtration Rate (eGFR) is calculated using the 2020 CKD-EPI creatinine equation. This equation utilizes serum creatinine, sex, and age as parameters. The creatinine assay has traceable calibration to isotope dilution-mass spectrometry. Refer to KDIGO guidelines for clinical interpretation. In patients with unstable renal function, e.g. those with acute kidney injury, the eGFR may not accurately reflect actual GFR. P.O.C.T. RESULTS: N/A February 20, [address] PERFORMED: No IV SITE: Ambulatory: A peripheral IV was started in the Right forearm with a Angio cath: 22 gauge. POST EXAM PIV STATUS: Discontinued PROCEDURE TYPE: NM INJECT: NM DIURETIC RENAL. 10.8 mCi Tc99m MAG-3. Lasix 40 milligrams intravenous at 13:39. ADMINISTRATION TIME: 13:09 PATIENT DISCHARGED TO: Ambulatory patient, left [place] department area. A Diagnostic radioactive procedure has taken place, with no further precautions necessary other than routine body substance precautions. More information regarding radiation safety can be found using this link: [email or web address] [email or web address]%20 [email or web address] SIGNATURE: RT Lion(Klarissa) PATIENT NAME: Anu Lopez DATE: February 20, 2024 TIME: 1:16 PM PAGER/CONTACT #: documented in this encounter [facility] 02-15-2024 Telephone encounter Note LM for patient with appointment information. [facility] 02-15-2024 Miscellaneous Notes LM for patient with appointment information. documented in this encounter [facility] 02-13-2024 History of Present illness Narrative Anu Lopez is a 23 year old male who presents with Follow-up at that dilated left collecting system. We put the stent at that scarred down left ureter. We need to get that renal scan still and wanted to see Dr. Gould about possible ureteroscopy and repair of this at some point Review of Systems- Reviewed and otherwise non-contributory. There were no vitals taken for this visit. PAST MEDICAL HISTORY Diagnosis Date PMH - PAST MEDICAL HISTORY OF Normal color vision Respiratory syncytial virus (RSV) 08/10 Routine or ritual circumcision Wrist fracture, right 05/2013 PAST SURGICAL HISTORY Procedure Laterality Date CIRCUMCISION W/CLAMP/OTH DEV W/BLOCK Current Outpatient Medications Medication Sig Dispense Refill cephALEXin (KEFLEX) 500 mg capsule Take 1 capsule by mouth every 12 hours for 3 days. 6 capsule 0 tamsulosin (FLOMAX) 0.4 mg Take 1 capsule by mouth once daily for 5 days. 5 capsule 0 loratadine (CLARITIN) 10 mg tablet Take 10 mg by mouth once daily as needed. polyethylene glycol 3350 17 gram packet Take 1 Packet by mouth once daily for 5 days. Dissolve dose in 4 - 8 ounces of liquid and take as directed. (Patient not taking: Reported on 02/13/2024) 5 Packet 0 tamsulosin (FLOMAX) 0.4 mg Take 1 capsule by mouth once daily for 15 days. 30 minutes after the same meal each day. (Patient not taking: Reported on 02/13/2024) 15 capsule 0 IBUPROFEN (MOTRIN ORAL) Take by mouth. (Patient not taking: Reported on 02/06/2024) No current facility-administered medications for this visit. No diagnosis found. Saul Rosas MD This note was generated with voice recognition software and may contain errors, including spelling, grammar, syntax and misrecognition of what was dictated, that are not fully corrected. documented in this encounter [facility] 02-10-2024 History of Present illness Narrative flomax documented in this encounter [facility] 02-07-2024 History of Present illness Narrative RADIOLOGY SERVICE PROGRESS NOTE SERVICE DATE: 02/07/2024 SERVICE TIME: 11:09 AM PATIENT IDENTITY VERIFICATION COMPLETED USING TWO (2) STANDARD IDENTIFIERS: Name and Date of confirmed by patient verbally FALL SCREENING: Has the patient had 2 falls in the last year or 1 fall with injury or currently using an Ambulatory Assistive Device (Walker, Cane, Wheelchair, Crutches, etc.)? 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 02/06/2024 0.94 0.50 - 1.40 mg/dL Final Comment: Patients receiving either N-Acetylcysteine (NAC) or Metamizole prior to venipuncture, may have falsely depressed results. Estimated Glomerular Filtration Rate Date Value Ref Range Status 02/07/2024 118 >=60 mL/min/1.73m Final Comment: Estimated Glomerular Filtration Rate (eGFR) is calculated using the 2020 CKD-EPI creatinine equation. This equation utilizes serum creatinine, sex, and age as parameters. The creatinine assay has traceable calibration to isotope dilution-mass spectrometry. Refer to KDIGO guidelines for clinical interpretation. In patients with unstable renal function, e.g. those with acute kidney injury, the eGFR may not accurately reflect actual GFR. P.O.C.T. RESULTS: N/A February 07, [address] PERFORMED: No IV SITE: Inpatient - refer to [facility] documentation POST EXAM PIV STATUS: Inpatient see [facility] documentation PROCEDURE TYPE: NM INJECT: NM RENAL FLOW/FXN W PHARM. 11.6 mCi Tc99m MAG-3. Lasix 40 milligrams intravenous at 1013. ADMINISTRATION TIME: 0943 PATIENT DISCHARGED TO: Patient taken to IP transport area for return to RNF/ICU/ED. A Diagnostic radioactive procedure has taken place, with no further precautions necessary other than routine body substance precautions. More information regarding radiation safety can be found using this link: [email or web address] [email or web address]%20 [email or web address] SIGNATURE: RT Galina(R) PATIENT NAME: Anu Lopez DATE: February 07, 2024 TIME: 11:09 AM PAGER/CONTACT #: documented in this encounter [facility] 12-15-2023 Discharge summary Note Date/Time December 15, 2023 9:11 am [facility] Medical Records Department [address] [place] [address] Emergency Department Summary 12/15/23 MR#: [id number] Acct: [id number] Name: ANU LOPEZ MADELIN Rep #:[id number] : 2000 22 From: Julio Vega MD PCP: Care Physician,No Primary Status :REG ER Location: ED HPI HPI - URI History of Present Illness Chief Complaint: Cold Sx Informant: patient Narrative Narrative: Patient has had an illness with fever for the past 2 days. Multiple sick contacts at work with illness that have been out recently because of that. He has had a nonproductive cough along with some burning in his chest only when he coughs. No pleuritic symptoms if he is not coughing and no dyspnea. Initially fever was in the 100 range, this morning was 103.9. He has had a sore throat and some congestion with it, as well as vomiting. He states he has been drinking fluids, having trouble keeping it down but is drinking. He is urinating. ROS ROS ED Constitutional Constitutional ED: Reports body ache(s), chills, fatigue, fever(s), headache(s) and malaise Eyes Eyes: Denies change in vision or diplopia ENT ENT ED: Reports nasal congestion and sore throat Cardiovascular Cardiovascular: Reports as per HPI and chest pain; Denies leg edema, palpitations or radiating jaw, neck or arm pain Respiratory/Chest Respiratory/Chest: Reports cough; Denies dyspnea or dyspnea on exertion Gastrointestinal Gastrointestinal: Reports nausea and vomiting; Denies abdominal pain or diarrhea Genitourinary Genitourinary ED: Denies dysuria or hematuria Musculoskeletal Musculoskeletal: Denies back pain or neck pain Integumentary Denies abscess or rash Neurologic Neurologic: Reports headache(s); Denies paresthesias or weakness Psychiatric Psychiatric: Denies anxiety or suicidal thoughts PFSH PFSH Medical History no medical history no medical history Allergy/AdvReac Type Severity Reaction Status Date / Time No Known Allergies Allergy Verified 12/15/23 08:55 Social History Smoking Status: Never smoker EXAM Physical Exam Const Vital Signs: 12/15/23 08:53 Temperature 97.4 F L Temperature Source Temporal Pulse Rate 118 H Respiratory Rate 20 H Blood Pressure 149/91 H Blood Pressure Mean 110 Pulse Ox 97 Oxygen Delivery Method Room Air Positive well nourished and well developed Constitutional Narrative: Malaised-appearing, no distress General Appearance ED: well developed and NAD HEENT Reports moist mucous membranes HEENT Narrative: Posterior oropharynx with diffuse mild erythema no exudates or petechia. No tonsillar asymmetry/enlargement/exudates. No trismus. normocephalic and atraumatic Eyes PERRL and EOMs intact bilaterally Neck full ROM, no lymphadenopathy, supple and no meningeal signs Resp normal respiratory effort and clear to auscultation bilaterally Cardio regular rate, regular rhythm and no murmurs GI non-tender and non-distended Auscultation: normoactive bowel sounds Palpation: soft Back/Spine no CVA tenderness General Back: other FROM Extremity normal to inspection and no calf tenderness General Extremety ED: Negative for edema, pulses abnormal or tenderness General Extremity: Negative for edema or pulses abnormal Neuro oriented x3, CN's II-XII intact bilaterally and no sensory deficits noted Sensorium / Orientation: awake and alert Motor Exam: strength 5/5 throughout Skin no rashes or lesions noted and no wounds MDM MDM MDM Narrative Medical decision making narrative: Very likely viral syndrome here. His pulse ox is 97% room air his lungs are clear to auscultation throughout and he is not dyspneic so I do not think he needs a chest x-ray this does not sound like pneumonia due to all of this. Morelikely to be viral in etiology than strep, so COVID/influenza/RSV swab was sent and he was offered treatment options. He was offered IV fluids, oral ibuprofen,and Zofran/Toradol. He opted for IM Toradol with an oral Zofran and no IV. This was given. I felt a little better. His swab is positive for influenza A, supporting the lack of need for a chest x-ray. Patient given instructions for supportive care and a work note. Discharge Plan Triage Chief Complaint: Cold Sx ED Provider: Julio Vega Dx/Rx/DC Orders Clinical Impression: Influenza A Instructions: ED Influenza (Adult) Stand Alone Forms: ED Work / School Excuse Primary Care Provider: Care Physician,No Primary Referrals: Doctor,Your [Non-Staff] - As Needed Disposition Disposition: Home, Self Care What to do if you have Problems For any increased pain, shortness of breath, bleeding, nausea or vomiting, chestpain, or any unexpected problems, contact your Primary Care Provider. Call [facility] ([phone]) or report to the closest Emergency Room. Call 911 if necessary. 12/15/23 1047 <Electronically signed by Julio Vega MD> Cosigner Signature (if applicable): CC: No Primary Care Physician ~ Signed [facility] Work Phone: Evaluation noteNo assessment information available [facility] Work Phone: Evaluation note* Diagnosis Hydronephrosis of left kidney- Primary [facility] Diagnosis Hydronephrosis with ureteral stricture, not elsewhere classified- Primary [facility] Diagnosis Hydronephrosis of left kidney- Primary Hydronephrosis Hydronephrosis with ureteral stricture, not elsewhere classified [facility] Diagnosis Hydronephrosis with ureteral stricture, not elsewhere classified [facility] Diagnosis Hydronephrosis of left kidney- Primary [facility]oneph[facility] Diagnosis Hydronephrosis of left kidney- Primary Hydronephrosis [facility] Diagnosis Ureteral stricture, left- Primary Stricture or kinking of ureter [facility] Diagnosis Hydronephrosis of left kidney- Primary Hydronephrosis Ureteral stricture, left Stricture or kinking of ureter Other hydronephrosis [facility] Diagnosis Ureteral stricture, left- Primary Stricture or kinking of ureter Hydronephrosis of left kidney Hydronephrosis Hydronephrosis with ureteral stricture, not elsewhere classified [facility] Diagnosis Ureteral stricture, left- Primary Stricture or kinking of ureter Hydronephrosis of left kidney Hydronephrosis Left flank pain Abdominal pain, unspecified site Right lateral abdominal pain Abdominal pain, unspecified site * Assessment & Plan Note - Basiloi Gould MD - 08/29/2024 9:53 AM EST Associated Problem(s): Ureteral stricture, left Robotic-assisted laparoscopic left ureteral re-implantation, bladder psoas hitch 05/13/2024 Was doing well but now with 2 weeks of left flank aching pain, right lower quadrant abdominal pain and occasional nausea. Patient also having pain with orgasm. Incisions look good. UA not suggestive of infection. Plan check CT flank. Obtain renal scan as scheduled. Follow up to review results. Orders: CT FLANK WO IVCON; Future * Assessment & Plan Note - Basilio Gould MD - 08/29/2024 9:53 AM EST Associated Problem(s): Hydronephrosis of left kidney Chronic documented in this encounter [facility] note* Diagnosis Ureteral stricture, left- Primary Stricture or kinking of ureter Hydronephrosis of left kidney Hydronephrosis Left flank pain Abdominal pain, unspecified site Right lateral abdominal pain Abdominal pain, unspecified site Hydronephrosis with ureteral stricture, not elsewhere classified [facility] Diagnosis Ureteral stricture, left- Primary Stricture or kinking of ureter Hydronephrosis of left kidney Hydronephrosis Left flank pain Abdominal pain, unspecified site Right lateral abdominal pain Abdominal pain, unspecified site Ureteral stricture, left Stricture or kinking of ureter Left flank pain Abdominal pain, unspecified site Right lateral abdominal pain Abdominal pain, unspecified site documented in this encounter [facility] note* Diagnosis Ureteral stricture, left- Primary Stricture or kinking of ureter Hydronephrosis of left kidney Hydronephrosis Left flank pain Abdominal pain, unspecified site Right lateral abdominal pain Abdominal pain, unspecified site Renal calculus, left- Primary Calculus of kidney Ureteral stricture, left Stricture or kinking of ureter Hydronephrosis of left kidney Hydronephrosis Renal calculus, left- Primary Calculus of kidney documented in this encounter [facility] note* Diagnosis Ureteral stricture, left- Primary Stricture or kinking of ureter Hydronephrosis of left kidney Hydronephrosis Left flank pain Abdominal pain, unspecified site Right lateral abdominal pain Abdominal pain, unspecified site Renal calculus, left- Primary Calculus of kidney Ureteral stricture, left Stricture or kinking of ureter Hydronephrosis of left kidney Hydronephrosis * Assessment & Plan Note - Basilio Gould MD - 09/18/2024 9:00 AM EST Associated Problem(s): Hydronephrosis of left kidney Significant improvement since surgery * Assessment & Plan Note - Basilio Gould MD - 09/18/2024 9:00 AM EST Associated Problem(s): Ureteral stricture, left Robotic-assisted laparoscopic left ureteral re-implantation, bladder psoas hitch 05/13/2024 Left kidney: Original: t1/2 136 minutes, 38% split function Current: t/12 52 minutes, 46.4% split function Drainage is improved but not perfect. However, this may be due to the chronic hydronephrosis on that side that may never totally resolve. Monitor serial renal scans * Assessment & Plan Note - Basilio Gould MD - 09/18/2024 9:00 AM EST Associated Problem(s): Renal calculus, left New. 11 mm lower pole renal stone Left flank pain, occasional nausea From a surgery standpoint, his function and drainage have improved but he has a new stone on the left and is having left flank pain. Discussed options Plan cystoscopy, flexible left ureteroscopy with laser lithotripsy and possible ureteral stent insert. Discussed ureteroscopic treatment of stones. Discussed the procedure details along with success and failure rates. Discussed the risks, benefits, and alternatives. The risks including but not limited to: pain, infection, bleeding, need for subsequent procedures, risk of ureteral stenting, risk of injury to the urethra, bladder, ureter or kidney, risk of sepsis, risks of anesthesia, risk of , risks of recurrent or residual disease. If symptoms persistent after stone treatment, we'll have to evaluate for other causes. documented in this encounter [facility] note* Diagnosis Ureteral stricture, left- Primary Stricture or kinking of ureter Hydronephrosis of left kidney Hydronephrosis Left flank pain Abdominal pain, unspecified site Right lateral abdominal pain Abdominal pain, unspecified site Renal calculus, left- Primary Calculus of kidney Ureteral stricture, left Stricture or kinking of ureter Hydronephrosis of left kidney Hydronephrosis Ureteral stricture, left- Primary Stricture or kinking of ureter Left flank pain Abdominal pain, unspecified site Renal calculus, left Calculus of kidney * Assessment & Plan Note - Basilio Gould MD - 11/20/2024 10:02 AM EST Associated Problem(s): Ureteral stricture, left Robotic-assisted laparoscopic left ureteral re-implantation, bladder psoas hitch 05/13/2024 Left kidney: Original: t1/2 136 minutes, 38% split function Current: t/12 52 minutes, 46.4% split function Hydronephrosis much improved on follow up CT Orders: UA DIP, URINE (POC) * Assessment & Plan Note - Basilio Gould MD - 11/20/2024 10:02 AM EST Associated Problem(s): Renal calculus, left Cystoscopy, left flexible ureteroscopy with laser lithotripsy, left ureteral stent insertion (with string) 10/20/2024 Orders: tamsulosin (FLOMAX) 0.4 mg; Take 1 capsule by mouth once daily. * Assessment & Plan Note - Basilio Gould MD - 11/20/2024 10:02 AM EST Associated Problem(s): Left flank pain Cramping left flank pain, usually occurs during voiding Did not improve after treatment of renal stone Discussed findings. There was no obstruction during ureteroscopy of the left renal unit. Possible that he's feeling transmitted pressure during voiding. Plan trial tamsulosin. Risks, benefits, and alternatives of the new medical therapy were discussed. Patient acknowledges understanding and consents to proceed. Follow up 6 weeks for symptom check. Orders: tamsulosin (FLOMAX) 0.4 mg; Take 1 capsule by mouth once daily. documented in this encounter [facility] note* Diagnosis Ureteral stricture, left- Primary Stricture or kinking of ureter Hydronephrosis of left kidney Hydronephrosis Left flank pain Abdominal pain, unspecified site Right lateral abdominal pain Abdominal pain, unspecified site Renal calculus, left- Primary Calculus of kidney Ureteral stricture, left Stricture or kinking of ureter Hydronephrosis of left kidney Hydronephrosis Ureteral stricture, left- Primary Stricture or kinking of ureter Left flank pain Abdominal pain, unspecified site Renal calculus, left Calculus of kidney Hydronephrosis, left- Primary Hydronephrosis Left flank pain Abdominal pain, unspecified site Feeling of incomplete bladder emptying Incomplete bladder emptying Ureteral stricture, left Stricture or kinking of ureter Renal calculus, left Calculus of kidney * Assessment & Plan Note - Basilio Gould MD - 12/04/2024 10:52 AM EST Associated Problem(s): Hydronephrosis, left Much improved but still present Plan CT cystogram to check for reflux Orders: BLADDER SCAN UA DIP, URINE (POC) CT CYSTOGRAM W IVCON; Future CREATININE BLD; Future * Assessment & Plan Note - Basilio Gould MD - 12/04/2024 10:52 AM EST Associated Problem(s): Ureteral stricture, left Robotic-assisted laparoscopic left ureteral re-implantation, bladder psoas hitch 05/13/2024 Left kidney: Original: t1/2 136 minutes, 38% split function Current: t/12 52 minutes, 46.4% split function Hydronephrosis much improved on follow up CT If CT cystogram negative and symptoms don't improve with correction of bladder emptying, consider repeat renal scan * Assessment & Plan Note - Basilio Gould MD - 12/04/2024 10:52 AM EST Associated Problem(s): Left flank pain Primary complaint of left flank pain and bladder pressure Possible recurrent obstruction, but patient's ureter was wide open at time of ureteroscopy for stone treatment. Concern that he's having poor bladder emptying leading to VUR in the reconstructed system Plan CT cystogram and urodynamics to confirm * Assessment & Plan Note - Basilio Gould MD - 12/04/2024 10:52 AM EST Associated Problem(s): Renal calculus, left Cystoscopy, left flexible ureteroscopy with laser lithotripsy, left ureteral stent insertion (with string) 10/20/2024 * Assessment & Plan Note - Basilio Gould MD - 12/04/2024 10:52 AM EST Associated Problem(s): Feeling of incomplete bladder emptying PVR today 231 cc. He has not been taking the tamsulosin Discussed his poor bladder emptying. Plan restart tamsulosin. documented in this encounter [facility] note* Diagnosis Ureteral stricture, left- Primary Stricture or kinking of ureter Hydronephrosis of left kidney Hydronephrosis Left flank pain Abdominal pain, unspecified site Right lateral abdominal pain Abdominal pain, unspecified site Renal calculus, left- Primary Calculus of kidney Ureteral stricture, left Stricture or kinking of ureter Hydronephrosis of left kidney Hydronephrosis Ureteral stricture, left- Primary Stricture or kinking of ureter Left flank pain Abdominal pain, unspecified site Renal calculus, left Calculus of kidney Hydronephrosis, left- Primary Hydronephrosis Left flank pain Abdominal pain, unspecified site Feeling of incomplete bladder emptying Incomplete bladder emptying Ureteral stricture, left Stricture or kinking of ureter Renal calculus, left Calculus of kidney Feeling of incomplete bladder emptying- Primary Incomplete bladder emptying Ureteral stricture, left Stricture or kinking of ureter documented in this encounter [facility] note* Diagnosis Ureteral stricture, left- Primary Stricture or kinking of ureter Hydronephrosis of left kidney Hydronephrosis Left flank pain Abdominal pain, unspecified site Right lateral abdominal pain Abdominal pain, unspecified site Renal calculus, left- Primary Calculus of kidney Ureteral stricture, left Stricture or kinking of ureter Hydronephrosis of left kidney Hydronephrosis Ureteral stricture, left- Primary Stricture or kinking of ureter Left flank pain Abdominal pain, unspecified site Renal calculus, left Calculus of kidney Hydronephrosis, left- Primary Hydronephrosis Left flank pain Abdominal pain, unspecified site Feeling of incomplete bladder emptying Incomplete bladder emptying Ureteral stricture, left Stricture or kinking of ureter Renal calculus, left Calculus of kidney Hydronephrosis, left Hydronephrosis Feeling of incomplete bladder emptying- Primary Incomplete bladder emptying Hydronephrosis, left [facility]onephrosis [facility] Diagnosis 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- [facility] Diagnosis Ureteral stricture, left- Primary Stricture or kinking of ureter Hydronephrosis of left kidney Hydronephrosis Left flank pain Abdominal pain, unspecified site Right lateral abdominal pain Abdominal pain, unspecified site Renal calculus, left- Primary Calculus of kidney Ureteral stricture, left Stricture or kinking of ureter Hydronephrosis of left kidney Hydronephrosis Ureteral stricture, left- Primary Stricture or kinking of ureter Left flank pain Abdominal pain, unspecified site Renal calculus, left Calculus of kidney Hydronephrosis, left- Primary Hydronephrosis Left flank pain Abdominal pain, unspecified site Feeling of incomplete bladder emptying Incomplete bladder emptying Ureteral stricture, left Stricture or kinking of ureter Renal calculus, left Calculus of kidney Feeling of incomplete bladder emptying- Primary Incomplete bladder emptying Hydronephrosis, left Hydronephrosis * Assessment & Plan Note - Basilio Gould MD - 01/07/2025 11:27 AM EDT Associated Problem(s): Feeling of incomplete bladder emptying Unable to void today Bladder scan 18 cc (prior PVR 231 cc) Unable to perform the urodynamics due to inability to pass catheter Patient noting new curvature to his penis Seen by Dr. Newsome at [place]. Planning cystoscopy, RUG, VCUG Although his cystoscopy from October was normal, his symptoms are consistent with a stricture. Agree with current scheduled testing. Will hold off on urodynamics and additional testing here until 's evaluation complete. Orders: UA DIP, URINE (POC) BLADDER SCAN * Assessment & Plan Note - Basilio Gould MD - 01/07/2025 11:12 AM EDT Associated Problem(s): Hydronephrosis, left Chronic. No obstruction. 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- Primary [facility] Diagnosis 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- Primary 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- Primary 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 [facility] Diagnosis Ureteral stricture, left- Primary Stricture or kinking of ureter Hydronephrosis of left kidney Hydronephrosis Left flank pain Abdominal pain, unspecified site Right lateral abdominal pain Abdominal pain, unspecified site Renal calculus, left- Primary Calculus of kidney Ureteral stricture, left Stricture or kinking of ureter Hydronephrosis of left kidney Hydronephrosis Ureteral stricture, left- Primary Stricture or kinking of ureter Left flank pain Abdominal pain, unspecified site Renal calculus, left Calculus of kidney Hydronephrosis, left- Primary Hydronephrosis Left flank pain Abdominal pain, unspecified site Feeling of incomplete bladder emptying Incomplete bladder emptying Ureteral stricture, left Stricture or kinking of ureter Renal calculus, left Calculus of kidney Feeling of incomplete bladder emptying- Primary Incomplete bladder emptying Hydronephrosis, left Hydronephrosis Feeling of incomplete bladder emptying- Primary Incomplete bladder emptying Hydronephrosis, left Hydronephrosis Feeling of incomplete bladder emptying- Primary Incomplete bladder emptying documented in this encounter [facility] note* Diagnosis Ureteral stricture, left- Primary Stricture or kinking of ureter Hydronephrosis of left kidney Hydronephrosis Left flank pain Abdominal pain, unspecified site Right lateral abdominal pain Abdominal pain, unspecified site Renal calculus, left- Primary Calculus of kidney Ureteral stricture, left Stricture or kinking of ureter Hydronephrosis of left kidney Hydronephrosis Ureteral stricture, left- Primary Stricture or kinking of ureter Left flank pain Abdominal pain, unspecified site Renal calculus, left Calculus of kidney Hydronephrosis, left- Primary Hydronephrosis Left flank pain Abdominal pain, unspecified site Feeling of incomplete bladder emptying Incomplete bladder emptying Ureteral stricture, left Stricture or kinking of ureter Renal calculus, left Calculus of kidney Feeling of incomplete bladder emptying- Primary Incomplete bladder emptying Hydronephrosis, left Hydronephrosis Feeling of incomplete bladder emptying- Primary Incomplete bladder emptying Hydronephrosis, left Hydronephrosis Feeling of incomplete bladder emptying- Primary Incomplete bladder emptying Hydronephrosis of left kidney Hydronephrosis Dysuria * Assessment & Plan Note - Ananda Smiley APRN.CNP - 03/26/2025 9:42 AM EDT Associated Problem(s): Feeling of incomplete bladder emptying Pvr- 56 cc Discussed case with Dr. Gould and recommend 90 minute voiding schedule with double voiding during the day and referral to PFT. If fails that, he may need to do ISC. Orders: BLADDER SCAN CONSULT TO PHYSICAL THERAPY; Future documented in this encounter [facility] note* Diagnosis Ureteral stricture, left- Primary Stricture or kinking of ureter Hydronephrosis of left kidney Hydronephrosis Left flank pain Abdominal pain, unspecified site Right lateral abdominal pain Abdominal pain, unspecified site Renal calculus, left- Primary Calculus of kidney Ureteral stricture, left Stricture or kinking of ureter Hydronephrosis of left kidney Hydronephrosis Ureteral stricture, left- Primary Stricture or kinking of ureter Left flank pain Abdominal pain, unspecified site Renal calculus, left Calculus of kidney Hydronephrosis, left- Primary Hydronephrosis Left flank pain Abdominal pain, unspecified site Feeling of incomplete bladder emptying Incomplete bladder emptying Ureteral stricture, left Stricture or kinking of ureter Renal calculus, left Calculus of kidney Feeling of incomplete bladder emptying- Primary Incomplete bladder emptying Hydronephrosis, left Hydronephrosis Feeling of incomplete bladder emptying- Primary Incomplete bladder emptying Hydronephrosis, left Hydronephrosis Feeling of incomplete bladder emptying- Primary Incomplete bladder emptying Hydronephrosis of left kidney Hydronephrosis Dysuria Feeling of incomplete bladder emptying- Primary Incomplete bladder emptying Hydronephrosis of left kidney Hydronephrosis * Assessment & Plan Note - Pat Will APRN.CNP - 04/18/2025 2:30 PM EDT Associated Problem(s): Feeling of incomplete bladder emptying - PVR 229 cc - Obtain records from recent ER visit including imaging. - Recommend appointment with nursing to learn ISC. Recommend continuing timed/double voiding - Has not started pelvic floor physical therapy yet. -Consider potential InterStim placement. documented in this encounter [facility] note* Diagnosis Ureteral stricture, left- Primary Stricture or kinking of ureter Hydronephrosis of left kidney Hydronephrosis Left flank pain Abdominal pain, unspecified site Right lateral abdominal pain Abdominal pain, unspecified site Renal calculus, left- Primary Calculus of kidney Ureteral stricture, left Stricture or kinking of ureter Hydronephrosis of left kidney Hydronephrosis Ureteral stricture, left- Primary Stricture or kinking of ureter Left flank pain Abdominal pain, unspecified site Renal calculus, left Calculus of kidney Hydronephrosis, left- Primary Hydronephrosis Left flank pain Abdominal pain, unspecified site Feeling of incomplete bladder emptying Incomplete bladder emptying Ureteral stricture, left Stricture or kinking of ureter Renal calculus, left Calculus of kidney Feeling of incomplete bladder emptying- Primary Incomplete bladder emptying Hydronephrosis, left Hydronephrosis Feeling of incomplete bladder emptying- Primary Incomplete bladder emptying Hydronephrosis, left Hydronephrosis Feeling of incomplete bladder emptying- Primary Incomplete bladder emptying Hydronephrosis of left kidney Hydronephrosis Dysuria Feeling of incomplete bladder emptying- Primary Incomplete bladder emptying Hydronephrosis of left kidney Hydronephrosis Feeling of incomplete bladder emptying- Primary Incomplete bladder emptying Pain with urination Renal colic documented in this encounter [facility] note* Diagnosis Ureteral stricture, left- Primary Stricture or kinking of ureter Hydronephrosis of left kidney Hydronephrosis Left flank pain Abdominal pain, unspecified site Right lateral abdominal pain Abdominal pain, unspecified site Renal calculus, left- Primary Calculus of kidney Ureteral stricture, left Stricture or kinking of ureter Hydronephrosis of left kidney Hydronephrosis Ureteral stricture, left- Primary Stricture or kinking of ureter Left flank pain Abdominal pain, unspecified site Renal calculus, left Calculus of kidney Hydronephrosis, left- Primary Hydronephrosis Left flank pain Abdominal pain, unspecified site Feeling of incomplete bladder emptying Incomplete bladder emptying Ureteral stricture, left Stricture or kinking of ureter Renal calculus, left Calculus of kidney Feeling of incomplete bladder emptying- Primary Incomplete bladder emptying Hydronephrosis, left Hydronephrosis Feeling of incomplete bladder emptying- Primary Incomplete bladder emptying Hydronephrosis, left Hydronephrosis Feeling of incomplete bladder emptying- Primary Incomplete bladder emptying Hydronephrosis of left kidney Hydronephrosis Dysuria Feeling of incomplete bladder emptying- Primary Incomplete bladder emptying Hydronephrosis of left kidney Hydronephrosis Feeling of incomplete bladder emptying- Primary Incomplete bladder emptying Pain with urination Renal colic documented in this encounter [facility] note* Diagnosis Ureteral stricture, left- Primary Stricture or kinking of ureter Hydronephrosis of left kidney Hydronephrosis Left flank pain Abdominal pain, unspecified site Right lateral abdominal pain Abdominal pain, unspecified site Renal calculus, left- Primary Calculus of kidney Ureteral stricture, left Stricture or kinking of ureter Hydronephrosis of left kidney Hydronephrosis Ureteral stricture, left- Primary Stricture or kinking of ureter Left flank pain Abdominal pain, unspecified site Renal calculus, left Calculus of kidney Hydronephrosis, left- Primary Hydronephrosis Left flank pain Abdominal pain, unspecified site Feeling of incomplete bladder emptying Incomplete bladder emptying Ureteral stricture, left Stricture or kinking of ureter Renal calculus, left Calculus of kidney Feeling of incomplete bladder emptying- Primary Incomplete bladder emptying Hydronephrosis, left Hydronephrosis Feeling of incomplete bladder emptying- Primary Incomplete bladder emptying Hydronephrosis, left Hydronephrosis Feeling of incomplete bladder emptying- Primary Incomplete bladder emptying Hydronephrosis of left kidney Hydronephrosis Dysuria Feeling of incomplete bladder emptying- Primary Incomplete bladder emptying Hydronephrosis of left kidney Hydronephrosis Feeling of incomplete bladder emptying- Primary Incomplete bladder emptying Pain with urination Renal colic [facility] Diagnosis Ureteral stricture, left- Primary Stricture or kinking of ureter Hydronephrosis of left kidney Hydronephrosis Left flank pain Abdominal pain, unspecified site Right lateral abdominal pain Abdominal pain, unspecified site Renal calculus, left- Primary Calculus of kidney Ureteral stricture, left Stricture or kinking of ureter Hydronephrosis of left kidney Hydronephrosis Ureteral stricture, left- Primary Stricture or kinking of ureter Left flank pain Abdominal pain, unspecified site Renal calculus, left Calculus of kidney Hydronephrosis, left- Primary Hydronephrosis Left flank pain Abdominal pain, unspecified site Feeling of incomplete bladder emptying Incomplete bladder emptying Ureteral stricture, left Stricture or kinking of ureter Renal calculus, left Calculus of kidney Feeling of incomplete bladder emptying- Primary Incomplete bladder emptying Hydronephrosis, left Hydronephrosis Feeling of incomplete bladder emptying- Primary Incomplete bladder emptying Hydronephrosis, left Hydronephrosis Feeling of incomplete bladder emptying- Primary Incomplete bladder emptying Hydronephrosis of left kidney Hydronephrosis Dysuria Feeling of incomplete bladder emptying- Primary Incomplete bladder emptying Hydronephrosis of left kidney Hydronephrosis Hydronephrosis with ureteral stricture, not elsewhere classified- Primary Screening for genitourinary condition Screening for other and unspecified genitourinary condition documented in this encounter [facility] note* Diagnosis Ureteral stricture, left- Primary Stricture or kinking of ureter Hydronephrosis of left kidney Hydronephrosis Left flank pain Abdominal pain, unspecified site Right lateral abdominal pain Abdominal pain, unspecified site Renal calculus, left- Primary Calculus of kidney Ureteral stricture, left Stricture or kinking of ureter Hydronephrosis of left kidney Hydronephrosis Ureteral stricture, left- Primary Stricture or kinking of ureter Left flank pain Abdominal pain, unspecified site Renal calculus, left Calculus of kidney Hydronephrosis, left- Primary Hydronephrosis Left flank pain Abdominal pain, unspecified site Feeling of incomplete bladder emptying Incomplete bladder emptying Ureteral stricture, left Stricture or kinking of ureter Renal calculus, left Calculus of kidney Feeling of incomplete bladder emptying- Primary Incomplete bladder emptying Hydronephrosis, left Hydronephrosis Feeling of incomplete bladder emptying- Primary Incomplete bladder emptying Hydronephrosis, left Hydronephrosis Feeling of incomplete bladder emptying- Primary Incomplete bladder emptying Hydronephrosis of left kidney Hydronephrosis Dysuria Feeling of incomplete bladder emptying- Primary Incomplete bladder emptying Hydronephrosis of left kidney Hydronephrosis Hydronephrosis with ureteral stricture, not elsewhere classified- Primary Screening for genitourinary condition Screening for other and unspecified genitourinary condition Screening for genitourinary condition Screening for other and unspecified genitourinary condition [facility] Diagnosis Ureteral stricture, left- Primary Stricture or kinking of ureter Hydronephrosis of left kidney Hydronephrosis Left flank pain Abdominal pain, unspecified site Right lateral abdominal pain Abdominal pain, unspecified site Renal calculus, left- Primary Calculus of kidney Ureteral stricture, left Stricture or kinking of ureter Hydronephrosis of left kidney Hydronephrosis Ureteral stricture, left- Primary Stricture or kinking of ureter Left flank pain Abdominal pain, unspecified site Renal calculus, left Calculus of kidney Hydronephrosis, left- Primary Hydronephrosis Left flank pain Abdominal pain, unspecified site Feeling of incomplete bladder emptying Incomplete bladder emptying Ureteral stricture, left Stricture or kinking of ureter Renal calculus, left Calculus of kidney Feeling of incomplete bladder emptying- Primary Incomplete bladder emptying Hydronephrosis, left Hydronephrosis Feeling of incomplete bladder emptying- Primary Incomplete bladder emptying Hydronephrosis, left Hydronephrosis Feeling of incomplete bladder emptying- Primary Incomplete bladder emptying Hydronephrosis of left kidney Hydronephrosis Dysuria Feeling of incomplete bladder emptying- Primary Incomplete bladder emptying Hydronephrosis of left kidney Hydronephrosis Feeling of incomplete bladder emptying- Primary Incomplete bladder emptying Pain with urination [facility] col[facility] Diagnosis 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- Primary 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- Primary Left flank pain- Primary Abdominal pain, unspecified site 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 Feeling of incomplete bladder emptying Incomplete bladder emptying [facility] Diagnosis 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- Primary 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- Primary Hydronephrosis, left- Primary Hydronephrosis Hydronephrosis, left Hydronephrosis Hydronephrosis, left Hydronephrosis [facility] Diagnosis 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- Primary 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- Primary History of insertion of nephrostomy tube- Primary Hydronephrosis, left Hydronephrosis 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 Ureteral stricture, left Stricture or kinking of ureter History of insertion of nephrostomy tube [facility] Diagnosis 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- Primary 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- Primary Left flank pain- Primary Abdominal pain, unspecified site Ureteral stricture Stricture or kinking of ureter Ureteral stricture, left Stricture or kinking of ureter Renal calculus, left Calculus of kidney [facility] Diagnosis 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- Primary 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- Primary Left flank pain- Primary Abdominal pain, unspecified site Ureteral stricture Stricture or kinking of ureter Ureteral stricture, left Stricture or kinking of ureter Renal calculus, left Calculus of kidney Nephrolithiasis- Primary Calculus of kidney [facility] Diagnostic Procedure Only (Routine) - Pending Review Specialty Diagnoses / Procedures Referred By Katerine lundberg Referred To Contact [facility] Diagnoses Hydronephrosis with ureteral stricture, not elsewhere classified Procedures NM RENAL FLOW/FXN W PHARM KIDNEY IMG MORPHOLOGY VASCULAR FLOW 1 W/RX Saul Rosas MD [address] [facility] [address] [address] Molecular & Functional Imaging [address] [place], [place] [id number] Referral ID Status Reason Start Date Expiration Date Visits Requested Visits Authorized [id number] Pending Review Auto-Generat ed Referral 02/20/2024 03/11/2025 1 1 [facility] for referral (narrative)* Diagnostic Procedure Only (Routine) - Open Specialty Diagnoses / Procedures Referred By Contac t Referred To Contact MOLECULAR & FUNCTIONAL IMAGING Diagnoses Hydronephrosis with ureteral stricture, not elsewhere classified Procedures NM RENAL FLOW/FXN W PHARM KIDNEY IMG MORPHOLOGY VASCULAR FLOW 1 W/RX Saul Rosas MD [address] [address] Molecular & Functional Imaging [address] [place] [address] Referral ID Status Reason Start Date Expiration Date V isits Requested Visits Authorized [id number] Open Auto-Generate d Referral 02/20/2024 03/14/2025 1 1 [facility] for referral (narrative)* Diagnostic Procedure Only (Routine) - Closed Specialty Diagnoses / Procedures Referred By Contac t Referred To Contact MOLECULAR & FUNCTIONAL IMAGING Diagnoses Hydronephrosis with ureteral stricture, not elsewhere classified Procedures NM RENAL FLOW/FXN W PHARM KIDNEY IMG MORPHOLOGY VASCULAR FLOW 1 W/RX Saul Rosas MD [address] [employer] [address] [address] Molecular & Functional Imaging [address] [place], [place] [id number] Referral ID Status Reason Start Date Expiration Date V isits Requested Visits Authorized [id number] Closed Auto-Generate d Referral 02/14/2024 10/07/2024 1 1 [facility] for referral (narrative)* Outpatient Procedure (Routine) - Pending Review Specialty Diagnoses / Procedures Referred By Contac t Referred To Contact [facility] Diagnoses Ureteral stricture, left Procedures ECG COMPLETE ECG ROUTINE ECG W/LEAST 12 LDS W/I&R Basilio Gould MD [address] [place] [address] [facility] [place] [address] [place] [address] Referral ID Status Reason Start Date Expiration Date Visits Requested Visits Authorized [id number] Pending Review Auto-Generat ed Referral 04/08/2024 04/07/2025 1 1 [facility] for referral (narrative)* Diagnostic Procedure Only (Routine) - Pending Review Specialty Diagnoses / Procedures Referred By Contact Referred To Contact MOLECULAR & FUNCTIONAL IMAGING Diagnoses Hydronephrosis with ureteral stricture, not elsewhere classified Procedures NM RENAL FLOW/FXN W PHARM KIDNEY IMG MORPHOLOGY VASCULAR FLOW 1 W/RX Basilio Gould MD [address] [address] Molecular & Functional Imaging [address] [place] [address] Referral ID Status Reason Start Date Expiration Date Visits Requested Visits Authorized [id number] Pending Review Auto-Generat ed Referral 06/13/2024 07/13/2025 1 1 [facility] for referral (narrative)* Diagnostic Procedure Only (Routine) - Closed Specialty Diagnoses / Procedures Referred By Contact Referred To Contact MOLECULAR [facility] FUNCTIONAL IMAGING Diagnoses Hydronephrosis with ureteral stricture, not elsewhere classified Procedures NM RENAL FLOW/FXN W PHARM KIDNEY IMG MORPHOLOGY VASCULAR FLOW 1 W/RX Basilio Gould MD [address] [address] Molecular & Functional Imaging [address] [place] [address] Referral ID Status Reason Start Date Expiration Date V isits Requested Visits Authorized [id number] Closed Auto-Generate d Referral 10/08/2023 10/07/2024 1 1 [facility] for visit Narrative* Diagnostic Procedure Only (Routine) - Closed Specialty Diagnoses / Procedures Referred By Katerine t Referred To Contact MOLECULAR & FUNCTIONAL IMAGING Diagnoses Hydronephrosis with ureteral stricture, not elsewhere classified Procedures NM RENAL FLOW/FXN W PHARM KIDNEY IMG MORPHOLOGY VASCULAR FLOW 1 W/RX Saul Rosas MD [address] [address] Molecular & Functional Imaging [address] [place] [address] Referral ID Status Reason Start Date Expiration Date V isits Requested Visits Authorized [id number] Closed Auto-Generate d Referral 02/14/2024 10/07/2024 1 1 [facility] for visit Narrative* Diagnostic Procedure Only (Routine) - Closed Specialty Diagnoses / Procedures Referred By Contact Referred To Contact MOLECULAR & FUNCTIONAL IMAGING Diagnoses Hydronephrosis with ureteral stricture, not elsewhere classified Procedures NM RENAL FLOW/FXN W PHARM KIDNEY IMG MORPHOLOGY VASCULAR FLOW 1 W/RX Basilio Gould MD [address] [address] Molecular & Functional Imaging [address] [place] [address] Referral ID Status Reason Start Date Expiration Date V isits Requested Visits Authorized [id number] Closed Auto-Generate d Referral 10/08/2023 10/07/2024 1 1 [facility] for visit Narrative* MRI/CT (Routine) - Authorized Specialty Diagnoses / Procedures Referred By Katerine lundberg Referred To Contact CT IMAGING Diagnoses Hydronephrosis, left Procedures CT CYSTOGRAM W IVCON CT PELVIS W/CONTRAST MATERIAL Basilio Gould MD [address] [facility] [place] [id number] Phone: tel: fax: [facility] [place] [address] Referral ID Status Reason Start Date Expiration Date Visits Requested Visits Authorized [id number] Authorized Auto-Generat ed Referral 12/09/2024 01/07/2025 1 1 [facility] for visit Narrative* Radiology (Routine) - New Request Specialty Diagnoses / Procedures Referred By Katerine lundberg Referred To Contact Diagnoses 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 Procedures [facility] FOR UROLOGY Clifton Mejia MD, PhD [address] [facility] [address] [place] [address] Phone: tel: fax: Referral ID Status Reason Start Date Expiration Date V isits Requested Visits Authorized [id number] New Request 01/21/2025 02/15/2026 1 [facility] Auth/Cert Specialty Diagnoses / Procedures Referred By Katerine lundberg Referred To Contact Diagnoses Hydronephrosis, left Hydronephrosis, left [N13.30] Procedures ME PLMT NEPHROSTOMY CATH PRQ NEW ACCESS RS&I PLACEMENT NEPHROSTOMY CATHETER PERCUTANEOUS W/ IMAGE GUIDANCE [facility] [address] [place] [address] [facility] [address] [place] [address] Referral ID Status Reason Start Date Expiration Date Visits Re quested Visits Authorized [id number] 1 1 [facility] Summary Purpose Family History No Family History Records FoundNo Family History Records FoundNo Family History Records FoundNo Family History Records FoundNo Family History Records FoundNo Family History Records FoundNo Family History Records FoundNo Family History Records FoundNo Family History Records FoundNo Family History Records Found Advance Directives No Advanced Directives Records Found Date Activated Date Inactivated Comments 05/13/2024 3:51 PM 05/14/2024 4:01 PM Question Answer Comments Full Code Order Discussed With: Patient Date Activated Date Inactivated Comments 02/06/2024 9:34 AM 02/10/2024 6:30 PM Question Answer Comments Full Code Order Discussed With: Patient Date Activated Date Inactivated Comments 02/06/2024 9:34 AM 02/10/2024 6:30 PM Question Answer Comments Full Code Order Discussed With: Patient Advance Directive Response Recorded Date/ Time Living Will No December 15, 2023 9:19am Power 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 Box 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 No December 14 9:19am Date Activated Date Inactivated Comments 02/06/2024 9:34 AM Date Activated Date Inactivated Comments 02/06/2024 9:34 AM Date Activated Date Inactivated Comments 02/06/2024 9:34 AM 02/10/2024 6:30 PM Date Activated Date Inactivated Comments 05/13/2024 3:51 PM 05/14/2024 4:01 PM Date Activated Date Inactivated Comments 02/06/2024 9:34 AM 02/10/2024 6:30 PM Question Answer Comments Full Code Order Discussed With: Patient Date Activated Date Inactivated Comments 07/10/2025 6:59 AM Date Activated Date Inactivated Comments 07/10/2025 6:59 AM Chief Complaint and Reason for Visit Chief Complaint fever Reason for Referral Specialty Diagnoses / Procedures Referred By Katerine lundberg Referred To Contact CT IMAGING Diagnoses Ureteral stricture, left Left flank pain Right lateral abdominal pain Procedures CT FLANK WO IVCON CT ABD & PELVIS W/O CONTRAST Basilio Gould MD [address] [place] [address] [place] [address] Referral ID Status Reason Start Date Expiration Date Visits Requested Visits Authorized [id number] Authorized Auto-Generat ed Referral 09/28/2025 1 1 Additional Source Comments (unrecognized sect ion and content) No Status Records FoundNo Status Records FoundNo Status Records FoundNo Status Records FoundNo Status Records FoundNo Status Records FoundNo Status Records FoundNo Status Records FoundNo Status Records FoundNo Status Records Found INFORMATION SOURCE (unrecogn ized section and content) DATE CREATED AUTHOR 07/21/2020 [facility] DATE CREATED AUTHOR AUTHOR'S ORGANIZ ATION 04/26/2023 [employer] DATE CREATED AUTHOR AUTHOR'S ORGANIZ ATION 12/21/2023 [facility] DATE CREATED AUTHOR AUTHOR'S ORGANIZ ATION 02/26/2024 [facility] ([place]) DATE CREATED AUTHOR AUTHOR'S ORGANIZ ATION 03/04/2025 [facility] DATE CREATED AUTHOR AUTHOR'S ORGANIZ ATION 04/22/2025 [facility] nt DATE CREATED AUTHOR AUTHOR'S ORGANIZ ATION 06/02/2025 [facility] DATE CREATED AUTHOR AUTHOR'S ORGANIZ ATION 08/20/2025 [facility] DATE CREATED AUTHOR AUTHOR'S ORGANIZ ATION 08/20/2025 [facility] DATE CREATED AUTHOR AUTHOR'S ORGANIZ ATION 08/21/2025 [facility] Care Teams (unrecognized sec tion and content) Team Status: Active Member Role Status Dates No Primary Care Physician Primary Care Provider Active Team Status: Inactive Member Role Status Dates Dr. Julio Vega MD Emergency Provider Active No Primary Care Physician Primary Care Provider Active [employer] Relationship Specialty Start Date End Date Irvin Villa MD [address] [place], [place] [id number] PCP - General 03/18/03 [employer] Relationship Specialty Start Date End Date Irvin Villa MD [address] [place], [place] [id number] PCP - General 03/18/03 [employer] Relationship Specialty Start Date End Date Irvin Villa MD [address] [facility], [place] [address] PCP - General 03/18/03 [employer] Relationship Specialty Start Date End Date Sagar Rojo MD [address] [place] [phone] PCP - General Internal Medicine 02/13/24 [employer] Relationship Specialty Start Date End Date Sagar Rojo MD [address] [place] [address] PCP - General Internal Medicine 02/13/24 [employer] Relationship Specialty Start Date End Date Sagar Rojo MD [address] [place] [address] PCP - General Internal Medicine 02/13/24 [employer] Relationship Specialty Start Date End Date Sagar Rojo MD [address] [place] [address] PCP - General Internal Medicine 02/13/24 [employer] Relationship Specialty Start Date End Date Sagar Rojo MD [address] [place] [address] PCP - General Internal Medicine 02/13/24 [employer] Relationship Specialty Start Date End Date Sagar Rojo MD [address] [place] [address] PCP - General Internal Medicine 02/13/24 [employer] Relationship Specialty Start Date End Date Sagar Rojo MD [address] [place] [address] PCP - General Internal Medicine 02/13/24 [employer] Relationship Specialty Start Date End Date Sagar Rojo MD [address] [place] [address] PCP - General Internal Medicine 02/13/24 [employer] Relationship Specialty Start Date End Date Sagar Rojo MD [address] [place] [address] PCP - General Internal Medicine 02/13/24 [employer] Relationship Specialty Start Date End Date Sagar Rojo MD [address] [place] [address] PCP - General Internal Medicine 02/13/24 [employer] Relationship Specialty Start Date End Date Sagar Rojo MD [address] [place] [address] PCP - General Internal Medicine 02/13/24 [employer] Relationship Specialty Start Date End Date Sagar Rojo MD [address] [place] [address] PCP - General Internal Medicine 02/13/24 [employer] Relationship Specialty Start Date End Date Sagar Rojo MD [address] [place] [address] PCP - General Internal Medicine 02/13/24 [employer] Relationship Specialty Start Date End Date Sagar Rojo MD [address] [place] [address] PCP - General Internal Medicine 02/13/24 [employer] Relationship Specialty Start Date End Date Sagar Rojo MD [address] [address] PCP - General Internal Medicine 02/13/24 [employer] Relationship Specialty Start Date End Date Sagar Rojo MD [address] [address] PCP - General Internal Medicine 02/13/24 [employer] Relationship Specialty Start Date End Date Sagar Rojo MD [address] [address] PCP - General Internal Medicine 02/13/24 [employer] Relationship Specialty Start Date End Date Sagar Rojo MD [address] [place] [address] PCP - General Internal Medicine 02/13/24 [employer] Relationship Specialty Start Date End Date Sagar Rojo MD [address] [facility] [address] [place] [address] PCP - General Internal Medicine 02/13/24 [employer] Relationship Specialty Start Date End Date Sagar Rojo MD [address] [address] PCP - General Internal Medicine 02/13/24 [employer] Relationship Specialty Start Date End Date Sagar Rojo MD [address] [place] [address] PCP - General Internal Medicine 02/13/24 [employer] Relationship Specialty Start Date End Date Basilio Gould MD [facility] [place] [address] Urology 01/06/25 [employer] Relationship Specialty Start Date End Date Sagar Rojo MD [address] [place] [address] PCP - General Internal Medicine 02/13/24 [employer] Relationship Specialty Start Date End Date Sagar Rojo MD [address] [place] [phone] PCP - General Internal Medicine 02/13/24 [employer] Relationship Specialty Start Date End Date Basilio Gould MD [address] [place] [address] Urology 01/06/25 [employer] Relationship Specialty Start Date End Date Basilio Gould MD [facility] [place] [place] [address] Urology 01/06/25 [employer] Relationship Specialty Start Date End Date Sagar Rojo MD [address] [place] [phone] PCP - General Internal Medicine 02/13/24 [employer] Relationship Specialty Start Date End Date Sagar Rojo MD [address] [place] [address] PCP - General Internal Medicine 02/13/24 [employer] Relationship Specialty Start Date End Date Sagar Rojo MD [address] [place] [address] PCP - General Internal Medicine 02/13/24 [employer] Relationship Specialty Start Date End Date Sagar Rojo MD [address] [place] [address] PCP - General Internal Medicine 02/13/24 [employer] Relationship Specialty Start Date End Date Sagar Rojo MD [address] [place] [address] PCP - General Internal Medicine 02/13/24 [employer] Relationship Specialty Start Date End Date Sagar Rojo MD [address] [place] [address] PCP - General Internal Medicine 02/13/24 [employer] Relationship Specialty Start Date End Date Sagar Rojo MD [address] [place] [address] PCP - General Internal Medicine 02/13/24 [employer] Relationship Specialty Start Date End Date Sagar Rojo MD [address] [place] [address] PCP - General Internal Medicine 02/13/24 [employer] Relationship Specialty Start Date End Date Sagar Rojo MD [address] [place] [address] PCP - General Internal Medicine 02/13/24 [employer] Relationship Specialty Start Date End Date Sagar Rojo MD [address] [place] [address] PCP - General Internal Medicine 02/13/24 [employer] Relationship Specialty Start Date End Date Sagar Rojo MD [address] [place] [address] PCP - General Internal Medicine 02/13/24 [employer] Relationship Specialty Start Date End Date Sagar Rojo MD [address] [place] [address] PCP - General Internal Medicine 02/13/24 [employer] Relationship Specialty Start Date End Date Basilio Gould MD [address] [facility] [place] [id number] Urology 01/06/25 [employer] Relationship Specialty Start Date End Date Basilio Gould MD [address] [facility] [place] [id number] Urology 01/06/25 [employer] Relationship Specialty Start Date End Date Basilio Gould MD [address] [place] [id number] Urology 01/06/25 [employer] Relationship Specialty Start Date End Date Basilio Gould MD [address] [place] [address] Urology 01/06/25 Goals (unrecognized section and content) Goals may be documented in a n alternate section Source Comments (unrecognize d section and content) In the event this informatio n is protected by the Federal Confidentiality of Alcohol and Drug Abuse Patient Records regulations: The Federal rules restrict any use of the information to criminally investigate or prosecute any alcohol or drug abuse patient.[facility] the event this information is protected by the Federal Confidentiality of Alcohol and Drug Abuse Patient Records regulations: The Federal rules restrict any use of the information to criminally investigate or prosecute any alcohol or drug abuse patient.[facility] the event this information is protected by the Federal Confidentiality of Alcohol and Drug Abuse Patient Records regulations: The Federal rules restrict any use of the information to criminally investigate or prosecute any alcohol or drug abuse patient.[facility] the event this information is protected by the Federal Confidentiality of Alcohol and Drug Abuse Patient Records regulations: The Federal rules restrict any use of the information to criminally investigate or prosecute any alcohol or drug abuse patient.[facility] HospitalIn the event this information is protected by the Federal Confidentiality of Alcohol and Drug Abuse Patient Records regulations: The Federal rules restrict any use of the information to criminally investigate or prosecute any alcohol or drug abuse patient.[facility] HospitalIn the event this information is protected by the Federal Confidentiality of Alcohol and Drug Abuse Patient Records regulations: The Federal rules restrict any use of the information to criminally investigate or prosecute any alcohol or drug abuse patient.[facility] HospitalIn the event this information is protected by the Federal Confidentiality of Alcohol and Drug Abuse Patient Records regulations: The Federal rules restrict any use of the information to criminally investigate or prosecute any alcohol or drug abuse patient.[facility] HospitalIn the event this information is protected by the Federal Confidentiality of Alcohol and Drug Abuse Patient Records regulations: The Federal rules restrict any use of the information to criminally investigate or prosecute any alcohol or drug abuse patient.[facility] HospitalIn the event this information is protected by the Federal Confidentiality of Alcohol and Drug Abuse Patient Records regulations: The Federal rules restrict any use of the information to criminally investigate or prosecute any alcohol or drug abuse patient.[facility] HospitalIn the event this information is protected by the Federal Confidentiality of Alcohol and Drug Abuse Patient Records regulations: The Federal rules restrict any use of the information to criminally investigate or prosecute any alcohol or drug abuse patient.[facility] HospitalIn the event this information is protected by the Federal Confidentiality of Alcohol and Drug Abuse Patient Records regulations: The Federal rules restrict any use of the information to criminally investigate or prosecute any alcohol or drug abuse patient.[facility] HospitalIn the event this information is protected by the Federal Confidentiality of Alcohol and Drug Abuse Patient Records regulations: The Federal rules restrict any use of the information to criminally investigate or prosecute any alcohol or drug abuse patient.[facility] HospitalIn the event this information is protected by the Federal Confidentiality of Alcohol and Drug Abuse Patient Records regulations: The Federal rules restrict any use of the information to criminally investigate or prosecute any alcohol or drug abuse patient.[facility] HospitalIn the event this information is protected by the Federal Confidentiality of Alcohol and Drug Abuse Patient Records regulations: The Federal rules restrict any use of the information to criminally investigate or prosecute any alcohol or drug abuse patient.[facility] HospitalIn the event this information is protected by the Federal Confidentiality of Alcohol and Drug Abuse Patient Records regulations: The Federal rules restrict any use of the information to criminally investigate or prosecute any alcohol or drug abuse patient.[facility] HospitalIn the event this information is protected by the Federal Confidentiality of Alcohol and Drug Abuse Patient Records regulations: The Federal rules restrict any use of the information to criminally investigate or prosecute any alcohol or drug abuse patient.[facility] HospitalIn the event this information is protected by the Federal Confidentiality of Alcohol and Drug Abuse Patient Records regulations: The Federal rules restrict any use of the information to criminally investigate or prosecute any alcohol or drug abuse patient.[facility] HospitalIn the event this information is protected by the Federal Confidentiality of Alcohol and Drug Abuse Patient Records regulations: The Federal rules restrict any use of the information to criminally investigate or prosecute any alcohol or drug abuse patient.[facility] HospitalIn the event this information is protected by the Federal Confidentiality of Alcohol and Drug Abuse Patient Records regulations: The Federal rules restrict any use of the information to criminally investigate or prosecute any alcohol or drug abuse patient.[facility] HospitalIn the event this information is protected by the Federal Confidentiality of Alcohol and Drug Abuse Patient Records regulations: The Federal rules restrict any use of the information to criminally investigate or prosecute any alcohol or drug abuse patient.[facility] HospitalIn the event this information is protected by the Federal Confidentiality of Alcohol and Drug Abuse Patient Records regulations: The Federal rules restrict any use of the information to criminally investigate or prosecute any alcohol or drug abuse patient.[facility] HospitalIn the event this information is protected by the Federal Confidentiality of Alcohol and Drug Abuse Patient Records regulations: The Federal rules restrict any use of the information to criminally investigate or prosecute any alcohol or drug abuse patient.[facility] HospitalIn the event this information is protected by the Federal Confidentiality of Alcohol and Drug Abuse Patient Records regulations: The Federal rules restrict any use of the information to criminally investigate or prosecute any alcohol or drug abuse patient.[facility] HospitalIn the event this information is protected by the Federal Confidentiality of Alcohol and Drug Abuse Patient Records regulations: The Federal rules restrict any use of the information to criminally investigate or prosecute any alcohol or drug abuse patient.[facility] HospitalIn the event this information is protected by the Federal Confidentiality of Alcohol and Drug Abuse Patient Records regulations: The Federal rules restrict any use of the information to criminally investigate or prosecute any alcohol or drug abuse patient.[facility] HospitalIn the event this information is protected by the Federal Confidentiality of Alcohol and Drug Abuse Patient Records regulations: The Federal rules restrict any use of the information to criminally investigate or prosecute any alcohol or drug abuse patient.[facility] HospitalIn the event this information is protected by the Federal Confidentiality of Alcohol and Drug Abuse Patient Records regulations: The Federal rules restrict any use of the information to criminally investigate or prosecute any alcohol or drug abuse patient.[facility] HospitalIn the event this information is protected by the Federal Confidentiality of Alcohol and Drug Abuse Patient Records regulations: The Federal rules restrict any use of the information to criminally investigate or prosecute any alcohol or drug abuse patient.[facility] HospitalIn the event this information is protected by the Federal Confidentiality of Alcohol and Drug Abuse Patient Records regulations: The Federal rules restrict any use of the information to criminally investigate or prosecute any alcohol or drug abuse patient.[facility] HospitalIn the event this information is protected by the Federal Confidentiality of Alcohol and Drug Abuse Patient Records regulations: The Federal rules restrict any use of the information to criminally investigate or prosecute any alcohol or drug abuse patient.[facility] HospitalIn the event this information is protected by the Federal Confidentiality of Alcohol and Drug Abuse Patient Records regulations: The Federal rules restrict any use of the information to criminally investigate or prosecute any alcohol or drug abuse patient.[facility] HospitalIn the event this information is protected by the Federal Confidentiality of Alcohol and Drug Abuse Patient Records regulations: The Federal rules restrict any use of the information to criminally investigate or prosecute any alcohol or drug abuse patient.[facility] HospitalIn the event this information is protected by the Federal Confidentiality of Alcohol and Drug Abuse Patient Records regulations: The Federal rules restrict any use of the information to criminally investigate or prosecute any alcohol or drug abuse patient.[facility] HospitalIn the event this information is protected by the Federal Confidentiality of Alcohol and Drug Abuse Patient Records regulations: The Federal rules restrict any use of the information to criminally investigate or prosecute any alcohol or drug abuse patient.[facility] HospitalIn the event this information is protected by the Federal Confidentiality of Alcohol and Drug Abuse Patient Records regulations: The Federal rules restrict any use of the information to criminally investigate or prosecute any alcohol or drug abuse patient.[facility] HospitalIn the event this information is protected by the Federal Confidentiality of Alcohol and Drug Abuse Patient Records regulations: The Federal rules restrict any use of the information to criminally investigate or prosecute any alcohol or drug abuse patient.[facility] HospitalIn the event this information is protected by the Federal Confidentiality of Alcohol and Drug Abuse Patient Records regulations: The Federal rules restrict any use of the information to criminally investigate or prosecute any alcohol or drug abuse patient.[facility] HospitalIn the event this information is protected by the Federal Confidentiality of Alcohol and Drug Abuse Patient Records regulations: The Federal rules restrict any use of the information to criminally investigate or prosecute any alcohol or drug abuse patient.[facility] HospitalIn the event this information is protected by the Federal Confidentiality of Alcohol and Drug Abuse Patient Records regulations: The Federal rules restrict any use of the information to criminally investigate or prosecute any alcohol or drug abuse patient.[facility] HospitalIn the event this information is protected by the Federal Confidentiality of Alcohol and Drug Abuse Patient Records regulations: The Federal rules restrict any use of the information to criminally investigate or prosecute any alcohol or drug abuse patient.[facility] HospitalIn the event this information is protected by the Federal Confidentiality of Alcohol and Drug Abuse Patient Records regulations: The Federal rules restrict any use of the information to criminally investigate or prosecute any alcohol or drug abuse patient.[facility] HospitalIn the event this information is protected by the Federal Confidentiality of Alcohol and Drug Abuse Patient Records regulations: The Federal rules restrict any use of the information to criminally investigate or prosecute any alcohol or drug abuse patient.[facility] HospitalIn the event this information is protected by the Federal Confidentiality of Alcohol and Drug Abuse Patient Records regulations: The Federal rules restrict any use of the information to criminally investigate or prosecute any alcohol or drug abuse patient.[facility] HospitalIn the event this information is protected by the Federal Confidentiality of Alcohol and Drug Abuse Patient Records regulations: The Federal rules restrict any use of the information to criminally investigate or prosecute any alcohol or drug abuse patient.[facility] HospitalIn the event this information is protected by the Federal Confidentiality of Alcohol and Drug Abuse Patient Records regulations: The Federal rules restrict any use of the information to criminally investigate or prosecute any alcohol or drug abuse patient.[facility] HospitalIn the event this information is protected by the Federal Confidentiality of Alcohol and Drug Abuse Patient Records regulations: The Federal rules restrict any use of the information to criminally investigate or prosecute any alcohol or drug abuse patient.[facility] Reason for Visit (unrecogniz ed section and content) Reason Comments Physical Therapy Specialty Diagnoses / Procedures Referred By Katerine t Referred To Contact PHYSICAL THERAPY Diagnoses Feeling of incomplete bladder emptying Procedures CONSULT TO PHYSICAL THERAPY PHYSICAL THERAPY EVALUATION HIGH COMPLEX 45 MINS THERAPEUTIC EXERCISES RE, EA 15 MIN. Ananda Smiley, PATIENT ACCOUNT REPRESENTATIVE.[employer] [address] [facility] [place] [address] Phone: tel: fax: Myesha Fletcher, PT [address] [place] [address] Phone: tel: fax: Referral ID Status Reason Start Date Expiration Date Visits Requested Visits Authorized [id number] Authorized Auto-Generat ed Referral 10/08/2024 10/07/2025 99 99 Reason Comments Radiology NM Reason Comments Kidney Problem Hospital follow up Specialty Diagnoses / Procedures Referred By Katerine lundberg Referred To Contact UROLOGY Diagnoses hospital follow up Procedures hospital follow up Saul Rosas MD [address] [place] [address] Saul Rosas MD [address] [address] Referral ID Status Reason Start Date Expiration Date Visits Requested Visits Authorized [id number] Authorized Patient Cleared - Qualified 100% FAS 02/11/2024 05/11/2024 99 99 Reason Comments Orders Reason Comments Hydronephrosis of left kidney Burning wh en urinating Nauseas Side pain-left Reason Onset Date Comments Orders 04/07/2024 Reason Comments Hydronephrosis Discuss ROBOTIC LAPA ROSCOPY URETERONEOCYSTOSTOMY W/O CYSTOSCOPY AND URETERAL STENT PLACEMENT Reason Comments Appointment Reason Comments Cystoscopy-1 Stent removal Reason Comments Hydronephrosis 3 month follow up Specialty Diagnoses / Procedures Referred By Katerine lundberg Referred To Contact CT IMAGING Diagnoses Ureteral stricture, left Left flank pain Right lateral abdominal pain Procedures CT FLANK WO IVCON CT ABD & PELVIS W/O CONTRAST Basilio Golud MD [address] [place] [address] [place] [address] Referral ID Status Reason Start Date Expiration Date V isits Requested Visits Authorized [id number] Closed Auto-Generate d Referral 08/29/2024 09/28/2025 1 1 Reason Comments Hydronephrosis Follow Up Reason Onset Date Comments Follow Up 10/20/2024 Reason Comments Follow Up Kidney Stones Reason Comments Urethral Stricture Here for 6 wk f/u ur eteral stricture. Reason Comments Ureteral Problem Hydronephrosis feeling of incomplete bladder emptying U rodynamics Reason Comments New Patient Incomplete bladder e mptying Hydronephrosis, H/O Lt Ureteral Stricture. Specialty Diagnoses / Procedures Referred By Katerine t Referred To Contact Urology Diagnoses Incomplete bladder emptying Sagar Rojo MD [address] [place] [address] Phone: tel: fax: [facility] [address] [place] [address] Referral ID Status Reason Start Date Expiration Date V isits Requested Visits Authorized [id number] Pending Review 12/26/2024 01/20/2026 1 1 Reason Comments Hydronephrosis Reason Comments Cystoscopy W/ RUG Specialty Diagnoses / Procedures Referred By Contac t Referred To Contact Urology Diagnoses Retention of urine, unspecified Schedule for RUG, VCUG, cysto for next procedure date. NICOLETTE if possible Procedures ME NJX RETROGRADE URETHROCSTOGRAPY CHG URETHROCYSTOGRAPHY RETROGRADE RS&I ME NJX CSTOGRAPY/VOIDING URETHROCSTOGRAPY CHG URETHROCYSTOGRAPHY VOIDING RS&I RUG, VCUG, cysto Self, Self Clifton Mejia MD, PhD [address] [facility] [address] [place] [address] Phone: tel: fax: Referral ID Status Reason Start Date Expiration Date Visits Re quested Visits Authorized [id number] Closed 01/21/2025 02/15/2026 1 1 Reason Comments Urinary Retention UDS Reason Comments Patient Question Reason Comments Feeling of incomplete bladder emptying Reason Onset Date Comments Results 03/27/2025 Reason Comments Incomplete bladder emptying Reason Comments PT Eval Reason Comments Appointment Patient NS. No answe r. Specialty Diagnoses / Procedures Referred By Contac t Referred To Contact PHYSICAL THERAPY Diagnoses Feeling of incomplete bladder emptying Procedures PHYSICAL THERAPY EVALUATION HIGH COMPLEX 45 MINS THERAPEUTIC EXERCISES RE, EA 15 MIN. Ananda Smiley, PATIENT ACCOUNT REPRESENTATIVE.[employer] [address] [facility] [place] [address] Phone: tel: fax: Myesha Fletcher, PT [address] [place] [address] Phone: tel: fax: Reason Comments Follow-up [facility] PVR Known by Dr. Newsome, incomplete bladder emptying Reason Comments Other Clinic visit to disc uss left percutaneous nephrostomy catheter insertion Specialty Diagnoses / Procedures Referred By Contact Referred To Contact Interventional Radiology Diagnoses Left flank pain Rena Aviles MD [address] [facility] [address] [place] [address] Phone: tel: fax: Referral ID Status Reason Start Date Expiration Date V isits Requested Visits Authorized [id number] New Request 06/24/2025 07/19/2026 1 1 Reason Comments Follow-up Reason Comments Follow-up When the kidney ston e surgery would take place - my chart scheduled, needs to see devora, jessica, or weston Specialty Diagnoses / Procedures Referred By Katerine lundberg Referred To Contact Urology Diagnoses Left flank pain Clifton eNwsome MD, PhD [address] [facility] [address] [place] [address] Phone: tel: fax: Mariusz Dee MD [address] [facility] [address] [place] [address] Phone: tel: fax: Referral ID Status Reason Start Date Expiration Date V isits Requested Visits Authorized [id number] New Request 07/29/2025 08/23/2026 1 1 Scheduled Active and Recently Administ ered Medications (unrecognized section and content) Medication Order 07/09/2025 07/10/2025 07/11/2025 Iohexol (OMNIPAQUE) 300 MG/ML vial 50 mL (COMPLETED) 50 mL, Intravenous, ONCE, 1 dose, On Sun07/10/25 at 0730, Extravasation Risk, Intra-op/Intra-Proc 0730 (Due)0827 (Given - Provider: Annalise Hall MD) Ondansetron 4mg/2ml (ZOFRAN) injection 4 mg 4 mg, Intravenous, ONCE, 1 dose, On Sun07/10/25 at 1200 1200 (Not Given - Provider: Gracy Sherman RN - Reason: Patient/family refused) Continuous Medication Order 07/09/2025 07/10/2025 07/11/2025 Sodium chloride 0.9% IV solution (CANCELED) Intravenous, at 20 mL/hr, CONTINUOUS, Starting on Sun07/10/25 at 0630, Until 07/11/25 at 0823, Pre-op/Pre-Proc 0656 ($$New Bag$$ - Provider : Emre Lozada RN)1200 (Stopped - Provider: Gracy Sherman RN) PRN Medication Order 07/09/2025 07/10/2025 07/11/2025 Acetaminophen (TYLENOL) tablet 650 mg(Linked Group 1) 650 mg, Oral, EVERY 6 HOURS NEEDED, Starting on Sun07/10/25 at 0836, Until 07/11/25 at 1320, Mild Pain, Maximum dose of acetaminophen is 4000 mg from all sources in 24 hours., Post-op/Post-Proc 0914 (Given - Provider: Demetrius Garza RN)1950 (See Alternative - Provider: Dyana Meier RN) cefTRIAXone (ROCEPHIN) 2 g in dextrose 50mL premix IVPB (COMPLETED) 2 g, Intravenous, Administer over 30 Minutes, CASH APPLICATION REPRESENTATIVE TO PROCEDURE, 1 dose, Starting on Sun07/10/25 at 0616, Until Sun07/10/25 at 0717, Other, Surgical Prophylaxis, Initiate antibiotic based on infusion time to complete administration 30-60 minutes prior to surgical incision. , Pre-op/Pre-Proc 0647 ($$New Bag$$ - Provider : Emre Lozada RN) fentaNYL (SUBLIMAZE) injection 0-300 mcg () 0-300 mcg, Intravenous, Administer over 2 Minutes, ADMINISTER DIRECTED, Starting on Sun07/10/25 at 0725, Until Sun07/10/25 at 1124, intraoperative pain management, Administer during procedure as directed by physician. Recorded MAR dose is cumulative amount given during procedure., Intra-op/Intra-Proc 0805 (Given - Provider: Britt Jean RN)0810 (Given - Provider: Mai Jean RN)0820 (Given - Provider: Mai Jean RN)0825 (Given - Provider: Mai Jean RN) Ibuprofen (MOTRIN) tablet 400 mg(Linked Group 1) 400 mg, Oral, EVERY 4 HOURS NEEDED, Starting on Sun07/10/25 at 0836, Until 07/11/25 at 1320, Mild Pain, Give with food, Post-op/Post-Proc 0914 (See Alternative - Provider: Сергей Garza RN)1950 (Given - Provider: Dyana Meier RN) lidocaine-epinephrine 2 %-1:[id number] injection (COMPLETED) ONCE NEEDED, 1 dose, Starting on Sun07/10/25 at 0815, Until Sun07/10/25 at 0815, Intra-op/Intra-Proc 0815 (Given - Provider: Annalise Hall MD) Midazolam (VERSED) injection 0-10 mg () 0-10 mg, Intravenous, ADMINISTER DIRECTED, Starting on Sun07/10/25 at 0725, Until Sun07/10/25 at 1124, Procedural sedation, Administer during procedure as directed by physician. Recorded MAR dose is cumulative amount given during procedure., Intra-op/Intra-Proc 0805 (Given - Provider: Britt Jean RN)0820 (Given - Provider: Mai Jean RN) Ondansetron (ZOFRAN) tablet 4 mg(Linked Group 2) 4 mg, Oral, EVERY 6 HOURS NEEDED, Starting on Sun07/10/25 at 1212, Until 07/11/25 at 1320, Nausea / Vomiting, Try oral dose form first. May give 1 dose as needed in PACU., Recovery 2001 (See Alternative - Provider: Dyana Meier RN) Ondansetron 4mg/2ml (ZOFRAN) injection 4 mg(Linked Group 2) 4 mg, Intravenous, EVERY 6 HOURS NEEDED, Starting on Sun07/10/25 at 1212, Until 07/11/25 at 1320, Nausea / Vomiting, Try oral dose form first. May give 1 dose as needed in PACU. , Recovery 2001 (Given - Provider: Jose Meier RN) Ondansetron 4mg/2ml (ZOFRAN) injection 4 mg (COMPLETED) 4 mg, Intravenous, ONCE NEEDED, 1 dose, Starting on Sun07/10/25 at 0725, Until Sun07/10/25 at 0909, Nausea, Intra-op/Intra-Proc 0909 (Given - Provider: Demetrius Garza RN) Linked Groups Order Group 1: Acetaminophen (TYLENOL) tablet 650 mgJump to med 650 mg, Oral, EVERY 6 HOURS NEEDED, Starting on Sun07/10/25 at 0836, Until 07/11/25 at 1320, Mild Pain, Maximum dose of acetaminophen is 4000 mg from all sources in 24 hours., Post-op/Post-Proc Or Ibuprofen (MOTRIN) tablet 400 mgJump to med 400 mg, Oral, EVERY 4 HOURS NEEDED, Starting on Sun07/10/25 at 0836, Until 07/11/25 at 1320, Mild Pain, Give with food, Post-op/Post-Proc Group 2: Ondansetron (ZOFRAN) tablet 4 mgJump to med 4 mg, Oral, EVERY 6 HOURS NEEDED, Starting on Sun07/10/25 at 1212, Until 07/11/25 at 1320, Nausea / Vomiting, Try oral dose form first. May give 1 dose as needed in PACU., Recovery Or Ondansetron 4mg/2ml (ZOFRAN) injection 4 mgJump to med 4 mg, Intravenous, EVERY 6 HOURS NEEDED, Starting on 07/10/25 at 1212, Until 07/11/25 at 1320, Nausea / Vomiting, Try oral dose form first. May give 1 dose as needed in PACU. , Recovery FOR RECORDS PERTAINING TO PATIENTS WHO ARE [...] BE BASED ON THE PRIMARY CLINICAL RECORDS. [employer] [facility]. provides no warranty or guarantee of the accuracy or completeness of information in this document.
[2025-10-03 23:00] VITALS: BP 130/88; PULSE 72; RESP 16; O2SAT 100
[2025-10-03 23:48] VITALS: BP 130/88; PULSE 72; RESP 16; TEMP 36.9; O2SAT 100
== END 2025-10-03 23:54 | disposition home or self-care (01) ==
PROVIDERS: Emergency Provider Emergency Medicine; Visit Provider Emergency Medicine
DX: N13.6 Pyonephrosis (principal); Z93.6 Other artificial openings of urinary tract status; R06.00 Dyspnea, unspecified; R00.2 Palpitations
CPT/HCPCS: 74176; 80048; 81001; 85025; 87077; 87086; 87088; 87186; 96361; 96365; 99283; A4216